=== PATIENT | female | born 1935 ===

== ENCOUNTER 2020-04-29 10:47 | Outpatient (REF) | payer MEDICARE, OTHER, SELFPAY ==
[2020-04-29 12:06] LABS: MANUAL DIFF FLAG NO
[2020-04-29 12:22] LABS: Basophils Absolute Auto 0.1 X10*3/uL (0.0-0.2); Basophils Percent Auto 0.5 % (0-2); Eosinophils Absolute Auto 0.2 X10*3/uL (0.0-0.4); Eosinophils Percent Auto 1.6 % (0-4); Hematocrit 38.8 % (37-47); Hemoglobin 11.9 g/dl (12.0-16.0); Imm Gran Abs Auto 0.03 X10*3/uL (0.00-0.03); Imm Gran Pct Auto 0.3 % (0.0-0.4); Immature Retic Fraction 17.5 % (3.0-15.9); Lymphocytes Absolute Auto 2.6 X10*3/uL (1.2-4.9); Lymphocytes Percent Auto 27.8 % (20-40); Mean Corpuscular HGB Conc 30.7 g/dl (31.0-35.0); Mean Corpuscular Hemoglobin 29.6 pg (27.0-33.0); Mean Corpuscular Volume 96.5 fL (80-98); Mean Platelet Volume 9.4 fL (9.4-12.3); Monocytes Absolute Auto 0.5 X10*3/uL (0.1-1.2); Monocytes Percent Auto 5.4 % (2-11); Neutrophils Percent Auto 64.4 % (45-73); Platelet Count 450 X10*3/uL (160-400); Red Blood Count 4.02 X10*6/uL (4.20-5.50); Red Cell Distribution Width 14.8 % (11.0-16.0); Retic HGB Equivalent 34.5 pg (30.0-35.0); Reticulocytes Absolute 0.039 X10*6/uL (0.026-0.095); White Blood Count 9.4 X10*3/uL (4.8-10.8)
[2020-04-29 12:34] LABS: Alanine Aminotransferase 14 U/L (0-31); Albumin Level 4.1 g/dL (3.5-5.0); Alkaline Phosphatase 85 U/L (39-117); Anion Gap 11 (12-20); Aspartate Amino Transferase 19 U/L (5-31); Bilirubin Total 0.5 mg/dL (0.0-1.0); Blood Urea Nitrogen 18 mg/dL (9-16); Calcium 9.6 mg/dL (8.4-10.2); Carbon Dioxide 33 mmol/L (22-29); Chloride 100 mmol/L (96-108); Estimated Glomerular Filt Rate > 60; Glucose Random 83 mg/dL (60-115); Iron 47 mcg/dL (30-160); Percent Iron Saturation 14 % (15-50); Sodium 140 mmol/L (135-145); Total Iron Binding Capacity 332 mcg/dL (228-428); Total Protein 6.4 g/dL (6.5-8.0); Unsaturated Iron Binding 285 ug/dL
[2020-04-29 12:57] LABS: Ferritin 57 ng/mL (10-250); Thyroid Stimulating Hormone 1.97 uIU/mL (0.32-4.0)
[2020-04-29 13:04] LABS: Folate > 20.0 ng/mL (> or = 4.0); Vitamin B12 508 pg/mL (200-900)
== END 2020-04-29 10:48 | disposition home or self-care (01) ==
LOC: HO.LAB 10:47
PROVIDERS: PCP Internal Medicine; Visit Provider Internal Medicine
DX: D64.9 Anemia, unspecified (principal)
CPT/HCPCS: 36415; 80053; 82607; 82728; 82746; 83540; 84439; 84443; 85025; 85045

== ENCOUNTER 2020-05-10 14:06 | Outpatient (REF) | payer MEDICARE, OTHER, SELFPAY ==
--- NOTE | 2020-05-10 14:09 | MM_ITS ---
EXAMINATION: MM SCREENING DIGITAL BREAST TOMOSYNTHESIS, BILATERAL CLINICAL INFORMATION: Screening. Asymptomatic. The lifetime risk of breast cancer based on the Tyrer-Cuzick Model is 1%. COMPARISON: Mammography: 04/21/2019, 04/15/2018 TECHNIQUE: Digital breast tomosynthesis is performed in both the craniocaudal and mediolateral oblique views along with computer-aided detection (CAD). Synthesized 2D images are generated from the tomosynthesis. FINDINGS: There are scattered areas of fibroglandular density (ACR BI-RADS breast composition Category b). Breast tissue composition borders on heterogeneously dense in the anterior breasts. Parenchymal pattern is similar to prior studies. There is no interval mass or developing density or architectural abnormality. Again, there are scattered bilateral round and coarse and some vascular calcifications. There is biopsy clip marker again seen right breast upper outer quadrant and left breast central mid 9:00 position. Low left axillary tail node again noted. Axillary nodes and skin contours are unremarkable. No significant changes from prior studies. MM/MM tomosynthesis screening BI IMPRESSION: No significant changes from prior studies. ASSESSMENT: BI-RADS 2: Benign RECOMMENDATION: Routine annual mammography screening. This patient's information was entered into a reminder system with a target due date for their next mammogram.
== END 2020-05-10 14:07 | disposition home or self-care (01) ==
LOC: HO.MAMMO 14:06
PROVIDERS: PCP Internal Medicine; Visit Provider Internal Medicine
DX: Z12.31 Encounter for screening mammogram for malignant neoplasm of breast (principal)
CPT/HCPCS: 77063; 77067

== ENCOUNTER 2020-06-12 07:27 | Outpatient (REF) | payer MEDICARE, OTHER, SELFPAY ==
--- NOTE | ~2020-06-12 | XR_ITS ---
EXAMINATION: XR CHEST CLINICAL INFORMATION: Shortness of breath. COMPARISON: 01/13/2020 chest radiographs. TECHNIQUE: 2 views of the chest were obtained. FINDINGS: Kyphotic positioning and low lung volumes limit evaluation. The lungs are clear. The heart and mediastinal structures are unremarkable. There is a moderate-sized hiatal hernia. XR/XR chest 2V IMPRESSION: 1. No acute cardiopulmonary process. 2. Moderate hiatal hernia.
== END 2020-06-12 07:28 | disposition home or self-care (01) ==
LOC: HO.XRAY 07:27
PROVIDERS: PCP Internal Medicine; Visit Provider Internal Medicine
DX: R06.02 Shortness of breath (principal)
CPT/HCPCS: 71046

== ENCOUNTER 2020-11-01 15:20 | Outpatient (REF) | payer MEDICARE, OTHER, SELFPAY ==
[2020-11-01 16:22] LABS: Glucose Urine UA NEG (NEG); Leukocyte Esterase Urine NEG (NEG); Nitrite Urine NEG (NEG); Urine Blood NEG (NEG); Urine Ketones NEG (NEG); Urine Protein NEG (NEG-TRACE)
[2020-11-01 16:44] LABS: Appearance Urine CLEAR; Color Urine YELLOW
== END 2020-11-01 15:21 | disposition home or self-care (01) ==
LOC: HO.LAB 15:20
PROVIDERS: PCP Internal Medicine; Visit Provider Internal Medicine
DX: R30.0 Dysuria (principal); E78.00 Pure hypercholesterolemia, unspecified; L93.0 Discoid lupus erythematosus; G25.81 Restless legs syndrome
CPT/HCPCS: 81003

== ENCOUNTER 2020-11-03 13:08 | Outpatient (REF) | payer MEDICARE, OTHER, SELFPAY ==
--- NOTE | ~2020-11-03 | XR_ITS ---
EXAMINATION: XR LUMBOSACRAL SPINE CLINICAL INFORMATION: Low back pain COMPARISON: January 27, 2017 TECHNIQUE: Three views of the lumbosacral spine. FINDINGS: There is diffuse osteopenia visualized bones. There is chronic superior endplate fracture of L2. There is multilevel degenerative disc disease present with no definite new acute fracture identified. Facet arthropathy is seen L5-S1. Pedicles appear intact. Inferior vena cava filter seen in place. Left iliac artery stent is seen. XR/XR lumbar spine 2-3V IMPRESSION: Diffuse osteopenia with multilevel degenerative disc disease and facet arthropathy. Chronic compression fracture superior endplate of L2. No definite acute fracture identified.
== END 2020-11-03 13:09 | disposition home or self-care (01) ==
LOC: HO.HMGCX 13:08
PROVIDERS: PCP Internal Medicine; Visit Provider Nurse Practitioner Family
DX: M54.5 Low back pain (principal)
CPT/HCPCS: 72100

== ENCOUNTER 2020-12-01 23:11 | Emergency (ER) | payer MEDICARE, OTHER, SELFPAY ==
--- NOTE | ~2020-12-01 | CT_ITS ---
EXAMINATION: CT ANGIOGRAM OF THE CHEST WITH AND WITHOUT CONTRAST (CT PULMONARY ANGIOGRAM FOR PE) CLINICAL INFORMATION: Reason for Exam Left-sided pleuritic chest pain, history of PE rule out PE COMPARISON: 01/13/2020 TECHNIQUE: Prior to contrast administration, noncontrast localization images were obtained. Subsequently, multidetector volumetric imaging was performed from the thoracic inlet to below the diaphragms following the administration of 85 mL Omnipaque 350 intravenous contrast. No contrast reaction reported Sagittal, coronal, and MIP oblique sagittal reformatted images were obtained on the CT workstation, uploaded to PACS, and reviewed. This CT examination was performed using dose optimization techniques as appropriate, variously including the following: *Automated exposure control *Adjustment of mA and/or kV according to patient size (this includes techniques or standardized protocols for targeted exams where dose is matched to indication/reason for exam; i.e. extremities or head) *Use of iterative reconstruction technique Total exam dose-length product 751 mGy-cm FINDINGS: QUALITY OF STUDY/CONTRAST BOLUS: Satisfactory. PULMONARY ARTERIES: No central or segmental pulmonary emboli. THORACIC AORTA: No aneurysm or dissection. LUNG: No focal consolidation or evidence of acute pneumonitis. Moderate emphysema. Mild diffuse bronchial wall thickening without bronchiectasis. Stable 4 mm nodule within right lower lobe. New 5 mm subpleural nodule within the lateral segment of the left lower lobe. Stable 4 mm pleural nodule within the lateral left lower lobe. PLEURA: No pleural effusion or pneumothorax. MEDIASTINUM: Cardiomegaly. No pericardial effusion. No hilar or mediastinal lymphadenopathy. No evidence of septal bowing or right heart strain. No reflux of contrast into the hepatic veins to suggest elevated right heart pressures. CHEST WALL/AXILLA: No axillary or internal mammary lymphadenopathy. OSSEOUS STRUCTURES: No acute or suspicious osseous abnormality. CT/CT angio chest PE protocol IMPRESSION: * No pulmonary embolism. * No aortic aneurysm or dissection. * No pneumonitis or parenchymal consolidation. * Moderate emphysema. * New 5 mm subpleural nodule at the left lung base laterally. Suspect pleural parenchymal scarring or focal atelectasis. As precaution, recommend follow-up CT chest in one year. * Remaining pulmonary nodules are stable. * Cardiomegaly and triple vessel coronary calcifications. VTE: negative
--- NOTE | ~2020-12-01 | CT_ITS ---
EXAMINATION: CT ABDOMEN AND PELVIS WITH CONTRAST CLINICAL INFORMATION: Lower abdominal pain COMPARISON: 08/07/2018 TECHNIQUE: Multidetector volumetric images were obtained from the superior aspect of the liver through the pubic symphysis following administration 85 mL of Omnipaque 350 intravenous contrast. Sagittal and coronal reformatted images were obtained on the technologist's workstation. Oral contrast: No This CT examination was performed using dose optimization techniques as appropriate, variously including the following: *Automated exposure control *Adjustment of mA and/or kV according to patient size (this includes techniques or standardized protocols for targeted exams where dose is matched to indication/reason for exam; i.e. extremities or head) *Use of iterative reconstruction technique DLP: 751 mGy-cm FINDINGS: LIVER, GALLBLADDER, AND BILIARY TREE: The liver is normal in size, shape, and attenuation. No focal hepatic lesion or biliary ductal dilatation is present. Gallbladder unremarkable. PANCREAS: Atrophic. No pancreatic or peripancreatic inflammation. SPLEEN: Normal size. Stable cysts, one of which contains coarse calcifications. ADRENAL GLANDS: Stable smooth low-density thickening of the bilateral adrenal glands. KIDNEYS AND URETERS: The kidneys are normal in size, shape, and attenuation. No hydronephrosis, hydroureter, or calculi seen. No perinephric stranding. BLADDER: Unremarkable. GASTROINTESTINAL TRACT: Scattered colonic diverticula. No evidence of diverticulitis. Normal appendix. Moderate hiatal hernia. Small bowel unremarkable. ABDOMINAL WALL: Small fat-containing umbilical hernia. LYMPH NODES: Normal. VASCULAR: Aorta is densely atherosclerotic. IVC filter present within the infrarenal IVC. PELVIC VISCERA: Hysterectomy. No adnexal abnormalities. OSSEOUS STRUCTURES: No acute or suspicious osseous abnormalities. CT/CT abdomen pelvis w con IMPRESSION: No acute findings within the abdomen or pelvis. Pericolonic diverticulosis, most concentrated within the left colon. No evidence of diverticulitis.
[2020-12-02 00:12] VITALS: BP 169/83; PULSE 101; RESP 20; TEMP 36.9; O2SAT 96; BMI 21.3
--- NOTE | 2020-12-02 01:06 | ECG_ITS ---
Test Reason : SOB Blood Pressure : / mmHG Vent. Rate : 077 BPM Atrial Rate : 077 BPM P-R Int : 208 ms QRS Dur : 078 ms QT Int : 392 ms P-R-T Axes : 031 006 006 degrees QTc Int : 443 ms Normal sinus rhythm Normal ECG When compared with ECG of 13-JAN-2020 04:58, T wave inversion less evident in Inferior leads T wave inversion no longer evident in Anterior leads QT has shortened Referred By: Venkat Veloz Electronically Signed By:ALEKS PEREYRA
--- NOTE | 2020-12-02 01:08 | ED.GENADULT ---
HPI - General Adult General Chief complaint: Dyspnea Stated complaint: pain in lung when breathes Time Seen by Provider: 12/02/20 00:53 Source: patient Mode of arrival: ambulatory Limitations: no limitations History of Present Illness HPI narrative: A 5-year-old female who presents emergency department for evaluation of left-sided pleuritic chest pain. The patient states that the pain came on suddenly 3 days prior. She points to her left lateral chest when asked to localize the pain. The pain is constant. The pain is 8/10 . The pain is worse with breathing and lying down flat. The patient denied fever, chills, cough. Patient has a history of pulmonary embolism diagnosed 01/07/2020. She states that she was sent to [facility] and had a inferior vena cava umbrella device placed. She is currently taking Xarelto. She states she is compliant with this medication. Patient is also complaining of abdominal pain and diarrhea. She states that 1 week prior she had 1 day of diarrhea which resolved without treatment. Since that time she has been having diffuse, intermittent, abdominal pain. She describes it as a cramping sensation. The pain is khtr-sh-[id number] in intensity. She denied frequency, urgency or dysuria. She denied change in her bowel movements Related Data Home Medications Medication Instructions Recorded Confirmed aspirin 81 mg tablet,delayed 81 mg PO DAILY 02/27/20 10/28/20 release (Adult Aspirin Regimen) calcium carbonate 600 mg calcium 600 mg PO DAILY 02/27/20 10/28/20 (1,500 mg) tablet (Calcium) cholecalciferol (vitamin D3) 25 25 mcg PO DAILY 02/27/20 10/28/20 mcg (1,000 unit) capsule clobetasol 0.05 % topical cream 1 applic TOPICAL BID 02/27/20 10/28/20 diclofenac sodium 1 % topical gel 2 g TOPICAL QID 02/27/20 10/28/20 (Voltaren) folic acid 1 mg tablet 1 mg PO DAILY 02/27/20 10/28/20 gabapentin 100 mg capsule 100 mg PO BID 02/27/20 10/28/20 mirabegron 25 mg tablet,extended 25 mg PO DAILY 02/27/20 10/28/20 release 24 hr (Myrbetriq) tramadol 50 mg tablet 50 mg PO TID PRN 02/27/20 10/28/20 methotrexate sodium 2.5 mg tablet See Rx Instructions PO QWEEK 04/29/20 10/28/20 fluticasone fur. 200 mcg-umeclid 1 inh INHALATION DAILY 10/28/20 10/28/20 62.5 mcg-vilant 25 mcg inhalat.powder (Trelegy Ellipta) Previous Rx's Medication Instructions Recorded rosuvastatin 5 mg tablet (Crestor) 5 mg PO DAILY #90 tab 02/27/20 albuterol sulfate 90 mcg/actuation 2 puff INHALATION Q4-6H PRN #3 05/03/20 aerosol inhaler (ProAir HFA) units hydrochlorothiazide 25 mg tablet 25 mg PO DAILY #90 tab 05/25/20 hydralazine 10 mg tablet 10 mg PO BID #60 tab 06/07/20 losartan 100 mg tablet 100 mg PO DAILY #30 tab 06/07/20 ropinirole 0.5 mg tablet 0.5 mg PO BEDTIME #30 tab 10/28/20 acetaminophen 500 mg capsule 500 - 1,000 mg PO QID PRN #30 cap 11/03/20 lidocaine 5 % topical patch 1 patch TOPICAL DAILY #30 ea 11/03/20 esomeprazole magnesium 40 mg 40 mg PO DAILY #90 cap 11/18/20 capsule,delayed release rivaroxaban 10 mg tablet 10 mg PO DAILY 90 Days #90 tab 11/18/20 Allergies Allergy/AdvReac Type Severity Reaction Status Date / Time amlodipine Allergy Unknown leg Verified 10/28/20 10:57 swelling, swelling atorvastatin [Lipitor] Allergy Unknown Unknown Verified 10/28/20 10:57 hydroxychloroquine Allergy Unknown Unknown Verified 10/28/20 10:57 [From Plaquenil] metoprolol Allergy Unknown unknown Verified 10/28/20 10:57 Review of Systems Review of Systems: Yes all other systems are reviewed and are negative PMFSH Past Medical History Medical History Anxiety Arterial occlusive disease Discoid lupus Diverticulitis DVT (deep venous thrombosis) GERD (gastroesophageal reflux disease) Greater saphenous vein embolism Hypercholesterolemia Hypertension Iliac artery occlusion Left leg DVT Osteopenia Pulmonary embolism Pulmonary nodule Restless leg Thrombus of aorta Surgical History Bilateral pulmonary embolism History of breast biopsy History of cataract surgery History of foot surgery History of toe surgery History of total abdominal hysterectomy and bilateral salpingo-oophorectomy Family History Family History Father Hypertension Cancer Mother Hypertension Stroke CVD (cardiovascular disease) Social History Social History Housing: House Alcohol intake: current Alcohol intake frequency: holidays/special occasions only Patient Tobacco Use Status: Former Tobacco user Tobacco use type: Cigarette Second Hand Smoke Exposure: No Advance Directives: No Advance Directives Information Provided: No service: No Current occupational status: retired Physical Exam Vital Signs: Vital Signs: Last Vital Signs Temp 98.4 F 12/02/20 00:12 Pulse 101 H 12/02/20 00:12 Resp 20 12/02/20 00:12 BP 169/83 H 12/02/20 00:12 Pulse Ox 96 12/02/20 00:12 Body Mass Index 21.3 Const: Other: Elderly female, very pleasant and cooperative, appears to be in pydx-ay-adyynces distress secondary to her left-sided chest pain, patient answers all questions appropriately. HENMT: Head: Yes normal to inspection, Yes normocephalic and Yes atraumatic Ears: external ears normal General nose exam: Normal external nose present Face and sinus: Yes normal facial exam Mouth: Normal oral and palatal mucosa present Throat: Yes posterior oropharynx normal Eyes: Periorbital: periorbital findings normal Eyelids: Yes eyelids normal Conjunctivae: conjunctivae normal Sclerae: sclerae normal Corneas: corneas normal Pupils: Equal, round and reactive pupils present Direct Ophthalmoscopy: normal light reflex Neck: Neck: Yes full ROM, Yes no lymphadenopathy, Yes no meningeal signs, Yes trachea midline and Yes supple Chest: Other: Moderate left lateral chest wall tenderness, no vesicular lesions noted in the area of tenderness Resp: Effort & Inspection: normal respiratory effort and able to speak in complete sentences Auscultation: clear to auscultation bilaterally Cardio: Rate: regular rate Rhythm: regular rhythm Heart sounds: S1 normal heart sound present, S2 normal heart sound present and no murmurs GI: Inspection: Yes normal to inspection Palpation (GI): Soft to palpation, nontender, no guarding, not rigid and No hepatosplenomegaly present : General: Yes no CVA tenderness Back/Spine/Pelvis: Back: no CVA tenderness Cervical Spine: normal cervical lordosis Thoracic/Lumbar Spine: thoracic and lumbar spine normal to inspection Skin: Lesions: no lesions Rashes: no rashes Wounds: no wounds Neuro: General: no meningeal signs Cranial nerves: Yes CN's II-XII intact bilaterally and Yes Equal, round and reactive pupils present Cognition (Neuro): normal cognition Motor exam (neuro): 5/5 motor strength present throughout Extrem: General: Yes normal to inspection and Yes full ROM Psych: Appearance: well kempt Mental Status: mental status grossly normal Speech and movement: Normal speech and movement present Affect: normal affect Attitude: cooperative Thought process: Normal thought process present Thought content: Normal thought content present Course Course Course Narrative: 85-year-old female who presents emergency department for evaluation of left lateral pleuritic chest x3 days and diffuse abdominal pain x1 week. 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 Vital signs revealed an elevated BP of 169/83 and tachycardia with a pulse of 101. The patient's examination revealed left lateral chest wall tenderness otherwise was unremarkable. The differential includes but is not limited to pleurisy, pulmonary embolism, pericarditis, pneumonia, abdominal process. I ordered a laboratory workup to include a CBC, CMP, lipase, D-dimer, PT/INR, PTT. EKG will be obtained. CT chest PE protocol and CT scan of the abdomen pelvis will also be obtained. The patient does not want any pain medications at this time. She was ordered to get normal saline 1 L IV. 0201: The patient's 12 EKG revealed a sinus rhythm with first-degree AV block otherwise was unremarkable. The patient's laboratory evaluation and CT scans are pending at the end of my shift. The patient's care was therefore turned over to my colleague, Dr. Leatha Hoskins. Discharge Plan Discharge Prescriptions: No Action albuterol sulfate [ProAir HFA] 90 mcg/actuation HFA aerosol inhaler 2 puff inhalation Q4-6H PRN (Reason: bronchospasm) Qty: 3 RF: 0 hydrochlorothiazide 25 mg tablet 25 mg PO DAILY Qty: 90 RF: 3 losartan 100 mg tablet 100 mg PO DAILY Qty: 30 RF: 0 hydralazine 10 mg tablet 10 mg PO BID Qty: 60 RF: 4 esomeprazole magnesium 40 mg capsule,delayed release(DR/EC) 40 mg PO DAILY Qty: 90 RF: 3 rivaroxaban 10 mg tablet 10 mg PO DAILY 90 Days Qty: 90 RF: 1 lidocaine 5 % adhesive patch,medicated 1 patch topical DAILY Qty: 30 RF: 0 acetaminophen 500 mg capsule 500 - 1,000 mg PO QID PRN (Reason: pain) Qty: 30 RF: 0 diclofenac sodium [Voltaren] 1 % gel 2 g topical QID RF: 0 calcium carbonate [Calcium 600] 600 mg calcium (1,500 mg) tablet 600 mg PO DAILY RF: 0 aspirin [Adult Aspirin Regimen] 81 mg tablet,delayed release (DR/EC) 81 mg PO DAILY RF: 0 folic acid 1 mg tablet 1 mg PO DAILY RF: 0 tramadol 50 mg tablet 50 mg PO TID PRNRF: 0 gabapentin 100 mg capsule 100 mg PO BID RF: 0 cholecalciferol (vitamin D3) 25 mcg (1,000 unit) capsule 25 mcg PO DAILY RF: 0 Myrbetriq 25 mg tablet extended release 24 hr 25 mg PO DAILY RF: 0 clobetasol 0.05 % cream 1 applic topical BID RF: 0 rosuvastatin [Crestor] 5 mg tablet 5 mg PO DAILY Qty: 90 RF: 2 methotrexate sodium 2.5 mg tablet See Rx Instructions PO QWEEK RF: 0 Trelegy Ellipta 200-62.5-25 mcg blister with device 1 inh inhalation DAILY RF: 0 ropinirole 0.5 mg tablet 0.5 mg PO BEDTIME Qty: 30 RF: 3
[2020-12-02 02:35] LABS: MANUAL DIFF FLAG NO
[2020-12-02 02:37] LABS: Basophils Percent Auto 0.2 % (0-2); Hemoglobin 12.6 g/dl (12.0-16.0); Imm Gran Abs Auto 0.03 X10*3/uL (0.00-0.03); Imm Gran Pct Auto 0.5 % (0.0-0.4); Lymphocytes Absolute Auto 1.4 X10*3/uL (1.2-4.9); Lymphocytes Percent Auto 22.5 % (20-40); Mean Corpuscular HGB Conc 31.5 g/dl (31.0-35.0); Mean Corpuscular Hemoglobin 27.4 pg (27.0-33.0); Mean Platelet Volume 9.1 fL (9.4-12.3); Monocytes Absolute Auto 0.1 X10*3/uL (0.1-1.2); Monocytes Percent Auto 1.1 % (2-11); Neutrophils Absolute Auto 4.7 X10*3/uL (2.0-8.3); Neutrophils Percent Auto 75.7 % (45-73); Platelet Count 338 X10*3/uL (160-400); Red Cell Distribution Width 16.1 % (11.0-16.0); White Blood Count 6.3 X10*3/uL (4.8-10.8)
[2020-12-02 02:40] VITALS: BP 168/71; PULSE 75; RESP 19; TEMP 36.9; O2SAT 96
[2020-12-02] MEDS: 0.9 % Sodium Chloride 1,000 ML 999 ML IV (02:42)
[2020-12-02 02:52] LABS: INTERNATIONAL NORM RATIO 1.5 (0.9-1.1); Prothrombin Time 17.7 SEC (9.9-13.0)
[2020-12-02 03:01] LABS: D Dimer < 200 NG/ML
[2020-12-02 03:02] LABS: Alanine Aminotransferase 12 U/L (0-31); Alkaline Phosphatase 80 U/L (39-117); Anion Gap 12 (12-20); Aspartate Amino Transferase 18 U/L (5-31); Bilirubin Total 0.5 mg/dL (0.0-1.0); Blood Urea Nitrogen 28 mg/dL (9-16); Calcium 9.6 mg/dL (8.4-10.2); Carbon Dioxide 29 mmol/L (22-29); Chloride 104 mmol/L (96-108); Creatinine Clr Calc Pharmacy 58.3; Estimated Glomerular Filt Rate > 60; Glucose Random 157 mg/dL (60-115); Lipase 13 U/L (8-78); Sodium 141 mmol/L (135-145); Total Protein 6.3 g/dL (6.5-8.0)
[2020-12-02 03:04] LABS: Troponin-I High Sensitivity 5.6 ng/L (<3.5-17.0)
[2020-12-02 03:08] LABS: Glucose Urine UA NEG (NEG); Leukocyte Esterase Urine NEG (NEG); Nitrite Urine NEG (NEG); Specific Gravity - Urine 1.025 (1.005-1.025); Urine Blood NEG (NEG); Urine Ketones NEG (NEG); Urine Protein NEG (NEG-TRACE)
[2020-12-02 03:12] LABS: Appearance Urine CLEAR; Color Urine YELLOW
[2020-12-02] MEDS: iohexoL 350 MG/ML 100 ML INFUS..BTL 85 ML IV (03:33)
[2020-12-02 04:00] VITALS: BP 140/52; PULSE 78; RESP 13; O2SAT 97
[2020-12-02 05:47] VITALS: BP 155/64; PULSE 76; RESP 18; O2SAT 97
== END 2020-12-02 06:01 | disposition home or self-care (01) ==
PROVIDERS: Emergency Medicine Emergency Medical Services; Emergency Provider Student in an Organized Health Care Education/Training Program; PCP Internal Medicine
DX: R06.00 Dyspnea, unspecified (principal); R06.02 Shortness of breath; R07.9 Chest pain, unspecified; R10.9 Unspecified abdominal pain; Z79.899 Other long term (current) drug therapy; Z87.891 Personal history of nicotine dependence; Z79.01 Long term (current) use of anticoagulants
CPT/HCPCS: 36415; 71275; 74177; 80053; 81003; 83690; 84484; 85025; 85379; 85610; 85730; 93005; 96360; 99284; Q9967

== ENCOUNTER 2021-04-05 07:03 | Outpatient (REF) | payer MEDICARE, OTHER, SELFPAY ==
[2021-04-05 11:19] LABS: MANUAL DIFF FLAG NO
[2021-04-05 11:23] LABS: Basophils Absolute Auto 0.1 X10*3/uL (0.0-0.2); Basophils Percent Auto 0.8 % (0-2); Eosinophils Absolute Auto 0.1 X10*3/uL (0.0-0.4); Eosinophils Percent Auto 1.5 % (0-4); Hematocrit 39.4 % (37.0-47.0); Hemoglobin 12.2 g/dl (12.0-16.0); Imm Gran Abs Auto 0.03 X10*3/uL (0.00-0.03); Imm Gran Pct Auto 0.3 % (0.0-0.4); Immature Retic Fraction 12.2 % (3.0-15.9); Lymphocytes Absolute Auto 2.4 X10*3/uL (1.2-4.9); Lymphocytes Percent Auto 27.5 % (20-40); Mean Corpuscular Hemoglobin 28.6 pg (27.0-33.0); Mean Corpuscular Volume 92.3 fL (80.0-98.0); Mean Platelet Volume 9.7 fL (9.4-12.3); Monocytes Absolute Auto 0.6 X10*3/uL (0.1-1.2); Monocytes Percent Auto 7.3 % (2-11); Neutrophils Absolute Auto 5.5 x10*3/uL (2.0-8.3); Neutrophils Percent Auto 62.6 % (45-73); Platelet Count 371 X10*3/uL (160-400); Red Blood Count 4.27 X10*6/uL (4.20-5.50); Red Cell Distribution Width 15.4 % (11.0-16.0); Retic HGB Equivalent 30.6 pg (30.0-35.0); Reticulocyte Percent 1.7 % (0.5-1.8); Reticulocytes Absolute 0.073 X10*6/uL (0.026-0.095); White Blood Count 8.7 X10*3/uL (4.8-10.8)
[2021-04-05 11:48] LABS: Alanine Aminotransferase 18 U/L (0-31); Albumin Level 3.9 g/dL (3.5-5.0); Alkaline Phosphatase 80 U/L (39-117); Anion Gap 15 (12-20); Aspartate Amino Transferase 26 U/L (5-31); Bilirubin Total 0.4 mg/dL (0.0-1.0); Blood Urea Nitrogen 17 mg/dL (9-16); Calcium 9.3 mg/dL (8.4-10.2); Carbon Dioxide 27 mmol/L (22-29); Chloride 104 mmol/L (96-108); Cholesterol 171 mg/dL; Estimated Glomerular Filt Rate > 60; Glucose Random 98 mg/dL (60-115); HDL Cholesterol 49 mg/dL; Iron 45 mcg/dL (30-160); LDL Cholesterol Calculated 105 mg/dl; Magnesium 1.9 mg/dL (1.6-2.6); Percent Iron Saturation 14 % (15-50); Potassium 4.2 mmol/L (3.3-5.1); Sodium 142 mmol/L (135-145); Total Iron Binding Capacity 322 mcg/dL (228-428); Total Protein 6.1 g/dL (6.5-8.0); Triglycerides 89 mg/dL; Unsaturated Iron Binding 277 ug/dL
[2021-04-05 11:57] LABS: Ferritin 35 ng/mL (10-250); Free T4 (Free Thyroxine) 1.19 ng/dL (0.71-1.85); Thyroid Stimulating Hormone 1.58 uIU/mL (0.32-4.0); Vitamin D 25-OH Total 55.6 ng/mL (>30)
[2021-04-05 12:29] LABS: Erythrocyte Sedimentation Rate 13 MM/HR (0-20)
[2021-04-05 12:57] LABS: Folate 18.8 ng/mL (> or = 4.0); Vitamin B12 500 pg/mL (200-900)
== END 2021-04-05 07:04 | disposition home or self-care (01) ==
LOC: HO.HMGCLDS 07:03
PROVIDERS: PCP Internal Medicine; Visit Provider Internal Medicine
DX: E78.00 Pure hypercholesterolemia, unspecified (principal); L93.0 Discoid lupus erythematosus; G25.81 Restless legs syndrome
CPT/HCPCS: 36415; 80053; 80061; 82306; 82607; 82728; 82746; 83540; 83735; 84439; 84443; 85025; 85045; 85652

== ENCOUNTER 2021-05-16 07:19 | Outpatient (REF) | payer MEDICARE, OTHER, SELFPAY ==
--- NOTE | ~2021-05-16 | MM_ITS ---
EXAMINATION: MM SCREENING DIGITAL BREAST TOMOSYNTHESIS, BILATERAL CLINICAL INFORMATION: Screening. Asymptomatic. The lifetime risk of breast cancer based on the Tyrer-Cuzick Model is 1%. COMPARISON: Mammography: 05/10/2020, 04/21/2019, 04/15/2018 TECHNIQUE: Digital breast tomosynthesis is performed in both the craniocaudal and mediolateral oblique views along with computer-aided detection (CAD). Synthesized 2D images are generated from the tomosynthesis. FINDINGS: There are scattered areas of fibroglandular density (ACR BI-RADS breast composition Category b). There are no significant masses, abnormal calcifications, or other abnormalities. Parenchymal pattern is similar to prior studies. No developing density or architectural abnormality. There is biopsy clip markers again seen mid 12:00 left breast and right breast upper outer quadrants, respectively. There are scattered bilateral benign-appearing grouped calcifications in both breasts similar in distribution and number. No significant changes. MM/MM tomosynthesis screening BI IMPRESSION: No mammographic evidence of malignancy. ASSESSMENT: BI-RADS 2: Benign RECOMMENDATION: Routine annual mammography screening. This patient's information was entered into a reminder system with a target due date for their next mammogram.
== END 2021-05-16 07:20 | disposition home or self-care (01) ==
LOC: HO.MAMMO 07:19
PROVIDERS: PCP Internal Medicine; Visit Provider Internal Medicine
DX: Z12.31 Encounter for screening mammogram for malignant neoplasm of breast (principal)
CPT/HCPCS: 77063; 77067

== ENCOUNTER 2021-08-26 15:48 | Outpatient (REF) | payer MEDICARE, OTHER, SELFPAY ==
--- NOTE | ~2021-08-26 | XR_ITS ---
EXAMINATION: XR ABDOMEN COMPLETE CLINICAL INDICATION: Constipation, unspecified. COMPARISON: None TECHNIQUE: 2 views of the abdomen. FINDINGS: Moderate to large volume fecal residual is noted throughout the entire large bowel without evidence of any bowel distention or air-fluid level. Note is also made of inferior vena cava filter, appear in good position. Extensive atherosclerotic disease of the aortoiliac arteries and left common iliac arterial wall stent are present. Moderate diffuse osteopenia. XR/XR abdomen min 2V IMPRESSION: Moderate to large volume fecal residual throughout the entire large bowel without any radiographic evidence of any bowel distention or air-fluid level.
== END 2021-08-26 15:49 | disposition home or self-care (01) ==
LOC: HO.HMGCX 15:48
PROVIDERS: PCP Internal Medicine; Visit Provider Hospitalist
DX: K59.00 Constipation, unspecified (principal)
CPT/HCPCS: 74019

== ENCOUNTER 2021-09-19 10:52 | Emergency (ER) | payer MEDICARE, OTHER, SELFPAY ==
--- NOTE | ~2021-09-19 | US_ITS ---
EXAMINATION: US ABDOMEN LIMITED CLINICAL INFORMATION: Right upper quadrant pain. COMPARISON: None TECHNIQUE: Real-time imaging of the right upper quadrant abdominal viscera. FINDINGS: GALLBLADDER: There are no echogenic gallstones or wall thickening. No pericholecystic fluid collection. There is no tenderness in right upper quadrant. FLUID: None. US/US abdomen limited IMPRESSION: Unremarkable gallbladder ultrasound.
--- NOTE | ~2021-09-19 | CT_ITS ---
EXAMINATION: CT ABDOMEN AND PELVIS WITHOUT CONTRAST CLINICAL INFORMATION: Right upper quadrant pain. COMPARISON: None TECHNIQUE: Multidetector volumetric imaging was performed from the superior aspect of the liver through the pubic symphysis. Sagittal and coronal reformatted images were obtained on the technologist's workstation. This CT examination was performed using dose optimization techniques as appropriate, variously including the following: *Automated exposure control *Adjustment of mA and/or kV according to patient size (this includes techniques or standardized protocols for targeted exams where dose is matched to indication/reason for exam; i.e. extremities or head) *Use of iterative reconstruction technique DLP: 464 mGy-cm FINDINGS: LUNG BASES: There is a large hiatal hernia. There is patchy atelectatic changes bilateral lower lobe anterior segments. LIVER, GALLBLADDER, AND BILIARY TREE: The liver is normal in size, shape, and attenuation. No focal hepatic lesion or biliary ductal dilatation is present. The gallbladder is unremarkable with no evidence of radiopaque gallstones, gallbladder wall thickening, or obvious pericholecystic inflammatory changes. PANCREAS: Unremarkable. SPLEEN: There is a 2.4 cm hypodense lesion along the lateral midpole and a smaller hypodense 1.3 cm lesion with eccentric calcification. These may represent simple and complex cysts. Rest of the spleen is unremarkable.. ADRENAL GLANDS: There is bilateral mild hypertrophy adrenal glands. KIDNEYS AND URETERS: The kidneys are normal in size, shape, and attenuation. No hydronephrosis, hydroureter, or calculi seen. No perinephric stranding. BLADDER: Unremarkable. GASTROINTESTINAL TRACT: There is scattered stool and diverticuli seen throughout the colon without distention. The small bowel loops are normal caliber. Appendix is normal caliber. No inflammatory process, free air free fluid seen. ABDOMINAL WALL: There is a small lumbar canal hernia containing fat. LYMPH NODES: Normal. VASCULAR: The abdominal aorta is atherosclerotic and calcified without aneurysmal dilatation. There is a infrarenal IVC filter. PELVIC VISCERA: No free air or free fluid seen. The uterus is absent or atrophied. OSSEOUS STRUCTURES: There is vacuum disc Degenerative disc changes throughout lumbar spine. There is grade 1 retrolisthesis L1 over L2 with loss of superior endplate height L2 vertebra. CT/CT abdomen pelvis wo con IMPRESSION: No acute intra-abdominal process seen, especially the gallbladder and the appendix appears normal caliber. Significant constipation without obstruction. 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 They are unchanged to previous CT abdomen 12/02/2020. No major change compared to previous CT 12/02/2020 Fleischner guidelines were followed.
--- NOTE | ~2021-09-19 | XR_ITS ---
EXAMINATION: PORTABLE CHEST 1 VIEW CLINICAL INFORMATION: sob, abd pain . COMPARISON: 06/12/2020. TECHNIQUE: Portable frontal view of the chest was obtained. FINDINGS: The lungs are well expanded. No focal infiltrate, effusion, edema, or pneumothorax. Cardiac and mediastinal silhouettes remain prominent with vascular calcification in aorta and probable moderate-sized hiatal hernia No acute bony abnormality seen. XR/XR chest 1V IMPRESSION: Chronic appearing changes similar to the prior study. Moderate-sized hiatal hernia noted.
[2021-09-19 12:11] VITALS: BP 187/90; PULSE 107; RESP 20; TEMP 36.3; O2SAT 94; BMI 29.2
[2021-09-19 12:24] LABS: MANUAL DIFF FLAG NO
[2021-09-19 12:25] LABS: Basophils Absolute Auto 0.1 X10*3/uL (0.0-0.2); Basophils Percent Auto 0.6 % (0-2); Eosinophils Absolute Auto 0.1 X10*3/uL (0.0-0.4); Eosinophils Percent Auto 0.6 % (0-4); Hematocrit 39.1 % (37.0-47.0); Hemoglobin 12.1 g/dl (12.0-16.0); Imm Gran Abs Auto 0.06 X10*3/uL (0.00-0.03); Imm Gran Pct Auto 0.5 % (0.0-0.4); Lymphocytes Percent Auto 17.8 % (20-40); Mean Corpuscular HGB Conc 30.9 g/dl (31.0-35.0); Mean Corpuscular Volume 90.5 fL (80.0-98.0); Mean Platelet Volume 8.8 fL (9.4-12.3); Monocytes Absolute Auto 0.7 X10*3/uL (0.1-1.2); Monocytes Percent Auto 6.1 % (2-11); Neutrophils Absolute Auto 8.5 x10*3/uL (2.0-8.3); Neutrophils Percent Auto 74.4 % (45-73); Platelet Count 397 X10*3/uL (160-400); Red Blood Count 4.32 X10*6/uL (4.20-5.50); Red Cell Distribution Width 15.5 % (11.0-16.0); White Blood Count 11.5 X10*3/uL (4.8-10.8)
[2021-09-19 12:42] LABS: Anion Gap 12 (12-20); Blood Urea Nitrogen 12 mg/dL (9-16); Calcium 9.6 mg/dL (8.4-10.2); Carbon Dioxide 27 mmol/L (22-29); Chloride 103 mmol/L (96-108); Creatinine Clr Calc Pharmacy 43.6; Estimated Glomerular Filt Rate > 60; Glucose Random 114 mg/dL (60-115); Lipase 8 U/L (8-78); Potassium 4.4 mmol/L (3.3-5.1); Sodium 138 mmol/L (135-145)
--- NOTE | 2021-09-19 20:20 | ED.ABDPAIN ---
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 He tells me that she has had an episode like this in the past that she got evaluated for, they told her that she was constipated, prescribed her lactulose, she tells me she is still taking lactulose however little to no relief. She tells me she is currently having bowel movements and is not experiencing constipation. She tells me that a few days ago she lifted an air conditioning unit which may have precipitated pain. Patient appears uncomfortable upon my examination holding her abdomen right upper quadrant. She is not able to tell me what makes the pain better or worse but she tells me that it is there at all times and it is severe in nature. She tells me that she has vomited over the past few weeks nearly every night, and she notes that her appetite has been decreased. Denies chest pain, shortness of breath, fevers, chills, melena, hematochezia, diarrhea, fevers, weakness. Patient has tried tramadol for pain relief however little to no relief. MD elicited complaint: abdominal pain Pertinent past history: none Location: RUQ Severity: severe Quality: other (Hard time explaining what the pain feels like.) Radiation: none Migration to: no migration Exacerbating factors: nothing Relieving factors: nothing Associated symptoms: denies other symptoms Related Data Home Medications Medication Instructions Recorded Confirmed aspirin 81 mg tablet,delayed 81 mg PO DAILY 02/27/20 09/13/21 release (Adult Aspirin Regimen) calcium carbonate 600 mg calcium 600 mg PO DAILY 02/27/20 09/13/21 (1,500 mg) tablet (Calcium) cholecalciferol (vitamin D3) 25 25 mcg PO DAILY 02/27/20 09/13/21 mcg (1,000 unit) capsule clobetasol 0.05 % topical cream 1 applic TOPICAL BID 02/27/20 09/13/21 gabapentin 100 mg capsule 100 mg PO BID 02/27/20 09/13/21 mirabegron 25 mg tablet,extended 25 mg PO DAILY 02/27/20 09/13/21 release 24 hr (Myrbetriq) tramadol 50 mg tablet 50 mg PO TID PRN 02/27/20 09/13/21 fluticasone fur. 200 mcg-umeclid 1 inh INHALATION DAILY 10/28/20 09/13/21 62.5 mcg-vilant 25 mcg inhalat.powder (Trelegy Ellipta) Previous Rx's Medication Instructions Recorded acetaminophen 500 mg capsule 500 - 1,000 mg PO QID PRN #30 cap 11/03/20 lidocaine 5 % topical patch 1 patch TOPICAL DAILY #30 ea 11/03/20 diclofenac sodium 1 % topical gel 2 g TOPICAL QID #3 tube 12/28/20 rosuvastatin 5 mg tablet (Crestor) 5 mg PO DAILY #90 tab 01/21/21 albuterol sulfate 90 mcg/actuation 2 puff INHALATION Q4-6H PRN #25.5 g 02/13/21 aerosol inhaler (ProAir HFA) losartan 50 mg tablet 100 mg PO DAILY #180 tab 04/02/21 ropinirole 0.5 mg tablet 0.5 mg PO BEDTIME 90 Days #90 tab 04/14/21 rivaroxaban 10 mg tablet 10 mg PO DAILY 90 Days #90 tab 05/01/21 blood pressure monitor #1 ea 06/21/21 nifedipine 30 mg tablet,extended 30 mg PO DAILY 90 Days #90 tab 07/25/21 release 24 hr esomeprazole magnesium 40 mg 40 mg PO DAILY #90 cap 09/13/21 capsule,delayed release lactulose 20 gram/30 mL oral 20 g (30 mL) PO BID PRN 90 Days 09/13/21 solution #5400 ml Allergies Allergy/AdvReac Type Severity Reaction Status Date / Time amlodipine Allergy Unknown leg Verified 09/19/21 12:11 swelling, swelling atorvastatin [Lipitor] Allergy Unknown Unknown Verified 09/19/21 12:11 hydroxychloroquine Allergy Unknown Unknown Verified 09/19/21 12:11 [From Plaquenil] metoprolol Allergy Unknown unknown Verified 09/19/21 12:11 hydrochlorothiazide AdvReac Intermediate leg cramps Verified 09/19/21 12:11 Review of Systems Review of Systems Constitutional : No Weight loss, No Fever, No Chills, No Fatigue, No Malaise ENT/Mouth : No sore throat, No Rhinorrhea Eyes: No Eye Pain, No Swelling, No Redness Cardiovascular : No Chest Pain, No SOB, No Dyspnea on Exertion, No Orthopnea, No Edema, No Palpitations Respiratory : No Cough, No Sputum, No Wheezing Gastrointestinal : + Nausea, + Vomiting, No Diarrhea, No Constipation, + abdominal Pain, No Hematochezia, No Melena Genitourinary : No Dysuria, No Urinary Frequency, No Hematuria, Musculoskeletal : No joint pain, No Myalgias, No Joint Swelling Skin : No Skin Lesions, No rash Neuro : No Weakness, No Numbness, No Dizziness, No Headache Psych : No Anxiety/Panic, No Depression All other systems reviewed and are negative Yes all other systems are reviewed and are negative [facility] Past Medical History Attestation statement: The following information was validated with the patient. Source: old records reviewed and nursing notes reviewed Medical History Anxiety Arterial occlusive disease Discoid lupus Diverticulitis DVT (deep venous thrombosis) GERD (gastroesophageal reflux disease) Greater saphenous vein embolism Hypercholesterolemia Hypertension Iliac artery occlusion Left leg DVT Osteopenia Pulmonary embolism Pulmonary nodule Restless leg Thrombus of aorta Surgical History Bilateral pulmonary embolism History of breast biopsy History of cataract surgery History of foot surgery History of toe surgery History of total abdominal hysterectomy and bilateral salpingo-oophorectomy Family History Family History Father Hypertension Cancer Mother Hypertension Stroke CVD (cardiovascular disease) Social History Social History Housing: House Alcohol intake: current Alcohol intake frequency: holidays/special occasions only Patient Tobacco Use Status: Former Tobacco user Tobacco use type: Cigarette e-Cigarette/Vaping Use: Never Used Second Hand Smoke Exposure: No Advance Directives: No Advance Directives Information Provided: No service: No Current occupational status: retired Cognitive needs: No Hearing needs: No Vision needs: Yes Physical Exam ED Vital Signs: Vital Signs - 24 hr 05/16/22 12:11 09/19/21 21:33 09/19/21 23:10 Temperature 97.3 F 96.0 F L Pulse Rate 107 H 84 Respiratory Rate 20 18 Blood Pressure 187/90 H 186/84 H Pulse Oximetry 94 92 96 BMI result Body Mass Index 29.2 VSS Appearance: Alert.? Oriented X3.? No acute distress.? Head: Normocephalic, atraumatic, no step-offs or deformities Eyes: Pupils equal, round and reactive to light.? ENT: Pharynx normal.? Neck: Normal inspection.? Neck supple.? CVS: Normal heart rate and rhythm.? Pulses normal.? Respiratory: No respiratory distress.? Breath sounds normal.? Abdomen: Soft and nontender.? Skin: Skin warm and dry.? Normal skin color.? Normal skin turgor.? Extremities: No lower extremity edema.? No calf ttp. 5/5 strength to bilateral upper and lower extremities Back: No midline tenderness, no C-spine tenderness, full range of motion, no CVA tenderness bilaterally Neuro: Oriented X 3.? No motor deficit.? No sensory deficit. CN 2-12 intact Course Reevaluation(s) Reevaluation #1: Patient noted to have a slight leukocytosis likely reactive from pain/discomfort no acute electrolyte abnormalities requiring intervention, lipase within normal limits, alk-phos slightly elevated. Chest x-ray with chronic appearing changes, moderate-size hiatal hernia is noted however patient is aware of these findings. Ultrasound of the gallbladder with an unremarkable gallbladder no pericholecystic fluid. CT of the abdomen pelvis with no acute intra-abdominal processes, no cholecystitis or appendicitis appreciated. There is significant constipation without obstruction therefore patient will receive a soapsuds enema this is likely what is contributing to patient's abdominal discomfort, a simple unlikely complex cyst of the spleen is noted however has been seen on previous scans. Attached CT scan results to patient's discharge so she could follow-up with her PCP. Urine pending. Patient has not yet received a soapsuds enema however she will be receiving this shortly Time: 00:17 Reevaluation #2: Tried to do a digital disimpaction however unsuccessful as most of the stool is not in the rectum. Spoke to my attendig recommends dulocolax 5 mg and 300 ml of mag citrate. Patient complaining of severe pain, she will be given 0.5 mg of Dilaudid. Time: 00:54 MDM - Abdominal Pain MDM Narrative Medical decision making narrative: 2021 85-year-old female presents with right upper quadrant pain with radiation to back times a few weeks. Patient also reports associated nausea and vomiting nearly every night. Unable to specify what makes pain better or worse. Patient taking tramadol without relief. Patient did not tell me that she was evaluated earlier today at urgent care however it is noted that she went to urgent care with the same complaint, she was advised to come into the emergency department, at that time patient did not report nausea or vomiting. Physical examination with pain to palpation with right upper quadrant, positive Kim sign. Normoactive bowel sounds. Regular rate and rhythm. Lungs clear. Abdomen soft. Neuro exam is nonfocal Plan at this time is labs, imaging. Will rule out cholecystitis, choledocholithiasis, appendicitis, pancreatitis, UTI. Medical Records Attestation: I reviewed the patient's medical records. Lab Data Attestation: I reviewed the patient's lab results. Result diagrams: 09/19/21 12:20 09/19/21 21:49 Labs: Lab Results 09/19/21 09/19/21 09/19/21 Range/Units 12:20 12:20 21:49 WBC 11.5 H (4.8-10.8) X10*3/uL RBC 4.32 (4.20-5.50) X10*6/uL Hgb 12.1 (12.0-16.0) g/dl Hct 39.1 (37.0-47.0) % MCV 90.5 (80.0-98.0) fL MCH 28.0 (27.0-33.0) pg MCHC 30.9 L (31.0-35.0) g/dl RDW 15.5 (11.0-16.0) % Plt Count 397 (160-400) X10*3/uL MPV 8.8 L (9.4-12.3) fL Immature Gran % (Auto) 0.5 H (0.0-0.4) % Neut % (Auto) 74.4 H (45-73) % Lymph % (Auto) 17.8 L (20-40) % [place] % (Auto) 6.1 (2-11) % Eos % (Auto) 0.6 (0-4) % Baso % (Auto) 0.6 (0-2) % Lymph # (Auto) 2.0 (1.2-4.9) X10*3/uL [place] # (Auto) 0.7 (0.1-1.2) X10*3/uL Eos # (Auto) 0.1 (0.0-0.4) X10*3/uL Baso # (Auto) 0.1 (0.0-0.2) X10*3/uL Abs Immat Gran (auto) 0.06 H (0.00-0.03) X10*3/uL Absolute Neuts (auto) 8.5 H (2.0-8.3) x10*3/uL Absolute Nucleated RBC 0.000 (0.0-0.012) X10*3/uL Nucleated RBC % (auto) 0.0 (0.0-0.2) /100WBC Sodium 138 141 (135-145) mmol/L Potassium 4.4 4.3 (3.3-5.1) mmol/L Chloride 103 103 (96-108) mmol/L Carbon Dioxide 27 29 (22-29) mmol/L Anion Gap 12 13 (12-20) BUN 12 11 (9-16) mg/dL Creatinine 0.84 0.85 (0.5-1.4) mg/dL Estim Creat Clear Calc 43.6 43.1 Estimated GFR > 60 > 60 Random Glucose 114 103 (60-115) mg/dL Calcium 9.6 10.7 H D (8.4-10.2) mg/dL Total Bilirubin 0.6 (0.0-1.0) mg/dL AST 24 (5-31) U/L ALT 16 (0-31) U/L Alkaline Phosphatase 127 H D (39-117) U/L Total Protein 7.4 D (6.5-8.0) g/dL Albumin 4.4 (3.5-5.0) g/dL Lipase 8 (8-78) U/L 09/19/21 Range/Units 21:49 WBC (4.8-10.8) X10*3/uL RBC (4.20-5.50) X10*6/uL Hgb (12.0-16.0) g/dl Hct (37.0-47.0) % MCV (80.0-98.0) fL MCH (27.0-33.0) pg MCHC (31.0-35.0) g/dl RDW (11.0-16.0) % Plt Count (160-400) X10*3/uL MPV (9.4-12.3) fL Immature Gran % (Auto) (0.0-0.4) % Neut % (Auto) (45-73) % Lymph % (Auto) (20-40) % [place] % (Auto) (2-11) % Eos % (Auto) (0-4) % Baso % (Auto) (0-2) % Lymph # (Auto) (1.2-4.9) X10*3/uL [place] # (Auto) (0.1-1.2) X10*3/uL Eos # (Auto) (0.0-0.4) X10*3/uL Baso # (Auto) (0.0-0.2) X10*3/uL Abs Immat Gran (auto) (0.00-0.03) X10*3/uL Absolute Neuts (auto) (2.0-8.3) x10*3/uL Absolute Nucleated RBC (0.0-0.012) X10*3/uL Nucleated RBC % (auto) (0.0-0.2) /100WBC Sodium (135-145) mmol/L Potassium (3.3-5.1) mmol/L Chloride (96-108) mmol/L Carbon Dioxide (22-29) mmol/L Anion Gap (12-20) BUN (9-16) mg/dL Creatinine (0.5-1.4) mg/dL Estim Creat Clear Calc Estimated GFR Random Glucose (60-115) mg/dL Calcium (8.4-10.2) mg/dL Total Bilirubin (0.0-1.0) mg/dL AST (5-31) U/L ALT (0-31) U/L Alkaline Phosphatase (39-117) U/L Total Protein (6.5-8.0) g/dL Albumin (3.5-5.0) g/dL Lipase 10 (8-78) U/L Critical Care Time Critical Care Time Critical Care Time: No Discharge Plan Discharge Clinical Impression: Abdominal pain, Nausea & vomiting Patient Disposition: Still a Patient Instructions: Abdominal Pain (ED) Additional Instructions: Take your medications as prescribed. If you were prescribed antibiotics today, it is important that you take your medication to their entirety, do not skip any doses, do not finish them early. Follow-up with your primary care provider this week. Follow-up with Gastroenterology of this pain continues. Return to the emergency department with new or worsening symptoms. Such as fevers, chills, chest pain, shortness of breath, nausea, vomiting, dizziness, headache, vision changes, lethargy, bloody stool In case of emergency call 911 CT/CT abdomen pelvis wo con IMPRESSION: No acute intra-abdominal process seen, especially the gallbladder and the appendix appears normal caliber. Significant constipation without obstruction. 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 They are unchanged to previous CT abdomen 12/02/2020. No major change compared to previous CT 12/02/2020 Fleischner guidelines were followed. Prescriptions: No Action rosuvastatin [Crestor] 5 mg tablet 5 mg PO DAILY Qty: 90 2RF albuterol sulfate [ProAir HFA] 90 mcg/actuation HFA aerosol inhaler 2 puff inhalation Q4-6H PRN (Reason: for muscle spasm) Qty: 25.5 6RF losartan 50 mg tablet 100 mg PO DAILY Qty: 180 3RF ropinirole 0.5 mg tablet 0.5 mg PO BEDTIME 90 Days Qty: 90 1RF Rx Instructions: administer 1-3 hours before bedtime rivaroxaban 10 mg tablet 10 mg PO DAILY 90 Days Qty: 90 1RF Rx Instructions: must administer with evening meal. Hematology recommended this does September 2020 prophylactic nifedipine 30 mg tablet extended release 24 hr 30 mg PO DAILY 90 Days Qty: 90 3RF lidocaine 5 % adhesive patch,medicated 1 patch topical DAILY Qty: 30 0RF Rx Instructions: leave on most painful area for up to 12 hrs acetaminophen 500 mg capsule 500 - 1,000 mg PO QID PRN (Reason: pain) Qty: 30 0RF calcium carbonate [Calcium 600] 600 mg calcium (1,500 mg) tablet 600 mg PO DAILY 0RF aspirin [Adult Aspirin Regimen] 81 mg tablet,delayed release (DR/EC) 81 mg PO DAILY 0RF tramadol 50 mg tablet 50 mg PO TID PRN0RF gabapentin 100 mg capsule 100 mg PO BID 0RF cholecalciferol (vitamin D3) 25 mcg (1,000 unit) capsule 25 mcg PO DAILY 0RF Myrbetriq 25 mg tablet extended release 24 hr 25 mg PO DAILY 0RF clobetasol 0.05 % cream 1 applic topical BID 0RF Trelegy Ellipta 200-62.5-25 mcg blister with device 1 inh inhalation DAILY 0RF diclofenac sodium 1 % gel 2 g topical QID Qty: 3 3RF Rx Instructions: apply to single elbow, wrist or hand; for hand includes palm/fingers/back of hand (DME) blood pressure monitor Kit See Rx Instructions .Route Qty: 1 0RF Rx Instructions: As directed esomeprazole magnesium 40 mg capsule,delayed release(DR/EC) 40 mg PO DAILY Qty: 90 3RF lactulose 20 gram/30 mL solution 20 g PO BID PRN (Reason: constipation) 90 Days Qty: 5400 0RF Referrals: Po,Fabio Gonzalez MD [Primary Care Provider] - 2 days Asim Smith [Physician] - 1 week Stand Alone Forms: Work/School Release
[2021-09-19] MEDS: traMADoL HCL 50 MG TABLET PO (20:38)
[2021-09-19 21:33] VITALS: BP 186/84; PULSE 84; RESP 18; TEMP 35.6; O2SAT 92
[2021-09-19 22:09] LABS: Lipase 10 U/L (8-78)
[2021-09-19 22:11] LABS: Alanine Aminotransferase 16 U/L (0-31); Albumin Level 4.4 g/dL (3.5-5.0); Alkaline Phosphatase 127 U/L (39-117); Anion Gap 13 (12-20); Aspartate Amino Transferase 24 U/L (5-31); Bilirubin Total 0.6 mg/dL (0.0-1.0); Blood Urea Nitrogen 11 mg/dL (9-16); Calcium 10.7 mg/dL (8.4-10.2); Carbon Dioxide 29 mmol/L (22-29); Chloride 103 mmol/L (96-108); Creatinine Clr Calc Pharmacy 43.1; Estimated Glomerular Filt Rate > 60; Glucose Random 103 mg/dL (60-115); Potassium 4.3 mmol/L (3.3-5.1); Sodium 141 mmol/L (135-145); Total Protein 7.4 g/dL (6.5-8.0)
[2021-09-19] MEDS: 0.9 % Sodium Chloride 1,000 ML 999 ML IV (23:06)
[2021-09-19 23:10] VITALS: O2SAT 96
[2021-09-20 01:43] VITALS: BP 147/60; PULSE 82; RESP 16; O2SAT 93
[2021-09-20] MEDS: bisacodyL 5 MG TABLET.DR PO (01:45)
[2021-09-20] MEDS: Magnesium Citrate 300 ML SOLUTION PO (01:45)
[2021-09-20] MEDS: HYDROmorphone HCl 0.5 MG/0.5 ML SYRINGE IVPUSH ×2 (01:46→03:07)
[2021-09-20 02:48] LABS: Appearance Urine CLEAR; Color Urine YELLOW; Glucose Urine UA NEG (NEG); Leukocyte Esterase Urine TRACE (NEG); Nitrite Urine NEG (NEG); Urine Blood NEG (NEG); Urine Ketones 15 MG/DL (NEG); Urine Protein NEG (NEG-TRACE)
[2021-09-20 03:07] LABS: RBC Urine 0-2 /HPF (0); Squamous Epithelial Cell Urine 1+ /LPF; WBC Clumps Urine NOTED
--- NOTE | 2021-09-20 03:21 | PC.NURSE ---
Patient given soap suds enema, small bowel movement noted.
[2021-09-20 04:00] VITALS: BP 153/87; PULSE 83; RESP 16; O2SAT 97
[2021-09-20 05:18] VITALS: BP 141/67; PULSE 75; RESP 16; TEMP 36.7; O2SAT 96
== END 2021-09-20 06:00 | disposition home or self-care (01) ==
PROVIDERS: Internal Medicine; Physician Assistant; Emergency Provider Student in an Organized Health Care Education/Training Program; PCP Internal Medicine
DX: R10.11 Right upper quadrant pain (principal); R06.02 Shortness of breath; R10.9 Unspecified abdominal pain; R11.2 Nausea with vomiting, unspecified; M79.10 Myalgia, unspecified site; Z79.899 Other long term (current) drug therapy
CPT/HCPCS: 36415; 71045; 74176; 76705; 80048; 80053; 81001; 83690; 85025; 96361; 96374; 96376; 99284; J1170

== ENCOUNTER 2021-11-17 12:34 | Outpatient (REF) | payer MEDICARE, OTHER, SELFPAY ==
--- NOTE | ~2021-11-17 | US_ITS ---
EXAMINATION: US VENOUS ULTRASOUND WITH DOPPLER LOWER EXTREMITY, BILATERAL CLINICAL INFORMATION: Bilateral lower extremity swelling. COMPARISON: September 01, 2019 TECHNIQUE: Ultrasound of the deep veins is performed from the hip to the calf with compression sonography and color and pulse Doppler assessment. Spectral analysis with color-flow imaging is performed. FINDINGS: RIGHT: There is normal venous compression and respiratory variation and augmented flow. The visualized common femoral vein, superficial femoral vein, profunda femoral vein, popliteal vein, and the trifurcation region shows no evidence of deep venous thrombosis. Within the right medial popliteal fossa is a 6.1 x 0.9 x 4.5 cm Dumont's cyst. LEFT: There is normal venous compression and respiratory variation and augmented flow. The visualized common femoral vein, superficial femoral vein, profunda femoral vein, popliteal vein, and the trifurcation region shows no evidence of deep venous thrombosis. There is no significant popliteal fossa cyst. If the patient's symptoms persist, followup ultrasound in 5 days 7 days might be of value to exclude proximal propagation from a non-visualized calf vein. US/US venous duplex LE BI IMPRESSION: No evidence of DVT involving either lower extremity. Right popliteal fossa Dumont's cyst measuring up to 6.1 cm.
== END 2021-11-17 12:35 | disposition home or self-care (01) ==
LOC: HO.US 12:34
PROVIDERS: PCP Internal Medicine; Visit Provider Internal Medicine
DX: M79.89 Other specified soft tissue disorders (principal); R60.9 Edema, unspecified
CPT/HCPCS: 93970

== ENCOUNTER 2021-12-30 14:23 | Outpatient (REF) | payer MEDICARE, OTHER, SELFPAY ==
--- NOTE | ~2021-12-30 | XR_ITS ---
EXAMINATION: XR RIBS, LEFT CLINICAL INFORMATION: Left anterior rib pain for months. No known injury. Chest pain. R07.9. COMPARISON: Chest radiographs 09/19/2021, 06/12/2020; CTA chest 12/02/2020. TECHNIQUE: 3 views of the left ribs were obtained. FINDINGS: There is no pneumothorax, pleural reaction, or effusion. Large hiatal hernia is again noted. Heart is upper limits of normal size. The vascularity is normal. The left lung is clear. There are some scattered subpleural opacities lateral right hemithorax, some similar to CT chest 2020. There is no lobar or segmental airspace consolidation. The hilar contours are unremarkable. No visible rib fracture or rib destructive process. No callus formation or periostitis seen. There is an IVC filter in the abdomen. XR/XR ribs LT min 3V w CXR1V IMPRESSION: -No visible left rib fracture or rib destructive process. -Chronic hiatal hernia. -No pneumothorax or pleural reaction.
== END 2021-12-30 14:24 | disposition home or self-care (01) ==
LOC: HO.XRAY 14:23
PROVIDERS: PCP Internal Medicine; Visit Provider Internal Medicine
DX: R07.9 Chest pain, unspecified (principal)
CPT/HCPCS: 71101

== ENCOUNTER → 2022-03-03 14:43 | Outpatient (BNVA) | payer MEDICARE, OTHER, SELFPAY | PROVIDERS: PCP Internal Medicine; Visit Provider Hospitalist | DX: J44.9 Chronic obstructive pulmonary disease, unspecified (principal); R91.8 Other nonspecific abnormal finding of lung field; J96.10 Chronic respiratory failure, unspecified whether with hypoxia or hypercapnia; K44.9 Diaphragmatic hernia without obstruction or gangrene | CPT/HCPCS: 94618; 99202 ==

== ENCOUNTER 2022-03-14 07:40 | Outpatient (REF) | payer MEDICARE, OTHER, SELFPAY ==
[2022-03-14 08:01] LABS: MANUAL DIFF FLAG NO
[2022-03-14 08:34] LABS: Basophils Absolute Auto 0.1 X10*3/uL (0.0-0.2); Basophils Percent Auto 0.7 % (0-2); Eosinophils Absolute Auto 0.1 X10*3/uL (0.0-0.4); Eosinophils Percent Auto 1.2 % (0-4); Hematocrit 41.7 % (37.0-47.0); Hemoglobin 12.8 g/dl (12.0-16.0); Imm Gran Abs Auto 0.05 X10*3/uL (0.00-0.03); Imm Gran Pct Auto 0.4 % (0.0-0.4); Lymphocytes Absolute Auto 4.3 X10*3/uL (1.2-4.9); Lymphocytes Percent Auto 35.7 % (20-40); Mean Corpuscular HGB Conc 30.7 g/dl (31.0-35.0); Mean Corpuscular Hemoglobin 28.7 pg (27.0-33.0); Mean Corpuscular Volume 93.5 fL (80.0-98.0); Mean Platelet Volume 9.4 fL (9.4-12.3); Monocytes Percent Auto 8.1 % (2-11); Neutrophils Absolute Auto 6.4 x10*3/uL (2.0-8.3); Neutrophils Percent Auto 53.9 % (45-73); Platelet Count 336 X10*3/uL (160-400); Red Blood Count 4.46 X10*6/uL (4.20-5.50); Red Cell Distribution Width 15.9 % (11.0-16.0); White Blood Count 11.9 X10*3/uL (4.8-10.8)
[2022-03-14 10:38] LABS: Alanine Aminotransferase 18 U/L (0-31); Albumin Level 3.9 g/dL (3.5-5.0); Alkaline Phosphatase 76 U/L (39-117); Anion Gap 13 (12-20); Aspartate Amino Transferase 19 U/L (5-31); Bilirubin Total 0.6 mg/dL (0.0-1.0); Blood Urea Nitrogen 26 mg/dL (9-16); Calcium 9.6 mg/dL (8.4-10.2); Carbon Dioxide 29 mmol/L (22-29); Chloride 103 mmol/L (96-108); Cholesterol 188 mg/dL; Estimated Glomerular Filt Rate > 60; Free T4 (Free Thyroxine) 1.15 ng/dL (0.71-1.85); Glucose Random 86 mg/dL (60-115); HDL Cholesterol 61 mg/dL; LDL Cholesterol Calculated 109 mg/dl; Potassium 4.1 mmol/L (3.3-5.1); Sodium 141 mmol/L (135-145); Total Protein 5.9 g/dL (6.5-8.0); Triglycerides 90 mg/dL; Vitamin D 25-OH Total 62.9 ng/mL (>30)
[2022-03-14 11:15] LABS: Vitamin B12 438 pg/mL (200-900)
[2022-03-14 11:17] LABS: Folate > 20.0 ng/mL (> or = 4.0)
[2022-03-14 12:14] LABS: Appearance Urine Clear; Color Urine Yellow; Glucose Urine UA Negative (Negative); Leukocyte Esterase Urine Moderate (2+) (Negative); Nitrite Urine Negative (Negative); PH 5.5 (5.0-9.0); UMIC TRIGGER UA YES; Urine Blood Negative (Negative); Urine Ketones Negative (Negative); Urine Protein Negative (Neg-Trace)
[2022-03-14 12:24] LABS: Bacteria Urine None Seen (None Seen); Hyaline Casts Urine 0-2 /LPF (0-2); RBC Urine 0-2 /HPF (0-2)
== END 2022-03-14 07:41 | disposition home or self-care (01) ==
LOC: HO.LAB 07:40
PROVIDERS: PCP Internal Medicine; Visit Provider Internal Medicine
DX: K21.9 Gastro-esophageal reflux disease without esophagitis (principal); E78.00 Pure hypercholesterolemia, unspecified
CPT/HCPCS: 36415; 80053; 80061; 81001; 82306; 82607; 82746; 84439; 84443; 85025

== ENCOUNTER 2022-04-08 09:35 | Outpatient (REF) | payer MEDICARE, OTHER, SELFPAY ==
--- NOTE | ~2022-04-08 | XR_ITS ---
EXAMINATION: RIGHT ELBOW AND LUMBOSACRAL SPINE CLINICAL INFORMATION: Pain about the elbow. Wedge compression fracture of L2. COMPARISON: CT abdomen of September 19, 2021 TECHNIQUE: 4 views of the right elbow and 3 views of the lumbosacral spine FINDINGS: There is no evidence of acute fracture or dislocation of the right elbow. Spurring about the olecranon site of insertion of the triceps tendon is present. Inferior vena cava filter seen in place. Left Iliac artery stent seen. Vascular calcification present. There are grade 1 spondylolistheses seen at the L1-L2 and the L2-L3 levels. There is mild superior anterior compression fracture of L2 with less than 30% loss of height. The compression fracture was evident on previous CT scan of September 19, 2021. There is bilateral facet arthropathy at the L5-S1 level. Multilevel degenerative disc disease is seen. XR/XR elbow RT min 3V IMPRESSION: Olecranon spur. No acute fracture or dislocation of the right elbow evident. Grade 1 spondylolistheses at L1-L2 and L2-L3. Stable mild superior endplate compression fracture of L2.
--- NOTE | ~2022-04-08 | XR_ITS ---
EXAMINATION: RIGHT ELBOW AND LUMBOSACRAL SPINE CLINICAL INFORMATION: Pain about the elbow. Wedge compression fracture of L2. COMPARISON: CT abdomen of September 19, 2021 TECHNIQUE: 4 views of the right elbow and 3 views of the lumbosacral spine FINDINGS: There is no evidence of acute fracture or dislocation of the right elbow. Spurring about the olecranon site of insertion of the triceps tendon is present. Inferior vena cava filter seen in place. Left Iliac artery stent seen. Vascular calcification present. There are grade 1 spondylolistheses seen at the L1-L2 and the L2-L3 levels. There is mild superior anterior compression fracture of L2 with less than 30% loss of height. The compression fracture was evident on previous CT scan of September 19, 2021. There is bilateral facet arthropathy at the L5-S1 level. Multilevel degenerative disc disease is seen. XR/XR lumbar spine 2-3V IMPRESSION: Olecranon spur. No acute fracture or dislocation of the right elbow evident. Grade 1 spondylolistheses at L1-L2 and L2-L3. Stable mild superior endplate compression fracture of L2.
== END 2022-04-08 09:36 | disposition home or self-care (01) ==
LOC: HO.HMGCX 09:35
PROVIDERS: Absent Provider Physician Assistant; PCP Internal Medicine; Visit Provider Internal Medicine
DX: S32.020A Wedge compression fracture of second lumbar vertebra, initial encounter for closed fracture (principal); M25.521 Pain in right elbow
CPT/HCPCS: 72100; 73080

== ENCOUNTER → 2022-04-11 13:12 | Outpatient (BNVA) | payer MEDICARE, OTHER, SELFPAY | PROVIDERS: PCP Internal Medicine; Referring Provider Internal Medicine; Visit Provider Student in an Organized Health Care Education/Training Program | DX: L93.2 Other local lupus erythematosus (principal); M80.08XA Age-related osteoporosis with current pathological fracture, vertebra(e), initial encounter for fracture; M25.511 Pain in right shoulder | CPT/HCPCS: 99202 ==

== ENCOUNTER 2022-05-04 09:49 | Outpatient (REF) | payer MEDICARE, OTHER, SELFPAY ==
--- NOTE | ~2022-05-04 | US_ITS ---
EXAMINATION: NONINVASIVE ASSESSMENT OF THE ARTERIES OF BOTH LOWER EXTREMITIES WITH PVR EXAM AND BILATERAL LOWER EXTREMITY DUPLEX Niyah Beckman MD CLINICAL INFORMATION: Atherosclerotic disease TECHNIQUE: Ankle pulse volume recordings, ankle pressure measurements and ankle brachial indices were obtained of the lower extremity arterial system bilaterally in addition to duplex Doppler techniques with wave form analysis and measurement of velocities in the common femoral, profunda femoral, superficial femoral, popliteal and tibial arteries. The study was performed only at rest. COMPARISON: Arterial evaluation on 05/26/2019 FINDINGS: a) AT REST: RIGHT LE. The right ankle-brachial index is: 1.02 * >0.97-1.25 = normal - no significant arterial disease * 0.75-0.96 = mild peripheral arterial disease * 0.5-0.74 = moderate peripheral arterial disease * <0.50 = severe peripheral arterial disease 2. Right ankle pressure: normal. 3. Right ankle PVR waveform: normal. 4. Right direct duplex Doppler findings: Common femoral artery: 144 cm/s, Multiphasic Profunda femoris artery: 100 cm/s, Multiphasic Superficial femoral artery (proximal): 121 cm/s, Multiphasic Superficial femoral artery (mid): 98 cm/s, Multiphasic Superficial femoral artery (distal): 76 cm/s, Multiphasic Proximal Popliteal artery: 63 cm/s, Multiphasic Mid posterior tibial artery: 100 cm/s, Multiphasic There is a 4.7 cm Dumont cyst in the right popliteal fossa. LEFT LE. The left ankle-brachial index is: 0.92 * >0.97-1.25 = normal - no significant arterial disease * 0.75-0.96 = mild peripheral arterial disease * 0.5-0.74 = moderate peripheral arterial disease * <0.50 = severe peripheral arterial disease 2. Left ankle pressure: normal. 3. Left ankle PVR waveform: normal. 4. Left direct duplex Doppler findings: Common femoral artery: 130 cm/s, Multiphasic Profunda femoris artery: 196 cm/s, Multiphasic Superficial femoral artery (proximal): 130 cm/s, Multiphasic Superficial femoral artery (mid): 88 cm/s, Multiphasic Superficial femoral artery (distal): 107 cm/s, Multiphasic Proximal Popliteal artery: 56 cm/s, Multiphasic Mid posterior tibial artery: 83 cm/s, Multiphasic US/US arterial duplex LE BI IMPRESSION: There is no evidence of any hemodynamically significant lower extremity arterial disease by pressure, waveform or duplex Doppler criteria at rest. Right popliteal fossa Dumont's cyst.
--- NOTE | ~2022-05-04 | US_ITS ---
EXAMINATION: NONINVASIVE ASSESSMENT OF THE ARTERIES OF BOTH LOWER EXTREMITIES WITH PVR EXAM AND BILATERAL LOWER EXTREMITY DUPLEX Niyah Beckman MD CLINICAL INFORMATION: Atherosclerotic disease TECHNIQUE: Ankle pulse volume recordings, ankle pressure measurements and ankle brachial indices were obtained of the lower extremity arterial system bilaterally in addition to duplex Doppler techniques with wave form analysis and measurement of velocities in the common femoral, profunda femoral, superficial femoral, popliteal and tibial arteries. The study was performed only at rest. COMPARISON: Arterial evaluation on 05/26/2019 FINDINGS: a) AT REST: RIGHT LE. The right ankle-brachial index is: 1.02 * >0.97-1.25 = normal - no significant arterial disease * 0.75-0.96 = mild peripheral arterial disease * 0.5-0.74 = moderate peripheral arterial disease * <0.50 = severe peripheral arterial disease 2. Right ankle pressure: normal. 3. Right ankle PVR waveform: normal. 4. Right direct duplex Doppler findings: Common femoral artery: 144 cm/s, Multiphasic Profunda femoris artery: 100 cm/s, Multiphasic Superficial femoral artery (proximal): 121 cm/s, Multiphasic Superficial femoral artery (mid): 98 cm/s, Multiphasic Superficial femoral artery (distal): 76 cm/s, Multiphasic Proximal Popliteal artery: 63 cm/s, Multiphasic Mid posterior tibial artery: 100 cm/s, Multiphasic There is a 4.7 cm Dumont cyst in the right popliteal fossa. LEFT LE. The left ankle-brachial index is: 0.92 * >0.97-1.25 = normal - no significant arterial disease * 0.75-0.96 = mild peripheral arterial disease * 0.5-0.74 = moderate peripheral arterial disease * <0.50 = severe peripheral arterial disease 2. Left ankle pressure: normal. 3. Left ankle PVR waveform: normal. 4. Left direct duplex Doppler findings: Common femoral artery: 130 cm/s, Multiphasic Profunda femoris artery: 196 cm/s, Multiphasic Superficial femoral artery (proximal): 130 cm/s, Multiphasic Superficial femoral artery (mid): 88 cm/s, Multiphasic Superficial femoral artery (distal): 107 cm/s, Multiphasic Proximal Popliteal artery: 56 cm/s, Multiphasic Mid posterior tibial artery: 83 cm/s, Multiphasic US/US AYESHA complete IMPRESSION: There is no evidence of any hemodynamically significant lower extremity arterial disease by pressure, waveform or duplex Doppler criteria at rest. Right popliteal fossa Dumont's cyst.
== END 2022-05-04 09:50 | disposition home or self-care (01) ==
LOC: HO.US 09:49
PROVIDERS: Visit Provider Surgery Vascular Surgery
DX: I70.213 Atherosclerosis of native arteries of extremities with intermittent claudication, bilateral legs (principal)
CPT/HCPCS: 93923; 93925

== ENCOUNTER 2022-05-05 09:19 | Outpatient (REF) | payer MEDICARE, OTHER, SELFPAY ==
--- NOTE | ~2022-05-05 | XR_ITS ---
EXAMINATION: XR SHOULDER, RIGHT CLINICAL INFORMATION: Pain. COMPARISON: None TECHNIQUE: AP external rotation, Grashey, scapular Y, and axillary views of the right shoulder. FINDINGS: There is bony demineralization. The glenohumeral joint is intact and shows mild peripheral osteophyte formation. The acromioclavicular and coracoclavicular intervals are normal. There is mild to moderate osteoarthritic change of the right acromioclavicular joint. No fracture or dislocation is seen. There is no soft tissue calcification or foreign body. There is a distal acromial undersurface osteophyte, and mild cortical irregularity is seen of the greater tuberosity of the proximal right humerus. No right pneumothorax is seen. XR/XR shoulder RT min 2V IMPRESSION: 1. There is mild osteoarthritic change of the right glenohumeral joint, and mild to moderate osteoarthritic change is seen of the right acromioclavicular joint. 2. Findings suggest right rotator cuff impingement, without celine calcific tendinitis noted.
[2022-05-05 10:34] LABS: Appearance Urine Clear; Color Urine Yellow; Glucose Urine UA Negative (Negative); Leukocyte Esterase Urine Small (1+) (Negative); Nitrite Urine Negative (Negative); Specific Gravity - Urine 1.025 (1.005-1.025); UMIC TRIGGER UA YES; Urine Blood Negative (Negative); Urine Ketones Negative (Negative); Urine Protein Negative (Neg-Trace)
[2022-05-05 10:37] LABS: Bacteria Urine None Seen (None Seen); Hyaline Casts Urine 0-2 /LPF (0-2); RBC Urine 0-2 /HPF (0-2)
[2022-05-05 11:10] LABS: Erythrocyte Sedimentation Rate 8 MM/HR (0-20)
[2022-05-05 11:11] LABS: C Reactive Protein 0.45 mg/dL (< or = 0.50)
[2022-05-05 11:58] LABS: Creatinine Urine 189.17 mg/dL; Protein/Creatinine Ratio, Ur 0.06 (<0.2); Total Protein Urine Random 12 mg/dL (<12)
[2022-05-08 13:09] LABS: Anti Nuclear Antibody Screen NEGATIVE (NEGATIVE)
[2022-05-09 07:59] LABS: Complement C3 60 mg/dL
[2022-05-10 06:49] LABS: DRVVT Confirmation Negative (Negative); PTT (LAC) Screen 34 sec (<=40)
[2022-05-10 09:19] LABS: Cardiolipin IgG Ab <2.0 GPL-U/mL; Cardiolipin IgM Ab <2.0 MPL-U/mL
[2022-05-10 12:28] LABS: Anti DNA DS Antibody <1 IU/mL; Antibody to SS-A Antigen <1.0 NEG AI (<1.0 NEG); Antibody to SS-B Antigen <1.0 NEG AI (<1.0 NEG); SM/Ribonucleoprotein Ab <1.0 NEG AI (<1.0 NEG); Smith Protein <1.0 NEG AI (<1.0 NEG)
[2022-05-11 12:47] LABS: Beta-2 Glycoprotein IgA <2.0 U/mL (<20.0); Beta-2 Glycoprotein IgG <2.0 U/mL (<20.0); Beta-2 Glycoprotein IgM <2.0 U/mL (<20.0)
[2022-05-11 14:23] LABS: TPMT Activity 9
== END 2022-05-05 09:20 | disposition home or self-care (01) ==
LOC: HO.XRAY 09:19
PROVIDERS: PCP Internal Medicine; Visit Provider Student in an Organized Health Care Education/Training Program
DX: Z51.81 Encounter for therapeutic drug level monitoring (principal); M32.9 Systemic lupus erythematosus, unspecified; M25.511 Pain in right shoulder; Z79.899 Other long term (current) drug therapy; Z79.624 Long term (current) use of inhibitors of nucleotide synthesis
CPT/HCPCS: 36415; 73030; 81001; 82657; 82955; 84156; 85597; 85613; 85652; 85730; 86038; 86039; 86140; 86146; 86147; 86160; 86225; 86235

== ENCOUNTER → 2022-05-16 14:57 | Outpatient (BNVA) | payer MEDICARE, OTHER, SELFPAY | PROVIDERS: PCP Internal Medicine; Visit Provider Surgery Vascular Surgery | DX: I73.9 Peripheral vascular disease, unspecified (principal); I83.11 Varicose veins of right lower extremity with inflammation; Z95.820 Peripheral vascular angioplasty status with implants and grafts | CPT/HCPCS: 99212 ==

== ENCOUNTER 2022-05-17 12:13 | Outpatient (REF) | payer MEDICARE, OTHER, SELFPAY ==
--- NOTE | ~2022-05-17 | MM_ITS ---
EXAMINATION: MM SCREENING DIGITAL BREAST TOMOSYNTHESIS, BILATERAL CLINICAL INFORMATION: Screening. Asymptomatic. The lifetime risk of breast cancer based on the Tyrer-Cuzick Model is 0.4%. COMPARISON: Mammography: May 16, 2021 and studies dating back to February 29, 2016 TECHNIQUE: Digital breast tomosynthesis is performed in both the craniocaudal and mediolateral oblique views along with computer-aided detection (CAD). Synthesized 2D images are generated from the tomosynthesis. FINDINGS: The breasts are heterogeneously dense, which may obscure small masses (ACR BI-RADS breast composition Category c). There are no new significant masses, abnormal calcifications, or other abnormalities. Multiple seen bilaterality of calcifications again seen. MM/MM tomosynthesis screening BI IMPRESSION: No significant changes from prior exam. ASSESSMENT: BI-RADS 2: Benign RECOMMENDATION: Routine annual mammography screening. This patient's information was entered into a reminder system with a target due date for their next mammogram.
== END 2022-05-17 12:14 | disposition home or self-care (01) ==
LOC: HO.MAMMO 12:13
PROVIDERS: Visit Provider Internal Medicine
DX: Z12.31 Encounter for screening mammogram for malignant neoplasm of breast (principal); M25.511 Pain in right shoulder; M80.08XA Age-related osteoporosis with current pathological fracture, vertebra(e), initial encounter for fracture; L93.2 Other local lupus erythematosus
CPT/HCPCS: 20610; 77063; 77067; 99212

== ENCOUNTER 2022-06-13 10:00 | Outpatient (RCR) | payer MEDICARE, OTHER, SELFPAY ==
--- NOTE | 2022-05-30 12:22 | MHC.PT.EP ---
[facility] [place] Office [place] Office [place] Office [address] [phone] F: [phone] F: [phone] F: [phone] F: [phone] Physical Therapy Plan of Care Date of Evaluation: Date of Surgery: NA Diagnosis: R SHOULDER PAIN Assessment: Pt IS 86 YO F REFERRED TO PT FROM EMILY CAMPBELL (RHEUMATOLOGY) WITH R SHLDER PAIN. X RAY +ARTHRITIC CHANGES. Pt WITH HX OF OSTEOPOROSIS, AND PULMONARY ISSUES(GOES TO PULM REH[place] HERE [place] [facility] [place]USES O2 FOR AEROBIC EXERCISE AND LONG DISTANCE WALK). PRESENTS WITH POOR POSTURE, LIMITED SHOULDER ROM AND STRENGTH WITH + MODIFIED IMPINGEMENT. SHOULD BENEFIT FROM PT TO ADDRESS THESE ISSUES Frequency and Duration: The patient will be seen 2X/WK X 6 WKS Short Term Goals: 1.INCREASED POSTURE AWARENESS AND AWARENESS SHLDER CARE 2. I HEP WITH DC EX PLAN Guest Request Runner Goals: 1. DECREASED PAIN R SHLDER AT LEAST 50% WITH ADLS 2. INCREASED R SHLDER ROM 10-20 DEGREES FLEX, ABD, ER Treatment Plan: Modalities to reduce pain, spasms and effusion. Manual therapy to restore motion and function. Therapeutic exercise to improve strength and flexibility. Neuromuscular re-education for posture and balance. Therapeutic activities to return to functional activities of daily living. Electronically signed by: REINALDO MCKENZIE PT Please sign and return to therapist. Thank you for your referral.
--- NOTE | 2022-08-14 16:22 | MHC.PT.DC ---
[facility] [place] Office [place] Office [place] Office [address] Mark Sawyer [address] [phone] F: [phone] F: [phone] F: [phone] F: [phone] Physical Therapy Discharge Report Diagnosis: R SHOULDER PAIN Date of Surgery: NA Date of Evaluation: 05/30/22 Date of Discharge: 08/14/22 Treatments to Date: 3 Cancellations to Date: No Shows to Date: Discharge Status: Independent with HEP Patient Elected to Stop Discharge Summary: Pt LAST SEEN ON 06/13/22. PER ASSESSMENT FROM THAT DATE DIFFICULTY RELAXING R UE FOR PROM (MORE LIKE AAROM), RELIEF WITH ST WORK AND HEAT (WILL TRY TO USE HEATING PAD AT HOME) . Pt THEN CANCELLED FURTHER APPTS BECAUSE HAVING EYE SURGERY Electronically signed by: REINALDO MCKENZIE PT Please sign and return to therapist. Thank you for your referral.
== END 2022-08-14 16:23 | disposition home or self-care (01) ==
LOC: HO.PT 10:00
PROVIDERS: Visit Provider Student in an Organized Health Care Education/Training Program
DX: M12.811 Other specific arthropathies, not elsewhere classified, right shoulder (principal)
CPT/HCPCS: 97110; 97140; 97161; 97535

== ENCOUNTER 2022-07-11 10:17 | Outpatient (REF) | payer MEDICARE, OTHER, SELFPAY ==
[2022-07-11 11:04] LABS: MANUAL DIFF FLAG NO
[2022-07-11 11:39] LABS: Basophils Absolute Auto 0.1 X10*3/uL (0.0-0.2); Basophils Percent Auto 1.1 % (0-2); Eosinophils Absolute Auto 0.1 X10*3/uL (0.0-0.4); Eosinophils Percent Auto 1.3 % (0-4); Hematocrit 38.2 % (37.0-47.0); Hemoglobin 11.7 g/dl (12.0-16.0); Imm Gran Abs Auto 0.05 X10*3/uL (0.00-0.03); Imm Gran Pct Auto 0.5 % (0.0-0.4); Lymphocytes Absolute Auto 2.4 X10*3/uL (1.2-4.9); Lymphocytes Percent Auto 24.8 % (20-40); Mean Corpuscular HGB Conc 30.6 g/dl (31.0-35.0); Mean Corpuscular Hemoglobin 29.8 pg (27.0-33.0); Mean Corpuscular Volume 97.2 fL (80.0-98.0); Mean Platelet Volume 8.9 fL (9.4-12.3); Monocytes Absolute Auto 0.8 X10*3/uL (0.1-1.2); Monocytes Percent Auto 8.8 % (2-11); Neutrophils Percent Auto 63.5 % (45-73); Platelet Count 367 X10*3/uL (160-400); Red Blood Count 3.93 X10*6/uL (4.20-5.50); Red Cell Distribution Width 16.4 % (11.0-16.0); White Blood Count 9.5 X10*3/uL (4.8-10.8)
[2022-07-11 11:54] LABS: D Dimer High Sensitivity 442 NG/ML
[2022-07-11 12:30] LABS: Anion Gap 12 (12-20); Blood Urea Nitrogen 14 mg/dL (9-16); Calcium 9.2 mg/dL (8.4-10.2); Carbon Dioxide 32 mmol/L (22-29); Chloride 102 mmol/L (96-108); Estimated Glomerular Filt Rate > 60; Glucose Random 96 mg/dL (60-115); Potassium 3.5 mmol/L (3.3-5.1); Sodium 142 mmol/L (135-145)
[2022-07-11 13:19] LABS: Erythrocyte Sedimentation Rate 14 MM/HR (0-20)
== END 2022-07-11 10:18 | disposition home or self-care (01) ==
LOC: HO.LAB 10:17
PROVIDERS: PCP Internal Medicine; Visit Provider Hospitalist
DX: K21.9 Gastro-esophageal reflux disease without esophagitis (principal); Z13.89 Encounter for screening for other disorder
CPT/HCPCS: 36415; 80048; 85025; 85379; 85652; 99212

== ENCOUNTER 2022-07-11 14:01 | Emergency (ER) | payer MEDICARE, OTHER, SELFPAY ==
--- NOTE | ~2022-07-11 | CT_ITS ---
EXAMINATION: CT ANGIOGRAM OF THE CHEST WITH AND WITHOUT CONTRAST (CT PULMONARY ANGIOGRAM FOR PE) CLINICAL INFORMATION: Reason for Exam L CP, elevated dimer, hx PE, no AC COMPARISON: 12/02/2020 TECHNIQUE: Prior to contrast administration, noncontrast localization images were obtained. Subsequently, multidetector volumetric imaging was performed from the thoracic inlet to below the diaphragms following the administration of 65 mL Omnipaque 350 intravenous contrast. No contrast reaction reported Sagittal, coronal, and MIP oblique sagittal reformatted images were obtained on the CT workstation, uploaded to PACS, and reviewed. This CT examination was performed using dose optimization techniques as appropriate, variously including the following: *Automated exposure control *Adjustment of mA and/or kV according to patient size (this includes techniques or standardized protocols for targeted exams where dose is matched to indication/reason for exam; i.e. extremities or head) *Use of iterative reconstruction technique Total exam dose-length product 192 mGy-cm FINDINGS: QUALITY OF STUDY/CONTRAST BOLUS: Satisfactory. PULMONARY ARTERIES: No central or segmental pulmonary emboli. THORACIC AORTA: No aneurysm or dissection. LUNG: The central airways are patent. Moderate paraseptal and centrilobular emphysema. Motion limits evaluation of the lung parenchyma. No dense consolidation. No definite pulmonary nodule or mass. PLEURA: No pleural effusion or pneumothorax. MEDIASTINUM: Enlarged heart size. No pericardial effusion. No hilar or mediastinal lymphadenopathy. No evidence of septal bowing or right heart strain. CORONARY ARTERY CALCIFICATION: Cannot evaluate on this study. CHEST WALL/AXILLA: No axillary or internal mammary lymphadenopathy. OSSEOUS STRUCTURES: Degenerative changes throughout the spine. Compared to the 2020 study, there is a new T9 vertebral body compression deformity with approximately 60% loss of anterior vertebral body height. Mild associated kyphosis. UPPER ABDOMEN: Large hiatal hernia. No acute findings in the visualized upper abdomen. No reflux of contrast into the hepatic veins to suggest elevated right heart pressures. CT/CT angio chest PE protocol IMPRESSION: 1. No pulmonary embolism. 2. Moderate emphysema. No acute pulmonary finding. 3. New T9 vertebral body compression deformity compared to the 2020 study. This is of uncertain chronicity otherwise. VTE: negative
--- NOTE | 2022-07-11 14:17 | ED_ITS ---
HPI - Chest Pain General Chief Complaint: General Medical <Patti Albert CNP - Last Filed: 07/11/22 14:21> Stated Complaint: Abnormal labs sent by Jarrell <Patti Albert CNP - Last Filed: 07/11/22 14:21> Time Seen by Provider: 07/11/22 14:44 <Patti Albert CNP - Last Filed: 07/11/22 14:21> Source: patient <Tree DO Tevin - Last Filed: 07/11/22 16:21> Mode of arrival: ambulatory <Tree Abarca DO - Last Filed: 07/11/22 16:21> Limitations: no limitations <Tree Abarca DO - Last Filed: 07/11/22 16:21> History of Present Illness HPI narrative: 86-year-old female followed by Dr. Vieyra. 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 patient had a CT scan was recently at [facility] they did show some nodules and signs of emphysema tightest. Since she did have the elevated D-dimer done on outpatient basis for the left-sided chest pain she was sent here to get a CTA. CTA was ordered patient denies fevers chills cough she states she is surprising she is here. <Tree Abarca DO - Last Filed: 07/11/22 16:21> MD complaint: chest pain <Tree Abarca DO - Last Filed: 07/11/22 16:21> Related Data Home Medications: Home Medications Medication Instructions Recorded Confirmed aspirin 81 mg tablet,delayed 81 mg PO DAILY 02/27/20 07/11/22 release (Adult Aspirin Regimen) calcium carbonate 600 mg calcium 600 mg PO DAILY 02/27/20 07/11/22 (1,500 mg) tablet (Calcium) cholecalciferol (vitamin D3) 25 25 mcg PO DAILY 02/27/20 07/11/22 mcg (1,000 unit) capsule mirabegron 25 mg tablet,extended 25 mg PO DAILY 02/27/20 07/11/22 release 24 hr (Myrbetriq) esomeprazole magnesium 40 mg 40 mg PO BID 03/03/22 07/11/22 capsule,delayed release gabapentin 100 mg capsule 300 mg PO BID 03/03/22 07/11/22 lidocaine 5 % topical patch 1 patch topical DAILY PRN 03/03/22 07/11/22 pramipexole 1 mg tablet 1 mg PO BEDTIME 03/03/22 07/11/22 Oxygen Home Use 04/11/22 07/11/22 fluocinonide 0.05 % topical 1 appl topical BID-QID PRN 04/11/22 07/11/22 ointment tramadol 50 mg tablet 50 mg PO DAILY PRN 04/11/22 07/11/22 Previous Rx's Medication Instructions Recorded blood pressure monitor #1 ea 06/21/21 lactulose 20 gram/30 mL oral 20 g (30 mL) PO BID PRN 09/13/21 solution constipation 90 days #5,400 mL acetaminophen 500 mg capsule 500 - 1,000 mg PO QID PRN pain #30 09/22/21 caps diclofenac sodium 1 % topical gel 2 g topical QID #100 grams 09/22/21 rivaroxaban 10 mg tablet 10 mg PO DAILY 90 days #90 tabs 10/26/21 hydrochlorothiazide 12.5 mg tablet 12.5 mg PO DAILY 90 days #90 tabs 12/27/21 losartan 50 mg tablet 100 mg PO DAILY #180 tabs 03/27/22 fluticasone fur. 200 mcg-umeclid 1 inh inhalation DAILY 90 days 05/03/22 62.5 mcg-vilant 25 mcg #180 ea inhalat.powder (Trelegy Ellipta) clobetasol 0.05 % topical cream 1 appl topical BID #60 grams 05/17/22 albuterol sulfate 90 mcg/actuation 2 puff inhalation Q4-6H PRN for 05/24/22 aerosol inhaler (ProAir HFA) muscle spasm #25.5 grams alendronate 70 mg tablet 70 mg PO QWEEK #12 tabs 06/29/22 rosuvastatin 10 mg tablet 10 mg PO DAILY 90 days #90 tabs 06/29/22 dapsone 100 mg tablet 100 mg PO DAILY #90 tabs 07/04/22 prednisone 10 mg tablet See Rx Instructions PO DAILY 18 07/11/22 days #15 tabs <Patti Albert CNP - Last Filed: 07/11/22 14:21> Allergies/Adverse Reactions: Allergies Allergy/AdvReac Type Severity Reaction Status Date / Time amlodipine Allergy Unknown leg Verified 07/11/22 10:31 swelling, swelling atorvastatin [Lipitor] Allergy Unknown Unknown Verified 07/11/22 10:31 hydroxychloroquine Allergy Unknown Affected Verified 07/11/22 10:31 [From Plaquenil] eye sight metoprolol Allergy Unknown Swelling Verified 07/11/22 10:31 <Patti Albert CNP - Last Filed: 07/11/22 14:21> Review of Systems Review of Systems: Review of systems: General: Patient denies any fever chills recent illness or falls Musculoskeletal: Denies back pain or body aches or other injuries HEENT: denies headache, runny nose, ear pain Respiratory: denies shortness of breath, cough Cardiovascular: Left-sided pleuriticchest pain or palpitations : denies dysuria, frequency Abdomen: no nausea vomiting denies abdominal pain Extremities: no swelling, no pain Skin: no diaphoresis <Tree Abarca DO - Last Filed: 07/11/22 16:21> Yes all other systems are reviewed and are negative <Tree Abarca DO - Last Filed: 07/11/22 16:21> PMF Past Medical History Medical History: Medical History (Updated 07/11/22 @ 16:21 by Tree Abarca DO) Anxiety Arterial occlusive disease Chronic respiratory failure COPD (chronic obstructive pulmonary disease) Discoid lupus Diverticulitis DVT (deep venous thrombosis) Encounter for monitoring azathioprine therapy GERD (gastroesophageal reflux disease) Greater saphenous vein embolism Hiatal hernia Hypercholesterolemia Hypertension Iliac artery occlusion Left leg DVT Lupus (systemic lupus erythematosus) Osteopenia Pleuritic chest pain Pulmonary embolism Pulmonary nodule Pulmonary nodules Restless leg Thrombus of aorta <Patti Albert CNP - Last Filed: 07/11/22 14:21> Surgical History: Surgical History Bilateral pulmonary embolism History of breast biopsy History of cataract surgery History of foot surgery History of toe surgery History of total abdominal hysterectomy and bilateral salpingo-oophorectomy <Patti Albert CNP - Last Filed: 07/11/22 14:21> Family History Family History: Family History Father Hypertension Cancer Mother Hypertension Stroke CVD (cardiovascular disease) <Patti Albert CNP - Last Filed: 07/11/22 14:21> Social History Social History: Social History Household Members: None Housing: House Alcohol intake: current Alcohol intake frequency: holidays/special occasions only Patient Tobacco Use Status: Former Tobacco user Tobacco use type: Cigarette Years Smoked: 30 e-Cigarette/Vaping Use: Never Used Second Hand Smoke Exposure: No Advance Directives: No Advance Directives Information Provided: Yes service: No Current occupational status: retired Cognitive needs: Yes Hearing needs: No Vision needs: Yes <Patti Albert CNP - Last Filed: 07/11/22 14:21> Physical Exam Vital Signs: Vital Signs: Last Vital Signs Temp 98 F 07/11/22 14:20 Pulse 95 07/11/22 14:46 Resp 16 07/11/22 14:46 BP 191/88 H 07/11/22 14:20 Pulse Ox 91 L 07/11/22 14:46 O2 Del Method 07/11/22 14:46 BMI result Body Mass Index 27.2 <Patti Albert CNP - Last Filed: 07/11/22 14:21> Vital Signs: Last Vital Signs Temp 98 F 07/11/22 14:20 Pulse 95 07/11/22 14:46 Resp 16 07/11/22 14:46 BP 191/88 H 07/11/22 14:20 Pulse Ox 91 L 07/11/22 14:46 O2 Del Method 07/11/22 14:46 BMI result Body Mass Index 27.2 <Tree Abarca DO - Last Filed: 07/11/22 16:21> General: Well-appearing well-nourished in no signs of distress HEENT: Normocephalic atraumatic Neck: No signs of JVD, no masses no tenderness or lymphadenopathy Cardiovascular: Regular rate and rhythm Respiratory: Clear to auscultation bilaterally Abdomen: Soft nontender no masses Extremities: Normal pedal pulses no signs of edema Skin: Dry warm no rashes Back: No tenderness full ROM <Tree Abarca DO - Last Filed: 07/11/22 16:21> Course Course Course Narrative: This is an RME: Additional HPI, ROS, PE not included below will be deferred to primary provider. Patient is an 86-year-old female who presents to the emergency department coming from pulmonology, Dr. Vieyar, patient with a history of COPD as well as pulmonary emboli, has not been on anticoagulants for the past few months. She has been experiencing shortness of breath and left pl euritic chest pain, increased oxygen demands (uses intermittently), symptoms have been present intermittently over the past month. Had outpatient in a, D- dimer was elevated at 442. Sent in from pulmonology to rule out pulmonary embolism. Plan: CT angio chest rule out PE, EKG, and troponin. CBC and BMP were obtained earlier today, overall unremarkable <Patti Albert CNP - Last Filed: 07/11/22 14:21> Medications Administered Discontinued Medications Generic Name Dose Route Start Last Admin Trade Name Freq PRN Reason Stop Dose Admin Iohexol 100 ml 07/11/22 15:18 07/11/22 15:19 Iohexol 350 Mg/Ml 100 Ml Infus..Btl IV 07/11/22 15:19 65 ml ONCE ONE Administration <Patti Albert CNP - Last Filed: 07/11/22 14:21> Medications Administered Discontinued Medications Generic Name Dose Route Start Last Admin Trade Name Freq PRN Reason Stop Dose Admin Iohexol 100 ml 07/11/22 15:18 07/11/22 15:19 Iohexol 350 Mg/Ml 100 Ml Infus..Btl IV 07/11/22 15:19 65 ml ONCE ONE Administration <Tree Abarca DO - Last Filed: 07/11/22 16:21> Medical Decision Making Medical Decision Making MDM Narrative: concern for PE CTA ordered CTA is negative patient sleeping comfortably in the bed I was able to awake her she feels comfortable going home. I will discharge. <Tree Abarca DO - Last Filed: 07/11/22 16:21> Differential Diagnosis Differential Diagnoses: The differential diagnosis associated with the presentation includes <Tree Abarca DO - Last Filed: 07/11/22 16:21> Differential diagnosis COPD exacerbation pleuritic chest pain bronchitis pneumonia or PE. <Tree Abarca DO - Last Filed: 07/11/22 16:21> Admission/Observation Consideration of admission/observation: Escalation of care including admission/observation considered <Tree Abarca DO - Last Filed: 07/11/22 16:21> Consult Healthcare Provider Management of the patient was discussed with: Ice Skating Teacher <Tree Abarca DO - Last Filed: 07/11/22 16:21> Lab Data MDM Lab Attestation statement: I reviewed the patient's lab results. <Tree Abarca DO - Last Filed: 07/11/22 16:21> Labs: Lab Results 07/11/22 Range/Units 14:42 Troponin I High Sens 17.3 H (<3.5-17.0) ng/L <Patti Albert CNP - Last Filed: 07/11/22 14:21> Lab Results 07/11/22 Range/Units 14:42 Troponin I High Sens 17.3 H (<3.5-17.0) ng/L <Tree Abarca DO - Last Filed: 07/11/22 16:21> Independent Interpretation I performed an independent interpretation of an: EKG <Tree Abarca DO - Last Filed: 07/11/22 16:21> Interpretation: Rate 82 normal sinus rhythm normal intervals no signs of ischemia <Tree Abarca DO - Last Filed: 07/11/22 16:21> Radiology Impression Discussion of test interpretation with radiology: I have reviewed the radiologist's reading. <Tree Abarca DO - Last Filed: 07/11/22 16:21> External Record Review External record reviewed: Inpatient record and Outpatient record <Tree Abarca DO - Last Filed: 07/11/22 16:21> seen by Dr. Vieyra earlier today for COPD emphysema and need of October no oxygen patient is on trilogy with recruitment of respiratory symptoms patient to complete through his especially when going up stairs she has taken for a walk and did desaturate to 87% while going up some stairs at a time she is set up with an oxygen tank that she carry. She was seen and had a D-dimer ordered which was elevated and sent here for CT. 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 You had a CT of your chest as well as labs which were all normal. Please call follow-up with her doctor if you have any other concerns please do not hesitate to come back to the emergency department. <Patti Albert CNP - Last Filed: 07/11/22 14:21> Prescriptions: No Action diclofenac sodium 1 % gel 2 g topical QID Qty: 100 3RF Rx Instructions: apply to single elbow, wrist or hand; for hand includes palm/fingers/back of hand acetaminophen 500 mg capsule 500 - 1,000 mg PO QID PRN (Reason: pain) Qty: 30 0RF rivaroxaban 10 mg tablet 10 mg PO DAILY 90 Days Qty: 90 2RF Rx Instructions: must administer with evening meal. Hematology recommended this does September 2020 prophylactic losartan 50 mg tablet 100 mg PO DAILY Qty: 180 3RF Trelegy Ellipta 200-62.5-25 mcg blister with device 1 inh inhalation DAILY 90 Days Qty: 180 0RF albuterol sulfate [ProAir HFA] 90 mcg/actuation HFA aerosol inhaler 2 puff inhalation Q4-6H PRN (Reason: for muscle spasm) Qty: 25.5 6RF dapsone 100 mg tablet 100 mg PO DAILY Qty: 90 1RF calcium carbonate [Calcium 600] 600 mg calcium (1,500 mg) tablet 600 mg PO DAILY aspirin [Adult Aspirin Regimen] 81 mg tablet,delayed release (DR/EC) 81 mg PO DAILY cholecalciferol (vitamin D3) 25 mcg (1,000 unit) capsule 25 mcg PO DAILY Myrbetriq 25 mg tablet extended release 24 hr 25 mg PO DAILY gabapentin 100 mg capsule 300 mg PO BID (DME) blood pressure monitor Kit See Rx Instructions .Route Qty: 1 0RF Rx Instructions: As directed hydrochlorothiazide 12.5 mg tablet 12.5 mg PO DAILY 90 Days Qty: 90 2RF alendronate 70 mg tablet 70 mg PO QWEEK Qty: 12 1RF Rx Instructions: take with 6-8 ounces of water on empty stomach 1st thing in the morning & remain upright for 30 minutes after rosuvastatin 10 mg tablet 10 mg PO DAILY 90 Days Qty: 90 2RF lactulose 20 gram/30 mL solution 20 g PO BID PRN (Reason: constipation) 90 Days Qty: 5400 0RF esomeprazole magnesium 40 mg capsule,delayed release(DR/EC) 40 mg PO BID lidocaine 5 % adhesive patch,medicated 1 patch topical DAILY PRN Rx Instructions: leave on most painful area for up to 12 hrs pramipexole 1 mg tablet 1 mg PO BEDTIME fluocinonide 0.05 % ointment 1 appl topical BID-QID PRN tramadol 50 mg tablet 50 mg PO DAILY PRN (DME) Oxygen Home Use Kit See Rx Instructions .Route Rx Instructions: As directed at night prednisone 10 mg tablet See Rx Instructions PO DAILY 18 Days Qty: 15 0RF Rx Instructions: PO daily; Take 2 tabs daily x 5 days, then 1 tab daily x 5 days clobetasol 0.05 % cream 1 appl topical BID Qty: 60 3RF <Patti Albert, JAQUAN - Last Filed: 07/11/22 14:21>
[2022-07-11 14:20] VITALS: BP 191/88; PULSE 97; RESP 18; TEMP 36.6; O2SAT 91; BMI 27.2
--- NOTE | 2022-07-11 14:21 | ECG_ITS ---
Test Reason : chest pain Blood Pressure : / mmHG Vent. Rate : 092 BPM Atrial Rate : 092 BPM P-R Int : 198 ms QRS Dur : 086 ms QT Int : 358 ms P-R-T Axes : 029 -35 -06 degrees QTc Int : 442 ms Sinus rhythm with Premature atrial complexes Left axis deviation cannot exclude Anterior infarct , age undetermined Abnormal ECG When compared with ECG of 02-DEC-2020 01:56, Premature atrial complexes are now Present Referred By: Patti Albert Electronically Signed By:ALEKS PEREYRA
[2022-07-11 14:46] VITALS: PULSE 95; RESP 16; O2SAT 91
[2022-07-11 15:11] LABS: Troponin-I High Sensitivity 17.3 ng/L (<3.5-17.0)
[2022-07-11] MEDS: iohexoL 350 MG/ML 100 ML INFUS..BTL IV (15:19)
--- NOTE | 2022-07-11 15:32 | PC.NURSE ---
Alert and oriened, resp even and unlabored. IV established, awaiting ct scan results. Pt 91-93% on room air hx COPD
[2022-07-11 16:00] VITALS: BP 145/71; PULSE 91; RESP 16; TEMP 36.8; O2SAT 97
--- NOTE | 2022-07-11 16:00 | MHC.EDTECH ---
this pct assumed care of pt at 1500 ,pt rounding done ,vitals sign taken ,pt waiting for discharged paper work .
== END 2022-07-11 16:55 | disposition home or self-care (01) ==
PROVIDERS: Nurse Practitioner Family; Emergency Provider Student in an Organized Health Care Education/Training Program; PCP Internal Medicine
DX: R07.89 Other chest pain (principal); R79.89 Other specified abnormal findings of blood chemistry; Z87.891 Personal history of nicotine dependence; Z79.899 Other long term (current) drug therapy
CPT/HCPCS: 36415; 71275; 80048; 84484; 85025; 85379; 85652; 93005; 99212; 99284; Q9967

== ENCOUNTER → 2022-08-16 12:35 | Outpatient (BNVA) | payer MEDICARE, OTHER, SELFPAY | PROVIDERS: PCP Internal Medicine; Visit Provider Student in an Organized Health Care Education/Training Program | DX: L93.2 Other local lupus erythematosus (principal); M80.08XA Age-related osteoporosis with current pathological fracture, vertebra(e), initial encounter for fracture; Z79.899 Other long term (current) drug therapy | CPT/HCPCS: 99212 ==

== ENCOUNTER 2022-09-06 10:44 | Outpatient (REF) | payer MEDICARE, OTHER, SELFPAY ==
--- NOTE | ~2022-09-06 | XR_ITS ---
EXAMINATION: XR CHEST CLINICAL INFORMATION: Fatigue. COMPARISON: 12/30/2021 chest and rib radiographs. TECHNIQUE: 2 views of the chest were obtained. FINDINGS: The lungs are clear. The heart and mediastinal structures are unremarkable. There is a moderate-sized hiatal hernia. XR/XR chest 2V IMPRESSION: 1. No acute cardiopulmonary process. 2. Moderate hiatal hernia.
== END 2022-09-06 10:45 | disposition home or self-care (01) ==
LOC: HO.HMGCX 10:44
PROVIDERS: Visit Provider Internal Medicine
DX: R53.83 Other fatigue (principal)
CPT/HCPCS: 71046

== ENCOUNTER 2022-09-11 11:00 | Outpatient (RCR) | payer MEDICARE, OTHER, SELFPAY ==
--- NOTE | 2022-08-22 12:14 | MHC.PT.EP ---
[facility] [place] Office [place] Office [place] Office [address] Mark Sawyer [address] [phone] F: [phone] F: [phone] F: [phone] F: [phone] Physical Therapy Plan of Care Date of Evaluation: Date of Surgery: N/A Diagnosis: Unsteadiness on feet Assessment: Pt is a pleasant and motivated 86yo F who presents to PT with unsteadiness on feet. She presents to PT with current impairments in decreased LE strength, decreased endurance, decreased balance/proprioception, and impaired gait. She is limited functionally by prolonged standing, walking, and stair navigation. She is an excellent candidate for skilled PT in order to address current impairments to maximize strength and safety to improve functional mobility and decrease risk of falls. She is recommended to be seen 2x/week for 4 weeks and will be reassessed at that time. Frequency and Duration: The patient will be seen 2x/week for 4 weeks Short Term Goals: Pt will be I with HEP to promote self management of symptoms Pt will stand unsupported on foam surface for 1 min without UE support Filer Finish Goals: Pt will ambulate for 15 min on multidirectional path with LRAD without LOB with improved gait mechanics Pt will demonstrate improvements in LE strength and endurance as evidenced by an increase in 30 second sit to stand to 8 repetitions Pt will demonstrate improvements in balance as evidenced by a statistically significant improvement in The Activities-specific Balance Confidence (ABC) Scale Treatment Plan: Modalities to reduce pain, spasms and effusion. Manual therapy to restore motion and function. Therapeutic exercise to improve strength and flexibility. Neuromuscular re-education for posture and balance. Therapeutic activities to return to functional activities of daily living. Electronically signed by: Shabana Chaudhari, PT, DPT Please sign and return to therapist. Thank you for your referral.
--- NOTE | 2022-09-26 14:33 | MHC.PT.DC ---
[facility] [place] Office [place] Office [place] Office [address] Mark Sawyer [address] [phone] F: [phone] F: [phone] F: [phone] F: [phone] Physical Therapy Discharge Report Diagnosis: Unsteadiness on feet Date of Surgery: N/A Date of Evaluation: 08/22/22 Date of Discharge: 09/26/22 Treatments to Date: 4 Cancellations to Date: 0 No Shows to Date: 0 Discharge Status: Recommend MD Follow-up Discharge Summary: Pt was seen for PT from 08/22/22-09/11/22. Pts last attended PT session was 09/11/22. Pt is being D/C from skilled PT due to change in medical status as she was admitted to hospital recently. Pt current level of function unknown at this time. Electronically signed by: Shabana Chaudhari, PT, DPT Please sign and return to therapist. Thank you for your referral.
== END 2022-09-26 14:33 | disposition home or self-care (01) ==
LOC: HO.PT 11:00
PROVIDERS: PCP Internal Medicine; Visit Provider Internal Medicine
DX: R26.81 Unsteadiness on feet (principal)
CPT/HCPCS: 97110; 97112; 97162

== ENCOUNTER → 2022-09-18 10:56 | Outpatient (REF) | payer MEDICARE, SELFPAY ==
--- NOTE | 2022-09-18 11:46 | ECG_ITS ---
Test Reason : COPD Blood Pressure : / mmHG Vent. Rate : 089 BPM Atrial Rate : 089 BPM P-R Int : 182 ms QRS Dur : 084 ms QT Int : 340 ms P-R-T Axes : 072 054 023 degrees QTc Int : 413 ms Sinus rhythm with marked sinus arrhythmia Otherwise normal ECG When compared with ECG of 11-JUL-2022 14:33, Premature atrial complexes are no longer Present Criteria for Anterior infarct are no longer Present Nonspecific T wave abnormality has replaced inverted T waves in Inferior leads Nonspecific T wave abnormality no longer evident in Anterior leads Referred By: Farooq Vieyra Electronically Signed By:Fabricio Quezada
== END ==
LOC: HO.CARD 10:56
PROVIDERS: PCP Internal Medicine; Visit Provider Hospitalist
DX: K21.9 Gastro-esophageal reflux disease without esophagitis (principal); R07.81 Pleurodynia
CPT/HCPCS: 93005; 99212

== ENCOUNTER 2022-09-20 09:31 | Inpatient (IN) | payer MEDICARE, OTHER, SELFPAY ==
[2022-09-20] VITALS (7 sets, daily range): BP systolic 109–134; BP diastolic 47–59; PULSE 86–102; RESP 15–26; TEMP 36.1–36.6; O2SAT 90–95; BMI 24.6; BMI 26.8
--- NOTE | ~2022-09-20 | CT_ITS ---
EXAMINATION: CT ABDOMEN AND PELVIS WITHOUT CONTRAST CLINICAL INFORMATION: Weight loss, acute PE COMPARISON: 09/19/2021 TECHNIQUE: Multidetector volumetric imaging was performed from the superior aspect of the liver through the pubic symphysis. Sagittal and coronal reformatted images were obtained on the technologist's workstation. This CT examination was performed using dose optimization techniques as appropriate, variously including the following: *Automated exposure control *Adjustment of mA and/or kV according to patient size (this includes techniques or standardized protocols for targeted exams where dose is matched to indication/reason for exam; i.e. extremities or head) *Use of iterative reconstruction technique DLP: 386 mGy-cm FINDINGS: LUNG BASES: Small right pleural effusion. Minimal bibasilar atelectasis suspected. Large hiatal hernia. LIVER, GALLBLADDER, AND BILIARY TREE: The liver is normal in size, shape, and attenuation. No focal hepatic lesion or biliary ductal dilatation is identified on this noncontrast exam. Gallbladder is not clearly seen and may be contracted. PANCREAS: Extensive fatty atrophy. SPLEEN: Redemonstrated fluid density lesion along the lateral left spleen, along with chronic calcification. ADRENAL GLANDS: Unremarkable. KIDNEYS AND URETERS: No hydronephrosis or obstructing calculus bilaterally. Slight residual enhancement from previously administered contrast. BLADDER: Moderately distended with excreted contrast material. GASTROINTESTINAL TRACT: Colonic diverticulosis is noted. Moderate volume of stool is present. The small and large bowel are otherwise unremarkable without evidence of obstruction or pericolonic inflammatory change. The appendix is unremarkable. No free fluid or free air is seen. ABDOMINAL WALL: No significant hernia is appreciated. LYMPH NODES: Normal. VASCULAR: There is extensive atherosclerotic calcification along the aorta. IVC filter is present. PELVIC VISCERA: Unremarkable. OSSEOUS STRUCTURES: Degenerative changes are noted in the spine. CT/CT abdomen pelvis wo IV con IMPRESSION: 1. No acute findings identified in the abdomen/pelvis. 2. Small right pleural effusion. 3. Large hiatal hernia.
--- NOTE | ~2022-09-20 | CT_ITS ---
EXAMINATION: CT CHEST WITHOUT CONTRAST CLINICAL INFORMATION: Shortness of breath. Suspect empyema. COMPARISON: Previous chest CT and CTA July 2022 TECHNIQUE: Multidetector volumetric CT imaging of the chest was done. Axial MIP volume rendering provided. Sagittal and coronal reformatted images were obtained. This CT examination was performed using dose optimization techniques as appropriate, variously including the following: *Automated exposure control *Adjustment of mA and/or kV according to patient size (this includes techniques or standardized protocols for targeted exams where dose is matched to indication/reason for exam; i.e. extremities or head) *Use of iterative reconstruction technique DLP: 185 mGy-cm FINDINGS: QUALITATIVE EXECUTIVE RESEARCHER: LUNGS: There are new small peripheral opacities seen in the right upper, right middle and bilateral lower lobes. Appearance is questionable for small infiltrates. There is a newly appreciated 2 mm medial right upper lobe nodule axial image 17 series 3. There is a newly appreciated 3 mm right lower lobe nodule axial image 23 series 3. There is evidence of severe emphysema. MEDIASTINUM: Normal variant, replaced right subclavian artery. Normal heart size. Small pericardial effusion. Normal caliber thoracic aorta. Question new prominent pulmonary arteries, main pulmonary artery measuring 3.5 cm. Large esophageal hernia. CORONARY ARTERY CALCIFICATION: Moderate PLEURA: There is no pleural effusion. No pleural mass or thickening. AXILLA: No lymphadenopathy. UPPER ABDOMEN: Fullness and decreased attenuation of the left adrenal gland. Low-attenuation splenic lesions similar to previous exam and splenic calcification. Partially visualized IVC filter. OSSEOUS STRUCTURES: Severe T9 vertebral body compression fracture. Old or healing left anterior second rib x-ray. CT/CT chest wo IV con IMPRESSION: Emphysema. No evidence of pleural effusion or empyema. Scattered small peripheral infiltrates new from previous exam. Question new small right pulmonary nodules. According to the UPDATED 2017 Fleischner Society recommendations, the advised follow-up imaging for less than 6 mm solid nodule: Low risk, no chest CT follow-up and high risk, optional chest CT follow-up in one year. Fleischner guidelines were followed.
--- NOTE | ~2022-09-20 | US_ITS ---
EXAMINATION: US VENOUS ULTRASOUND WITH DOPPLER LOWER EXTREMITY, BILATERAL CLINICAL INFORMATION: Positive pulmonary embolus. COMPARISON: 11/17/2021 TECHNIQUE: Ultrasound of the deep veins is performed from the hip to the calf with compression sonography and color and pulse Doppler assessment. Spectral analysis with color-flow imaging is performed. FINDINGS: RIGHT: There is echogenic nonocclusive thrombus within the mid posterior tibial vein with lack of compressibility. There is normal venous compression and flow within the visualized common femoral vein, superficial femoral vein, profunda femoral vein, popliteal vein. There is no significant popliteal fossa cyst. LEFT: There is echogenic occlusive thrombus within the distal posterior tibial vein with lack of compressibility. There is normal venous compression and flow within the visualized common femoral vein, superficial femoral vein, profunda femoral vein, popliteal vein. There is no significant popliteal fossa cyst. If the patient's symptoms persist, followup ultrasound in 5 days 7 days might be of value to exclude proximal propagation. US/US venous duplex LE BI IMPRESSION: Positive for bilateral deep venous thrombosis. Nonocclusive thrombus in the mid RIGHT posterior tibial vein. Occlusive thrombus in the distal LEFT posterior tibial vein.
--- NOTE | ~2022-09-20 | CT_ITS ---
EXAMINATION: CT CHEST ANGIOGRAM PE PROTOCOL CLINICAL INFORMATION: , Reason for Exam Peuritic chest pain, SOB, tachy COMPARISON: Multiple prior CTs most recent 07/11/2022 TECHNIQUE: Volumetric imaging was performed through the chest. Reformatted coronal and sagittal imaging was performed. 3-D MIP images performed at a dedicated separate workstation. This CT examination was performed using dose optimization techniques as appropriate, variously including the following: *Automated exposure control *Adjustment of mA and/or kV according to patient size (this includes techniques or standardized protocols for targeted exams where dose is matched to indication/reason for exam; i.e. extremities or head) *Use of iterative reconstruction technique CONTRAST: 65 mL Omnipaque 350. DLP: 226 FINDINGS: PULMONARY ARTERIES: Multiple large filling defects found in the pulmonary arteries the right and left some of which completely occluding branches of the right pulmonary artery to the right lower lobe and to the left upper lobe, also on the left side occluding branches left upper lobe and left lower lobe. There is mild cardiac septal bowing and high RV LV ratio, suggesting cardiac strain. LINES/TUBES: None LUNGS: Lung Parenchyma: There is severe pulmonary emphysema. There are mild interstitial changes, primarily at lung periphery, thickening of interlobular septi suggesting interstitial pneumonitis. Lung Nodules:No suspicious lung mass, redemonstration of a small tiny peripheral lung nodules unchanged 5 mm or less. AIRWAYS: Trachea and bronchi are normal. PLEURA: No pleural effusion or pneumothorax. MEDIASTINUM AND RM: The visualized thyroid gland is unremarkable. No mediastinal, hilar or axillary lymphadenopathy. There is large hiatal hernia. VESSELS: Thoracic aorta is normal in size. HEART AND PERICARDIUM: Heart is normal in size. There is no pericardial effusion. There are coronary calcifications. CHEST WALL, LOWER NECK, SURROUNDING SOFT TISSUES: Normal VISUALIZED ABDOMEN: Hypodense liquefied cystic area in the spleen unchanged from prior CT of 07/11/2022 roughly measure 3.6 cm and 1.7 cm. BONES: Compression fracture of mid dorsal vertebra planus, this is old and has not changed from prior exam. No new fractures. CT/CT angio chest PE protocol IMPRESSION: POSITIVE LARGE PULMONARY EMBOLI. Multiple large fully occlusive and partially occlusive found in central branches of the pulmonary arteries right and left. There is mild Cardiac septal bowing and high RV LV ratio suggesting CARDIAC STRAIN. Other findings described above have not changed. This critical result was discussed with Dr. Kaiser by telephone at 09/20/2022 6:49 PM and it was ascertained that the content and urgency of the report was understood at the time of direct communication.
--- NOTE | 2022-09-20 10:10 | ED_ITS ---
HPI - SOB/Dyspnea General Chief Complaint: Dyspnea Stated Complaint: SOB Time Seen by Provider: 09/20/22 09:50 Source: patient Mode of arrival: ambulatory History of Present Illness HPI Narrative: 86-year-old female who presents with complaints of increasing shortness of breath since last week, she does use oxygen at baseline at night for underlying COPD but states that she is had to use it throughout the day due to her level of shortness of breath. Patient states that she was treated with antibiotics approximately 2 weeks ago for cough and fever and states that she is no longer had any fevers but she reports increasing discomfort with deep inspiration since the onset of her shortness of breath. She denies any other chest pain/p alpitations or dizziness/headache and otherwise denies any GI or symptoms. Related Data Home Medications Medication Instructions Recorded Confirmed aspirin 81 mg tablet,delayed 81 mg PO DAILY 02/27/20 09/06/22 release (Adult Aspirin Regimen) calcium carbonate 600 mg calcium 600 mg PO DAILY 02/27/20 09/06/22 (1,500 mg) tablet (Calcium) cholecalciferol (vitamin D3) 25 25 mcg PO DAILY 02/27/20 09/06/22 mcg (1,000 unit) capsule mirabegron 25 mg tablet,extended 25 mg PO DAILY 02/27/20 09/06/22 release 24 hr (Myrbetriq) lidocaine 5 % topical patch 1 patch topical DAILY PRN 03/03/22 09/06/22 pramipexole 1 mg tablet 1 mg PO BEDTIME 03/03/22 09/06/22 Oxygen Home Use 04/11/22 09/06/22 fluocinonide 0.05 % topical 1 appl topical BID-QID PRN 04/11/22 09/06/22 ointment gabapentin 300 mg capsule mg PO 08/16/22 09/06/22 lactulose 20 gram/30 mL oral 20 g PO BID PRN constipation 08/16/22 09/06/22 solution latanoprost 0.005 % eye drops 1 drp ophthalmic (eye) BEDTIME 08/16/22 09/06/22 nebulizers 09/18/22 fluticasone fur. 100 mcg-umeclid 1 ea inhalation DAILY 09/20/22 62.5 mcg-vilant 25 mcg inhalat.powder (Trelegy Ellipta) tramadol 50 mg tablet 50 mg PO BID PRN Pain 09/20/22 Previous Rx's Medication Instructions Recorded blood pressure monitor #1 ea 06/21/21 acetaminophen 500 mg capsule 500 - 1,000 mg PO QID PRN pain #30 09/22/21 caps diclofenac sodium 1 % topical gel 2 g topical QID #100 grams 09/22/21 losartan 50 mg tablet 100 mg PO DAILY #180 tabs 03/27/22 clobetasol 0.05 % topical cream 1 appl topical BID #60 grams 05/17/22 albuterol sulfate 90 mcg/actuation 2 puff inhalation Q4-6H PRN for 05/24/22 aerosol inhaler (ProAir HFA) muscle spasm #25.5 grams alendronate 70 mg tablet 70 mg PO QWEEK #12 tabs 06/29/22 rosuvastatin 10 mg tablet 10 mg PO DAILY 90 days #90 tabs 06/29/22 dapsone 100 mg tablet 100 mg PO DAILY #90 tabs 07/04/22 folic acid 1 mg tablet 1 mg PO DAILY #90 tabs 08/16/22 tacrolimus 0.1 % topical ointment 1 appl topical BID #100 grams 08/30/22 hydrochlorothiazide 12.5 mg tablet 12.5 mg PO DAILY 90 days #90 tabs 09/06/22 esomeprazole magnesium 40 mg 40 mg PO BID #90 caps 09/12/22 capsule,delayed release furosemide 20 mg tablet (Lasix) 20 mg PO DAILY #3 tabs 09/18/22 Allergies Allergy/AdvReac Type Severity Reaction Status Date / Time amlodipine Allergy Unknown leg Verified 09/20/22 09:44 swelling, swelling atorvastatin [Lipitor] Allergy Unknown Unknown Verified 09/20/22 09:44 hydroxychloroquine Allergy Unknown Affected Verified 09/20/22 09:44 [From Plaquenil] eye sight metoprolol Allergy Unknown Swelling Verified 09/20/22 09:44 Review of Systems Review of Systems: Pertinent positives and negatives as stated in [facility] Past Medical History Source: nursing notes reviewed Medical History Anxiety Arterial occlusive disease Chest discomfort Chronic respiratory failure COPD (chronic obstructive pulmonary disease) Discoid lupus Diverticulitis DVT (deep venous thrombosis) Dyspnea Encounter for monitoring azathioprine therapy GERD (gastroesophageal reflux disease) Greater saphenous vein embolism Hiatal hernia Hypercholesterolemia Hypertension Iliac artery occlusion Left leg DVT Lupus (systemic lupus erythematosus) Osteopenia Pleuritic chest pain Pulmonary embolism Pulmonary nodule Pulmonary nodules Restless leg Thrombus of aorta Surgical History Bilateral pulmonary embolism History of breast biopsy History of cataract surgery History of foot surgery History of toe surgery History of total abdominal hysterectomy and bilateral salpingo-oophorectomy Family History Family History Father Hypertension Cancer Mother Hypertension Stroke CVD (cardiovascular disease) Social History Social History Household Members: None Housing: House Alcohol intake: never Patient Tobacco Use Status: Former Tobacco user Tobacco use type: Cigarette Years Smoked: 30 Smoked in Last 30 Days: No e-Cigarette/Vaping Use: Never Used Second Hand Smoke Exposure: No Use of substances other than those prescribed or required for medical reasons: No Advance Directives: No service: No Current occupational status: retired Cognitive needs: Yes Hearing needs: No Vision needs: Yes Physical Exam Vital Signs: Vital Signs: Last Vital Signs Temp 97.0 F 09/20/22 09:34 Pulse 98 09/20/22 12:16 Resp 22 H 09/20/22 12:16 BP 121/59 L 09/20/22 12:28 Pulse Ox 93 09/20/22 12:16 O2 Del Method Nasal Cannula 09/20/22 12:16 O2 Flow Rate 2 09/20/22 12:16 Oxygen Flow Rate 2 09/20/22 09:34 BMI result Body Mass Index 24.6 VITAL SIGNS: Reviewed. GENERAL: Well developed, well nourished, in no acute distress. HEAD: Normocephalic/atraumatic EYES: PERRLA, EOMI EARS: Ext canals without abnormality NOSE: Nares patent bilateral OROPHARYNX: no oral lesions noted, posterior pharynx clear NECK: Supple, no adenopathy LUNGS: Decreased breath sounds with crackles on the right base, patient noted to be uncomfortable with deep inspiration, mild tachypnea but no expiratory wheeze. SpO2<90> on 2 L nasal cannula CARDIOVASCULAR: Regular rate and rhythm without noted murmurs, no JVD or lower extremity edema. ABDOMEN: Soft, non-tender, non-distended with bowel sounds. MUSCULOSKELETAL: No tenderness, deformities, or effusions noted on gross inspection. EXTREMITIES: No cyanosis, clubbing or edema. SKIN: Inspection of the skin reveals no rashes NEUROLOGIC: Alert and oriented x 4. Strength and sensation to light touch were grossly intact x 4. Medications Administered Discontinued Medications Generic Name Dose Route Start Last Admin Trade Name Freq PRN Reason Stop Dose Admin Piperacillin Sod/Tazobactam 50 mls @ 100 mls/hr 09/20/22 13:21 09/20/22 13:29 Sod 3.375 gm/ Sodium Chloride IV 09/20/22 13:50 100 mls/hr ONCE ONE Administration Sodium Chloride 500 mls @ 999 mls/hr 09/20/22 13:30 09/20/22 13:30 Ns IV 09/20/22 14:00 999 mls/hr .Q31M KETURAH Administration Medical Decision Making Medical Decision Making [facility] Narrative: 1013: 86-year-old female with history and clinical presentation suggestive may be due to incomplete resolution of a pneumonia as she is noted to be hypoxic on her typical oxygen supplementation. Will await labwork and CT imaging. 1055: I have noted that there is a leukocytosis, patient is afebrile also has some hypoxia in CT imaging demonstrates peripheral infiltrates. Will administer antibiotics and nurse notified. 1325: I discussed case with inpatient hospitalist who accepts admission. Differential Diagnosis Please see the discussion above Consult Healthcare Provider Management of the patient was discussed with: Hospitalist Please see the discussion above Lab Data Please see the discussion above 09/20/22 10:44 09/20/22 10:44 Labs: Lab Results 09/20/22 09/20/22 09/20/22 Range/Units 10:44 10:44 10:44 WBC 17.6 H (4.8-10.8) X10*3/uL RBC 3.13 L D (4.20-5.50) X10*6/uL Hgb 9.7 L (12.0-16.0) g/dl Hct 31.2 L (37.0-47.0) % MCV 99.7 H (80.0-98.0) fL MCH 31.0 (27.0-33.0) pg MCHC 31.1 (31.0-35.0) g/dl RDW 19.3 H (11.0-16.0) % Plt Count 335 (160-400) X10*3/uL MPV 9.1 L (9.4-12.3) fL Immature Gran % (Auto) 0.7 H (0.0-0.4) % Neut % (Auto) 82.3 H (45-73) % Lymph % (Auto) 9.8 L (20-40) % [place] % (Auto) 6.4 (2-11) % Eos % (Auto) 0.3 (0-4) % Baso % (Auto) 0.5 (0-2) % Lymph # (Auto) 1.7 (1.2-4.9) X10*3/uL [place] # (Auto) 1.1 (0.1-1.2) X10*3/uL Eos # (Auto) 0.1 (0.0-0.4) X10*3/uL Baso # (Auto) 0.1 (0.0-0.2) X10*3/uL Abs Immat Gran (auto) 0.13 H (0.00-0.03) X10*3/uL Absolute Neuts (auto) 14.4 H (2.0-8.3) x10*3/uL Absolute Nucleated RBC 0.000 (0.0-0.012) X10*3/uL Nucleated RBC % (auto) 0.0 (0.0-0.2) /100WBC VBG pH (7.32-7.43) VBG pCO2 mmHg VBG pO2 mmHg VBG HCO3 (22-26) mmol/L VBG O2 Saturation % VBG Base Excess mmol/L Sodium 142 (135-145) mmol/L Potassium 4.2 (3.3-5.1) mmol/L Chloride 102 (96-108) mmol/L Carbon Dioxide 31 H (22-29) mmol/L Anion Gap 13 (12-20) BUN 32 H (9-16) mg/dL Creatinine 0.97 (0.5-1.4) mg/dL Estim Creat Clear Calc 32.7 Estimated GFR 55 Random Glucose 97 (60-115) mg/dL Lactic Acid 0.7 (0.5-2.0) mmol/L Calcium 10.5 H D (8.4-10.2) mg/dL Total Bilirubin 2.1 H (0.0-1.0) mg/dL AST 22 (5-31) U/L ALT 20 (0-31) U/L Alkaline Phosphatase 103 (39-117) U/L B-Natriuretic Peptide (<100) pg/mL Total Protein 6.2 L (6.5-8.0) g/dL Albumin 4.1 (3.5-5.0) g/dL 09/20/22 09/20/22 Range/Units 10:44 10:47 WBC (4.8-10.8) X10*3/uL RBC (4.20-5.50) X10*6/uL Hgb (12.0-16.0) g/dl Hct (37.0-47.0) % MCV (80.0-98.0) fL MCH (27.0-33.0) pg MCHC (31.0-35.0) g/dl RDW (11.0-16.0) % Plt Count (160-400) X10*3/uL MPV (9.4-12.3) fL Immature Gran % (Auto) (0.0-0.4) % Neut % (Auto) (45-73) % Lymph % (Auto) (20-40) % [place] % (Auto) (2-11) % Eos % (Auto) (0-4) % Baso % (Auto) (0-2) % Lymph # (Auto) (1.2-4.9) X10*3/uL [place] # (Auto) (0.1-1.2) X10*3/uL Eos # (Auto) (0.0-0.4) X10*3/uL Baso # (Auto) (0.0-0.2) X10*3/uL Abs Immat Gran (auto) (0.00-0.03) X10*3/uL Absolute Neuts (auto) (2.0-8.3) x10*3/uL Absolute Nucleated RBC (0.0-0.012) X10*3/uL Nucleated RBC % (auto) (0.0-0.2) /100WBC VBG pH 7.40 (7.32-7.43) VBG pCO2 55 mmHg VBG pO2 34 mmHg VBG HCO3 34 H (22-26) mmol/L VBG O2 Saturation 48.0 % VBG Base Excess 8.3 mmol/L Sodium (135-145) mmol/L Potassium (3.3-5.1) mmol/L Chloride (96-108) mmol/L Carbon Dioxide (22-29) mmol/L Anion Gap (12-20) BUN (9-16) mg/dL Creatinine (0.5-1.4) mg/dL Estim Creat Clear Calc Estimated GFR Random Glucose (60-115) mg/dL Lactic Acid (0.5-2.0) mmol/L Calcium (8.4-10.2) mg/dL Total Bilirubin (0.0-1.0) mg/dL AST (5-31) U/L ALT (0-31) U/L Alkaline Phosphatase (39-117) U/L B-Natriuretic Peptide 68 (<100) pg/mL Total Protein (6.5-8.0) g/dL Albumin (3.5-5.0) g/dL Radiology Impression Radiologist Impression: My interpretation is in agreement with radiology's impression. External Record Review External record reviewed: Outpatient record and Prior outpatient labs Discharge Plan Discharge Clinical Impression: Breath shortness, Hypoxia, Pneumonia, Sepsis Patient Disposition: Admitted As Inpatient
--- NOTE | 2022-09-20 10:11 | PC.NURSE ---
Patient presents with dyspnea, patient has a history of COPD and usually wears O2 at night but the past few days she has had to wear it all the time. Patient is alert and oriented, lung sounds note an expiratory wheeze left more than right.
[2022-09-20 10:51] LABS: MANUAL DIFF FLAG NO
[2022-09-20 10:53] LABS: Basophils Absolute Auto 0.1 X10*3/uL (0.0-0.2); Basophils Percent Auto 0.5 % (0-2); Eosinophils Absolute Auto 0.1 X10*3/uL (0.0-0.4); Eosinophils Percent Auto 0.3 % (0-4); Hematocrit 31.2 % (37.0-47.0); Hemoglobin 9.7 g/dl (12.0-16.0); Imm Gran Abs Auto 0.13 X10*3/uL (0.00-0.03); Imm Gran Pct Auto 0.7 % (0.0-0.4); Lymphocytes Absolute Auto 1.7 X10*3/uL (1.2-4.9); Lymphocytes Percent Auto 9.8 % (20-40); Mean Corpuscular HGB Conc 31.1 g/dl (31.0-35.0); Mean Corpuscular Volume 99.7 fL (80.0-98.0); Mean Platelet Volume 9.1 fL (9.4-12.3); Monocytes Absolute Auto 1.1 X10*3/uL (0.1-1.2); Monocytes Percent Auto 6.4 % (2-11); Neutrophils Absolute Auto 14.4 x10*3/uL (2.0-8.3); Neutrophils Percent Auto 82.3 % (45-73); Platelet Count 335 X10*3/uL (160-400); Red Blood Count 3.13 X10*6/uL (4.20-5.50); Red Cell Distribution Width 19.3 % (11.0-16.0); White Blood Count 17.6 X10*3/uL (4.8-10.8)
[2022-09-20 10:55] LABS: VBG Base Excess 8.3 mmol/L; VBG HCO3 34 mmol/L (22-26); VBG pCO2 55 mmHg; VBG pO2 34 mmHg
[2022-09-20 10:56] LABS: Venous Blood Gas Refer to POC result
[2022-09-20 11:08] LABS: Lactic Acid 0.7 mmol/L (0.5-2.0)
[2022-09-20 11:12] LABS: Alanine Aminotransferase 20 U/L (0-31); Albumin Level 4.1 g/dL (3.5-5.0); Alkaline Phosphatase 103 U/L (39-117); Anion Gap 13 (12-20); Aspartate Amino Transferase 22 U/L (5-31); Bilirubin Total 2.1 mg/dL (0.0-1.0); Blood Urea Nitrogen 32 mg/dL (9-16); Calcium 10.5 mg/dL (8.4-10.2); Carbon Dioxide 31 mmol/L (22-29); Chloride 102 mmol/L (96-108); Creatinine Clr Calc Pharmacy 32.7; Estimated Glomerular Filt Rate 55; Glucose Random 97 mg/dL (60-115); Potassium 4.2 mmol/L (3.3-5.1); Sodium 142 mmol/L (135-145); Total Protein 6.2 g/dL (6.5-8.0)
[2022-09-20 11:27] LABS: B Type Natriuretic Peptide 68 pg/mL (<100)
[2022-09-20] MEDS: Piperacillin Sodium/Tazobactam 3.375 GM in 0.9 % Sodium Chloride 50 ML IV (13:29)
[2022-09-20] MEDS: 0.9 % Sodium Chloride 500 ML 999 ML IV (13:30)
--- NOTE | 2022-09-20 13:31 | ECG_ITS ---
Test Reason : SOB Blood Pressure : / mmHG Vent. Rate : 102 BPM Atrial Rate : 102 BPM P-R Int : 212 ms QRS Dur : 084 ms QT Int : 322 ms P-R-T Axes : 027 -18 027 degrees QTc Int : 419 ms Sinus tachycardia with 1st degree A-V block Otherwise normal ECG When compared with ECG of 18-SEP-2022 11:50, ND interval has increased Referred By: Keturah Hoskins Electronically Signed By:Fabricio Quezada
--- NOTE | 2022-09-20 14:16 | PM.IMHP ---
History of Present Illness Date of Service: 09/20/22 Attending physician on admission: Roseanna Maldonado Chief Complaint: SOB Pt is a 86-year-old female with a PMH significant for?COPD and emphysema 2 L NC nocturnal O2, PAD, osteoporosis, lupus, HTN, HLD, and hx of DVT with PE in 2019 with IVC filter in place no longer on anticoagulation who presents to the ED with?worsening shortness of breath. Patient's symptoms began over 2 weeks ago when she developed shortness of breath, occasional nonproductive cough, fatigue, fever of 102, and chills. Has also experienced racing heart and headaches. Patient was seen at walk-in clinic on 09/06/2022 and had negative chest x-ray and UA, but was treated empirically for UTI with Bactrim for 5 days. Patient states that she did not feel any better with antibiotics. Patient's symptoms have instead worsened over the past 2 weeks and patient has now been using supplemental O2 during the day. States she has even increased her O2 to 3L. Pt lives at home alone with help from her neighbor. Pt notes she can no longer walk around her house without getting SOB. Developed pleuritic chest pain with inspiration particularly on the right side yesterday, worse this morning. Patient also notes she has been anorexic as of late and has lost 35 lb in the last 4 months due to not eating much. Patient denies lightheadedness, dizziness. No recent falls. Denies abdominal pain. In the ED patient was afebrile but tachycardic to 102, and tachypneic up to 22, and hypotensive as low as 109/47. Labs were significant for leukocytosis of 17.6, H&H 9.7/31.2, BUN of 32 and creatinine 0.97 (both above baseline), bilirubin elevated at 2.1.CT?of chest showed emphysema with possible new small scattered peripheral infiltrates, and no evidence of pleural effusions or empyema, and with question of new small right pulmonary nodules of less than 6 mm. Chest CTA found multiple large fully occlusive and partially occlusive pulmonary emboli in the central branches of the pulmonary arteries right and left, with mild Cardiac septal bowing and high RV and LV ratio suggesting cardiac strain. EKG demonstrated sinus rhythm with nonspecific T-wave abnormality in inferior leads with no evidence of ST elevations or depressions. Pt was treated with IVF and Zosyn. Pt will be admitted to the hospital for treatment further evaluation of acute hypoxic respiratory failure in the setting of community-acquired pneumonia. Review of Systems Review of Systems: Shortness of breath Pleuritic inspiratory chest pain Occasional nonproductive cough Fever, chills Headache No lightheadedness, dizziness Denies recent falls Yes all other systems are reviewed and are negative PENDING SALE TO [facility] Medical History Anxiety Arterial occlusive disease Chest discomfort Chronic respiratory failure COPD (chronic obstructive pulmonary disease) Discoid lupus Diverticulitis DVT (deep venous thrombosis) Dyspnea Encounter for monitoring azathioprine therapy GERD (gastroesophageal reflux disease) Greater saphenous vein embolism Hiatal hernia Hypercholesterolemia Hypertension Iliac artery occlusion Left leg DVT Lupus (systemic lupus erythematosus) Osteopenia Pleuritic chest pain Pulmonary embolism Pulmonary nodule Pulmonary nodules Restless leg Thrombus of aorta Family History Father Hypertension Cancer Mother Hypertension Stroke CVD (cardiovascular disease) Surgical History (Updated 09/20/22 @ 22:19 by CHAYO Philip) Bilateral pulmonary embolism History of breast biopsy History of cataract surgery History of foot surgery History of toe surgery History of total abdominal hysterectomy and bilateral salpingo-oophorectomy Social History Household Members: None Housing: House Alcohol intake: never Patient Tobacco Use Status: Former Tobacco user Tobacco use type: Cigarette Years Smoked: 30 Smoked in Last 30 Days: No e-Cigarette/Vaping Use: Never Used Second Hand Smoke Exposure: No Use of substances other than those prescribed or required for medical reasons: No Advance Directives: No Nutrition Risks: No Nutritional Risk service: No Current occupational status: retired Cognitive needs: Yes Hearing needs: No Vision needs: Yes Meds Allergies Allergy/AdvReac Type Severity Reaction Status Date / Time amlodipine Allergy Unknown leg Verified 09/20/22 09:44 swelling, swelling atorvastatin [Lipitor] Allergy Unknown Unknown Verified 09/20/22 09:44 hydroxychloroquine Allergy Unknown Affected Verified 09/20/22 09:44 [From Plaquenil] eye sight metoprolol Allergy Unknown Swelling Verified 09/20/22 09:44 Home Medications Medication Instructions Recorded Confirmed Last Taken Type aspirin 81 mg tablet,delayed 81 mg PO DAILY 02/27/20 09/20/22 09/20/22 History release (Adult Aspirin Regimen) calcium carbonate 600 mg calcium 600 mg PO DAILY 02/27/20 09/20/22 09/20/22 History (1,500 mg) tablet (Calcium) cholecalciferol (vitamin D3) 25 25 mcg PO DAILY 02/27/20 09/20/22 09/20/22 History mcg (1,000 unit) capsule mirabegron 25 mg tablet,extended 25 mg PO DAILY 02/27/20 09/20/22 09/20/22 History release 24 hr (Myrbetriq) lidocaine 5 % topical patch 1 patch topical DAILY PRN Pain 03/03/22 09/20/22 Unknown History pramipexole 1 mg tablet 1 mg PO BEDTIME 03/03/22 09/20/22 09/19/22 History Oxygen Home Use 04/11/22 09/06/22 Unknown History fluocinonide 0.05 % topical 1 appl topical BID-QID PRN Itching 04/11/22 09/20/22 Unknown History ointment gabapentin 300 mg capsule 300 mg PO BEDTIME 08/16/22 09/20/22 09/19/22 History lactulose 20 gram/30 mL oral 20 g PO BID PRN constipation 08/16/22 09/20/22 Unknown History solution latanoprost 0.005 % eye drops 1 drp ophthalmic (eye) BEDTIME 08/16/22 09/20/22 09/19/22 History nebulizers 09/18/22 Unknown History alendronate 70 mg tablet 70 mg PO WE 09/20/22 09/20/22 Unknown History ipratropium 0.5 mg-albuterol 3 mg 3 ml inhalation TID 09/20/22 09/20/22 09/20/22 History (2.5 mg base)/3 mL nebulization soln tramadol 50 mg tablet 50 mg PO BID PRN Pain 09/20/22 09/20/22 Unknown History Physical Exam Vital Signs and Narrative: Vital Signs: Last Vital Signs Temp 97.0 F 09/20/22 09:34 Pulse 98 09/20/22 12:16 Resp 22 H 09/20/22 12:16 BP 121/59 L 09/20/22 12:28 Pulse Ox 93 09/20/22 12:16 O2 Del Method Nasal Cannula 09/20/22 12:16 O2 Flow Rate 2 09/20/22 12:16 Oxygen Flow Rate 2 09/20/22 09:34 BMI result Body Mass Index 24.6 Constitutional: Alert, in no acute distress. Mental Status: Oriented to person, place and time. Eyes: Pupils are equal, round, and reactive to light. Ear, Nose, and Throat: Oropharynx clear, mucous membranes moist. Ears and nose without deformities. Trachea midline. Respiratory: Clear to auscultation bilaterally. No wheezing, rales, or rhonchi. Cardiovascular: S1, S2 regular. No murmurs, rubs, or gallops. Gastrointestinal: Abdomen soft, non-tender, non-distended. Normal bowel sounds. Neurologic: Cranial nerves II-XII are grossly intact bilaterally. No focal neurological deficits. Moves all extremities spontaneously. Skin: No rashes or lesions noted. Extremities: No edema. Psychiatric: Normal mood and affect. Results Labs 09/20/22 10:44 09/20/22 10:44 Labs: Laboratory Results - last 24 hr 09/20/22 09/20/22 09/20/22 10:44 10:44 10:44 MCV 99.7 H MCH 31.0 MCHC 31.1 RDW 19.3 H Plt Count 335 MPV 9.1 L Immature Gran % (Auto) 0.7 H Neut % (Auto) 82.3 H Lymph % (Auto) 9.8 L Ashley % (Auto) 6.4 Eos % (Auto) 0.3 Baso % (Auto) 0.5 Lymph # (Auto) 1.7 Ashley # (Auto) 1.1 Eos # (Auto) 0.1 Baso # (Auto) 0.1 Abs Immat Gran (auto) 0.13 H Absolute Neuts (auto) 14.4 H Absolute Nucleated RBC 0.000 Nucleated RBC % (auto) 0.0 VBG pH VBG pCO2 VBG pO2 VBG HCO3 VBG O2 Saturation VBG Base Excess Anion Gap 13 Estim Creat Clear Calc 32.7 Estimated GFR 55 Random Glucose 97 Lactic Acid 0.7 Calcium 10.5 H D Total Bilirubin 2.1 H AST 22 ALT 20 Alkaline Phosphatase 103 B-Natriuretic Peptide Total Protein 6.2 L Albumin 4.1 09/20/22 09/20/22 10:44 10:47 MCV MCH MCHC RDW Plt Count MPV Immature Gran % (Auto) Neut % (Auto) Lymph % (Auto) Ashley % (Auto) Eos % (Auto) Baso % (Auto) Lymph # (Auto) Ashley # (Auto) Eos # (Auto) Baso # (Auto) Abs Immat Gran (auto) Absolute Neuts (auto) Absolute Nucleated RBC Nucleated RBC % (auto) VBG pH 7.40 VBG pCO2 55 VBG pO2 34 VBG HCO3 34 H VBG O2 Saturation 48.0 VBG Base Excess 8.3 Anion Gap Estim Creat Clear Calc Estimated GFR Random Glucose Lactic Acid Calcium Total Bilirubin AST ALT Alkaline Phosphatase B-Natriuretic Peptide 68 Total Protein Albumin Imaging Radiologist's Impressions: Impressions Chest CT 09/20/22 11:36 IMPRESSION: Emphysema. No evidence of pleural effusion or empyema. Scattered small peripheral infiltrates new from previous exam. Question new small right pulmonary nodules. According to the UPDATED 2017 Fleischner Society recommendations, the advised follow-up imaging for less than 6 mm solid nodule: Low risk, no chest CT follow-up and high risk, optional chest CT follow-up in one year. Fleischner guidelines were followed. Assessment and Plan (1) Bilateral pulmonary embolism: Status: Acute Plan Bilateral pulmonary embolism Chest CTA found multiple large fully occlusive and partially occlusive pulmonary emboli in the central branches of the pulmonary arteries right and left, with mild Cardiac septal bowing and high RV and LV ratio suggesting cardiac strain Patient with a history of previous pulmonary embolism in 2019, no longer on anticoagulation but with IVC in place Patient will be placed on heparin drip Analgesics for pain management Echocardiogram Pulmonology consult, patient followed by Dr. Vieyra Cardiology consult Monitor on telemetry Question of community-acquired pneumonia Possible infiltrates seen on CT of chest, but procalcitonin negative Leukocytosis likely reactionary, tachycardia and tachypnea likely secondary to pulmonary embolism not sepsis. Lactic acid WNL at 0.7 Patient given IVF resuscitation and antibiotics in ED Will hold off on additional antibiotics for now Follow cultures Hyperbilirubinemia Total bilirubin 2.1 Patient asymptomatic: No jaundice, abdominal pain Possibly secondary to Gilbert's syndrome Recheck total and direct bilirubin tomorrow COPD Does not appear to be in acute exacerbation Continue home inhalers Lupus Continue dapsone HLD Continue statin Full Code Attending:?Dr. Maldonado DVT Prophylaxis: On heparin drip Pt will require a hospitalization of at least two nights for treatment of?bilateral pulmonary emboli with IV heparin and specials consults. Time Spent With Patient Time: Total time managing care of this patient today ____ minutes. Quality Stroke Does the patient have a stroke diagnosis?: No VTE Prior VTE?: Yes VTE Risk Level:: Medical - moderate - high VTE Device Contraindication: Treatment Not Indicated VTE Drug Contraindication: N/A - Med Ordered
[2022-09-20 14:47] LABS: Procalcitonin 0.08 ng/mL
--- NOTE | 2022-09-20 15:28 | PHA.MEDREC ---
Pharmacy Consult ? Medication Reconciliation Pharmacy has completed the medication reconciliation. Changes as noted below: Gabapentin from BID TO QD TRELEGY TO DUONEB TIB KETURAH HCTZ WAS HELD FOR LASIX X 3DAYS
--- NOTE | 2022-09-20 15:38 | P.EN_ITS ---
Event Note Date of Service: 09/20/22 Event Note: Addendum to history and physical by the advanced practice provider, CHAYO John I interviewed and examined the patient. I discussed their presentation and management with the LYRIC. I reviewed the history and physical and agree with the documentation, with the following additions and corrections: 86yo F with COPD + nocturnal O2 dependence, hx DVT/PE 2019 not currently on Xarelto presenting with worsening exertional dyspnea + edema + substernal and pleuritic chest pain. Dr Vieyra, her real estate transaction coordinator, saw her 3 days ago and gave her 3 days of Lasix. Treated recently by for UTI with Bactrim though no symtpoms. Coming in with worsening dyspnea and pleurisy. Inspiratory crackles bilaterally on exam. No wheezing. Tachycardic. CT with emphysema, peripheral infiltrates WBC 17.6 LA 0.7. Plan admit to tele, obtain EKG + Tn-I x2, CT angio chest to r/o PE, consult Pulm + Cardiology, check TTE. Treat for PNA with ceftriaxone + doxy. Time Spent With Patient Time: Total time managing care of this patient today ____ minutes.
[2022-09-20 16:38] LABS: Troponin-I High Sensitivity 17.6 ng/L (<3.5-17.0)
[2022-09-20 16:41] LABS: Bilirubin Direct 0.6 mg/dL (0.0-0.5)
[2022-09-20] MEDS: Doxycycline Monohydrate 100 MG CAPSULE PO (17:11)
[2022-09-20] MEDS: 0.9 % Sodium Chloride Flush 3 ML SYRINGE IVFLUSH ×2 (17:12→23:00)
[2022-09-20] MEDS: Enoxaparin Sodium 40 MG/0.4 ML SYRINGE SUBCUT (17:12)
[2022-09-20] MEDS: iohexoL 350 MG/ML 100 ML INFUS..BTL IV (17:35)
--- NOTE | 2022-09-20 19:14 | MHC.EDTECH ---
i just took over this assignment from deidre , .. I just took vitals and put pt back on monitor
[2022-09-20 19:27] LABS: Influenza A PCR NEGATIVE (Negative); Influenza B PCR NEGATIVE (Negative); Resp Syncy Virus RNA Qual PCR NEGATIVE (Negative); SARS COV2 PCR INHOUSE NEGATIVE (Negative)
[2022-09-20] MEDS: Heparin Sodium,Porcine 5,000 UNIT/ML VIAL 4800 UNIT IVPUSH (19:39)
[2022-09-20] MEDS: Heparin Sodium,Porcine/1/2NS 25,000 UNIT/250 ML IV.SOLN 8.43 UNIT IVCONT (19:40)
[2022-09-20] MEDS: cefTRIAXone sodium 1 GM in 0.9 % Sodium Chloride 50 ML IV (19:43)
[2022-09-20] MEDS: Acetaminophen 325 MG TABLET 650 MG PO (19:46)
[2022-09-20 19:53] LABS: Troponin-I High Sensitivity 18.9 ng/L (<3.5-17.0)
[2022-09-20 20:07] LABS: INTERNATIONAL NORM RATIO 1.1 (0.9-1.1); Prothrombin Time 12.2 SEC (10.0-13.1)
[2022-09-20 20:10] LABS: PTT Heparin Drip 31.1 SEC (53-77.9)
--- NOTE | 2022-09-20 20:14 | MHC.EDTECH ---
a purewick was placed
[2022-09-20] MEDS: Gabapentin 300 MG CAPSULE PO (22:59)
[2022-09-21] VITALS (12 sets, daily range): BP systolic 105–170; BP diastolic 44–66; PULSE 63–101; RESP 11–20; TEMP 36.6–38.4; O2SAT 92–98
--- NOTE | 2022-09-21 | ECG_ITS ---
Test Reason : arrythmia Blood Pressure : / mmHG Vent. Rate : 067 BPM Atrial Rate : 067 BPM P-R Int : 204 ms QRS Dur : 086 ms QT Int : 408 ms P-R-T Axes : 020 -32 -18 degrees QTc Int : 431 ms Sinus rhythm with marked sinus arrhythmia Left axis deviation Abnormal ECG When compared with ECG of 20-SEP-2022 15:02, Vent. rate has decreased BY 35 BPM Referred By: Star Junior Electronically Signed By:Fabricio Quezada
--- NOTE | 2022-09-21 01:29 | PC.NURSE ---
Pt with episode of bradycardia down to 35 BPM while sleeping. Immediately back to 76 BPM when awake. Given yair gaxiola upon request.
--- NOTE | 2022-09-21 01:40 | PC.NURSE ---
Repeat PTT drawn per heparin protocol at this time.
[2022-09-21 01:52] LABS: PTT Heparin Drip 105.7 SEC (53-77.9)
--- NOTE | 2022-09-21 02:09 | PC.NURSE ---
Repeat PTT 105.7. Heparin drip on hold for 1 hour per protocol.
[2022-09-21] MEDS: Acetaminophen 325 MG TABLET 650 MG PO ×3 (02:22→22:32)
--- NOTE | 2022-09-21 03:09 | PC.NURSE ---
Heparin drip restarted at 11 units/hr. Next PTT to be drawn at 09:09 AM.
[2022-09-21] MEDS: Doxycycline Monohydrate 100 MG CAPSULE PO ×2 (04:12→17:26)
[2022-09-21 05:58] LABS: Hematocrit 23.9 % (37.0-47.0); Hemoglobin 7.4 g/dl (12.0-16.0); Mean Corpuscular Hemoglobin 31.1 pg (27.0-33.0); Mean Corpuscular Volume 100.4 fL (80.0-98.0); NRBC Pct Auto 0.2 /100WBC (0.0-0.2); Platelet Count 244 X10*3/uL (160-400); Red Blood Count 2.38 X10*6/uL (4.20-5.50); Red Cell Distribution Width 19.4 % (11.0-16.0)
[2022-09-21 06:21] LABS: Anion Gap 10 (12-20); Bilirubin Total 0.9 mg/dL (0.0-1.0); Blood Urea Nitrogen 29 mg/dL (9-16); Calcium 9.1 mg/dL (8.4-10.2); Carbon Dioxide 32 mmol/L (22-29); Chloride 104 mmol/L (96-108); Creatinine Clr Calc Pharmacy 31.7; Estimated Glomerular Filt Rate 50; Glucose Random 118 mg/dL (60-115); Potassium 3.8 mmol/L (3.3-5.1); Sodium 142 mmol/L (135-145)
[2022-09-21 06:25] LABS: INTERNATIONAL NORM RATIO 1.1 (0.9-1.1); Prothrombin Time 13.1 SEC (10.0-13.1)
--- NOTE | 2022-09-21 07:00 | CA_ITS ---
Transthoracic Echocardiogram Patient (Last, First, Middle): Kelly Miller R Gender: Female Date of : 1935 Age: 86 Procedure Date: 09/21/2022 Procedure Type: Transthoracic Echocardiogram Location: ER Height: 149.86 cm Weight: 55.34 kg BSA: 1.49 m2 Heart Rate: bpm BP: 120 / 52 mmHg Senior Director: KITTY Referring MD: Josephine DOMINGO Symptoms: Recently increased lower leg edema Study Quality: Adequate Conclusions: - Normal left ventricular size and systolic function. There is moderately increased left ventricular wall thickness. The visually estimated ejection fraction is between 65-70%. - Normal right ventricular cavity size and systolic function. - The right ventricular systolic pressure is 58 mmHg. Normal right atrial pressure. Severe pulmonary hypertension is present. Findings Left Ventricle Normal left ventricular size and systolic function. There is moderately increased left ventricular wall thickness. The visually estimated ejection fraction is between 65-70%. There is no evidence of regional wall motion abnormalities. Abnormal diastolic function is noted. Spectral Doppler is indicative of an impaired relaxation filling pattern. E/E prime ratio is between 8 and 15 consistent with indeterminate filling pressures. Right Ventricle Normal right ventricular cavity size and systolic function. Atria The left atrium is normal in size. The right atrium is mildly dilated. Aortic Valve There is a normal trileaflet aortic valve. There is mild calcification of the aortic valve. There is no aortic valve stenosis. There is no aortic valve regurgitation. Mitral Valve The mitral valve appears normal. There is no mitral valve regurgitation. There is no mitral valve stenosis. Pulmonic Valve Normal pulmonic valve structure and function. There is trace pulmonic valve regurgitation. Tricuspid Valve Normal tricuspid valve structure and function. There is trace tricuspid valve regurgitation. The right ventricular systolic pressure is 58 mmHg. Normal right atrial pressure. Severe pulmonary hypertension is present. Great Vessels All visible segments of the aorta are normal in size. The visualized portions of the pulmonary artery and branches are normal. Venous The inferior vena cava is normal in size and collapses greater than 50% with inspiration. Pericardium/Pleural There is no evidence of pericardial effusion. Prior Study Comparison Changes noted compared to prior study dated: 01/13/2020. RV appears normal in size and function. PA pressures are severely elevated. Measurements 2D Linear Measurements IVSd: 1.30 0.6-0.9/0.6-1.0 cm LVIDd: 4.08 3.9-5.3/4.2-5.9 cm LVIDd Index: 2.74 2.4-3.2/2.2-3.1 cm/m2 LVIDs: 2.64 2.0-3.6 cm LVPWd: 1.35 0.7-1.1 cm LA Diam: 2.80 2.7-3.8/3.0-4.0 cm LAIDs Index: 1.88 1.5-2.3 cm/m2 LV Mass: 246.38 67-162/88-224 g LV Mass Index: 165.36 43-95/49-115 g/m2 LVOT Diam: 1.90 3.0+(-)1.3 cm 2D Systolic Function EF 4C: 66.70 >55% EF 2C: 65.60 >55% EF BiP: 66.30 >55% Mitral Valve MV Pk E: 0.97 MV PK A: 1.00 MV Decel Time: 235.00 E/A: 1.00 E'Lateral: 8.05 E'Medial: 6.09 E/E' Med: 15.80 E/E' Lat: 12.00 PHT: 69.00 MVA PHT: 3.19 Decel [place]: 4.11 Aortic Valve AoV Pk Kemal: 1.76 AoV Mn Kemal: 1.19 AoV VTI: 0.34 AoV Pk Grad: 12.00 Aov Mn Grad: 6.00 NEW Cont.VTI: 1.83 LVOT LVOT Pk Kemal: 1.14 LVOT Mn Kemal: 0.76 LVOT VTI: 0.22 LVOT Pk Grad: 5.00 LVOT Mn Grad: 3.00 LVOT Diam: 1.90 LVOT Area: 2.84 Diastolic Function MV Pk E: 0.97 MV Pk A: 1.00 E/A: 1.00 E'Medial: 6.09 E/E' Med: 15.80 E' Laterial: 8.05 E/E' Lat: 12.00 Right Ventricle TAPSE (mm): 24.40 TVS' Kemal: 14.10 Tricuspid Valve TR Pk Kemal: 3.72 TR Pk Grad: 55.00 RA Press: 3.00 RVSP: 58.00 Great Vessels Aorta Sinus of Valsalva: 3.38 2.0-3.[address] [place]: 2.43 1.7-3.4 cm Ao Asc: 3.60 2.1-3.4 cm Updated in Other Vendor System with Status of Final Fabricio Quezada MD electronically signed on 09/22/2022 6:23:04 PM with status of Final
[2022-09-21 07:49] LABS: PTT Heparin Drip 59.9 SEC (53-77.9)
[2022-09-21] MEDS: 0.9 % Sodium Chloride Flush 3 ML SYRINGE IVFLUSH (08:08)
[2022-09-21] MEDS: Albuterol/Iprat 2.5/0.5MG 3 ML AMPUL.NEB INHALE ×2 (08:28→20:12)
--- NOTE | 2022-09-21 08:52 | PC.NURSE ---
called pharmacy for 2 meds not in pyxis
[2022-09-21] MEDS: hydroCHLOROthiazide 12.5 MG TABLET PO (08:57)
[2022-09-21] MEDS: Cholecalciferol (Vitamin D3) 25 MCG TABLET PO (08:57)
[2022-09-21] MEDS: Losartan Potassium 50 MG TABLET 100 MG PO (08:57)
[2022-09-21] MEDS: Folic Acid 1 MG TABLET PO (08:57)
[2022-09-21] MEDS: Aspirin Enteric Coated 81 MG TABLET.DR PO (08:57)
[2022-09-21] MEDS: Dapsone 25 MG TABLET 100 MG PO (08:59)
--- NOTE | 2022-09-21 09:59 | PC.NURSE ---
blood bank informed this RN that blood was ready - there has been no consent signed at this time to transfuse. informed omkar DOMINGO of this
--- NOTE | 2022-09-21 11:11 | PC.NURSE ---
blood consent signed
--- NOTE | 2022-09-21 11:11 | HO.PM.IMPN ---
Subjective Subjective Date of Service: 09/21/22 Interval History: seen and examined this morning follow up for acute PE breathing easier, no chest pain denies bleeding Review of Systems Review of Systems: Yes all other systems are reviewed and are negative Constitutional Constitutional: Denies chills and Denies fever(s) ENT Ears, Nose, Mouth, and Throat: Denies dizziness Cardiovascular Cardiovascular: Denies chest pain, Denies palpitations and Denies dyspnea Respiratory Respiratory: Denies cough and Denies dyspnea Gastrointestinal Gastrointestinal: Denies abdominal pain, Denies diarrhea, Denies nausea and Denies vomiting Neurologic Neurologic: Denies dizziness Endocrine Endocrine: Denies palpitations Physical Exam Vital Signs: Vital Signs: Last Vital Signs Temp 97.9 F 09/21/22 07:20 Pulse 79 09/21/22 08:30 Resp 16 09/21/22 08:30 BP 122/47 L 09/21/22 07:20 Pulse Ox 95 09/21/22 05:07 O2 Del Method Nasal Cannula 09/21/22 07:20 O2 Flow Rate 4 09/21/22 07:20 Oxygen Flow Rate 2 09/20/22 09:34 BMI result Body Mass Index 26.8 Const: General: cooperative, comfortable, alert and awake Nutritional Appearance: average body habitus Orientation/consciousness: patient oriented x3 Resp: Effort & Inspection: normal respiratory effort, able to speak in complete sentences, no respiratory distress and no use of accessory muscles Auscultation: clear to auscultation bilaterally Cardio: Rate: regular rate GI: Inspection: No distended Palpation (GI): Soft to palpation and nontender Neuro: General: patient oriented x3 and CN's II-XI intact bilaterally Extrem: General: Yes no pedal edema Psych: Affect: normal affect Objective Data Active Medications Acetaminophen (Acetaminophen 325 Mg Tablet) 650 mg PO Q6H PRN PRN Reason: Pain, Mild (Pain Scale 1-3) Last Admin: 09/21/22 02:22 Dose: 650 mg Documented By: YOLA Albuterol Sulfate (Albuterol Sulfate 90 Mcg 8 Gm Inhaler) 2 puff INHALE Q4H PRN PRN Reason: for muscle spasm Albuterol/Ipratropium (Albuterol/Iprat 2.5/0.5mg 3 Ml Ampul.Neb) 3 ml INHALE RTID [facility] Last Admin: 09/21/22 08:28 Dose: 3 ml Documented By: OMEGA Aspirin (Aspirin Enteric Coated 81 Mg Tablet.Dr) 81 mg PO DAILY [facility] Last Admin: 09/21/22 08:57 Dose: 81 mg Documented By: ARCHIE Betamethasone Dipropion Augmented (Betamethasone Dip Aug 0.05% Cr 15 Gm Tube) 1 appl TOPICAL BID [facility] Last Admin: 09/21/22 09:46 Dose: Not Given Documented By: ARCHIE Non-Admin Reason: Med Not Available Calcium Carbonate (Calcium Carbonate 500 Mg Tablet) 500 mg PO DAILY [facility] Last Admin: 09/21/22 08:57 Dose: 500 mg Documented By: ARCHIE Dapsone (Dapsone 25 Mg Tablet) 100 mg PO DAILY [facility] Last Admin: 09/21/22 08:59 Dose: 100 mg Documented By: ARCHIE Docusate Sodium (Docusate Sodium 100 Mg Capsule) 100 mg PO DAILY PRN PRN Reason: Constipation Doxycycline Monohydrate (Doxycycline Monohydrate 100 Mg Capsule) 100 mg PO Q12H [facility] Last Admin: 09/21/22 04:12 Dose: 100 mg Documented By: YOLA Folic Acid (Folic Acid 1 Mg Tablet) 1 mg PO DAILY [facility] Last Admin: 09/21/22 08:57 Dose: 1 mg Documented By: ARCHIE Gabapentin (Gabapentin 300 Mg Capsule) 300 mg PO BEDTIME [facility] Last Admin: 09/20/22 22:59 Dose: 300 mg Documented By: YOLA Heparin Sodium (Porcine) (Heparin Sodium,Porcine 5,000 Unit/Ml Vial) 2,400 unit 40 unit/kg (2400 unit) IVPUSH PROTOCOL BOLUS PRN; Protocol PRN Reason: 40 unit/kg - Heparin Protocol Heparin Sodium (Porcine) (Heparin Sodium,Porcine 5,000 Unit/Ml Vial) 4,800 unit 80 unit/kg (4800 unit) IVPUSH PROTOCOL BOLUS PRN; Protocol PRN Reason: 80 unit/kg - Heparin Protocol Hydrochlorothiazide (Hydrochlorothiazide 12.5 Mg Tablet) 12.5 mg PO DAILY [facility]; Protocol Last Admin: 09/21/22 08:57 Dose: 12.5 mg Documented By: ARCHIE Ceftriaxone Sodium 1 gm/ (Sodium Chloride) 50 mls @ 100 mls/hr IV Q24H [facility] Last Infusion: 09/20/22 20:19 Dose: 0 mls/hr Documented By: YOLA Heparin Sodium/Sodium Chloride (Heparin Sodium,Porcine/1/2ns) 25,000 unit in 250 mls @ 0 mls/hr IVCONT .Q0M [facility]; Protocol Last Titration: 09/21/22 08:49 Dose: 11 units/kg/hr, 6.62 mls/hr Documented By: ARCHIE Co-signed By: ÁNGEL Lactulose (Lactulose 20 Gm/30 Ml Solution) 20 gm PO BID PRN PRN Reason: constipation Latanoprost (Latanoprost 0.005 % Ophth Ayana 2.5 Ml Drops) 1 drop EYE-BOTH BEDTIME [facility] Lidocaine (Lidocaine 4 % Patch Adh..Patch) 1 patch TRANSDERMA DAILY PRN PRN Reason: Pain, Moderate(Pain Scale 4-6) Losartan Potassium (Losartan Potassium 50 Mg Tablet) 100 mg PO DAILY [facility]; Protocol Last Admin: 09/21/22 08:57 Dose: 100 mg Documented By: ARCHIE Mirabegron (Mirabegron 25 Mg Tab.Er.24h) 25 mg PO DAILY [facility] Last Admin: 09/21/22 08:58 Dose: Not Given Documented By: ARCHIE Non-Admin Reason: Patient Refused Non-Formulary Medication (Rosuvastatin) 10 mg PO DAILY [facility] Non-Formulary Medication (Tacrolimus) 1 appl TOPICAL BID [facility] Omeprazole (Omeprazole 20 Mg Capsule.Dr) 20 mg PO BID@0630,1630 [facility] Last Admin: 09/21/22 05:50 Dose: Not Given Documented By: YOLA Non-Admin Reason: Patient Asleep Ondansetron HCl (Ondansetron Hcl 4 Mg/2 Ml Vial) 4 mg IVPUSH Q8H PRN PRN Reason: Nausea and Vomiting Pramipexole Dihydrochloride (Pramipexole Di-Hcl 1 Mg Tablet) 1 mg PO BEDTIME [facility] Sodium Chloride (0.9 % Sodium Chloride Flush 3 Ml Syringe) 3 ml IVFLUSH QSHIFT [facility] Last Admin: 09/21/22 08:08 Dose: 3 ml Documented By: ARCHIE Tramadol HCl (Tramadol Hcl 50 Mg Tablet) 50 mg PO BID PRN PRN Reason: Pain, Moderate(Pain Scale 4-6) Vitamin D (Cholecalciferol (Vitamin D3) 25 Mcg Tablet) 25 mcg PO DAILY [facility] Last Admin: 09/21/22 08:57 Dose: 25 mcg Documented By: ARCHIE Labs 09/21/22 05:42 09/21/22 05:42 Labs: Laboratory Results - last 24 hr 09/20/22 09/20/22 09/20/22 10:44 10:44 15:52 MCV MCH MCHC RDW Plt Count MPV Absolute Nucleated RBC Nucleated RBC % (auto) PT INR aPTT Heparin Protocol Anion Gap 13 Estim Creat Clear Calc 32.7 Estimated GFR 55 Random Glucose 97 Calcium 10.5 H D Total Bilirubin 2.1 H Direct Bilirubin 0.6 H AST 22 ALT 20 Alkaline Phosphatase 103 Troponin I High Sens 17.6 H B-Natriuretic Peptide 68 Total Protein 6.2 L Albumin 4.1 Procalcitonin 0.08 Influenza Type A (PCR) Influenza Type B (PCR) RSV RNA Qual (PCR) SARS-CoV-2 RNA (RT-PCR) Blood Type Antibody Screen Crossmatch 09/20/22 09/20/22 09/20/22 18:35 19:28 19:28 MCV MCH MCHC RDW Plt Count MPV Absolute Nucleated RBC Nucleated RBC % (auto) PT 12.2 INR 1.1 aPTT Heparin Protocol 31.1 L Anion Gap Estim Creat Clear Calc Estimated GFR Random Glucose Calcium Total Bilirubin Direct Bilirubin AST ALT Alkaline Phosphatase Troponin I High Sens 18.9 H B-Natriuretic Peptide Total Protein Albumin Procalcitonin Influenza Type A (PCR) NEGATIVE Influenza Type B (PCR) NEGATIVE RSV RNA Qual (PCR) NEGATIVE SARS-CoV-2 RNA (RT-PCR) NEGATIVE Blood Type Antibody Screen Crossmatch 09/21/22 09/21/22 09/21/22 01:40 05:42 05:42 MCV MCH MCHC RDW Plt Count MPV Absolute Nucleated RBC Nucleated RBC % (auto) PT 13.1 INR 1.1 aPTT Heparin Protocol 105.7 H D Anion Gap 10 L Estim Creat Clear Calc 31.7 Estimated GFR 50 Random Glucose 118 H Calcium 9.1 D Total Bilirubin 0.9 Direct Bilirubin AST ALT Alkaline Phosphatase Troponin I High Sens B-Natriuretic Peptide Total Protein Albumin Procalcitonin Influenza Type A (PCR) Influenza Type B (PCR) RSV RNA Qual (PCR) SARS-CoV-2 RNA (RT-PCR) Blood Type Antibody Screen Crossmatch 09/21/22 09/21/22 09/21/22 05:42 07:30 08:39 MCV 100.4 H MCH 31.1 MCHC 31.0 RDW 19.4 H Plt Count 244 D MPV 9.0 L Absolute Nucleated RBC 0.020 H Nucleated RBC % (auto) 0.2 PT INR aPTT Heparin Protocol 59.9 D Anion Gap Estim Creat Clear Calc Estimated GFR Random Glucose Calcium Total Bilirubin Direct Bilirubin AST ALT Alkaline Phosphatase Troponin I High Sens B-Natriuretic Peptide Total Protein Albumin Procalcitonin Influenza Type A (PCR) Influenza Type B (PCR) RSV RNA Qual (PCR) SARS-CoV-2 RNA (RT-PCR) Blood Type A Positive Antibody Screen NEGATIVE Crossmatch See Detail Assessment and Plan (1) Bilateral pulmonary embolism: Status: Acute Plan This ia an 86yo F with COPD + nocturnal O2 dependence, hx DVT/PE 2019 not currently on Xarelto presenting with worsening exertional dyspnea + chest pain found to have b/l PE Acute on chronic respiratory failure with hypoxia related to b/l PE, possible pna on 2L noctural oxygen at baseline, currently on 4L, wean as tolerated. Acute bilateral pulmonary embolism Chest CTA found multiple large fully occlusive and partially occlusive pulmonary emboli in the central branches of the pulmonary arteries right and left, with mild Cardiac septal bowing and high RV and LV ratio suggesting cardiac strain. trops flat, BNP negative. history of previous pulmonary embolism in 2019, no longer on anticoagulation but with IVC filter placement continue heparin drip Echocardiogram pending Pulmonology consult pending Cardiology consult pending wean supplemental oxygen as tolerated Possible community-acquired pneumonia Possible infiltrates seen on CT of chest, but procalcitonin negative will continue IV doxycycline, ceftriaxone for now follow blood cultures Fever developed temperature 101 this am ? r/t to PE treating for possible pneumonia. flu/RSV/covid negative wbc resolved. no evidence of sepsis follow blood cultures symptomatic management acute normocytic anemia H/H ?r/t blood loss will check iron studies, stool occult transfuse 1U rbc when afebrile follow CBC Hyperbilirubinemia Total bilirubin 2.1, repeat down to 0.9 HTN continue losartan, HCTZ COPD no acute exacerbation Continue home inhalers Lupus Continue dapsone HLD Continue statin Full Code Attending:?Dr. Flannery DVT Prophylaxis: heparin drip Requires ongoing inpatient hospitalization for treatment of?bilateral pulmonary emboli with IV heparin, eval of anemia, close monitoring of respiratory status, and specialist consultation Time Spent With Patient Time: Total time managing care of this patient today ____ minutes. Quality Stroke Does the patient have a stroke diagnosis?: No VTE Prior VTE?: Yes VTE Risk Level:: Medical - moderate - high VTE Device Contraindication: Treatment Not Indicated VTE Drug Contraindication: N/A - Med Ordered
--- NOTE | 2022-09-21 11:22 | MHC.CM.PN ---
Attempted to meet with patient in regards to discharge planning. Patient currently sleeping. No family present. Will attempt to meet with patient again. Continue to monitor for d/c needs.
[2022-09-21] MEDS: diphenhydrAMINE HCl 12.5 MG/5 ML LIQUID PO (11:40)
--- NOTE | 2022-09-21 11:46 | PC.NURSE ---
pt with 101.1 fever - notified Dalila Morejon PA - will hold on blood transfusion at this time, given tylenol per JUL, will re-echeck temp and administer blood when pt is afebrile
--- NOTE | 2022-09-21 11:49 | MHC.CM.PN ---
Met with patient in regards to discharge planning. Patient lives alone, ambulates with a cane when outside and is active with [facility] for 2LNC at night. Patient's has been in [facility] for about 14 months. He had a CVA 6 months ago. Patient spends about 3 hours a day at [facility] with her at baseline. Patient would be agreeable to referral to [facility] if needed. But at this time, it does not feel patient is homebound at this time. PCP verified. HCP on file is not correct. New HCP completed, signed and witnessed. Original given to patient. Copy placed in chart. Remberto LAM explained and signed. Patient has her vehicle in the parking lot and is planning to drive herself home. Patient also has an oxygen tank with her. Continue to monitor for d/c needs.
--- NOTE | 2022-09-21 11:50 | P.CONPL_ITS ---
History of Present Illness History of Present Illness Consult date: 09/21/22 Chief complaint: SOB Narrative: 86-year-old lady with underlying COPD 2 L of supplemental oxygen, peripheral ar edy disease, SLE, DVT with PE in 2019 status post Rudy filter placement apnea no longer on anticoagulation admitted on 09/20/2022 with 2 week history of progressive dyspnea , also with fever in chills. On ER evaluation patient was normal chest x-ray, however CT angio chest demonstrating bilateral pulmonary emboli with mild right heart strain. Patient started on heparin drip and today reports improvement in pleurisy and dyspnea. Review of Systems Constitutional: Constitutional: Denies daytime sleepiness, Denies excessive sweating, Denies fatigue, Reports fever(s), Denies lethargy, Denies malaise, Denies night sweats, Denies snoring and Denies weight loss Eyes: Eyes: Denies blurry vision and Denies itchy eyes ENT: Denies nasal congestion, Denies post nasal drip, Denies sinus pain, Denies sinus pressure and Denies other ( Thrush) Cardiovascular: Cardiovascular: Denies chest pain, Denies pedal edema, Denies dyspnea, Reports dyspnea on exertion, Denies orthopnea and Denies paroxysmal nocturnal dyspnea Respiratory: Respiratory: Denies cough, Denies hemoptysis, Denies excessive phlegm production, Denies dyspnea, Reports dyspnea on exertion, Denies snoring and Denies wheezing Gastrointestinal: Gastrointestinal: Denies abdominal pain and Denies heartburn Musculoskeletal: Musculoskeletal: Denies myalgias, Denies arthralgias and Denies joint swelling Integumentary/Breasts: Skin/Breast: Denies rash Neurologic: Denies memory loss and Denies seizure-like activity Psychiatric: Psychiatric: Denies abnormal sleep pattern, Denies anxiety and Denies memory loss Endocrine: Endocrine: Denies excessive sweating, Denies fatigue and Denies heat intolerance Hematologic/Lymphatic: Hematologic/Lymphatic: Denies easy bruising Allergic/Immunologic: Allergic/Immunologic: Denies itchy eyes, Denies seasonal rhinorrhea and Denies wheezing PMFSH Past Medical History Medical History (Updated 09/21/22 @ 12:00 by Jayant Peng MD) Anxiety Arterial occlusive disease Chest discomfort Chronic respiratory failure COPD (chronic obstructive pulmonary disease) Discoid lupus Diverticulitis DVT (deep venous thrombosis) Dyspnea Encounter for monitoring azathioprine therapy GERD (gastroesophageal reflux disease) Greater saphenous vein embolism Hiatal hernia Hypercholesterolemia Hypertension Iliac artery occlusion Left leg DVT Lupus (systemic lupus erythematosus) Osteopenia Pleuritic chest pain Pulmonary embolism Pulmonary nodule Pulmonary nodules Restless leg Thrombus of aorta Family History Family History Father Hypertension Cancer Mother Hypertension Stroke CVD (cardiovascular disease) Surgical History Surgical History (Updated 09/21/22 @ 12:00 by Jayant Peng MD) Bilateral pulmonary embolism History of breast biopsy History of cataract surgery History of foot surgery History of toe surgery History of total abdominal hysterectomy and bilateral salpingo-oophorectomy Social History Social History Household Members: None Housing: House Alcohol intake: never Patient Tobacco Use Status: Former Tobacco user Tobacco use type: Cigarette Years Smoked: 30 Smoked in Last 30 Days: No e-Cigarette/Vaping Use: Never Used Second Hand Smoke Exposure: No Use of substances other than those prescribed or required for medical reasons: No Advance Directives: No Nutrition Risks: No Nutritional Risk service: No Current occupational status: retired Cognitive needs: Yes Hearing needs: No Vision needs: Yes Meds Allergies Allergy/AdvReac Type Severity Reaction Status Date / Time amlodipine Allergy Unknown leg Verified 09/20/22 09:44 swelling, swelling atorvastatin [Lipitor] Allergy Unknown Unknown Verified 09/20/22 09:44 hydroxychloroquine Allergy Unknown Affected Verified 09/20/22 09:44 [From Plaquenil] eye sight metoprolol Allergy Unknown Swelling Verified 09/20/22 09:44 Active Medications: Current Medications Acetaminophen (Acetaminophen 325 Mg Tablet) 650 mg PO Q6H PRN PRN Reason: Pain, Mild (Pain Scale 1-3) Last Admin: 09/21/22 11:40 Dose: 650 mg Albuterol Sulfate (Albuterol Sulfate 90 Mcg 8 Gm Inhaler) 2 puff INHALE Q4H PRN PRN Reason: for muscle spasm Albuterol/Ipratropium (Albuterol/Iprat 2.5/0.5mg 3 Ml Ampul.Neb) 3 ml INHALE RTID [facility] Last Admin: 09/21/22 08:28 Dose: 3 ml Aspirin (Aspirin Enteric Coated 81 Mg Tablet.Dr) 81 mg PO DAILY [facility] Last Admin: 09/21/22 08:57 Dose: 81 mg Betamethasone Dipropion Augmented (Betamethasone Dip Aug 0.05% Cr 15 Gm Tube) 1 appl TOPICAL BID [facility] Last Admin: 09/21/22 09:46 Dose: Not Given Calcium Carbonate (Calcium Carbonate 500 Mg Tablet) 500 mg PO DAILY [facility] Last Admin: 09/21/22 08:57 Dose: 500 mg Dapsone (Dapsone 25 Mg Tablet) 100 mg PO DAILY [facility] Last Admin: 09/21/22 08:59 Dose: 100 mg Docusate Sodium (Docusate Sodium 100 Mg Capsule) 100 mg PO DAILY PRN PRN Reason: Constipation Doxycycline Monohydrate (Doxycycline Monohydrate 100 Mg Capsule) 100 mg PO Q12H [facility] Last Admin: 09/21/22 04:12 Dose: 100 mg Folic Acid (Folic Acid 1 Mg Tablet) 1 mg PO DAILY [facility] Last Admin: 09/21/22 08:57 Dose: 1 mg Gabapentin (Gabapentin 300 Mg Capsule) 300 mg PO BEDTIME [facility] Last Admin: 09/20/22 22:59 Dose: 300 mg Heparin Sodium (Porcine) (Heparin Sodium,Porcine 5,000 Unit/Ml Vial) 2,400 unit 40 unit/kg (2400 unit) IVPUSH PROTOCOL BOLUS PRN; Protocol PRN Reason: 40 unit/kg - Heparin Protocol Heparin Sodium (Porcine) (Heparin Sodium,Porcine 5,000 Unit/Ml Vial) 4,800 unit 80 unit/kg (4800 unit) IVPUSH PROTOCOL BOLUS PRN; Protocol PRN Reason: 80 unit/kg - Heparin Protocol Hydrochlorothiazide (Hydrochlorothiazide 12.5 Mg Tablet) 12.5 mg PO DAILY [facility]; Protocol Last Admin: 09/21/22 08:57 Dose: 12.5 mg Ceftriaxone Sodium 1 gm/ (Sodium Chloride) 50 mls @ 100 mls/hr IV Q24H [facility] Last Infusion: 09/20/22 20:19 Dose: Infused Heparin Sodium/Sodium Chloride (Heparin Sodium,Porcine/1/2ns) 25,000 unit in 250 mls @ 0 mls/hr IVCONT .Q0M [facility]; Protocol Last Titration: 09/21/22 08:49 Dose: 11 units/kg/hr, 6.62 mls/hr Lactulose (Lactulose 20 Gm/30 Ml Solution) 20 gm PO BID PRN PRN Reason: constipation Latanoprost (Latanoprost 0.005 % Ophth Ayana 2.5 Ml Drops) 1 drop EYE-BOTH BEDTIME [facility] Lidocaine (Lidocaine 4 % Patch Adh..Patch) 1 patch TRANSDERMA DAILY PRN PRN Reason: Pain, Moderate(Pain Scale 4-6) Losartan Potassium (Losartan Potassium 50 Mg Tablet) 100 mg PO DAILY [facility]; Protocol Last Admin: 09/21/22 08:57 Dose: 100 mg Mirabegron (Mirabegron 25 Mg Tab.Er.24h) 25 mg PO DAILY [facility] Last Admin: 09/21/22 08:58 Dose: Not Given Non-Formulary Medication (Rosuvastatin) 10 mg PO DAILY [facility] Non-Formulary Medication (Tacrolimus) 1 appl TOPICAL BID [facility] Omeprazole (Omeprazole 20 Mg Capsule.Dr) 20 mg PO BID@0630,1630 [facility] Last Admin: 09/21/22 05:50 Dose: Not Given Ondansetron HCl (Ondansetron Hcl 4 Mg/2 Ml Vial) 4 mg IVPUSH Q8H PRN PRN Reason: Nausea and Vomiting Pramipexole Dihydrochloride (Pramipexole Di-Hcl 1 Mg Tablet) 1 mg PO BEDTIME [facility] Sodium Chloride (0.9 % Sodium Chloride Flush 3 Ml Syringe) 3 ml IVFLUSH QSHIFT [facility] Last Admin: 09/21/22 08:08 Dose: 3 ml Tramadol HCl (Tramadol Hcl 50 Mg Tablet) 50 mg PO BID PRN PRN Reason: Pain, Moderate(Pain Scale 4-6) Vitamin D (Cholecalciferol (Vitamin D3) 25 Mcg Tablet) 25 mcg PO DAILY [facility] Last Admin: 09/21/22 08:57 Dose: 25 mcg Home Medications Medication Instructions Recorded Confirmed Last Taken Type aspirin 81 mg tablet,delayed 81 mg PO DAILY 02/27/20 09/20/22 09/20/22 History release (Adult Aspirin Regimen) calcium carbonate 600 mg calcium 600 mg PO DAILY 02/27/20 09/20/22 09/20/22 History (1,500 mg) tablet (Calcium) cholecalciferol (vitamin D3) 25 25 mcg PO DAILY 02/27/20 09/20/22 09/20/22 History mcg (1,000 unit) capsule mirabegron 25 mg tablet,extended 25 mg PO DAILY 02/27/20 09/20/22 09/20/22 History release 24 hr (Myrbetriq) lidocaine 5 % topical patch 1 patch topical DAILY PRN Pain 03/03/22 09/20/22 Unknown History pramipexole 1 mg tablet 1 mg PO BEDTIME 03/03/22 09/20/22 09/19/22 History Oxygen Home Use 04/11/22 09/06/22 Unknown History fluocinonide 0.05 % topical 1 appl topical BID-QID PRN Itching 04/11/22 09/20/22 Unknown History ointment gabapentin 300 mg capsule 300 mg PO BEDTIME 08/16/22 09/20/22 09/19/22 History lactulose 20 gram/30 mL oral 20 g PO BID PRN constipation 08/16/22 09/20/22 Unknown History solution latanoprost 0.005 % eye drops 1 drp ophthalmic (eye) BEDTIME 08/16/22 09/20/22 09/19/22 History nebulizers 09/18/22 Unknown History alendronate 70 mg tablet 70 mg PO WE 09/20/22 09/20/22 Unknown History ipratropium 0.5 mg-albuterol 3 mg 3 ml inhalation TID 09/20/22 09/20/22 09/20/22 History (2.5 mg base)/3 mL nebulization soln tramadol 50 mg tablet 50 mg PO BID PRN Pain 09/20/22 09/20/22 Unknown History Physical Exam Vital Signs: Vital Signs: Last Vital Signs Temp 101.1 F H 09/21/22 11:39 Pulse 76 09/21/22 11:39 Resp 19 09/21/22 11:39 BP 155/60 H 09/21/22 11:39 Pulse Ox 92 09/21/22 11:39 O2 Del Method Nasal Cannula 09/21/22 11:39 O2 Flow Rate 4 09/21/22 11:39 Oxygen Flow Rate 2 09/20/22 09:34 BMI result Body Mass Index 26.8 Const: General: no acute distress and alert Nutritional Appearance: not obese Orientation/consciousness: Other orientation findings ( oriented) HEENT: Head: Yes atraumatic Eyes: General: appearance normal, both eyes and all related structures Sclerae: sclerae normal EOM: EOMs intact bilaterally Neck: Neck: Yes supple Lymphatic: no lymphadenopathy noted Resp: Effort & Inspection: normal respiratory effort and no use of accessory muscles Auscultation: clear to auscultation bilaterally Cardio: Rate: regular rate Rhythm: regular rhythm Heart sounds: no gallops, no murmurs and no rubs GI: Palpation (GI): Soft to palpation and Other GI palpation findings present ( nontender) Skin: General skin exam: other ( warm) Rashes: no rashes Extrem: General: No clubbing, No cyanosis and No edema Results Laboratory Findings 09/21/22 05:42 09/21/22 05:42 ABG, PT/INR, D-dimer: PT/INR, D-dimer PT 13.1 SEC (10.0-13.1) 09/21/22 05:42 INR 1.1 (0.9-1.1) 09/21/22 05:42 Abnormal lab findings: Abnormal Labs 09/20/22 09/20/22 09/20/22 10:44 10:44 10:47 WBC 17.6 H RBC 3.13 L D Hgb 9.7 L Hct 31.2 L MCV 99.7 H RDW 19.3 H MPV 9.1 L Immature Gran % (Auto) 0.7 H Neut % (Auto) 82.3 H Lymph % (Auto) 9.8 L Abs Immat Gran (auto) 0.13 H Absolute Neuts (auto) 14.4 H Absolute Nucleated RBC aPTT Heparin Protocol VBG HCO3 34 H Carbon Dioxide 31 H Anion Gap BUN 32 H Random Glucose Calcium 10.5 H D Total Bilirubin 2.1 H Direct Bilirubin 0.6 H Troponin I High Sens Total Protein 6.2 L Crossmatch 09/20/22 09/20/22 09/20/22 15:52 19:28 19:28 WBC RBC Hgb Hct MCV RDW MPV Immature Gran % (Auto) Neut % (Auto) Lymph % (Auto) Abs Immat Gran (auto) Absolute Neuts (auto) Absolute Nucleated RBC aPTT Heparin Protocol 31.1 L VBG HCO3 Carbon Dioxide Anion Gap BUN Random Glucose Calcium Total Bilirubin Direct Bilirubin Troponin I High Sens 17.6 H 18.9 H Total Protein Crossmatch 09/21/22 09/21/22 09/21/22 01:40 05:42 05:42 WBC RBC 2.38 L D Hgb 7.4 L D Hct 23.9 L D MCV 100.4 H RDW 19.4 H MPV 9.0 L Immature Gran % (Auto) Neut % (Auto) Lymph % (Auto) Abs Immat Gran (auto) Absolute Neuts (auto) Absolute Nucleated RBC 0.020 H aPTT Heparin Protocol 105.7 H D VBG HCO3 Carbon Dioxide 32 H Anion Gap 10 L BUN 29 H Random Glucose 118 H Calcium Total Bilirubin Direct Bilirubin Troponin I High Sens Total Protein Crossmatch 09/21/22 08:39 WBC RBC Hgb Hct MCV RDW MPV Immature Gran % (Auto) Neut % (Auto) Lymph % (Auto) Abs Immat Gran (auto) Absolute Neuts (auto) Absolute Nucleated RBC aPTT Heparin Protocol VBG HCO3 Carbon Dioxide Anion Gap BUN Random Glucose Calcium Total Bilirubin Direct Bilirubin Troponin I High Sens Total Protein Crossmatch See Detail Assessment and Plan (1) Acute and chronic respiratory failure with hypoxia: Status: Acute (2) Bilateral pulmonary embolism: Status: Acute (3) COPD (chronic obstructive pulmonary disease): Status: Acute Plan Impression: 86-year-old lady admitted with acute on chronic hypoxic respiratory failure on the background of known COPD, now with bilateral pulmonary emboli that appears to be unprovoked and prior history of pulmonary emboli approximately 3 years prior with placement of [place] filter. Improving slowly. However, her hemoglobin is dropping. Recommendations: Agree with anticoagulation, consider obtaining duplex of lower extremities to evaluate for lower extremity clot burden. Alternatively, blood clot source may be her [place] filter. Time Spent With Patient Time: Total time managing care of this patient today ____ minutes. Procedures Date of Service Date of Service: 09/21/22
--- NOTE | 2022-09-21 12:45 | P.CONCA_ITS ---
History of Present Illness History of Present Illness Date of Service: 09/21/22 Chief complaint: SOB Narrative: 86 year old female presenting with SOB and bilateral PE. She has h/o PE in the past and had an IVC filter placed in 2019. She was following with Dr Isabell Granado. She was taken off the anticoagulation by Dr Granado by her report. Over the last month she started getting fevers and progressive SOB. With these symptoms she presented to [facility] and her work up has revealed multiple PE. She is currently denying any chest discomfort. She is on supplemental oxygen. She has no palpitations or other concerns. No syncope. She is noticed to be anemic though and her hemoglobin has dropped from 9-7. Denying any bleeding or coffee colored vomitus/melena. [facility] Past Medical History Medical History (Updated 09/21/22 @ 12:00 by Jayant Peng MD) Anxiety Arterial occlusive disease Chest discomfort Chronic respiratory failure COPD (chronic obstructive pulmonary disease) Discoid lupus Diverticulitis DVT (deep venous thrombosis) Dyspnea Encounter for monitoring azathioprine therapy GERD (gastroesophageal reflux disease) Greater saphenous vein embolism Hiatal hernia Hypercholesterolemia Hypertension Iliac artery occlusion Left leg DVT Lupus (systemic lupus erythematosus) Osteopenia Pleuritic chest pain Pulmonary embolism Pulmonary nodule Pulmonary nodules Restless leg Thrombus of aorta Family History Family History Father Hypertension Cancer Mother Hypertension Stroke CVD (cardiovascular disease) Surgical History Surgical History (Updated 09/21/22 @ 12:00 by Jayant Peng MD) Bilateral pulmonary embolism History of breast biopsy History of cataract surgery History of foot surgery History of toe surgery History of total abdominal hysterectomy and bilateral salpingo-oophorectomy Social History Social History Household Members: None Housing: House Alcohol intake: never Patient Tobacco Use Status: Former Tobacco user Tobacco use type: Cigarette Years Smoked: 30 Smoked in Last 30 Days: No e-Cigarette/Vaping Use: Never Used Second Hand Smoke Exposure: No Use of substances other than those prescribed or required for medical reasons: No Advance Directives: No Nutrition Risks: No Nutritional Risk service: No Current occupational status: retired Cognitive needs: Yes Hearing needs: No Vision needs: Yes Meds Allergies Allergy/AdvReac Type Severity Reaction Status Date / Time amlodipine Allergy Unknown leg Verified 09/20/22 09:44 swelling, swelling atorvastatin [Lipitor] Allergy Unknown Unknown Verified 09/20/22 09:44 hydroxychloroquine Allergy Unknown Affected Verified 09/20/22 09:44 [From Plaquenil] eye sight metoprolol Allergy Unknown Swelling Verified 09/20/22 09:44 Active Medications: Current Medications Acetaminophen (Acetaminophen 325 Mg Tablet) 650 mg PO Q6H PRN PRN Reason: Pain, Mild (Pain Scale 1-3) Last Admin: 09/21/22 11:40 Dose: 650 mg Albuterol Sulfate (Albuterol Sulfate 90 Mcg 8 Gm Inhaler) 2 puff INHALE Q4H PRN PRN Reason: for muscle spasm Albuterol/Ipratropium (Albuterol/Iprat 2.5/0.5mg 3 Ml Ampul.Neb) 3 ml INHALE RTID [facility] Last Admin: 09/21/22 08:28 Dose: 3 ml Aspirin (Aspirin Enteric Coated 81 Mg Tablet.Dr) 81 mg PO DAILY [facility] Last Admin: 09/21/22 08:57 Dose: 81 mg Betamethasone Dipropion Augmented (Betamethasone Dip Aug 0.05% Cr 15 Gm Tube) 1 appl TOPICAL BID [facility] Last Admin: 09/21/22 09:46 Dose: Not Given Calcium Carbonate (Calcium Carbonate 500 Mg Tablet) 500 mg PO DAILY [facility] Last Admin: 09/21/22 08:57 Dose: 500 mg Dapsone (Dapsone 25 Mg Tablet) 100 mg PO DAILY [facility] Last Admin: 09/21/22 08:59 Dose: 100 mg Docusate Sodium (Docusate Sodium 100 Mg Capsule) 100 mg PO DAILY PRN PRN Reason: Constipation Doxycycline Monohydrate (Doxycycline Monohydrate 100 Mg Capsule) 100 mg PO Q12H [facility] Last Admin: 09/21/22 04:12 Dose: 100 mg Folic Acid (Folic Acid 1 Mg Tablet) 1 mg PO DAILY [facility] Last Admin: 09/21/22 08:57 Dose: 1 mg Gabapentin (Gabapentin 300 Mg Capsule) 300 mg PO BEDTIME [facility] Last Admin: 09/20/22 22:59 Dose: 300 mg Heparin Sodium (Porcine) (Heparin Sodium,Porcine 5,000 Unit/Ml Vial) 2,400 unit 40 unit/kg (2400 unit) IVPUSH PROTOCOL BOLUS PRN; Protocol PRN Reason: 40 unit/kg - Heparin Protocol Heparin Sodium (Porcine) (Heparin Sodium,Porcine 5,000 Unit/Ml Vial) 4,800 unit 80 unit/kg (4800 unit) IVPUSH PROTOCOL BOLUS PRN; Protocol PRN Reason: 80 unit/kg - Heparin Protocol Hydrochlorothiazide (Hydrochlorothiazide 12.5 Mg Tablet) 12.5 mg PO DAILY [facility]; Protocol Last Admin: 09/21/22 08:57 Dose: 12.5 mg Ceftriaxone Sodium 1 gm/ (Sodium Chloride) 50 mls @ 100 mls/hr IV Q24H [facility] Last Infusion: 09/20/22 20:19 Dose: Infused Heparin Sodium/Sodium Chloride (Heparin Sodium,Porcine/1/2ns) 25,000 unit in 250 mls @ 0 mls/hr IVCONT .Q0M [facility]; Protocol Last Titration: 09/21/22 08:49 Dose: 11 units/kg/hr, 6.62 mls/hr Lactulose (Lactulose 20 Gm/30 Ml Solution) 20 gm PO BID PRN PRN Reason: constipation Latanoprost (Latanoprost 0.005 % Ophth Ayana 2.5 Ml Drops) 1 drop EYE-BOTH BEDTIME [facility] Lidocaine (Lidocaine 4 % Patch Adh..Patch) 1 patch TRANSDERMA DAILY PRN PRN Reason: Pain, Moderate(Pain Scale 4-6) Losartan Potassium (Losartan Potassium 50 Mg Tablet) 100 mg PO DAILY [facility]; Protocol Last Admin: 09/21/22 08:57 Dose: 100 mg Mirabegron (Mirabegron 25 Mg Tab.Er.24h) 25 mg PO DAILY [facility] Last Admin: 09/21/22 08:58 Dose: Not Given Non-Formulary Medication (Rosuvastatin) 10 mg PO DAILY [facility] Non-Formulary Medication (Tacrolimus) 1 appl TOPICAL BID [facility] Omeprazole (Omeprazole 20 Mg Capsule.Dr) 20 mg PO BID@0630,1630 [facility] Last Admin: 09/21/22 05:50 Dose: Not Given Ondansetron HCl (Ondansetron Hcl 4 Mg/2 Ml Vial) 4 mg IVPUSH Q8H PRN PRN Reason: Nausea and Vomiting Pramipexole Dihydrochloride (Pramipexole Di-Hcl 1 Mg Tablet) 1 mg PO BEDTIME [facility] Sodium Chloride (0.9 % Sodium Chloride Flush 3 Ml Syringe) 3 ml IVFLUSH QSHIFT [facility] Last Admin: 09/21/22 08:08 Dose: 3 ml Tramadol HCl (Tramadol Hcl 50 Mg Tablet) 50 mg PO BID PRN PRN Reason: Pain, Moderate(Pain Scale 4-6) Vitamin D (Cholecalciferol (Vitamin D3) 25 Mcg Tablet) 25 mcg PO DAILY [facility] Last Admin: 09/21/22 08:57 Dose: 25 mcg Home Medications Medication Instructions Recorded Confirmed Last Taken Type aspirin 81 mg tablet,delayed 81 mg PO DAILY 02/27/20 09/20/22 09/20/22 History release (Adult Aspirin Regimen) calcium carbonate 600 mg calcium 600 mg PO DAILY 02/27/20 09/20/22 09/20/22 History (1,500 mg) tablet (Calcium) cholecalciferol (vitamin D3) 25 25 mcg PO DAILY 02/27/20 09/20/22 09/20/22 History mcg (1,000 unit) capsule mirabegron 25 mg tablet,extended 25 mg PO DAILY 02/27/20 09/20/22 09/20/22 History release 24 hr (Myrbetriq) lidocaine 5 % topical patch 1 patch topical DAILY PRN Pain 03/03/22 09/20/22 Unknown History pramipexole 1 mg tablet 1 mg PO BEDTIME 03/03/22 09/20/22 09/19/22 History Oxygen Home Use 04/11/22 09/06/22 Unknown History fluocinonide 0.05 % topical 1 appl topical BID-QID PRN Itching 04/11/22 09/20/22 Unknown History ointment gabapentin 300 mg capsule 300 mg PO BEDTIME 08/16/22 09/20/22 09/19/22 History lactulose 20 gram/30 mL oral 20 g PO BID PRN constipation 08/16/22 09/20/22 Unknown History solution latanoprost 0.005 % eye drops 1 drp ophthalmic (eye) BEDTIME 08/16/22 09/20/22 09/19/22 History nebulizers 09/18/22 Unknown History alendronate 70 mg tablet 70 mg PO WE 09/20/22 09/20/22 Unknown History ipratropium 0.5 mg-albuterol 3 mg 3 ml inhalation TID 09/20/22 09/20/22 09/20/22 History (2.5 mg base)/3 mL nebulization soln tramadol 50 mg tablet 50 mg PO BID PRN Pain 09/20/22 09/20/22 Unknown History Physical Exam Vital Signs: Vital Signs: Last Vital Signs Temp 101.1 F H 09/21/22 11:39 Pulse 76 09/21/22 11:39 Resp 19 09/21/22 11:39 BP 155/60 H 09/21/22 11:39 Pulse Ox 92 09/21/22 11:39 O2 Del Method Nasal Cannula 09/21/22 11:39 O2 Flow Rate 4 09/21/22 11:39 Oxygen Flow Rate 2 09/20/22 09:34 BMI result Body Mass Index 26.8 GENERAL APPEARANCE: in no acute distress, pleasant. On supplemental oxygen. NECK: no carotid bruit, no jugular venous distention. SKIN: no suspicious lesions, warm and dry. HEART: no murmurs, regular rate and rhythm. left parasternal heave. LUNGS: clear to auscultation bilaterally. ABDOMEN: soft, nontender. EXTREMITIES: no edema. PERIPHERAL PULSES: equal. NEUROLOGIC: No gross deficits, AAO X 3 Objective Labs and Meds 09/21/22 05:42 09/21/22 05:42 Lab results: Laboratory Results - last 24 hr 09/20/22 09/20/22 09/20/22 10:44 15:52 18:35 WBC RBC Hgb Hct MCV MCH MCHC RDW Plt Count MPV Absolute Nucleated RBC Nucleated RBC % (auto) PT INR aPTT Heparin Protocol Sodium Potassium Chloride Carbon Dioxide Anion Gap BUN Creatinine Estim Creat Clear Calc Estimated GFR Random Glucose Calcium Total Bilirubin Direct Bilirubin 0.6 H Troponin I High Sens 17.6 H Procalcitonin 0.08 Influenza Type A (PCR) NEGATIVE Influenza Type B (PCR) NEGATIVE RSV RNA Qual (PCR) NEGATIVE SARS-CoV-2 RNA (RT-PCR) NEGATIVE Blood Type Antibody Screen Crossmatch 09/20/22 09/20/22 09/21/22 19:28 19:28 01:40 WBC RBC Hgb Hct MCV MCH MCHC RDW Plt Count MPV Absolute Nucleated RBC Nucleated RBC % (auto) PT 12.2 INR 1.1 aPTT Heparin Protocol 31.1 L 105.7 H D Sodium Potassium Chloride Carbon Dioxide Anion Gap BUN Creatinine Estim Creat Clear Calc Estimated GFR Random Glucose Calcium Total Bilirubin Direct Bilirubin Troponin I High Sens 18.9 H Procalcitonin Influenza Type A (PCR) Influenza Type B (PCR) RSV RNA Qual (PCR) SARS-CoV-2 RNA (RT-PCR) Blood Type Antibody Screen Crossmatch 09/21/22 09/21/22 09/21/22 05:42 05:42 05:42 WBC 9.0 RBC 2.38 L D Hgb 7.4 L D Hct 23.9 L D MCV 100.4 H MCH 31.1 MCHC 31.0 RDW 19.4 H Plt Count 244 D MPV 9.0 L Absolute Nucleated RBC 0.020 H Nucleated RBC % (auto) 0.2 PT 13.1 INR 1.1 aPTT Heparin Protocol Sodium 142 Potassium 3.8 Chloride 104 Carbon Dioxide 32 H Anion Gap 10 L BUN 29 H Creatinine 1.04 Estim Creat Clear Calc 31.7 Estimated GFR 50 Random Glucose 118 H Calcium 9.1 D Total Bilirubin 0.9 Direct Bilirubin Troponin I High Sens Procalcitonin Influenza Type A (PCR) Influenza Type B (PCR) RSV RNA Qual (PCR) SARS-CoV-2 RNA (RT-PCR) Blood Type Antibody Screen Crossmatch 09/21/22 09/21/22 07:30 08:39 WBC RBC Hgb Hct MCV MCH MCHC RDW Plt Count MPV Absolute Nucleated RBC Nucleated RBC % (auto) PT INR aPTT Heparin Protocol 59.9 D Sodium Potassium Chloride Carbon Dioxide Anion Gap BUN Creatinine Estim Creat Clear Calc Estimated GFR Random Glucose Calcium Total Bilirubin Direct Bilirubin Troponin I High Sens Procalcitonin Influenza Type A (PCR) Influenza Type B (PCR) RSV RNA Qual (PCR) SARS-CoV-2 RNA (RT-PCR) Blood Type A Positive Antibody Screen NEGATIVE Crossmatch See Detail Imaging Radiologist's impression: Impressions Chest CT 09/20/22 11:36 IMPRESSION: Emphysema. No evidence of pleural effusion or empyema. Scattered small peripheral infiltrates new from previous exam. Question new small right pulmonary nodules. According to the UPDATED 2017 Fleischner Society recommendations, the advised follow-up imaging for less than 6 mm solid nodule: Low risk, no chest CT follow-up and high risk, optional chest CT follow-up in one year. Fleischner guidelines were followed. Chest CTA 09/20/22 17:38 IMPRESSION: POSITIVE LARGE PULMONARY EMBOLI. Multiple large fully occlusive and partially occlusive found in central branches of the pulmonary arteries right and left. There is mild Cardiac septal bowing and high RV LV ratio suggesting CARDIAC STRAIN. Other findings described above have not changed. This critical result was discussed with Dr. Kaiser by telephone at 09/20/2022 6:49 PM and it was ascertained that the content and urgency of the report was understood at the time of direct communication. Assessment and Plan (1) Acute and chronic respiratory failure with hypoxia: Status: Acute (2) Bilateral pulmonary embolism: Status: Acute Plan 86-year-old female presenting with progressive shortness of breath and has been diagnosed with pulmonary emboli. She previously had pulmonary embolism and had a IVC filter placed in the past. She was previously on anticoagulation which was stopped. She is now presenting with pulmonary embolism. She also having fevers which I think cut due to pulmonary emboli. Agree with the heparin drip. She is also anemic and her hemoglobin has dropped from 9-7. She is not reporting any bleeding. Please monitor hemoglobin closely. She should have type and cross available and should be transfused if needed. Is quite challenging situation because she already has IVC filter and presented with pulmonary emboli and has anemia 2. She has a left parasternal heave and I am suspecting that the right-sided pressures are high and she probably has RV dysfunction which will confirm with echocardiography. Sometimes the filter can developed thrombosis 2 which can lead to similar presentation. I think we treat her with anticoagulation currently and monitor hemoglobin closely. Thank you for allowing me to participate in the care of your patient. Please feel free to contact me if you have any questions. Time Spent With Patient Time: Total time managing care of this patient today ____ minutes. Procedures Date of Service Date of Service: 09/21/22
[2022-09-21 12:47] LABS: Iron 50 mcg/dL (30-160); Lactate Dehydrogenase 318 U/L (122-220); Percent Iron Saturation 28 % (15-50); Total Iron Binding Capacity 178 mcg/dL (228-428); Unsaturated Iron Binding 128 ug/dL
--- NOTE | 2022-09-21 13:04 | PC.NURSE ---
temp down, 98.5, TC sent to [facility], notified of my intent to start blood transfusion at this time. Lung sounds clear, vitals otherwise stable.
[2022-09-21 13:17] LABS: Ferritin 501 ng/mL (10-250); Folate 17.8 ng/mL (> or = 4.0); Vitamin B12 436 pg/mL (200-900)
[2022-09-21 14:39] LABS: PTT Heparin Drip 51.4 SEC (53-77.9)
[2022-09-21] MEDS: Heparin Sodium,Porcine 5,000 UNIT/ML VIAL 2400 UNIT IVPUSH (15:06)
--- NOTE | 2022-09-21 16:10 | PC.NURSE ---
pt blood infusion no longer appears to be infusion. charge account identification clerk notified and assisting at bedside. line flushes well with NS flush. chnaged blood tubing as ?clot in tubbing preventing infusion. blood now freely flowing to pt. VSS. pt in NAD
--- NOTE | 2022-09-21 16:12 | PM.HEMONCCN ---
Subjective - Subjective Chief complaint: Shortness of breath/weakness Patient: new to practice Consult date: 09/21/22 Primary Care Provider: Fabio Stuart MD HPI - Consult Narrative Reason for consult: Recurrent bilateral pulmonary emboli, macrocytic anemia Narrative: Kelly Miller is a 86 year old female who presented to emergency department with complaints of worsening shortness of breath. She has a past history significant for DVT with pulmonary emboli in 2019, she has had an IVC filter placed few months ago, history of COPD/emphysema as well as systemic lupus erythematosus. She was recently treated for UTI with Bactrim. Patient's symptoms worsened in the last 2 weeks, she developed pleuritic chest pain which was worse on the right side. Patient also states that she lost over 20 lb in the last 5-6 months. Her appetite has been poor. She was also started on dapsone in May 2022 for SLE. Prior to that she was on methotrexate, switch was made because she did not respond to methotrexate. Patient denies any other symptoms of nausea, emesis, reflux symptoms or change in bowel habits. In the ED patient was afebrile but tachycardic to 102, and tachypneic up to 22, and hypotensive as low as 109/47. Labs were significant for leukocytosis of 17.6, H&H 9.7/31.2, BUN of 32 and creatinine 0.97 (both above baseline), bilirubin elevated at 2.1.CT?of chest showed emphysema with possible new small scattered peripheral infiltrates, and no evidence of pleural effusions or empyema, and with question of new small right pulmonary nodules of less than 6 mm. Chest CTA found multiple large fully occlusive and partially occlusive pulmonary emboli in the central branches of the pulmonary arteries right and left, with mild Cardiac septal bowing and high RV and LV ratio suggesting cardiac strain. Patient was noted to have worsening anemia with macrocytosis. She has been started on unfractionated heparin to treat her pulmonary emboli. Review of Systems - Constitutional Reports as per HPI - Cardiovascular Reports no additional cardiovascular complaints - Respiratory Reports no additional respiratory complaints - Gastrointestinal Reports no additional gastrointestinal complaints - Neurologic Denies dizziness, Denies memory loss, Denies seizure-like activity [facility] Medical History: Medical History (Last Reviewed 09/23/22 @ 12:20 by Sohail Orlando, PT) Anxiety Arterial occlusive disease Chest discomfort Chronic respiratory failure COPD (chronic obstructive pulmonary disease) Discoid lupus Diverticulitis DVT (deep venous thrombosis) Dyspnea Encounter for monitoring azathioprine therapy GERD (gastroesophageal reflux disease) Greater saphenous vein embolism Hiatal hernia Hypercholesterolemia Hypertension Iliac artery occlusion Left leg DVT Lupus (systemic lupus erythematosus) Osteopenia Pleuritic chest pain Pulmonary embolism Pulmonary nodule Pulmonary nodules Restless leg Thrombus of aorta Family History: Family History (Last Reviewed 09/20/22 @ 16:04 by CHAYO Philip) Father Hypertension Cancer Mother Hypertension Stroke CVD (cardiovascular disease) Surgical History: Surgical History (Last Reviewed 09/23/22 @ 12:20 by Sohail Orlando, PT) Bilateral pulmonary embolism History of breast biopsy History of cataract surgery History of foot surgery History of toe surgery History of total abdominal hysterectomy and bilateral salpingo-oophorectomy Social History: Social History (Last Reviewed 09/20/22 @ 16:04 by CHAYO Philip) Living Situation History: Household Members: None Housing: House Do you presently have visiting nurse or other home services: Yes Tobacco History: Patient Tobacco Use Status: Former Tobacco user Tobacco use type: Cigarette Years Smoked: 30 e-Cigarette/Vaping Use: Never Used Second Hand Smoke Exposure: No Occupation Assessmet: service: No Current occupational status: retired Home Medications and Allergies Current Medications: Current Medications Acetaminophen (Acetaminophen 325 Mg Tablet) 650 mg PO Q6H PRN PRN Reason: Pain, Mild (Pain Scale 1-3) Last Admin: 09/21/22 11:40 Dose: 650 mg Albuterol Sulfate (Albuterol Sulfate 90 Mcg 8 Gm Inhaler) 2 puff INHALE Q4H PRN PRN Reason: for muscle spasm Albuterol/Ipratropium (Albuterol/Iprat 2.5/0.5mg 3 Ml Ampul.Neb) 3 ml INHALE RTID [facility] Last Admin: 09/21/22 13:00 Dose: Not Given Aspirin (Aspirin Enteric Coated 81 Mg Tablet.Dr) 81 mg PO DAILY [facility] Last Admin: 09/21/22 08:57 Dose: 81 mg Betamethasone Dipropion Augmented (Betamethasone Dip Aug 0.05% Cr 15 Gm Tube) 1 appl TOPICAL BID [facility] Last Admin: 09/21/22 09:46 Dose: Not Given Calcium Carbonate (Calcium Carbonate 500 Mg Tablet) 500 mg PO DAILY [facility] Last Admin: 09/21/22 08:57 Dose: 500 mg Dapsone (Dapsone 25 Mg Tablet) 100 mg PO DAILY [facility] Last Admin: 09/21/22 08:59 Dose: 100 mg Docusate Sodium (Docusate Sodium 100 Mg Capsule) 100 mg PO DAILY PRN PRN Reason: Constipation Doxycycline Monohydrate (Doxycycline Monohydrate 100 Mg Capsule) 100 mg PO Q12H [facility] Last Admin: 09/21/22 04:12 Dose: 100 mg Folic Acid (Folic Acid 1 Mg Tablet) 1 mg PO DAILY [facility] Last Admin: 09/21/22 08:57 Dose: 1 mg Gabapentin (Gabapentin 300 Mg Capsule) 300 mg PO BEDTIME [facility] Last Admin: 09/20/22 22:59 Dose: 300 mg Heparin Sodium (Porcine) (Heparin Sodium,Porcine 5,000 Unit/Ml Vial) 2,400 unit 40 unit/kg (2400 unit) IVPUSH PROTOCOL BOLUS PRN; Protocol PRN Reason: 40 unit/kg - Heparin Protocol Last Admin: 09/21/22 15:06 Dose: 2,400 unit Heparin Sodium (Porcine) (Heparin Sodium,Porcine 5,000 Unit/Ml Vial) 4,800 unit 80 unit/kg (4800 unit) IVPUSH PROTOCOL BOLUS PRN; Protocol PRN Reason: 80 unit/kg - Heparin Protocol Hydrochlorothiazide (Hydrochlorothiazide 12.5 Mg Tablet) 12.5 mg PO DAILY [facility]; Protocol Last Admin: 09/21/22 08:57 Dose: 12.5 mg Ceftriaxone Sodium 1 gm/ (Sodium Chloride) 50 mls @ 100 mls/hr IV Q24H [facility] Last Infusion: 09/20/22 20:19 Dose: Infused Heparin Sodium/Sodium Chloride (Heparin Sodium,Porcine/1/2ns) 25,000 unit in 250 mls @ 0 mls/hr IVCONT .Q0M [facility]; Protocol Last Titration: 09/21/22 15:06 Dose: 13 units/kg/hr, 7.83 mls/hr Lactulose (Lactulose 20 Gm/30 Ml Solution) 20 gm PO BID PRN PRN Reason: constipation Latanoprost (Latanoprost 0.005 % Ophth Ayana 2.5 Ml Drops) 1 drop EYE-BOTH BEDTIME [facility] Lidocaine (Lidocaine 4 % Patch Adh..Patch) 1 patch TRANSDERMA DAILY PRN PRN Reason: Pain, Moderate(Pain Scale 4-6) Losartan Potassium (Losartan Potassium 50 Mg Tablet) 100 mg PO DAILY [facility]; Protocol Last Admin: 09/21/22 08:57 Dose: 100 mg Mirabegron (Mirabegron 25 Mg Tab.Er.24h) 25 mg PO DAILY [facility] Last Admin: 09/21/22 08:58 Dose: Not Given Non-Formulary Medication (Rosuvastatin) 10 mg PO DAILY [facility] Non-Formulary Medication (Tacrolimus) 1 appl TOPICAL BID [facility] Omeprazole (Omeprazole 20 Mg Capsule.Dr) 20 mg PO BID@0630,1630 [facility] Last Admin: 09/21/22 05:50 Dose: Not Given Ondansetron HCl (Ondansetron Hcl 4 Mg/2 Ml Vial) 4 mg IVPUSH Q8H PRN PRN Reason: Nausea and Vomiting Pramipexole Dihydrochloride (Pramipexole Di-Hcl 1 Mg Tablet) 1 mg PO BEDTIME [facility] Sodium Chloride (0.9 % Sodium Chloride Flush 3 Ml Syringe) 3 ml IVFLUSH QSHIFT [facility] Last Admin: 09/21/22 08:08 Dose: 3 ml Tramadol HCl (Tramadol Hcl 50 Mg Tablet) 50 mg PO BID PRN PRN Reason: Pain, Moderate(Pain Scale 4-6) Vitamin D (Cholecalciferol (Vitamin D3) 25 Mcg Tablet) 25 mcg PO DAILY [facility] Last Admin: 09/21/22 08:57 Dose: 25 mcg Home Medications Medication Instructions Recorded Confirmed Type aspirin 81 mg tablet,delayed 81 mg PO DAILY 02/27/20 09/20/22 History release (Adult Aspirin Regimen) calcium carbonate 600 mg calcium 600 mg PO DAILY 02/27/20 09/20/22 History (1,500 mg) tablet (Calcium) cholecalciferol (vitamin D3) 25 25 mcg PO DAILY 02/27/20 09/20/22 History mcg (1,000 unit) capsule mirabegron 25 mg tablet,extended 25 mg PO DAILY 02/27/20 09/20/22 History release 24 hr (Myrbetriq) lidocaine 5 % topical patch 1 patch topical DAILY PRN Pain 03/03/22 09/20/22 History pramipexole 1 mg tablet 1 mg PO BEDTIME 03/03/22 09/20/22 History Oxygen Home Use 04/11/22 09/06/22 History fluocinonide 0.05 % topical 1 appl topical BID-QID PRN Itching 04/11/22 09/20/22 History ointment gabapentin 300 mg capsule 300 mg PO BEDTIME 08/16/22 09/20/22 History lactulose 20 gram/30 mL oral 20 g PO BID PRN constipation 08/16/22 09/20/22 History solution latanoprost 0.005 % eye drops 1 drp ophthalmic (eye) BEDTIME 08/16/22 09/20/22 History nebulizers 09/18/22 History alendronate 70 mg tablet 70 mg PO WE 09/20/22 09/20/22 History ipratropium 0.5 mg-albuterol 3 mg 3 ml inhalation TID 09/20/22 09/20/22 History (2.5 mg base)/3 mL nebulization soln tramadol 50 mg tablet 50 mg PO BID PRN Pain 09/20/22 09/20/22 History Allergies Allergy/AdvReac Type Severity Reaction Status Date / Time amlodipine Allergy Unknown leg Verified 09/20/22 09:44 swelling, swelling atorvastatin [Lipitor] Allergy Unknown Unknown Verified 09/20/22 09:44 hydroxychloroquine Allergy Unknown Affected Verified 09/20/22 09:44 [From Plaquenil] eye sight metoprolol Allergy Unknown Swelling Verified 09/20/22 09:44 Physical Exam Vital signs: Vital Signs Temp 98.3 F 09/21/22 13:13 Pulse 82 09/21/22 14:38 Resp 17 09/21/22 14:38 BP 120/48 L 09/21/22 14:38 Pulse Ox 95 09/21/22 14:38 O2 Del Method Nasal Cannula 09/21/22 14:38 O2 Flow Rate 4 09/21/22 14:38 Intake & Output 09/20/22 09/21/22 09/21/22 18:59 06:59 18:59 Intake Total 654.654 / 654.654 79.109 / 79.109 Balance 654.654 / 654.654 79.109 / 79.109 Intake: Intake (Blood Product) Amount 0 / 0 Red Blood Cells (E0382) Unit 0 / 0 [id number] Intake, IV Amount 654.654 / 654.654 79.109 / 79.109 0.9 % Sodium Chloride 500 ml @ 500 / 500 999 mls/hr IV .Q31M [facility] Rx#: [id number] Piperacillin Sodium/Tazobactam 50 / 50 3.375 gm In 0.9 % Sodium Chloride 50 ml @ 100 mls/hr IV ONCE ONE Rx#:[id number] cefTRIAXone sodium 1 gm In 0.9 50 / 50 % Sodium Chloride 50 ml @ 100 mls/hr IV Q24H [facility] Rx#: [id number] Heparin Sodium,Porcine/1/2NS 25 54.654 / 54.654 79.109 / 79.109 ,000 unit In 250 ml @ Per Protocol IVCONT .Q0M [facility] Rx#: [id number] Other: Number of Unmeasured Voids 1 Weight 55.338 kg 60.2 kg [place] Weight in Grams 19938 Weight 60.2 kg - Constitutional Present: mild distress - Routine HEENT Exam Head: Present: normal inspection Eye: Present: EOMI - Routine Neck Exam Present: supple. Absent: lymphadenopathy - Routine Respiratory Exam Absent: accessory muscle use, respiratory distress - Routine Cardiovascular Exam Cardiovascular: Present: S1, S2, tachycardia - Routine Abdominal Exam Present: soft. Absent: mass Hem/Onc Consult Result - Labs CBC & Chem 7: 09/23/22 06:09 09/22/22 03:15 Labs: Short CBC 09/21/22 Range/Units 05:42 WBC 9.0 (4.8-10.8) X10*3/uL Hgb 7.4 L D (12.0-16.0) g/dl Hct 23.9 L D (37.0-47.0) % Plt Count 244 D (160-400) X10*3/uL BMP 09/21/22 05:42 Sodium 142 Potassium 3.8 Chloride 104 Carbon Dioxide 32 H BUN 29 H Creatinine 1.04 Calcium 9.1 D Liver Function 09/20/22 09/21/22 Range/Units 10:44 05:42 Total Bilirubin 0.9 (0.0-1.0) mg/dL Direct Bilirubin 0.6 H (0.0-0.5) mg/dL Assessment and Plan Patient Active problem list reviewed?: Yes (1) Bilateral pulmonary embolism Status: Acute Assessment and plan: 1. This is a pleasant 86-year-old woman admitted with recurrent submassive bilateral pulmonary emboli and anemia. She was initially diagnosed in February 2020, she was on anticoagulation for a year or more. She states that she had an IVC filter placed at [facility] and was taken off anticoagulation a few months ago. Thrombophilia workup including lupus anticoagulant test checked in the past was negative. CT angiogram does not show any suspicious lung lesions or evidence of malignancy. She had a CT abdomen/pelvis in 2021 which does not show any evidence of malignancy. However, patient does report significant weight loss in the last 4-6 months. Bilateral lower extremity Doppler revealed bilateral DVT, nonocclusive thrombus in the right posterior tibial vein and occlusive thrombus in the distal left posterior tibial vein. She has a history of SLE, she was on methotrexate in the past. She was recently switched to dapsone 100 mg daily in May 2022. She has now developed worsening macrocytic anemia with elevated LDH and mild hyperbilirubinemia suggestive of hemolytic anemia which can be seen with dapsone. Other possibility is hemolysis secondary to Bactrim that she received recently for UTI. Iron levels, vitamin B12 and folic acid levels are normal. I recommend discontinuing dapsone. She is receiving blood transfusion appropriately. She has been started on anticoagulation with unfractionated heparin, this can be continued until we ascertain that there is no evidence of GI or other bleeding. She can be switched to oral anticoagulation when her H&H is stable. She will now require indefinite anticoagulation. I will be happy to see her in follow-up upon discharge from the hospital. I thank you for this consultation. - Time Spent With Patient Time Spent with Patient (in minutes): 25
[2022-09-21] MEDS: Omeprazole 20 MG CAPSULE.DR PO (17:26)
[2022-09-21 17:59] LABS: Hematocrit 29.4 % (37.0-47.0); Hemoglobin 8.9 g/dl (12.0-16.0); Immature Retic Fraction 20.7 % (3.0-15.9); Retic HGB Equivalent 34.2 pg (30.0-35.0); Reticulocyte Percent 4.6 % (0.5-1.8); Reticulocytes Absolute 0.135 X10*6/uL (0.026-0.095)
[2022-09-21] MEDS: cefTRIAXone sodium 1 GM in 0.9 % Sodium Chloride 50 ML IV (19:24)
--- NOTE | 2022-09-21 19:30 | PC.NURSE ---
Pt aox4 resting at the bedside in no apparent distress. Medicated as ordered. Tolerated well. NSR on monitor with HR 87. Heparin running on the right hand at 13 u/kg/hr. Reports no pain or discomfort at this time. Will continue to monitor.
--- NOTE | 2022-09-21 19:49 | PC.NURSE ---
Took over pt @ 1900. Pt ca&ox3. No signs of distress, pt talking on the phone. Pt reports no pain. Will continue to monitor.
--- NOTE | 2022-09-21 20:19 | PC.NURSE ---
Pt ca&ox3. No signs of distress. Pt denies pain or sob. IV fluids ended and flushed. Pt resting comfortably. Will continue to monitor.
--- NOTE | 2022-09-21 20:33 | MHC.EDTECH ---
Patient clean and given new nacho and bed linen
--- NOTE | 2022-09-21 20:45 | PC.NURSE ---
Report given to YAZMIN Villa.
[2022-09-21] MEDS: Gabapentin 300 MG CAPSULE PO (21:53)
[2022-09-21] MEDS: Betamethasone Dip Aug 0.05% Cr 15 GM TUBE 1 APPL TOPICAL (21:53)
[2022-09-21] MEDS: Pramipexole Di-HCL 1 MG TABLET PO (22:31)
[2022-09-22] VITALS (9 sets, daily range): BP systolic 94–133; BP diastolic 52–63; PULSE 68–90; RESP 16–20; TEMP 36.5–37.1; O2SAT 88–96
[2022-09-22 03:23] LABS: Hematocrit 27.4 % (37.0-47.0); Hemoglobin 8.5 g/dl (12.0-16.0); Mean Corpuscular Hemoglobin 31.4 pg (27.0-33.0); Mean Corpuscular Volume 101.1 fL (80.0-98.0); Mean Platelet Volume 9.3 fL (9.4-12.3); Platelet Count 237 X10*3/uL (160-400); Red Blood Count 2.71 X10*6/uL (4.20-5.50); Red Cell Distribution Width 19.8 % (11.0-16.0); White Blood Count 9.9 X10*3/uL (4.8-10.8)
[2022-09-22] MEDS: Heparin Sodium,Porcine/1/2NS 25,000 UNIT/250 ML IV.SOLN 7.83 UNIT IVCONT ×2 (03:42→17:16)
[2022-09-22 03:49] LABS: Anion Gap 14 (12-20); Blood Urea Nitrogen 24 mg/dL (9-16); Calcium 9.3 mg/dL (8.4-10.2); Carbon Dioxide 28 mmol/L (22-29); Chloride 107 mmol/L (96-108); Creatinine Clr Calc Pharmacy 42.3; Estimated Glomerular Filt Rate > 60; Glucose Random 98 mg/dL (60-115); Potassium 4.2 mmol/L (3.3-5.1); Sodium 145 mmol/L (135-145)
[2022-09-22] MEDS: Doxycycline Monohydrate 100 MG CAPSULE PO ×2 (04:58→18:17)
[2022-09-22] MEDS: Omeprazole 20 MG CAPSULE.DR PO ×2 (04:58→17:07)
[2022-09-22] MEDS: Albuterol/Iprat 2.5/0.5MG 3 ML AMPUL.NEB INHALE ×3 (07:48→19:44)
[2022-09-22] MEDS: Folic Acid 1 MG TABLET PO (10:11)
[2022-09-22] MEDS: 0.9 % Sodium Chloride Flush 3 ML SYRINGE IVFLUSH ×2 (10:11→17:07)
[2022-09-22] MEDS: hydroCHLOROthiazide 12.5 MG TABLET PO (10:12)
[2022-09-22] MEDS: Mirabegron 25 MG TAB.ER.24H PO (10:12)
[2022-09-22] MEDS: Aspirin Enteric Coated 81 MG TABLET.DR PO (10:13)
[2022-09-22] MEDS: Betamethasone Dip Aug 0.05% Cr 15 GM TUBE 1 APPL TOPICAL ×2 (10:13→21:32)
[2022-09-22] MEDS: Losartan Potassium 50 MG TABLET 100 MG PO (10:13)
[2022-09-22] MEDS: Cholecalciferol (Vitamin D3) 25 MCG TABLET PO (10:13)
--- NOTE | 2022-09-22 12:38 | MHC.CLN ---
RE: CONSULT 20# WT LOSS IN THE LAST 3 MONTHS WT HX FOLLOWS: 60.2KG (09/20/22) 62KG (06/29/22) 65.3KG (03/24/22) PT WITH 8% NON SIGNIFICANT WT LOSS X 6 MONTHS DIET RX: 2GM NA-RECOMMEND LIBERALIZING DIET R/T ADVANCED AGE AND TO INCREASE PO WILL CHANGE DIET TO REGULAR RECOMMEND ADDING ENSURE BID TO INCREASE KCALS SUPP TO PROVIDE 700KCALS, 40G PROTEIN MONITOR PO AND SUPPLEMENT ACCEPTANCE CLOSELY
--- NOTE | 2022-09-22 12:50 | P.PNCA_ITS ---
Subjective Subjective Date of Service: 09/22/22 Interval history: Seen examined at bedside. Feeling better. Physical Exam Vital Signs: Last Vital Signs Temp 98.6 F 09/22/22 11:41 Pulse 88 09/22/22 11:41 Resp 20 09/22/22 11:41 BP 132/63 09/22/22 11:41 Pulse Ox 93 09/22/22 11:41 O2 Del Method Nasal Cannula 09/22/22 11:41 O2 Flow Rate 3 09/22/22 11:41 Oxygen Flow Rate 2 09/20/22 09:34 BMI result Body Mass Index 26.8 GENERAL APPEARANCE: in no acute distress, pleasant. On supplemental oxygen. NECK: no carotid bruit, no jugular venous distention. SKIN: no suspicious lesions, warm and dry. HEART: no murmurs, regular rate and rhythm. left parasternal heave. LUNGS: clear to auscultation bilaterally. ABDOMEN: soft, nontender. EXTREMITIES: no edema. PERIPHERAL PULSES: equal. NEUROLOGIC: No gross deficits, AAO X 3 Objective Labs and Meds 09/22/22 03:15 09/22/22 03:15 Lab results: Laboratory Results - last 24 hr 09/21/22 09/21/22 09/21/22 05:42 08:39 14:21 WBC RBC Hgb Hct MCV MCH MCHC RDW Plt Count MPV Absolute Nucleated RBC Nucleated RBC % (auto) Absolute Retic Percent Retic Immature Retic Fraction Retic Hgb Equivalent aPTT Heparin Protocol 51.4 L Sodium Potassium Chloride Carbon Dioxide Anion Gap BUN Creatinine Estim Creat Clear Calc Estimated GFR Random Glucose Calcium Ferritin 501 H Vitamin B12 436 Folate 17.8 Blood Type A Positive Antibody Screen NEGATIVE Crossmatch See Detail 09/21/22 09/21/22 09/21/22 17:47 17:47 21:11 WBC RBC Hgb 8.9 L D Hct 29.4 L D MCV MCH MCHC RDW Plt Count MPV Absolute Nucleated RBC Nucleated RBC % (auto) Absolute Retic 0.135 H Percent Retic 4.6 H Immature Retic Fraction 20.7 H Retic Hgb Equivalent 34.2 aPTT Heparin Protocol 59.0 Sodium Potassium Chloride Carbon Dioxide Anion Gap BUN Creatinine Estim Creat Clear Calc Estimated GFR Random Glucose Calcium Ferritin Vitamin B12 Folate Blood Type Antibody Screen Crossmatch 09/22/22 09/22/22 09/22/22 03:15 03:15 03:15 WBC 9.9 RBC 2.71 L Hgb 8.5 L Hct 27.4 L MCV 101.1 H MCH 31.4 MCHC 31.0 RDW 19.8 H Plt Count 237 MPV 9.3 L Absolute Nucleated RBC 0.000 Nucleated RBC % (auto) 0.0 Absolute Retic Percent Retic Immature Retic Fraction Retic Hgb Equivalent aPTT Heparin Protocol 56.0 Sodium 145 Potassium 4.2 Chloride 107 Carbon Dioxide 28 Anion Gap 14 BUN 24 H Creatinine 0.78 Estim Creat Clear Calc 42.3 Estimated GFR > 60 Random Glucose 98 Calcium 9.3 Ferritin Vitamin B12 Folate Blood Type Antibody Screen Crossmatch 09/22/22 09:08 WBC RBC Hgb Hct MCV MCH MCHC RDW Plt Count MPV Absolute Nucleated RBC Nucleated RBC % (auto) Absolute Retic Percent Retic Immature Retic Fraction Retic Hgb Equivalent aPTT Heparin Protocol 60.0 Sodium Potassium Chloride Carbon Dioxide Anion Gap BUN Creatinine Estim Creat Clear Calc Estimated GFR Random Glucose Calcium Ferritin Vitamin B12 Folate Blood Type Antibody Screen Crossmatch Imaging Radiologist's impression: Impressions Abdomen/Pelvis CT 09/21/22 19:19 IMPRESSION: 1. No acute findings identified in the abdomen/pelvis. 2. Small right pleural effusion. 3. Large hiatal hernia. Progress Note: A&P Assessment and plan (1) Acute and chronic respiratory failure with hypoxia: Status: Acute (2) Bilateral pulmonary embolism: Status: Acute Plan 86-year-old female with bilateral pulmonary emboli and shortness of breath. She is on heparin drip. She was noticed to be anemic and hematology has seen her and felt that dapsone is the cause for anemia which has been stopped. She was given 1 unit of blood. If hemoglobin stays stable till tomorrow then I think she can be transitioned to Xarelto which she was taking previously for previous episodes of pulmonary emboli. She has been following with Dr. Isabell Granado at [facility] and can follow up with him. Thank you for allowing me to participate in the care of your patient. Please feel free to contact me if you have any questions. Time Spent With Patient Time: Total time managing care of this patient today ____ minutes. Progress Note: Quality Stroke Does the patient have a stroke diagnosis?: No Procedures Date of Service Date of Service: 09/22/22
--- NOTE | 2022-09-22 13:23 | MHC.CM.PN ---
EMR reviewed and per MD rounds pt not medically cleared for D/C today, but possibly will be tomorrow if H+H stable. CM will continue to follow.
[2022-09-22] MEDS: Acetaminophen 325 MG TABLET 650 MG PO ×2 (13:39→22:29)
--- NOTE | 2022-09-22 15:24 | HO.PM.IMPN ---
Subjective Subjective Date of Service: 09/22/22 Interval History: seen and examined this morning Follow-up for PE dyspnea, pleuritic pain improving Review of Systems Review of Systems: Yes all other systems are reviewed and are negative Constitutional Constitutional: Denies chills and Denies fever(s) ENT Ears, Nose, Mouth, and Throat: Denies dizziness Cardiovascular Cardiovascular: Denies chest pain, Denies palpitations and Denies dyspnea Respiratory Respiratory: Denies cough and Denies dyspnea Gastrointestinal Gastrointestinal: Denies abdominal pain, Denies nausea and Denies vomiting Neurologic Neurologic: Denies dizziness Endocrine Endocrine: Denies palpitations Physical Exam Vital Signs: Vital Signs: Last Vital Signs Temp 98.6 F 09/22/22 15:08 Pulse 90 09/22/22 15:08 Resp 17 09/22/22 15:08 BP 94/53 L 09/22/22 15:08 Pulse Ox 91 L 09/22/22 15:08 O2 Del Method Nasal Cannula 09/22/22 15:08 O2 Flow Rate 3 09/22/22 11:41 Oxygen Flow Rate 2 09/20/22 09:34 BMI result Body Mass Index 26.8 Const: General: cooperative, comfortable, alert and awake Nutritional Appearance: average body habitus Orientation/consciousness: patient oriented x3 Resp: Effort & Inspection: normal respiratory effort, able to speak in complete sentences, no respiratory distress and no use of accessory muscles Auscultation: clear to auscultation bilaterally Cardio: Rate: regular rate GI: Inspection: No distended Palpation (GI): Soft to palpation and nontender Neuro: General: patient oriented x3 and CN's II-XI intact bilaterally Extrem: Other: no calf tenderness General: Yes no pedal edema Psych: Affect: normal affect Objective Data Active Medications Acetaminophen (Acetaminophen 325 Mg Tablet) 650 mg PO Q6H PRN PRN Reason: Pain, Mild (Pain Scale 1-3) Last Admin: 09/22/22 13:39 Dose: 650 mg Documented By: GUILLAUME Albuterol Sulfate (Albuterol Sulfate 90 Mcg 8 Gm Inhaler) 2 puff INHALE Q4H PRN PRN Reason: for muscle spasm Albuterol/Ipratropium (Albuterol/Iprat 2.5/0.5mg 3 Ml Ampul.Neb) 3 ml INHALE RTID [facility] Last Admin: 09/22/22 13:37 Dose: 3 ml Documented By: BELL Aspirin (Aspirin Enteric Coated 81 Mg Tablet.Dr) 81 mg PO DAILY [facility] Last Admin: 09/22/22 10:13 Dose: 81 mg Documented By: GUILLAUME Betamethasone Dipropion Augmented (Betamethasone Dip Aug 0.05% Cr 15 Gm Tube) 1 appl TOPICAL BID [facility] Last Admin: 09/22/22 10:13 Dose: 1 appl Documented By: GUILLAUME Calcium Carbonate (Calcium Carbonate 500 Mg Tablet) 500 mg PO DAILY [facility] Last Admin: 09/22/22 10:12 Dose: 500 mg Documented By: GUILLAUME Docusate Sodium (Docusate Sodium 100 Mg Capsule) 100 mg PO DAILY PRN PRN Reason: Constipation Doxycycline Monohydrate (Doxycycline Monohydrate 100 Mg Capsule) 100 mg PO Q12H [facility] Last Admin: 09/22/22 04:58 Dose: 100 mg Documented By: ASTRID Folic Acid (Folic Acid 1 Mg Tablet) 1 mg PO DAILY [facility] Last Admin: 09/22/22 10:11 Dose: 1 mg Documented By: GUILLAUME Gabapentin (Gabapentin 300 Mg Capsule) 300 mg PO BEDTIME [facility] Last Admin: 09/21/22 21:53 Dose: 300 mg Documented By: ASTRID Heparin Sodium (Porcine) (Heparin Sodium,Porcine 5,000 Unit/Ml Vial) 2,400 unit 40 unit/kg (2400 unit) IVPUSH PROTOCOL BOLUS PRN; Protocol PRN Reason: 40 unit/kg - Heparin Protocol Last Admin: 09/21/22 15:06 Dose: 2,400 unit Documented By: ARCHIE Heparin Sodium (Porcine) (Heparin Sodium,Porcine 5,000 Unit/Ml Vial) 4,800 unit 80 unit/kg (4800 unit) IVPUSH PROTOCOL BOLUS PRN; Protocol PRN Reason: 80 unit/kg - Heparin Protocol Hydrochlorothiazide (Hydrochlorothiazide 12.5 Mg Tablet) 12.5 mg PO DAILY [facility]; Protocol Last Admin: 09/22/22 10:12 Dose: 12.5 mg Documented By: GUILLAUME Ceftriaxone Sodium 1 gm/ (Sodium Chloride) 50 mls @ 100 mls/hr IV Q24H [facility] Last Infusion: 09/21/22 21:41 Dose: 0 mls/hr Documented By: ASTRID Heparin Sodium/Sodium Chloride (Heparin Sodium,Porcine/1/2ns) 25,000 unit in 250 mls @ 0 mls/hr IVCONT .Q0M [facility]; Protocol Last Admin: 09/22/22 03:42 Dose: 13 units/kg/hr, 7.83 mls/hr Documented By: ASTRID Co-signed By: KOJO Lactulose (Lactulose 20 Gm/30 Ml Solution) 20 gm PO BID PRN PRN Reason: constipation Latanoprost (Latanoprost 0.005 % Ophth Ayana 2.5 Ml Drops) 1 drop EYE-BOTH BEDTIME [facility] Last Admin: 09/21/22 22:43 Dose: Not Given Documented By: ASTRID Non-Admin Reason: Patient Refused Lidocaine (Lidocaine 4 % Patch Adh..Patch) 1 patch TRANSDERMA DAILY PRN PRN Reason: Pain, Moderate(Pain Scale 4-6) Losartan Potassium (Losartan Potassium 50 Mg Tablet) 100 mg PO DAILY [facility]; Protocol Last Admin: 09/22/22 10:13 Dose: 100 mg Documented By: GUILLAUME Mirabegron (Mirabegron 25 Mg Tab.Er.24h) 25 mg PO DAILY [facility] Last Admin: 09/22/22 10:12 Dose: 25 mg Documented By: GUILLAUME Non-Formulary Medication (Rosuvastatin) 10 mg PO DAILY [facility] Non-Formulary Medication (Tacrolimus) 1 appl TOPICAL BID [facility] Omeprazole (Omeprazole 20 Mg Capsule.Dr) 20 mg PO BID@0630,1630 [facility] Last Admin: 09/22/22 04:58 Dose: 20 mg Documented By: ASTRID Ondansetron HCl (Ondansetron Hcl 4 Mg/2 Ml Vial) 4 mg IVPUSH Q8H PRN PRN Reason: Nausea and Vomiting Pramipexole Dihydrochloride (Pramipexole Di-Hcl 1 Mg Tablet) 1 mg PO BEDTIME [facility] Last Admin: 09/21/22 22:31 Dose: 1 mg Documented By: ASTRID Sodium Chloride (0.9 % Sodium Chloride Flush 3 Ml Syringe) 3 ml IVFLUSH QSHIFT [facility] Last Admin: 09/22/22 10:11 Dose: 3 ml Documented By: GUILLAUME Tramadol HCl (Tramadol Hcl 50 Mg Tablet) 50 mg PO BID PRN PRN Reason: Pain, Moderate(Pain Scale 4-6) Vitamin D (Cholecalciferol (Vitamin D3) 25 Mcg Tablet) 25 mcg PO DAILY [facility] Last Admin: 09/22/22 10:13 Dose: 25 mcg Documented By: GUILLAUME Labs 09/22/22 03:15 09/22/22 03:15 Labs: Laboratory Results - last 24 hr 09/21/22 09/21/22 09/22/22 17:47 21:11 03:15 MCV 101.1 H MCH 31.4 MCHC 31.0 RDW 19.8 H Plt Count 237 MPV 9.3 L Absolute Nucleated RBC 0.000 Nucleated RBC % (auto) 0.0 Absolute Retic 0.135 H Percent Retic 4.6 H Immature Retic Fraction 20.7 H Retic Hgb Equivalent 34.2 aPTT Heparin Protocol 59.0 Anion Gap Estim Creat Clear Calc Estimated GFR Random Glucose Calcium 09/22/22 09/22/22 09/22/22 03:15 03:15 09:08 MCV MCH MCHC RDW Plt Count MPV Absolute Nucleated RBC Nucleated RBC % (auto) Absolute Retic Percent Retic Immature Retic Fraction Retic Hgb Equivalent aPTT Heparin Protocol 56.0 60.0 Anion Gap 14 Estim Creat Clear Calc 42.3 Estimated GFR > 60 Random Glucose 98 Calcium 9.3 Microbiology Microbiology Results: Microbiology 09/20/22 10:44 Blood Culture - Preliminary Blood - Venous No growth after 48 hours. 09/20/22 10:44 Blood Culture - Preliminary Blood - Venous No growth after 48 hours. Assessment and Plan (1) Acute and chronic respiratory failure with hypoxia: Status: Acute (2) Bilateral pulmonary embolism: Status: Acute Plan This ia an 86yo F with COPD + nocturnal O2 dependence, hx DVT/PE 2019 not currently on Xarelto presenting with worsening exertional dyspnea + chest pain found to have b/l PE Acute on chronic respiratory failure with hypoxia related to b/l PE, possible pna on 2L noctural oxygen at baseline, currently on 4L, wean as tolerated. Acute bilateral pulmonary embolism Chest CTA found multiple large fully occlusive and partially occlusive pulmonary emboli in the central branches of the pulmonary arteries right and left, with mild Cardiac septal bowing and high RV and LV ratio suggesting cardiac strain. trops flat, BNP negative. history of previous pulmonary embolism in 2019, no longer on anticoagulation; h/o IVC filter placement continue heparin drip - if H/H remains stable tomorrow, will put back on xarelto Echocardiogram pending b/l LE dopplers pending seen by Pulmonology and cardiology wean supplemental oxygen as tolerated (uses 2L noctural and prn 2 at baseline) Possible community-acquired pneumonia Possible infiltrates seen on CT of chest, will continue IV doxycycline, ceftriaxone blood cultures negative Fever isolated fever 09/21, no recurrance treating for possible pneumonia. flu/RSV/covid negative wbc resolved. no evidence of sepsis blood cultures negative acute normocytic anemia seen by hematology thought to be related to dapsone, dapsone discontinued s/p 1U rbc 09/21 follow CBC Hyperbilirubinemia Total bilirubin 2.1, repeat down to 0.9 HTN continue losartan, HCTZ COPD no acute exacerbation Continue home inhalers Lupus dapsone discontinued as above will need outpatient follow up with rheumatology HLD Continue statin Full Code Attending:?Dr. Carballo DVT Prophylaxis: heparin drip Requires ongoing inpatient hospitalization for treatment of?bilateral pulmonary emboli with IV heparin, eval of anemia, close monitoring of respiratory status Time Spent With Patient Time: Total time managing care of this patient today ____ minutes. Quality Stroke Does the patient have a stroke diagnosis?: No VTE Prior VTE?: Yes VTE Risk Level:: Medical - moderate - high VTE Device Contraindication: Treatment Not Indicated VTE Drug Contraindication: N/A - Med Ordered
[2022-09-22 16:15] LABS: Hematocrit 27.4 % (37.0-47.0); Hemoglobin 8.4 g/dl (12.0-16.0); Mean Corpuscular HGB Conc 30.7 g/dl (31.0-35.0); Mean Corpuscular Hemoglobin 30.7 pg (27.0-33.0); Platelet Count 241 X10*3/uL (160-400); Red Blood Count 2.74 X10*6/uL (4.20-5.50); Red Cell Distribution Width 19.9 % (11.0-16.0); White Blood Count 8.8 X10*3/uL (4.8-10.8)
[2022-09-22] MEDS: cefTRIAXone sodium 1 GM in 0.9 % Sodium Chloride 50 ML IV (18:25)
[2022-09-22] MEDS: Pramipexole Di-HCL 1 MG TABLET PO (21:31)
[2022-09-22] MEDS: Latanoprost 0.005 % Ophth Sol 2.5 ML DROPS 1 DROP EYE-BOTH (21:32)
[2022-09-22] MEDS: Gabapentin 300 MG CAPSULE PO (21:32)
[2022-09-23] VITALS (9 sets, daily range): BP systolic 93–152; BP diastolic 52–60; PULSE 76–115; RESP 16–20; TEMP 36.4–36.8; O2SAT 88–96
[2022-09-23] MEDS: Omeprazole 20 MG CAPSULE.DR PO ×2 (05:16→15:56)
[2022-09-23] MEDS: Acetaminophen 325 MG TABLET 650 MG PO ×3 (05:25→21:08)
[2022-09-23 06:35] LABS: Hematocrit 27.9 % (37.0-47.0); Hemoglobin 8.7 g/dl (12.0-16.0); Mean Corpuscular HGB Conc 31.2 g/dl (31.0-35.0); Mean Corpuscular Hemoglobin 31.5 pg (27.0-33.0); Mean Corpuscular Volume 101.1 fL (80.0-98.0); Mean Platelet Volume 9.4 fL (9.4-12.3); Platelet Count 254 X10*3/uL (160-400); Red Blood Count 2.76 X10*6/uL (4.20-5.50); Red Cell Distribution Width 19.8 % (11.0-16.0); White Blood Count 8.7 X10*3/uL (4.8-10.8)
[2022-09-23 06:44] LABS: PTT Heparin Drip 65.1 SEC (53-77.9)
[2022-09-23 08:20] LABS: PTT Heparin Drip 65.1 SEC (53-77.9)
[2022-09-23] MEDS: Docusate Sodium 100 MG CAPSULE PO (09:23)
[2022-09-23] MEDS: Aspirin Enteric Coated 81 MG TABLET.DR PO (09:23)
[2022-09-23] MEDS: Doxycycline Monohydrate 100 MG CAPSULE PO ×2 (09:24→20:00)
[2022-09-23] MEDS: Cholecalciferol (Vitamin D3) 25 MCG TABLET PO (09:24)
[2022-09-23] MEDS: Folic Acid 1 MG TABLET PO (09:24)
[2022-09-23] MEDS: Losartan Potassium 50 MG TABLET 100 MG PO (09:24)
[2022-09-23] MEDS: 0.9 % Sodium Chloride Flush 3 ML SYRINGE IVFLUSH ×3 (09:24→23:47)
[2022-09-23] MEDS: Mirabegron 25 MG TAB.ER.24H PO (09:24)
[2022-09-23] MEDS: Betamethasone Dip Aug 0.05% Cr 15 GM TUBE 1 APPL TOPICAL ×2 (09:28→20:00)
--- NOTE | 2022-09-23 10:14 | PM.PNCARD ---
Subjective Subjective Date of Service: 09/23/22 Interval history: Seen and examined at bedside. Feeling good. Echocardiography was reviewed and discussed with the patient hemoglobin has been stable. She would be transitioned to Xarelto today. Physical Exam Vital Signs: Last Vital Signs Temp 98.2 F 09/23/22 08:00 Pulse 82 09/23/22 08:00 Resp 20 09/23/22 08:00 BP 152/60 H 09/23/22 08:00 Pulse Ox 96 09/23/22 08:00 O2 Del Method Nasal Cannula 09/23/22 08:00 O2 Flow Rate 3 09/23/22 08:00 Oxygen Flow Rate 2 09/20/22 09:34 BMI result Body Mass Index 26.8 GENERAL APPEARANCE: in no acute distress, pleasant. On supplemental oxygen. NECK: no carotid bruit, no jugular venous distention. SKIN: no suspicious lesions, warm and dry. HEART: no murmurs, regular rate and rhythm. left parasternal heave. LUNGS: clear to auscultation bilaterally. ABDOMEN: soft, nontender. EXTREMITIES: no edema. PERIPHERAL PULSES: equal. NEUROLOGIC: No gross deficits, AAO X 3 Objective Labs and Meds 09/23/22 06:09 09/22/22 03:15 Lab results: Laboratory Results - last 24 hr 09/22/22 09/23/22 09/23/22 16:08 06:09 06:09 WBC 8.8 8.7 RBC 2.74 L 2.76 L Hgb 8.4 L 8.7 L Hct 27.4 L 27.9 L MCV 100.0 H 101.1 H MCH 30.7 31.5 MCHC 30.7 L 31.2 RDW 19.9 H 19.8 H Plt Count 241 254 MPV 9.0 L 9.4 Absolute Nucleated RBC 0.000 0.000 Nucleated RBC % (auto) 0.0 0.0 aPTT Heparin Protocol 65.1 09/23/22 07:58 WBC RBC Hgb Hct MCV MCH MCHC RDW Plt Count MPV Absolute Nucleated RBC Nucleated RBC % (auto) aPTT Heparin Protocol 65.1 Imaging Radiologist's impression: Impressions Venous Duplex 09/21/22 15:06 IMPRESSION: Positive for bilateral deep venous thrombosis. Nonocclusive thrombus in the mid RIGHT posterior tibial vein. Occlusive thrombus in the distal LEFT posterior tibial vein. Progress Note: A&P Assessment and plan (1) Acute and chronic respiratory failure with hypoxia: Status: Acute (2) Bilateral pulmonary embolism: Status: Acute Plan Pleasant 86-year-old female with previous pulmonary embolism and IVC filter placement who was taken off the anticoagulation now presenting with worsening shortness of breath and respiratory failure and was found to have bilateral pulmonary emboli. She will also noticed to be anemic which is felt to be secondary to dapsone which has been stopped. Has been on heparin and hemoglobin is currently stable. She can be transitioned to Xarelto today. She has pulmonary hypertension on echocardiography but currently she has acute pulmonary emboli and hypoxia so this is not unusual. We will repeat limited echocardiogram in few months to reassess the pulmonary pressures. She also has background of COPD which may affect her PA pressures at rest and also had previous PE 3 years ago. Her right ventricular function appears to be completely normal at this point. Thank you for allowing me to participate in the care of your patient. Please feel free to contact me if you have any questions. Time Spent With Patient Time: Total time managing care of this patient today ____ minutes. Progress Note: Quality Stroke Does the patient have a stroke diagnosis?: No Procedures Date of Service Date of Service: 09/23/22
[2022-09-23] MEDS: Rivaroxaban 15 MG TABLET PO ×2 (11:18→21:08)
[2022-09-23 12:21] LABS: OBS Int Ctl Valid YES; OBS1 NEGATIVE (NEGATIVE)
--- NOTE | 2022-09-23 13:37 | HO.PM.IMPN ---
Subjective Subjective Date of Service: 09/23/22 Interval History: seen and examined this morning follow up for PE/DVT no sob, chest pain Review of Systems Review of Systems: Yes all other systems are reviewed and are negative Constitutional Constitutional: Denies chills and Denies fever(s) ENT Ears, Nose, Mouth, and Throat: Denies dizziness Cardiovascular Cardiovascular: Denies chest pain, Denies palpitations and Denies dyspnea Respiratory Respiratory: Denies cough and Denies dyspnea Gastrointestinal Gastrointestinal: Denies abdominal pain Neurologic Neurologic: Denies dizziness Endocrine Endocrine: Denies palpitations Physical Exam Vital Signs: Vital Signs: Last Vital Signs Temp 97.6 F 09/23/22 11:07 Pulse 76 09/23/22 11:07 Resp 20 09/23/22 11:07 BP 109/54 L 09/23/22 11:07 Pulse Ox 95 09/23/22 11:07 O2 Del Method Nasal Cannula 09/23/22 11:07 O2 Flow Rate 3 09/23/22 11:07 Oxygen Flow Rate 2 09/20/22 09:34 BMI result Body Mass Index 26.8 Const: General: cooperative, comfortable, alert and awake Nutritional Appearance: average body habitus Orientation/consciousness: patient oriented x3 Resp: Effort & Inspection: normal respiratory effort, able to speak in complete sentences, no respiratory distress and no use of accessory muscles Auscultation: clear to auscultation bilaterally Cardio: Rate: regular rate GI: Inspection: No distended Palpation (GI): Soft to palpation and nontender Neuro: General: patient oriented x3 and CN's II-XI intact bilaterally Extrem: Other: no calf tenderness General: Yes no pedal edema Psych: Affect: normal affect Objective Data Active Medications Acetaminophen (Acetaminophen 325 Mg Tablet) 650 mg PO Q6H PRN PRN Reason: Pain, Mild (Pain Scale 1-3) Last Admin: 09/23/22 05:25 Dose: 650 mg Documented By: MELISSA Albuterol Sulfate (Albuterol Sulfate 90 Mcg 8 Gm Inhaler) 2 puff INHALE Q4H PRN PRN Reason: for muscle spasm Albuterol/Ipratropium (Albuterol/Iprat 2.5/0.5mg 3 Ml Ampul.Neb) 3 ml INHALE RTID [facility] Last Admin: 09/23/22 08:29 Dose: Not Given Documented By: HO.BLASCL Non-Admin Reason: pt unavail Aspirin (Aspirin Enteric Coated 81 Mg Tablet.) 81 mg PO DAILY [facility] Last Admin: 09/23/22 09:23 Dose: 81 mg Documented By: FREDO Betamethasone Dipropion Augmented (Betamethasone Dip Aug 0.05% Cr 15 Gm Tube) 1 appl TOPICAL BID [facility] Last Admin: 09/23/22 09:28 Dose: 1 appl Documented By: FREDO Calcium Carbonate (Calcium Carbonate 500 Mg Tablet) 500 mg PO DAILY [facility] Last Admin: 09/23/22 09:23 Dose: 500 mg Documented By: FREDO Docusate Sodium (Docusate Sodium 100 Mg Capsule) 100 mg PO DAILY [facility] Last Admin: 09/23/22 09:23 Dose: 100 mg Documented By: FREDO Doxycycline Monohydrate (Doxycycline Monohydrate 100 Mg Capsule) 100 mg PO Q12H [facility] Last Admin: 09/23/22 09:24 Dose: 100 mg Documented By: FREDO Folic Acid (Folic Acid 1 Mg Tablet) 1 mg PO DAILY [facility] Last Admin: 09/23/22 09:24 Dose: 1 mg Documented By: FREDO Gabapentin (Gabapentin 300 Mg Capsule) 300 mg PO BEDTIME [facility] Last Admin: 09/22/22 21:32 Dose: 300 mg Documented By: GUILLAUME Hydrochlorothiazide (Hydrochlorothiazide 12.5 Mg Tablet) 12.5 mg PO DAILY [facility]; Protocol Last Admin: 09/22/22 10:12 Dose: 12.5 mg Documented By: GUILLAUME Ceftriaxone Sodium 1 gm/ (Sodium Chloride) 50 mls @ 100 mls/hr IV Q24H [facility] Last Infusion: 09/22/22 20:38 Dose: 0 mls/hr Documented By: GUILLAUME Lactulose (Lactulose 20 Gm/30 Ml Solution) 20 gm PO BID PRN PRN Reason: constipation Latanoprost (Latanoprost 0.005 % Ophth Ayana 2.5 Ml Drops) 1 drop EYE-BOTH BEDTIME [facility] Last Admin: 09/22/22 21:32 Dose: 1 drop Documented By: GUILLAUME Lidocaine (Lidocaine 4 % Patch Adh..Patch) 1 patch TRANSDERMA DAILY PRN PRN Reason: Pain, Moderate(Pain Scale 4-6) Losartan Potassium (Losartan Potassium 50 Mg Tablet) 100 mg PO DAILY [facility]; Protocol Last Admin: 09/23/22 09:24 Dose: 100 mg Documented By: FREDO Mirabegron (Mirabegron 25 Mg Tab.Er.24h) 25 mg PO DAILY [facility] Last Admin: 09/23/22 09:24 Dose: 25 mg Documented By: FREDO Non-Formulary Medication (Rosuvastatin) 10 mg PO DAILY [facility] Omeprazole (Omeprazole 20 Mg Capsule.Dr) 20 mg PO BID@0630,1630 [facility] Last Admin: 09/23/22 05:16 Dose: 20 mg Documented By: MELISSA Ondansetron HCl (Ondansetron Hcl 4 Mg/2 Ml Vial) 4 mg IVPUSH Q8H PRN PRN Reason: Nausea and Vomiting Pramipexole Dihydrochloride (Pramipexole Di-Hcl 1 Mg Tablet) 1 mg PO BEDTIME [facility] Last Admin: 09/22/22 21:31 Dose: 1 mg Documented By: GUILLAUME Rivaroxaban (Rivaroxaban 15 Mg Tablet) 15 mg PO BIDWM [facility] Stop: 10/07/22 17:01 Last Admin: 09/23/22 11:18 Dose: 15 mg Documented By: FREDO Sodium Chloride (0.9 % Sodium Chloride Flush 3 Ml Syringe) [facility] Admin: 09/23/22 09:24 Dose: 3 ml Documented By: FREDO Tramadol HCl (Tramadol Hcl 50 Mg Tablet) 50 mg PO BID PRN PRN Reason: Pain, Moderate(Pain Scale 4-6) Vitamin D (Cholecalciferol (Vitamin D3) 25 Mcg Tablet) 25 mcg PO DAILY [facility] Last Admin: 09/23/22 09:24 Dose: 25 mcg Documented By: FREDO Labs 09/23/22 06:09 09/22/22 03:15 Labs: Laboratory Results - last 24 hr 09/22/22 09/23/22 09/23/22 16:08 06:09 06:09 MCV 100.0 H 101.1 H MCH 30.7 31.5 MCHC 30.7 L 31.2 RDW 19.9 H 19.8 H Plt Count 241 254 MPV 9.0 L 9.4 Absolute Nucleated RBC 0.000 0.000 Nucleated RBC % (auto) 0.0 0.0 aPTT Heparin Protocol 65.1 Stool Occult Blood 09/23/22 09/23/22 07:58 11:45 MCV MCH MCHC RDW Plt Count MPV Absolute Nucleated RBC Nucleated RBC % (auto) aPTT Heparin Protocol 65.1 Stool Occult Blood NEGATIVE Microbiology Microbiology Results: Microbiology 09/20/22 10:44 Blood Culture - Preliminary Blood - Venous No growth after 48 hours. 09/20/22 10:44 Blood Culture - Preliminary Blood - Venous No growth after 48 hours. Assessment and Plan (1) Acute and chronic respiratory failure with hypoxia: Status: Acute (2) Bilateral pulmonary embolism: Status: Acute Plan This ia an 86yo F with COPD + nocturnal O2 dependence, hx DVT/PE 2019 not currently on Xarelto presenting with worsening exertional dyspnea + chest pain found to have b/l PE Acute on chronic respiratory failure with hypoxia related to b/l PE, possible pna on 2L noctural oxygen at baseline, currently on 4L, wean as tolerated. Acute bilateral pulmonary embolism Chest CTA found multiple large fully occlusive and partially occlusive pulmonary emboli in the central branches of the pulmonary arteries right and left, with mild Cardiac septal bowing and high RV and LV ratio suggesting cardiac strain. trops flat, BNP negative. history of previous pulmonary embolism in 2019, no longer on anticoagulation; h/o IVC filter placement intially on heparin drip, transitioned to xarelto this am Echocardiogram with severe pulm htn. repeat echo in few months b/l LE dopplers showing b.l LE DVT seen by Pulmonology and cardiology seen by RT - rec 2L a@ rest and 3L with exertion on discharge seen by PT - no PT services requried Possible community-acquired pneumonia Possible infiltrates seen on CT of chest will continue doxycycline, ceftriaxone blood cultures negative Fever isolated fever 09/21, no recurrance treating for possible pneumonia. flu/RSV/covid negative wbc resolved. no evidence of sepsis blood cultures negative acute normocytic anemia seen by hematology thought to be related to dapsone, dapsone discontinued s/p 1U rbc 09/21 follow CBC Hyperbilirubinemia Total bilirubin 2.1, repeat down to 0.9 HTN continue losartan HCTZ on hold, bp soft COPD no acute exacerbation Continue home inhalers Lupus dapsone discontinued as above will need outpatient follow up with rheumatology HLD Continue statin Full Code Attending:?Dr. Lyles DVT Prophylaxis: xarelto Requires ongoing inpatient hospitalization for treatment of?bilateral pulmonary emboli eval of anemia, close monitoring of respiratory status Time Spent With Patient Time: Total time managing care of this patient today ____ minutes. Quality Stroke Does the patient have a stroke diagnosis?: No VTE Prior VTE?: Yes VTE Risk Level:: Medical - moderate - high VTE Device Contraindication: Treatment Not Indicated VTE Drug Contraindication: N/A - Med Ordered
[2022-09-23] MEDS: Albuterol/Iprat 2.5/0.5MG 3 ML AMPUL.NEB INHALE ×2 (16:03→20:09)
[2022-09-23] MEDS: cefTRIAXone sodium 1 GM in 0.9 % Sodium Chloride 50 ML IV (19:17)
[2022-09-23] MEDS: Latanoprost 0.005 % Ophth Sol 2.5 ML DROPS 1 DROP EYE-BOTH (20:00)
[2022-09-23] MEDS: Pramipexole Di-HCL 1 MG TABLET PO (20:00)
[2022-09-23] MEDS: Gabapentin 300 MG CAPSULE PO (20:00)
[2022-09-24 02:56] VITALS: BP 111/53; PULSE 81; RESP 18; TEMP 36.4; O2SAT 94
[2022-09-24] MEDS: Omeprazole 20 MG CAPSULE.DR PO (05:31)
[2022-09-24 06:39] LABS: PTT Heparin Drip 36.6 SEC (53-77.9)
[2022-09-24] MEDS: Albuterol/Iprat 2.5/0.5MG 3 ML AMPUL.NEB INHALE (07:30)
[2022-09-24 07:32] VITALS: PULSE 91; RESP 20; O2SAT 94
[2022-09-24 07:42] VITALS: BP 148/70; PULSE 81; RESP 20; TEMP 37; O2SAT 98
[2022-09-24] MEDS: Cholecalciferol (Vitamin D3) 25 MCG TABLET PO (08:21)
[2022-09-24] MEDS: Mirabegron 25 MG TAB.ER.24H PO (08:21)
[2022-09-24] MEDS: Docusate Sodium 100 MG CAPSULE PO (08:21)
[2022-09-24] MEDS: Doxycycline Monohydrate 100 MG CAPSULE PO (08:21)
[2022-09-24] MEDS: Losartan Potassium 50 MG TABLET PO (08:22)
[2022-09-24] MEDS: Folic Acid 1 MG TABLET PO (08:22)
[2022-09-24] MEDS: 0.9 % Sodium Chloride Flush 3 ML SYRINGE IVFLUSH (08:25)
[2022-09-24] MEDS: Betamethasone Dip Aug 0.05% Cr 15 GM TUBE 1 APPL TOPICAL (08:27)
--- NOTE | 2022-09-24 09:38 | PM.DS ---
DS: Providers Provider Date of Service: 09/24/22 Date of admission: 09/20/22 15:20 Date of discharge: 09/24/22 Primary care physician: Fabio Stuart MD Consults: 09/20/22 15:36 Consult to Pulmonology Routine Consulting Provider: [facility] [place] [facility] Reason for consultation: SOB, pleuritic chest pain ?pneumonia, followed by Dr. Vieyra 09/20/22 15:37 Consult to Cardiology Routine Consulting Provider: [facility] [place] [facility] Reason for consultation: Recent worsening LLE, dyspnea, substernal chest pressure 09/21/22 12:56 Consult to Hematology / Oncology Routine Consulting Provider: Griffin Veliz Reason for consultation: b/l PE recurrent; anemia Has provider been notified: No Attending physician on discharge: Sandhya Coppola Discharging clinician: Dalila Morejon DS: Diagnosis Discharge Diagnosis (1) Acute and chronic respiratory failure with hypoxia: Status: Acute (2) Bilateral pulmonary embolism: Status: Acute DS: Summary Hospital Course Hospital Course: From H&P on day of admission Pt is a 86-year-old female with a PMH significant for?COPD and emphysema 2 L NC nocturnal O2, PAD, osteoporosis, lupus, HTN, HLD, and hx of DVT with PE in [address] in [address] no longer on anticoagulation who presents to the ED with?worsening shortness of breath.? Patient's symptoms began over 2 weeks ago when she developed shortness of breath, occasional nonproductive cough, fatigue, fever of 102, and chills. Has also experienced racing heart and headaches.? Patient was seen at walk-in clinic on 09/06/2022 and had negative chest x-ray and UA, but was treated empirically for UTI with Bactrim for 5 days.? Patient states that she did not feel any better with antibiotics. Patient's symptoms have instead worsened over the past 2 weeks and patient has now been using supplemental O2 during the day. States she has even increased her O2 to 3L. Pt lives at home alone with help from her neighbor. Pt notes she can no longer walk around her house without getting SOB. Developed pleuritic chest pain with inspiration particularly on the right side yesterday, worse this morning.? Patient also notes she has been anorexic as of late and has lost 35 lb in the last 4 months due to not eating much.? Patient denies lightheadedness, dizziness.? No recent falls.? Denies abdominal pain. In the ED patient was afebrile but tachycardic to 102, and tachypneic up to 22, and hypotensive as low as 109/47. Labs were significant for leukocytosis of 17.6, H&H 9.7/31.2, BUN of 32 and creatinine 0.97 (both above baseline), bilirubin elevated at 2.1.CT?of chest showed emphysema with possible new small scattered peripheral infiltrates, and no evidence of pleural effusions or empyema, and with question of new small right pulmonary nodules of less than 6 mm.? Chest CTA found multiple large fully occlusive and partially occlusive pulmonary emboli in the central branches of the pulmonary arteries right and left, with mild Cardiac septal bowing and high RV and LV ratio suggesting cardiac strain.? EKG demonstrated sinus rhythm with nonspecific T-wave abnormality in inferior leads with no evidence of ST elevations or depressions. Pt was treated with IVF and Zosyn. Pt will be admitted to the hospital for treatment further evaluation of acute hypoxic respiratory failure in the setting of community-acquired pneumonia. Acute on chronic respiratory failure with hypoxia related to b/l PE, possible pna Acute bilateral pulmonary embolism Chest CTA found multiple large fully occlusive and partially occlusive pulmonary emboli in the central branches of the pulmonary arteries right and left, with mild Cardiac septal bowing and high RV and LV ratio suggesting cardiac strain. trops flat, BNP negative. she had history of previous pulmonary embolism in 2019, but had been recently taken off anticoagulation. she has history of IVC filter placement. She was initially treated with IV heparin drip. Echocardiogram with severe pulm htn. she was seen in consultation by Cardiology who recommended to repeat echo in few months. No evidence of fluid overload. Lower extremity dopplers showing bilateral DVT. also seen by Pulmonology during hospitalization. she was seen by respiratory therapy for re-evaluation of home oxygen requirements her requirements were increased t 2L @ rest and 3L with exertion on discharge. She seen by PT and no PT services were required. She was able to ambulate without shortness of breath with increased oxygen.. Previous PE thought to be related to sedentary lifestyle. Patient states that she has been fairly active at home. Previous hypercoagulable work up has been negative. Noncontrast chest CT and abdomen/pelvis showed no evidence of malignancy. consider age appropriate cancer screening as outpatient. 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 Possible community-acquired pneumonia. Possible infiltrates seen on CT of chest. was treated with doxycycline and ceftriaxone. blood cultures negative. competed treatment in the hospital. acute normocytic anemia. H/H was noted to drop on first day of admission. She was transfused 1 unit of RBCs with appropriate rise in H&H. LDh and bilirubin were elevated suggesting possible hemolysis. she was seen by hematology and was recommended to discontinue dapsone due to possible hemolysis. Moving forward H&H has remained stable. There is no evidence of active bleeding. HTN. blood pressure has been soft. HCTZ, lasix (lasix was only prescribed for three days prior to admission) have been on hold and losartan dose has been decreased from 100 mg to 50 mg daily. Patient will be discharged home with VNA services for close blood pressure monitoring. Time Spent with Patient Time attestation: Total time managing care of this patient today ____ minutes. Discharge coordination time: Greater than 30 minutes Quality: Safe Use of Opioids Does Pt have an Active Cancer Diagnosis on the Problem List?: No Quality: Stroke Does the patient have a stroke diagnosis?: No Physical Exam Vital Signs: Vital Signs: Last Vital Signs Temp 98.6 F 09/24/22 07:42 Pulse 81 09/24/22 07:42 Resp 20 09/24/22 07:42 BP 148/70 H 09/24/22 07:42 Pulse Ox 98 09/24/22 07:42 O2 Del Method Nasal Cannula 09/24/22 02:56 O2 Flow Rate 2.5 09/24/22 02:56 Oxygen Flow Rate 2 09/20/22 09:34 BMI result Body Mass Index 26.8 Const: General: cooperative, comfortable, alert and awake Nutritional Appearance: average body habitus Orientation/consciousness: patient oriented x3 Resp: Effort & Inspection: normal respiratory effort, able to speak in complete sentences, no respiratory distress and no use of accessory muscles Auscultation: clear to auscultation bilaterally Cardio: Rate: regular rate GI: Inspection: No distended Palpation (GI): Soft to palpation and nontender Neuro: General: patient oriented x3, moves all extremities and CN's II-XI intact bilaterally Extrem: Other: no calf tenderness or swelling General: Yes no pedal edema Psych: Affect: normal affect DS: Data Data Completed and Pending Labs on day of discharge: Laboratory Results - last 24 hr 09/23/22 09/24/22 11:45 06:01 aPTT Heparin Protocol 36.6 L D Stool Occult Blood NEGATIVE Preliminary micro results at discharge 09/20/22 10:44 Blood Culture - Preliminary Blood - Venous No growth after 48 hours. 09/20/22 10:44 Blood Culture - Preliminary Blood - Venous No growth after 48 hours. Discharge Plan Discharge Anticipated Discharge Date/Time: 09/24/22 09:37 Patient Disposition: Home Health Service Discharge Diagnosis: acute b/l PE/DVT possible pneumonia anemia Referrals: Fabricio Quezada MD [Physician] - 2 Months Po,Fabio Gonzalez MD [Primary Care Provider] - 1 Week Discharge Medications: New losartan 50 mg Tablet 50 mg PO DAILY Qty: 30 0RF Protocol: Hold for SBP< HOLD for SBP < : 90 Xarelto 15 mg tablet 15 mg PO BID 20 Days Qty: 40 0RF Rx Instructions: must administer with evening meal take 15 mg twice daily for 20 days and then start taking 20 mg tablet once daily Xarelto 20 mg tablet 20 mg PO DAILY 30 Days Qty: 30 0RF Rx Instructions: must administer with evening meal begin taking after completing 15 mg twice daily loading dose Continued acetaminophen 500 mg capsule 500 - 1,000 mg PO QID PRN (Reason: pain) Qty: 30 0RF albuterol sulfate [ProAir HFA] 90 mcg/actuation HFA aerosol inhaler 2 puff inhalation Q4-6H PRN (Reason: for muscle spasm) Qty: 25.5 6RF tacrolimus 0.1 % ointment 1 appl topical BID Qty: 100 12RF esomeprazole magnesium 40 mg capsule,delayed release(DR/EC) 40 mg PO BID Qty: 90 0RF tramadol 50 mg tablet 50 mg PO BID PRN (Reason: Pain) alendronate 70 mg tablet 70 mg PO WE Rx Instructions: take with 6-8 ounces of water on empty stomach 1st thing in the morning & remain upright for 30 minutes after ipratropium-albuterol 0.5 mg-3 mg(2.5 mg base)/3 mL Solution For Nebulization 3 ml INHALATION TID calcium carbonate [Calcium 600] 600 mg calcium (1,500 mg) tablet 600 mg PO DAILY cholecalciferol (vitamin D3) 25 mcg (1,000 unit) capsule 25 mcg PO DAILY Myrbetriq 25 mg tablet extended release 24 hr 25 mg PO DAILY rosuvastatin 10 mg tablet 10 mg PO DAILY 90 Days Qty: 90 2RF lidocaine 5 % adhesive patch,medicated 1 patch topical DAILY PRN (Reason: Pain) Rx Instructions: leave on most painful area for up to 12 hrs pramipexole 1 mg tablet 1 mg PO BEDTIME fluocinonide 0.05 % ointment 1 appl topical BID-QID PRN (Reason: Itching) clobetasol 0.05 % cream 1 appl topical BID Qty: 60 3RF latanoprost 0.005 % drops 1 drp ophthalmic (eye) BEDTIME gabapentin 300 mg capsule 300 mg PO BEDTIME lactulose 20 gram/30 mL solution 20 g PO BID PRN (Reason: constipation) folic acid 1 mg tablet 1 mg PO DAILY Qty: 90 1RF Held aspirin [Adult Aspirin Regimen] 81 mg tablet,delayed release (DR/EC) 81 mg PO DAILY Hold Instructions: hold until repeat CBC, discuss need to resume with PCP furosemide [Lasix] 20 mg tablet 20 mg PO DAILY Qty: 3 0RF Hold Instructions: monitor blood pressure and discuss need to resume with PCP Rx Instructions: ONLY FOR THREE DAYS Discontinued losartan 50 mg tablet 100 mg PO DAILY Qty: 180 3RF dapsone 100 mg tablet 100 mg PO DAILY Qty: 90 1RF hydrochlorothiazide 12.5 mg tablet 12.5 mg PO DAILY 90 Days Qty: 90 2RF No Action (DME) blood pressure monitor Kit See Rx Instructions .Route Qty: 1 0RF Rx Instructions: As directed (DME) nebulizers [facility] [place] See Rx Instructions .ROUTE Rx Instructions: As directed (DME) Oxygen Home Use Kit See Rx Instructions .Route Rx Instructions: As directed at night Discharge Orders: Discharge Order (Routine); Ordered 09/24/22 Ordered By: Dalila Morejon Activity on Discharge: As tolerated Stand Alone Forms: Patient Portal Discharge page Other Ambulatory Orders: Complete Blood Count Auto Diff (Routine) Timeframe: 1 Week Facility: [facility] - Location: Laboratory Ordered By: Dalila Morejon Care Plan Goals: see below Health Concerns: acute bilateral pulmonary embolism and DVT anemia pulmonary hypertension Plan of Treatment: for anemia - stop taking dapsone. call [facility] [employer] to schedule follow-up appointment to discuss alternative treatments for lupus repeat CBC in 1 week. don't take aspirin until repeat CBC is done and discussed with PCP for DVT/PE - take Xarelto as prescribed 15 mg twice daily for 20 more days and then 20 mg daily. do not stop taking unless instructed to do so by last sorter. you will likely need lifelong anticoagulation to prevent further blood clots don't take HCTZ dose of losartan has been decreased to 50 mg daily call to schedule follow up appointment with cardiology in a few months to repeat echocardiagram to assess pulmonary hypertension rosa to schedule follow up appointment with PCP in the next 1-2 weeks you had home oxygen evaluation and dose of oxygen has been increased to 2L at rest and 3L with walking/exertion Assessment: see discharge summary
--- NOTE | 2022-09-24 09:55 | W.MHC.F2F ---
Service Date Service Date: 09/24/22 Encounter Date of encounter: 09/24/22 Reasons for Services Signs and symptoms assessed: Needs penitentiary for blood pressure monitoring, monitoring of oxygen saturation with new diagnosis of bilateral PE and increase in oxygen requirements and multiple medication adjustments Reason for penitentiary: medication management MD Overseeing Care: Fabio Stuart Homebound: Leaving the home is medically contraindicated at this time without the asist of a device and/or another person due th the listed conditions above and below. Reason homebound: weakness related to hospital stay Certification: Based on the above findings, I certify that this patient is confined to the home and needs intermittent penitentiary care, physical therapy and/or speech therapy, or continues to need occupational therapy. The patient is under my care, and I have initiated the establishment of the plan of care. The patient will be followed by a physician who will periodically review the plan of care. Time Spent With Patient Time: Total time managing care of this patient today ____ minutes.
--- NOTE | 2022-09-24 10:00 | MHC.CM.PN ---
Patient has been medically cleared for dc to home today with new VNA. [facility] has accepted [facility], who is aware of today's dc. CM met with Patient at bedside and addressed IMM with her (original IMM was given to Patient and a copy has been placed on the chart).
[2022-09-24 14:08] LABS: Haptoglobin 12 mg/dL (43-212)
== END 2022-09-24 11:45 | disposition home health service (06) | DRG 175 ==
LOC: HO.ED 13:33 → HO.EDOVER 15:45 → HO.S3 18:53 → HO.EDOVER 19:12 → HO.IMC 09-21 19:59
PROVIDERS: Family Medicine; Internal Medicine; Admitting Provider Student in an Organized Health Care Education/Training Program; Emergency Provider Student in an Organized Health Care Education/Training Program; PCP Internal Medicine; Visit Provider Physician Assistant Medical
DX: I26.99 Other pulmonary embolism without acute cor pulmonale (principal); J18.9 Pneumonia, unspecified organism; J96.21 Acute and chronic respiratory failure with hypoxia; D59.2 Drug-induced nonautoimmune hemolytic anemia; J43.9 Emphysema, unspecified; E80.4 Gilbert syndrome; T37.1X5A Adverse effect of antimycobacterial drugs, initial encounter; M32.10 Systemic lupus erythematosus, organ or system involvement unspecified; I27.20 Pulmonary hypertension, unspecified; Z20.822 Contact with and (suspected) exposure to COVID-19; Z87.891 Personal history of nicotine dependence; Z86.718 Personal history of other venous thrombosis and embolism; Z86.711 Personal history of pulmonary embolism; Z99.81 Dependence on supplemental oxygen; Z88.8 Allergy status to other drugs, medicaments and biological substances; Z79.82 Long term (current) use of aspirin; Z79.899 Other long term (current) drug therapy
CPT/HCPCS: 0241U; 36415; 71250; 71275; 74176; 80048; 80053; 82247; 82248; 82272; 82607; 82728; 82746; 82803; 83010; 83540; 83605; 83615; 83880; 84145; 84484; 85014; 85018; 85025; 85027; 85045; 85610; 85730; 86850; 86900; 86901; 86923; 87040; 93005; 93306; 93970; 94640; 97162; 99212; 99285; J0696; J1643; J1650; J2543; P9016; Q9957; Q9967

== ENCOUNTER → 2022-09-28 10:02 | Outpatient (BNVA) | payer MEDICARE, OTHER, SELFPAY | PROVIDERS: PCP Internal Medicine; Visit Provider Hospitalist | DX: R06.00 Dyspnea, unspecified (principal); D64.9 Anemia, unspecified; I26.99 Other pulmonary embolism without acute cor pulmonale; Z79.01 Long term (current) use of anticoagulants | CPT/HCPCS: 94618; 99212 ==

== ENCOUNTER → 2022-10-06 08:39 | Outpatient (BNV) | payer MEDICARE, OTHER, SELFPAY | PROVIDERS: PCP Internal Medicine; Visit Provider Internal Medicine Medical Oncology | DX: I26.99 Other pulmonary embolism without acute cor pulmonale (principal); D64.9 Anemia, unspecified | CPT/HCPCS: 99204; 99213 ==

== ENCOUNTER 2022-10-06 16:45 | Emergency (ER) | payer MEDICARE, OTHER, SELFPAY ==
[2022-10-06 17:14] VITALS: BP 161/77; PULSE 95; RESP 18; TEMP 36.7; O2SAT 92; BMI 26.3
--- NOTE | 2022-10-06 17:14 | ED_ITS ---
HPI - General Adult General Chief complaint: Extremity Problem Stated complaint: dr sent in for possible blood clot in R leg Time Seen by Provider: 10/06/22 22:20 Source: patient, family, RN notes reviewed and old records reviewed Mode of arrival: ambulatory Limitations: no limitations History of Present Illness HPI narrative: 86-year-old female presents for evaluation of bilateral leg swelling Patient is on chronic oxygen dependence due to COPD, she has a history of bilateral PE and recent history of bilateral lower extremity DVT. She is on Xarelto Patient was admitted on 09/20/2022 for bilateral PE with cardiac strain and discharged on 09/24/2022 She has been compliant with her Xarelto. She is not currently on Lasix but did have it for 3 days last month She states for last few days she has had increasing swelling started with her right leg and now both legs are swollen Denies any chest pain or shortness of breath She had an ultrasound of lower extremities on 09/21/2022 that showed bilateral DVT with clot burden worse on the right Related Data Home Medications Medication Instructions Recorded Confirmed aspirin 81 mg tablet,delayed 81 mg PO DAILY 02/27/20 10/06/22 release (Adult Aspirin Regimen) calcium carbonate 600 mg calcium 600 mg PO DAILY 02/27/20 10/06/22 (1,500 mg) tablet (Calcium) cholecalciferol (vitamin D3) 25 25 mcg PO DAILY 02/27/20 10/06/22 mcg (1,000 unit) capsule mirabegron 25 mg tablet,extended 25 mg PO DAILY 02/27/20 10/06/22 release 24 hr (Myrbetriq) pramipexole 1 mg tablet 1 mg PO BEDTIME 03/03/22 10/06/22 Oxygen Home Use 04/11/22 09/06/22 fluocinonide 0.05 % topical 1 appl topical BID-QID PRN Itching 04/11/22 10/06/22 ointment gabapentin 300 mg capsule 300 mg PO BEDTIME 08/16/22 10/06/22 latanoprost 0.005 % eye drops 1 drp ophthalmic (eye) BEDTIME 08/16/22 10/06/22 nebulizers 09/18/22 ipratropium 0.5 mg-albuterol 3 mg 3 ml inhalation TID 09/20/22 10/06/22 (2.5 mg base)/3 mL nebulization soln tramadol 50 mg tablet 50 mg PO BID PRN Pain 09/20/22 10/06/22 Previous Rx's Medication Instructions Recorded blood pressure monitor #1 ea 06/21/21 clobetasol 0.05 % topical cream 1 appl topical BID #60 grams 05/17/22 rosuvastatin 10 mg tablet 10 mg PO DAILY 90 days #90 tabs 06/29/22 folic acid 1 mg tablet 1 mg PO DAILY #90 tabs 08/16/22 esomeprazole magnesium 40 mg 40 mg PO BID #90 caps 09/12/22 capsule,delayed release losartan 50 mg tablet 50 mg PO DAILY #30 tabs 09/24/22 rivaroxaban 20 mg tablet (Xarelto) 20 mg PO DAILY 30 days #30 tabs 09/24/22 furosemide 20 mg tablet 20 mg PO DAILY #14 tabs 10/06/22 rivaroxaban 20 mg tablet 20 mg PO DAILY #90 tabs 10/06/22 Allergies Allergy/AdvReac Type Severity Reaction Status Date / Time amlodipine Allergy Unknown leg Verified 10/06/22 08:46 swelling, swelling atorvastatin [Lipitor] Allergy Unknown Unknown Verified 10/06/22 08:46 hydroxychloroquine Allergy Unknown Affected Verified 10/06/22 08:46 [From Plaquenil] eye sight metoprolol Allergy Unknown Swelling Verified 10/06/22 08:46 Review of Systems Constitutional: Constitutional: Reports as per HPI, Denies chills, Denies fatigue, Denies fever(s) and Denies headache(s) ENT: Denies headache(s) Cardiovascular: Cardiovascular: Denies chest pain, Reports pedal edema, Reports leg edema and Denies dyspnea Respiratory: Respiratory: Denies cough and Denies dyspnea Gastrointestinal: Gastrointestinal: Denies abdominal pain, Denies constipation and Denies vomiting Genitourinary: Genitourinary: Denies dysuria Neurologic: Denies headache(s) and Denies focal weakness Endocrine: Endocrine: Denies fatigue [facility] Past Medical History Medical History (Updated 10/06/22 @ 22:44 by Stephen Polanco) Anxiety Arterial occlusive disease Chest discomfort Chronic respiratory failure COPD (chronic obstructive pulmonary disease) Discoid lupus Diverticulitis DVT (deep venous thrombosis) Dyspnea Encounter for monitoring azathioprine therapy GERD (gastroesophageal reflux disease) Greater saphenous vein embolism Hiatal hernia Hypercholesterolemia Hypertension Iliac artery occlusion Left leg DVT Lupus (systemic lupus erythematosus) Osteopenia Pleuritic chest pain Pulmonary embolism Pulmonary nodule Pulmonary nodules Restless leg Thrombus of aorta Surgical History (Updated 10/06/22 @ 09:06 by Griffin Veliz MD) Bilateral pulmonary embolism History of breast biopsy History of cataract surgery History of foot surgery History of toe surgery History of total abdominal hysterectomy and bilateral salpingo-oophorectomy Family History Family History Father Hypertension Cancer Mother Hypertension Stroke CVD (cardiovascular disease) Social History Social History (Updated 10/06/22 @ 08:46 by Jace Dodd) Household Members: None Housing: House Do you presently have visiting nurse or other home services: Yes Alcohol intake: never Patient Tobacco Use Status: Former Tobacco user Tobacco use type: Cigarette Years Smoked: 30 e-Cigarette/Vaping Use: Never Used Second Hand Smoke Exposure: No service: No Current occupational status: retired Cognitive needs: Yes Hearing needs: No Vision needs: Yes Physical Exam ED Vital Signs: Vital Signs - 24 hr 10/06/22 17:14 Temperature 98.0 F Pulse Rate 95 Respiratory Rate 18 Blood Pressure 161/77 H Pulse Oximetry 92 Oxygen Delivery Method Nasal Cannula BMI result Body Mass Index 26.3 Const General: healthy appearing, comfortable, no acute distress, alert and awake Nutritional Appearance: well nourished Orientation/consciousness: patient oriented x3 HENMT Head: Yes normocephalic and Yes atraumatic Eyes Eyelids: Yes eyelids normal Conjunctivae: conjunctivae normal Sclerae: sclerae normal Corneas: corneas normal Pupils: Equal, round and reactive pupils present EOM: EOMs intact bilaterally Neck Neck: Yes full ROM Resp Effort & Inspection: normal respiratory effort, able to speak in complete sentences, no audible wheezes and not labored Auscultation: clear to auscultation bilaterally Cardio Other: 2+ bilateral pitting edema to lower extremities Rate: regular rate Rhythm: regular rhythm Skin General skin exam: no rashes or lesions noted and elasticity normal Neuro General: patient oriented x3 Cranial nerves: Yes Equal, round and reactive pupils present and Yes Bilaterally intact EOM present Cognition (Neuro): normal cognition Extrem Other: Moving all extremities well without any obvious deformities Course Course Course Narrative: RME performed by Kim Back PA-C. Patient is a 86 year old assigned female at presenting to the emergency department for bilateral leg swelling. Patient states that she was recently admitted for blood clots and now her legs are very swollen. Patient states that they stopped her lasix and she wants to be back on it. Patient is on oxygen at base line. Patient is on Xarelto, has bilateral DVTs. Medical Decision Making Medical Decision Making [facility] Narrative: Patient had a lengthy stay here for DVT/PE, she is currently on Xarelto and has been taking it as prescribed. Patient has bilateral leg swelling last few days had initially started with the right leg and for breast to bilateral. I reviewed her recent workup including CTA as well as ultrasound. Given the clot burden worse on the right, it makes sense that with mild volume overload the patient will have right leg swelling for noticing left leg swelling. The patient has follow-up with PCP next week. Her vital signs are stable, she has no chest pain or shortness of breath. Do not see any indication for another ultrasound of the lower extremities. We will give her a dose of furosemide and discharge her with same Differential Diagnosis Volume overload CHF DVT P Lab Data [facility] Lab Attestation statement: I reviewed the patient's lab results. (Mildly elevated BNP) 10/06/22 18:30 10/06/22 18:30 Labs: Lab Results 10/06/22 10/06/22 10/06/22 Range/Units 18:30 18:30 18:30 WBC 9.5 (4.8-10.8) X10*3/uL RBC 3.16 L (4.20-5.50) X10*6/uL Hgb 10.2 L (12.0-16.0) g/dl Hct 33.9 L (37.0-47.0) % MCV 107.3 H (80.0-98.0) fL MCH 32.3 (27.0-33.0) pg MCHC 30.1 L (31.0-35.0) g/dl RDW 17.6 H (11.0-16.0) % Plt Count 430 H (160-400) X10*3/uL MPV 8.7 L (9.4-12.3) fL Immature Gran % (Auto) 0.6 H (0.0-0.4) % Neut % (Auto) 60.4 (45-73) % Lymph % (Auto) 30.2 (20-40) % Humphreys % (Auto) 6.4 (2-11) % Eos % (Auto) 1.6 (0-4) % Baso % (Auto) 0.8 (0-2) % Lymph # (Auto) 2.9 (1.2-4.9) X10*3/uL Humphreys # (Auto) 0.6 (0.1-1.2) X10*3/uL Eos # (Auto) 0.2 (0.0-0.4) X10*3/uL Baso # (Auto) 0.1 (0.0-0.2) X10*3/uL Abs Immat Gran (auto) 0.06 H (0.00-0.03) X10*3/uL Absolute Neuts (auto) 5.7 (2.0-8.3) x10*3/uL Absolute Nucleated RBC 0.000 (0.0-0.012) X10*3/uL Nucleated RBC % (auto) 0.0 (0.0-0.2) /100WBC ESR 13 (0-20) MM/HR Sodium 142 (135-145) mmol/L Potassium 4.0 (3.3-5.1) mmol/L Chloride 106 (96-108) mmol/L Carbon Dioxide 29 (22-29) mmol/L Anion Gap 11 L (12-20) BUN 16 (9-16) mg/dL Creatinine 0.75 (0.5-1.4) mg/dL Estim Creat Clear Calc 43.6 Estimated GFR > 60 Random Glucose 83 (60-115) mg/dL Calcium 9.1 (8.4-10.2) mg/dL Magnesium 2.2 (1.6-2.6) mg/dL Total Bilirubin 0.4 (0.0-1.0) mg/dL AST 22 (5-31) U/L ALT 17 (0-31) U/L Alkaline Phosphatase 72 (39-117) U/L C-Reactive Protein 0.20 (< or = 0.50) mg/dL B-Natriuretic Peptide (<100) pg/mL Total Protein 6.0 L (6.5-8.0) g/dL Albumin 3.9 (3.5-5.0) g/dL 10/06/22 Range/Units 18:30 WBC (4.8-10.8) X10*3/uL RBC (4.20-5.50) X10*6/uL Hgb (12.0-16.0) g/dl Hct (37.0-47.0) % MCV (80.0-98.0) fL MCH (27.0-33.0) pg MCHC (31.0-35.0) g/dl RDW (11.0-16.0) % Plt Count (160-400) X10*3/uL MPV (9.4-12.3) fL Immature Gran % (Auto) (0.0-0.4) % Neut % (Auto) (45-73) % Lymph % (Auto) (20-40) % Humphreys % (Auto) (2-11) % Eos % (Auto) (0-4) % Baso % (Auto) (0-2) % Lymph # (Auto) (1.2-4.9) X10*3/uL Humphreys # (Auto) (0.1-1.2) X10*3/uL Eos # (Auto) (0.0-0.4) X10*3/uL Baso # (Auto) (0.0-0.2) X10*3/uL Abs Immat Gran (auto) (0.00-0.03) X10*3/uL Absolute Neuts (auto) (2.0-8.3) x10*3/uL Absolute Nucleated RBC (0.0-0.012) X10*3/uL Nucleated RBC % (auto) (0.0-0.2) /100WBC ESR (0-20) MM/HR Sodium (135-145) mmol/L Potassium (3.3-5.1) mmol/L Chloride (96-108) mmol/L Carbon Dioxide (22-29) mmol/L Anion Gap (12-20) BUN (9-16) mg/dL Creatinine (0.5-1.4) mg/dL Estim Creat Clear Calc Estimated GFR Random Glucose (60-115) mg/dL Calcium (8.4-10.2) mg/dL Magnesium (1.6-2.6) mg/dL Total Bilirubin (0.0-1.0) mg/dL AST (5-31) U/L ALT (0-31) U/L Alkaline Phosphatase (39-117) U/L C-Reactive Protein (< or = 0.50) mg/dL B-Natriuretic Peptide 131 H (<100) pg/mL Total Protein (6.5-8.0) g/dL Albumin (3.5-5.0) g/dL Discharge Plan Discharge Clinical Impression: Leg swelling Patient Disposition: Home, Self-Care Instructions: Heart Failure (ED) Additional Instructions: Your leg swelling is likely due to volume overload/mild CHF. It is exacerbated by the fact that you have blood clots in both legs Take the furosemide as prescribed Be sure you continue taking your Xarelto Follow-up with your primary doctor as planned Return for new or worsening symptoms, especially if you develop chest pain or shortness of breath Prescriptions: New furosemide 20 mg tablet 20 mg PO DAILY Qty: 14 0RF No Action esomeprazole magnesium 40 mg capsule,delayed release(DR/EC) 40 mg PO BID Qty: 90 0RF tramadol 50 mg tablet 50 mg PO BID PRN (Reason: Pain) ipratropium-albuterol 0.5 mg-3 mg(2.5 mg base)/3 mL Solution For Nebulization 3 ml INHALATION TID losartan 50 mg Tablet 50 mg PO DAILY Qty: 30 0RF Protocol: Hold for SBP< HOLD for SBP < : 90 Xarelto 20 mg tablet 20 mg PO DAILY 30 Days Qty: 30 0RF Rx Instructions: must administer with evening meal begin taking after completing 15 mg twice daily loading dose rivaroxaban 20 mg Tablet 20 mg PO DAILY Qty: 90 4RF Rx Instructions: must administer with evening meal calcium carbonate [Calcium 600] 600 mg calcium (1,500 mg) tablet 600 mg PO DAILY aspirin [Adult Aspirin Regimen] 81 mg tablet,delayed release (DR/EC) 81 mg PO DAILY Hold Instructions: hold until repeat CBC, discuss need to resume with PCP cholecalciferol (vitamin D3) 25 mcg (1,000 unit) capsule 25 mcg PO DAILY Myrbetriq 25 mg tablet extended release 24 hr 25 mg PO DAILY (DME) blood pressure monitor Kit See Rx Instructions .Route Qty: 1 0RF Rx Instructions: As directed rosuvastatin 10 mg tablet 10 mg PO DAILY 90 Days Qty: 90 2RF pramipexole 1 mg tablet 1 mg PO BEDTIME (DME) nebulizers Misc See Rx Instructions .ROUTE Rx Instructions: As directed fluocinonide 0.05 % ointment 1 appl topical BID-QID PRN (Reason: Itching) (DME) Oxygen Home Use Kit See Rx Instructions .Route Rx Instructions: As directed at night clobetasol 0.05 % cream 1 appl topical BID Qty: 60 3RF latanoprost 0.005 % drops 1 drp ophthalmic (eye) BEDTIME gabapentin 300 mg capsule 300 mg PO BEDTIME folic acid 1 mg tablet 1 mg PO DAILY Qty: 90 1RF
--- NOTE | 2022-10-06 18:32 | MHC.EDTECH ---
PT BLOOD DRAWN AND SENT TO LAB .
[2022-10-06 18:35] LABS: MANUAL DIFF FLAG NO
[2022-10-06 18:37] LABS: Basophils Absolute Auto 0.1 X10*3/uL (0.0-0.2); Basophils Percent Auto 0.8 % (0-2); Eosinophils Absolute Auto 0.2 X10*3/uL (0.0-0.4); Eosinophils Percent Auto 1.6 % (0-4); Hematocrit 33.9 % (37.0-47.0); Hemoglobin 10.2 g/dl (12.0-16.0); Imm Gran Abs Auto 0.06 X10*3/uL (0.00-0.03); Imm Gran Pct Auto 0.6 % (0.0-0.4); Lymphocytes Absolute Auto 2.9 X10*3/uL (1.2-4.9); Lymphocytes Percent Auto 30.2 % (20-40); Mean Corpuscular HGB Conc 30.1 g/dl (31.0-35.0); Mean Corpuscular Hemoglobin 32.3 pg (27.0-33.0); Mean Corpuscular Volume 107.3 fL (80.0-98.0); Mean Platelet Volume 8.7 fL (9.4-12.3); Monocytes Absolute Auto 0.6 X10*3/uL (0.1-1.2); Monocytes Percent Auto 6.4 % (2-11); Neutrophils Absolute Auto 5.7 x10*3/uL (2.0-8.3); Neutrophils Percent Auto 60.4 % (45-73); Platelet Count 430 X10*3/uL (160-400); Red Blood Count 3.16 X10*6/uL (4.20-5.50); Red Cell Distribution Width 17.6 % (11.0-16.0); White Blood Count 9.5 X10*3/uL (4.8-10.8)
[2022-10-06 18:57] LABS: B Type Natriuretic Peptide 131 pg/mL (<100)
[2022-10-06 18:58] LABS: Alanine Aminotransferase 17 U/L (0-31); Albumin Level 3.9 g/dL (3.5-5.0); Alkaline Phosphatase 72 U/L (39-117); Anion Gap 11 (12-20); Aspartate Amino Transferase 22 U/L (5-31); Bilirubin Total 0.4 mg/dL (0.0-1.0); Blood Urea Nitrogen 16 mg/dL (9-16); Calcium 9.1 mg/dL (8.4-10.2); Carbon Dioxide 29 mmol/L (22-29); Chloride 106 mmol/L (96-108); Creatinine Clr Calc Pharmacy 43.6; Estimated Glomerular Filt Rate > 60; Glucose Random 83 mg/dL (60-115); Magnesium 2.2 mg/dL (1.6-2.6); Sodium 142 mmol/L (135-145)
[2022-10-06 19:18] LABS: Erythrocyte Sedimentation Rate 13 MM/HR (0-20)
[2022-10-06] MEDS: Furosemide 40 MG TABLET PO (23:32)
--- NOTE | 2022-10-06 23:41 | PC.NURSE ---
Reviewed discharge instruction with pt, pt verbalized understanding, notified Larissa ARCE . Reviewed mediations.
== END 2022-10-06 23:43 | disposition home or self-care (01) ==
PROVIDERS: Physician Assistant Medical; Emergency Provider Emergency Medicine; PCP Internal Medicine
DX: R60.0 Localized edema (principal); I10 Essential (primary) hypertension; E78.00 Pure hypercholesterolemia, unspecified; R06.00 Dyspnea, unspecified; J44.9 Chronic obstructive pulmonary disease, unspecified; Z99.81 Dependence on supplemental oxygen; Z86.718 Personal history of other venous thrombosis and embolism; Z86.711 Personal history of pulmonary embolism; Z79.82 Long term (current) use of aspirin; Z79.02 Long term (current) use of antithrombotics/antiplatelets; Z79.899 Other long term (current) drug therapy
CPT/HCPCS: 36415; 80053; 83735; 83880; 85025; 85652; 86140; 99282; 99283

== ENCOUNTER → 2022-10-20 08:52 | Outpatient (REF) | payer MEDICARE, OTHER, SELFPAY ==
--- NOTE | 2022-10-20 08:55 | CA_ITS ---
Transthoracic Echocardiogram Patient (Last, First, Middle): Kelly Miller R Gender: Female Date of : 1935 Age: 86 Procedure Date: 10/20/2022 Procedure Type: Transthoracic Echocardiogram Location: OP Height: 149.86 cm Weight: 58.51 kg BSA: 1.53 m2 Heart Rate: 73 bpm BP: 165 / 70 mmHg Assistant Production Editor: LEYDI Referring MD: Farooq Vieyra MD Casualty Claims Supervisor: Prasanna Modi MD Symptoms: I27.20 - Pulmonary hypertension, unspecified Study Quality: Adequate/Limited Echo ECG Rhythm: Sinus Conclusions: - 1.Normal LV systolic function with impaired relaxation filling pattern and elevated filling pressures 2. Underestimated RV systolic pressure Findings Left Ventricle Normal left ventricular cavity size. The left ventricular systolic function is normal. The visually estimated ejection fraction is between 55-60%. Spectral Doppler is indicative of an impaired relaxation filling pattern. Elevated filling pressures. E/E prime ratio is >15, consistent with elevated filling pressures. Tricuspid Valve There is trace tricuspid valve regurgitation. Tricuspid regurgitation envelope is inadequate for calculation of right ventricular systolic pressure. Normal right atrial pressure. RV systolic pressure could be underestimated on this study Pericardium/Pleural There is a trivial pericardial effusion. Prior Study Comparison Changes noted compared to prior study dated: 09/21/2022. Measurements 2D Linear Measurements LVOT Diam: 2.00 3.0+(-)1.3 cm Mitral Valve MV Pk E: 0.81 MV PK A: 1.17 MV Decel Time: 210.00 E/A: 0.70 E'Lateral: 4.91 E'Medial: 4.21 E/E' Med: 19.20 E/E' Lat: 16.50 PHT: 62.00 MVA PHT: 3.55 Decel Wilson: 3.86 LVOT LVOT Pk Kemal: 0.91 LVOT Mn Kemal: 0.68 LVOT VTI: 0.20 LVOT Pk Grad: 3.00 LVOT Mn Grad: 2.00 LVOT Diam: 2.00 LVOT Area: 3.14 Diastolic Function MV Pk E: 0.81 MV Pk A: 1.17 E/A: 0.70 E'Medial: 4.21 E/E' Med: 19.20 E' Laterial: 4.91 E/E' Lat: 16.50 Right Ventricle TAPSE (mm): 20.00 TVS' Kemal: 9.73 Tricuspid Valve TR Pk Kemal: 1.39 TR Pk Grad: 8.00 RA Press: 8.00 RVSP: 16.00 Updated in Other Vendor System with Status of Final Prasanna Modi MD electronically signed on 10/21/2022 2:03:58 PM with status of Final
== END ==
LOC: HO.CARD 08:52
PROVIDERS: Absent Provider Internal Medicine Cardiovascular Disease; PCP Internal Medicine; Visit Provider Hospitalist
DX: I27.20 Pulmonary hypertension, unspecified (principal)
CPT/HCPCS: 93308

== ENCOUNTER → 2022-11-01 13:35 | Outpatient (BNVA) | payer MEDICARE, OTHER, SELFPAY | PROVIDERS: Visit Provider Internal Medicine Cardiovascular Disease | DX: I26.99 Other pulmonary embolism without acute cor pulmonale (principal); I27.20 Pulmonary hypertension, unspecified; J44.9 Chronic obstructive pulmonary disease, unspecified; Z99.81 Dependence on supplemental oxygen | CPT/HCPCS: 99212 ==

== ENCOUNTER 2022-11-28 09:52 | Outpatient (REF) | payer MEDICARE, OTHER, SELFPAY ==
[2022-11-28 10:22] LABS: MANUAL DIFF FLAG NO
[2022-11-28 11:34] LABS: Basophils Absolute Auto 0.1 X10*3/uL (0.0-0.2); Basophils Percent Auto 0.8 % (0-2); Eosinophils Absolute Auto 0.1 X10*3/uL (0.0-0.4); Eosinophils Percent Auto 1.1 % (0-4); Hematocrit 40.8 % (37.0-47.0); Hemoglobin 12.7 g/dl (12.0-16.0); Imm Gran Abs Auto 0.02 X10*3/uL (0.00-0.03); Imm Gran Pct Auto 0.2 % (0.0-0.4); Immature Retic Fraction 12.8 % (3.0-15.9); Lymphocytes Absolute Auto 2.2 X10*3/uL (1.2-4.9); Lymphocytes Percent Auto 25.6 % (20-40); Mean Corpuscular HGB Conc 31.1 g/dl (31.0-35.0); Mean Corpuscular Hemoglobin 30.8 pg (27.0-33.0); Mean Corpuscular Volume 98.8 fL (80.0-98.0); Mean Platelet Volume 10.1 fL (9.4-12.3); Monocytes Absolute Auto 0.5 X10*3/uL (0.1-1.2); Monocytes Percent Auto 6.4 % (2-11); Neutrophils Absolute Auto 5.6 x10*3/uL (2.0-8.3); Neutrophils Percent Auto 65.9 % (45-73); Platelet Count 261 X10*3/uL (160-400); Red Blood Count 4.13 X10*6/uL (4.20-5.50); Red Cell Distribution Width 13.5 % (11.0-16.0); Retic HGB Equivalent 34.4 pg (30.0-35.0); Reticulocyte Percent 0.9 % (0.5-1.8); Reticulocytes Absolute 0.039 X10*6/uL (0.026-0.095); White Blood Count 8.5 X10*3/uL (4.8-10.8)
[2022-11-28 12:55] LABS: Alanine Aminotransferase 19 U/L (0-31); Albumin Level 3.8 g/dL (3.5-5.0); Alkaline Phosphatase 67 U/L (39-117); Anion Gap 11 (12-20); Aspartate Amino Transferase 25 U/L (5-31); Bilirubin Total 0.5 mg/dL (0.0-1.0); Blood Urea Nitrogen 17 mg/dL (9-16); Calcium 9.6 mg/dL (8.4-10.2); Carbon Dioxide 33 mmol/L (22-29); Chloride 103 mmol/L (96-108); Estimated Glomerular Filt Rate > 60; Glucose Random 81 mg/dL (60-115); Iron 63 mcg/dL (30-160); Percent Iron Saturation 28 % (15-50); Potassium 3.9 mmol/L (3.3-5.1); Sodium 143 mmol/L (135-145); Total Iron Binding Capacity 227 mcg/dL (228-428); Unsaturated Iron Binding 164 ug/dL
[2022-11-28 12:58] LABS: Ferritin 142 ng/mL (10-250)
[2022-11-28 13:04] LABS: Alanine Aminotransferase 19 U/L (0-31); Albumin Level 3.8 g/dL (3.5-5.0); Alkaline Phosphatase 68 U/L (39-117); Anion Gap 9 (12-20); Aspartate Amino Transferase 26 U/L (5-31); Bilirubin Total 0.5 mg/dL (0.0-1.0); Blood Urea Nitrogen 17 mg/dL (9-16); Calcium 9.8 mg/dL (8.4-10.2); Carbon Dioxide 33 mmol/L (22-29); Chloride 104 mmol/L (96-108); Cholesterol 161 mg/dL; Estimated Glomerular Filt Rate > 60; Glucose Random 81 mg/dL (60-115); HDL Cholesterol 57 mg/dL; Iron 63 mcg/dL (30-160); LDL Cholesterol Calculated 92 mg/dl; Percent Iron Saturation 27 % (15-50); Sodium 142 mmol/L (135-145); Total Iron Binding Capacity 231 mcg/dL (228-428); Triglycerides 61 mg/dL; Unsaturated Iron Binding 168 ug/dL
[2022-11-28 13:05] LABS: Ferritin 133 ng/mL (10-250); Thyroid Stimulating Hormone 1.73 uIU/mL (0.32-4.0)
[2022-11-28 13:09] LABS: Folate > 20.0 ng/mL (> or = 4.0); Vitamin B12 579 pg/mL (200-900)
[2022-11-30 16:47] LABS: Haptoglobin 161 mg/dL (43-212)
== END 2022-11-28 09:53 | disposition home or self-care (01) ==
LOC: HO.LAB 09:52
PROVIDERS: Hospitalist; Internal Medicine Medical Oncology; Physician Assistant Medical; PCP Internal Medicine; Visit Provider Internal Medicine
DX: R06.00 Dyspnea, unspecified (principal); D64.9 Anemia, unspecified; E78.00 Pure hypercholesterolemia, unspecified
CPT/HCPCS: 36415; 80053; 80061; 82607; 82728; 82746; 83010; 83540; 84443; 85025; 85045

== ENCOUNTER 2022-12-01 11:24 | Outpatient (AMB) | payer MEDICARE, OTHER, SELFPAY ==
[2022-12-01 11:30] VITALS: BP 172/90; PULSE 87; TEMP 36.3; O2SAT 98; BMI 26.4
--- NOTE | 2022-12-01 11:30 | A.OFFVIS_ITS ---
Intake Vital Signs 12/01/22 11:30 Height 4 ft 11 in Weight 130 lb 8.218 oz BMI 26.4 BP 172/90 H Blood Pressure Location Rt brachial Position Sitting Pulse 87 Pulse Source Pulse Oximeter Temp 97.3 F Temp Source Skin Pulse Oximetry (%) 98 Intake Visit Reasons: Discoid Intake Note: * Pt seen today for follow up. 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 Required: No Accompanied by: Self / Same As Patient Allergies amlodipine Allergy (Unknown, Verified 12/01/22 11:33) leg swelling, swelling atorvastatin [Lipitor] Allergy (Unknown, Verified 12/01/22 11:33) Unknown hydroxychloroquine [From Plaquenil] Allergy (Unknown, Verified 12/01/22 11:33) Affected eye sight metoprolol Allergy (Unknown, Verified 12/01/22 11:33) Swelling Medication List - Last Reconciled 12/01/22 by Laura Waldrop MD blood pressure monitor As directed calcium carbonate (Calcium) 600 mg PO DAILY cholecalciferol (vitamin D3) 25 mcg PO DAILY clobetasol 0.05% 1 appl topical BID diclofenac sodium 1% (Voltaren Arthritis Pain) 2 grams topical QID esomeprazole magnesium 40 mg PO BID fluocinonide 0.05% 1 appl topical BID-QID PRN folic acid 1 mg PO DAILY furosemide 20 mg PO DAILY gabapentin 300 mg PO BEDTIME ipratropium-albuterol 0.5 mg-3 mg(2.5 mg base)/3 mL 3 mL inhalation TID latanoprost 0.005% 1 drp ophthalmic (eye) BEDTIME losartan 75 mg See Protocol PO DAILY 30 days mirabegron ER (Myrbetriq) 25 mg PO DAILY nebulizers As directed Oxygen Home Use As directed at night pramipexole 1 mg PO BEDTIME rivaroxaban (Xarelto) 20 mg PO DAILY 90 days rosuvastatin 10 mg PO DAILY 90 days tramadol 50 mg PO BID PRN HPI HPI Comments History of Present Illness Details 86-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 Her last week. I offered my condolences. Two months ago patient was admitted and was found to have PE she was also found to have significant anemia to the point that she had received blood transfusions. Dapsone was discontinued as her my discussion with Dr. Mchugh as this seemed to be the most likely cause for her anemia, she is on Xarelto now for her PE. She currently is on home oxygen intermittently. She states that her discoid rash is coming back especially in her upper back, arms face and chest. He has also been having right hip pain. Initial history: This is an 86-year-old female with a past medical history of hypertension, dyslipidemia, DVT/PE in 2019 on Xarelto, anxiety, COPD and discoid lupus who presents for evaluation of lupus. 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 She does not recall other manifestations of lupus. She was on hydroxychloroquine for many years which seems to have helped her cutaneous lupus. Hydroxychloroquine was discontinued in 2019 due to retinal toxicity. She states that she was on other medicines for cutaneous lupus but does not recall her name. He also mentioned that topical treatments did not provide much relief. Today she denies any joint pain except for her right shoulder pain. Her main complaint is worsening skin rash on her face, neck and upper chest. She also has an osteoporosis and a spinal compression fracture. She stated that she was on calcitonin which did not provide any benefit. [facility] Medical History Anxiety Arterial occlusive disease Chest discomfort Chronic respiratory failure COPD (chronic obstructive pulmonary disease) Discoid lupus Diverticulitis DVT (deep venous thrombosis) Dyspnea Encounter for monitoring azathioprine therapy GERD (gastroesophageal reflux disease) Greater saphenous vein embolism Hiatal hernia Hypercholesterolemia Hypertension Iliac artery occlusion Left leg DVT Lupus (systemic lupus erythematosus) Osteopenia Pleuritic chest pain Pulmonary embolism Pulmonary nodule Pulmonary nodules Restless leg Thrombus of aorta Surgical History Bilateral pulmonary embolism History of breast biopsy History of cataract surgery History of foot surgery History of toe surgery History of total abdominal hysterectomy and bilateral salpingo-oophorectomy Family History Father Hypertension Cancer Mother Hypertension Stroke CVD (cardiovascular disease) Social History Household Members: None Housing: House Do you presently have visiting nurse or other home services: Yes Alcohol intake: never Patient Tobacco Use Status: Former Tobacco user Tobacco use type: Cigarette Years Smoked: 30 e-Cigarette/Vaping Use: Never Used Second Hand Smoke Exposure: No service: No Current occupational status: retired Cognitive needs: Yes Hearing needs: No Vision needs: Yes Review of Systems Const Reports as per HPI Eyes Reports as per HPI Resp Reports no additional complaints GI Reports no additional complaints Musc Reports arthralgias, Reports limited range of motion, Reports loss of height and Reports stiffness Skin/Breast Reports as per HPI, Reports pruritus and Reports rash Physical Exam Vital Signs: Last Vital Signs Temp 97.3 F 12/01/22 11:30 Pulse 87 12/01/22 11:30 BP 172/90 H 12/01/22 11:30 Pulse Ox 98 12/01/22 11:30 BMI result Body Mass Index 26.4 Const General: cooperative, healthy appearing and comfortable Nutritional Appearance: overweight Orientation/consciousness: patient oriented x3 Limitations: ambulation with cane HEENT Head: Yes normocephalic and Yes atraumatic Mouth: moist mucous membranes Resp Effort & Inspection: normal respiratory effort and able to speak in complete sentences GI Inspection: No distended Palpation (GI): Soft to palpation and nontender Back/Spine/Pelvis Other: Significant kyphosis Skin Other: Discoid lesions on her upper back behind her neck, left cheek, arms and forearms, upper chest. Worse the last visit Neuro General: patient oriented x3 Extrem Other: Significant osteoarthritic changes of both hands Normal range of motion of both shoulders Right trochanteric bursa area tenderness. Negative Amanda's test on the right side Results Reviewed Results Reviewed: DEXA 01/2022 Mild to moderate compression deformity at T9 suspected AP spine 0.969 Femoral neck left T-score-2.7? 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 I reviewed notes from patient's previous manager social Dr. Tiki Carlisle. Patient was on hydroxychloroquine for many years which was working well until it was stopped in 2019 due to retinal toxicity. Since hydroxychloroquine was stopped her cutaneous lupus seems to have flared. Patient was also tried on methotrexate for at least 1 year without improvement. She was also on Acitretin for several months without improvement. Dapsone 100 mg daily started 05/29 with improvement. 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 Patient's discoid rash is flaring. Will need to switch to a different DMARD. Discussed risks and benefits of Anifrolumab infusions. Patient agreed to proceed. Will start prior authorization for Anifrolumab Anifrolumab has been proven to be effective in cases of refractory cutaneous lupus. * PMID:?[id number] * [facility] D[facility]atol.?2022;159(5):560-563. doi:[email or web address] Continue to use clobetasol cream on the body. Use topical tacrolimus .1% on the face Follow-up in 3 months (2) Osteoporosis with fracture: Code(s): M80.80XA - Other osteoporosis with current pathological fracture, unspecified site, initial encounter for fracture Qualifiers: Osteoporosis type: age-related Site of pathological fracture: vertebra Encounter type: initial encounter Qualified Code(s): M80.08XA - Age-related osteoporosis with current pathological fracture, vertebra(e), initial encounter for fracture Plan: Multiple osteoporotic fractures seen on imaging. DEXA scan 01/2022 showed T- score of-2.7 left femoral neck. She also has a T9 vertebral fracture. She received Calcitonin since 01/2022. Patient tolerating Fosamax since 05/29. Patient states she has history of hiatal hernia + GERD symptoms and is well controlled on Nexium. Advised patient to take alendronate with plenty with water on an empty stomach and stay upright for 30 minutes after ingestion Repeat DEXA in 2024 (3) Trochanteric bursitis: Code(s): M70.60 - Trochanteric bursitis, unspecified hip Qualifiers: Laterality: right Qualified Code(s): M70.61 - Trochanteric bursitis, right hip Plan: Advised patient to start doing stretching exercises at home. I gave her a printout of exercises to do (4) Osteoarthritis of hands, bilateral: Code(s): M19.041 - Primary osteoarthritis, right hand; M19.042 - Primary osteoarthritis, left hand Qualifiers: Osteoarthritis type: primary Qualified Code(s): M19.041 - Primary osteoarthritis, right hand; M19.042 - Primary osteoarthritis, left hand Plan: Apply Voltaren gel on affected areas Plan I spent 45 minutes reviewing patient's chart, evaluating patient, ordering diagnostic workup, counseling patient and documenting in the chart Orders: Orders XR hip LT min 2V Today M25.552 - Pain in left hip XR hip RT min 2V Today M16.11 - Unilateral primary osteoarthritis, right hip Medications: New diclofenac sodium 1% (Voltaren Arthritis Pain) apply to single elbow, wrist or hand; for hand includes palm/fingers/back of hand 2 grams topical QID 100 grams 2RF Discontinued alendronate take with 6-8 ounces of water on empty stomach 1st thing in the morning & remain upright for 30 minutes after 70 mg PO QWEEK 12 tabs 1RF Coding Level of Care Code Est Pt Level 5 (68697) Diagnoses Cutaneous lupus erythematosus L93.2 Osteoporosis with fracture M80.08XA Osteoporosis type: age-related Site of pathological fracture: vertebra Encounter type: initial encounter Trochanteric bursitis M70.61 Laterality: right Osteoarthritis of hands, bilateral M19.041; M19.042 Osteoarthritis type: primary
== END 2022-12-01 12:06 | disposition home or self-care (01) ==
PROVIDERS: PCP Internal Medicine; Visit Provider Student in an Organized Health Care Education/Training Program
DX: L93.2 Other local lupus erythematosus (principal); M80.08XA Age-related osteoporosis with current pathological fracture, vertebra(e), initial encounter for fracture; M70.61 Trochanteric bursitis, right hip; M19.041 Primary osteoarthritis, right hand; M19.042 Primary osteoarthritis, left hand
CPT/HCPCS: 99215

== ENCOUNTER → 2022-12-01 11:24 | Outpatient (BNVA) | payer MEDICARE, OTHER, SELFPAY | PROVIDERS: PCP Internal Medicine; Visit Provider Student in an Organized Health Care Education/Training Program | DX: M70.61 Trochanteric bursitis, right hip (principal); M19.041 Primary osteoarthritis, right hand; M19.042 Primary osteoarthritis, left hand; L93.2 Other local lupus erythematosus; T37.8X5A Adverse effect of other specified systemic anti-infectives and antiparasitics, initial encounter; M80.08XA Age-related osteoporosis with current pathological fracture, vertebra(e), initial encounter for fracture | CPT/HCPCS: 99212 ==

== ENCOUNTER 2022-12-04 10:34 | Outpatient (REF) | payer MEDICARE, OTHER, SELFPAY ==
--- NOTE | ~2022-12-04 | XR_ITS ---
EXAMINATION: XR BILATERAL HIPS WITH AP PELVIS CLINICAL INFORMATION: Osteoarthritis right hip COMPARISON: Right hip radiograph from 06/19/2019 TECHNIQUE: 2 views of each hip single view of the pelvis FINDINGS: No acute visible fracture or dislocation. Mild to moderate degenerative arthropathy of the bilateral femoral acetabular joints with joint space narrowing, subchondral cystic changes, sclerosis, and periarticular osteophyte formation. Degenerative arthropathy of the lumbosacral junction. Joint spaces and alignment are otherwise maintained. Soft tissues are unremarkable. Left sided lower abdominal/pelvic vascular stent noted. XR/XR hip BI w PEL1V IMPRESSION: 1. No acute visible fracture or dislocation. 2. Mild to moderate degenerative arthropathy of the bilateral femoral acetabular joints. 3. Degenerative arthropathy of the lumbosacral junction.
== END 2022-12-04 10:35 | disposition home or self-care (01) ==
LOC: HO.XRAY 10:34
PROVIDERS: PCP Internal Medicine; Visit Provider Student in an Organized Health Care Education/Training Program
DX: J43.9 Emphysema, unspecified (principal); M25.552 Pain in left hip; I26.99 Other pulmonary embolism without acute cor pulmonale; D64.9 Anemia, unspecified; Z99.81 Dependence on supplemental oxygen; Z79.01 Long term (current) use of anticoagulants
CPT/HCPCS: 73521; 99212

== ENCOUNTER 2022-12-04 10:34 | Outpatient (AMB) | payer MEDICARE, OTHER, SELFPAY ==
[2022-12-04 10:57] VITALS: BP 136/70; PULSE 88; O2SAT 95; BMI 26.5
--- NOTE | 2022-12-04 10:57 | MHC.OFFVIS ---
Intake Vital Signs 12/04/22 10:57 Height 4 ft 11 in Weight 131 lb 2.801 oz BMI 26.5 BP 136/70 Blood Pressure Location Lt brachial Position Sitting Pulse 88 Pulse Source Pulse Oximeter Pulse Oximetry (%) 95 Oxygen Delivery Method Room Air Comment 1 Liter Oxygen([facility]) Intake Visit Reasons: COPD Machine Egg Washer Required: No Allergies amlodipine Allergy (Unknown, Verified 12/04/22 11:00) leg swelling, swelling atorvastatin [Lipitor] Allergy (Unknown, Verified 12/04/22 11:00) Unknown hydroxychloroquine [From Plaquenil] Allergy (Unknown, Verified 12/04/22 11:00) Affected eye sight metoprolol Allergy (Unknown, Verified 12/04/22 11:00) Swelling HPI HPI Comments History of Present Illness Details The patient is an 86-year-old woman with a known history of COPD and emphysema and currently on nocturnal oxygen who is looking to establish her care [facility]. The patient has already been followed closely for her underlying respiratory condition and has been using Trelegy inhaler with some improvement of her respiratory symptoms. Although she does complaint of significant shortness of breath minimal activity. Moderate severity. Specially when going up stairs. She becomes very limited. Her is [facility] so she visits usually every afternoon help some with his meals. But the shortness of breath does limit her activity. During the visit did go for brief walking oximetry in the patient did desaturate very quickly to 87% therefore she was placed on a portable oxygen concentrator 2 L pulse. Her oxygen proved and ultimately decreased again she maintain a pulse ox of 93% on 3 L pulse. The patient does benefit conserving device because any larger tanks would be hard for her to carry. We will send a prescription to her [employer], [email or web address] in order for them to provide her small be sitting there was with a conserving valve that she can use at 3 L pulse with activity. She should continue using the oxygen at nighttime as prescribed. In addition to that we did review her CT scan of the chest that she had back in November 2020 demonstrating significant emphysema and chronic bronchitis. Also has some evidence of bronchiectasis. The patient also had pulmonary nodules 1 that was read as new measuring 5 mm. This point does not seem that the patient had follow-up CT scan. She did have a chest x-ray from December 2021 demonstrating stable findings in addition to a significant hiatal hernia. To note the patient had a fall at the time of that chest x-ray. 07/11/2022 the patient is here for pulmonary follow-up visit. The patient overall has been doing a little bit worse. She has been complaining of worsening pleuritic discomfort. She was taken off her anticoagulation. She has had history of blood clots in the past. Her pleuritic discomfort is mainly on the left side. Initial producible to some degree. Therefore may be musculoskeletal. Although with a history of blood clots we need to further evaluate. The patient has had to use her oxygen more often as well because the worsening shortness of breath. The patient has been using the Trelegy inhaler with good effect. She also has a rescue inhaler. The patient's last CT scan was back in December 2021 at [facility]. She had multiple pulmonary nodules measuring about 6 mm in size along with evidence of bronchiolitis and tree in bud which is a new finding. In view of her ongoing chest pain will go ahead and repeat the CT scan at this time. Will wait for the D-dimer to see if she needs a CTA pursue noncontrast CT scan the patient will also can try some prednisone to see if this alleviates some of the pleuritic component to her discomfort. She is also following closely with rheumatology. 09/18/2022 the patient is here for pulmonary follow-up visit. The patient has been complaining of worsening shortness of breath with minimal activity. She is also having chest pressure sensation. She is not getting relief from the Trelegy. She was to go back in nebulized therapy. I did have some samples available and will request also some of the pharmacy with the [employer]. The patient is also very concerned because she has had significant amount of weight loss. She is tearful because she thinks something is wrong. We did review her imaging studies that she had a CT scan of the chest back in July demonstrating no evidence of pulmonary emboli and also no evidence of any nodular densities or concerning findings. The patient has noted some increased lower extremity edema. She does take hydrochlorothiazide. She had a recent chest x-ray which I personally reviewed demonstrating no acute disease. Therefore at this time will going to give her 3 days of Lasix. The patient also will go back on her nebulized therapy in use at least twice a day. The patient needs to be further evaluated from a cardiac standpoint as she is having dyspnea and substernal chest pressure. Will have her get an EKG today. If her EKG is abnormal I will let her know and further recommendations based on forthcoming data. The patient will start therapy with a nebulizer and also the Lasix just for those 3 days and will follow-up with us in 3-4 weeks. 09/28/2022 the patient is here for hospital follow-up visit. She was evaluated back in mid September and at that point the patient was noted to be more short of breath and tachycardic. She was recommended to go to the ER if she has worsening symptoms. She the patient indeed had worsening chest pain and shortness of breath the next day she went to the ER. CTA demonstrated bilateral large burden of pulmonary emboli. The patient was placed on Xarelto which she is tolerating. She did require a unit of blood while in the hospital however. She her last hemoglobin was 8.9. She has been feeling better. She is wondering if she can have a cutting table operator tank for oxygen to make it easier for portability. Therefore we did titrate her off oxygen and she was actually able to maintain a pulse ox of 92% at rest. The patient also was able to do well on a 3 L pulse conserving valve with activity maintaining a pulse ox at 92%. Therefore the patient she does qualify for a conserving device. She is requesting a portable oxygen concentrator but at this point will provide her with the be cylinders with a conserving valve which I actually be cutting table operator and worked well for her. She if any issue more that we can always request a POC in the future. We did review her echocardiogram demonstrating severe pulmonary hypertension likely secondary to the clot burden pulmonary disease. In addition to that we reviewed her CT scan of the chest demonstrating the bilateral blood clots. Will go ahead and plan to have her return in a couple months with an echocardiogram to assess her pulmonary hypertension. Hopefully by then the clot burden has resolved in her pulmonary pressures improved. 12/04/2022 the patient is here for a pulmonary follow-up visit. The patient is feeling better. She still participating in pulmonary rehabilitation. She continues on the anticoagulation. I did recommend she continue the anticoagulation lifelong she does not any significant adverse effects from it. Her oxygen seems to be better. She is tolerating the portable oxygen tanks with a conserving valve. She is also using this the oxygen to sleep at nighttime. She did have a repeat echocardiogram although cannot really estimate the pulmonary pressures. Still clinically the patient is doing better slight do believe some of the clots are dissolving. Indeed she may end up with some evidence of chronic thromboembolic disease, but, at this point I would not recommend the patient to undergo any aggressive or invasive interventions. She continues use her respiratory therapy with good effect. Continues use the oxygen. [facility] Medical History Anxiety Arterial occlusive disease Chest discomfort Chronic respiratory failure COPD (chronic obstructive pulmonary disease) Discoid lupus Diverticulitis DVT (deep venous thrombosis) Dyspnea Encounter for monitoring azathioprine therapy GERD (gastroesophageal reflux disease) Greater saphenous vein embolism Hiatal hernia Hypercholesterolemia Hypertension Iliac artery occlusion Left leg DVT Lupus (systemic lupus erythematosus) Osteopenia Pleuritic chest pain Pulmonary embolism Pulmonary nodule Pulmonary nodules Restless leg Thrombus of aorta Surgical History Bilateral pulmonary embolism History of breast biopsy History of cataract surgery History of foot surgery History of toe surgery History of total abdominal hysterectomy and bilateral salpingo-oophorectomy Family History Father Hypertension Cancer Mother Hypertension Stroke CVD (cardiovascular disease) Social History Household Members: None Housing: House Do you presently have visiting nurse or other home services: Yes Alcohol intake: never Patient Tobacco Use Status: Former Tobacco user Tobacco use type: Cigarette Years Smoked: 30 e-Cigarette/Vaping Use: Never Used Second Hand Smoke Exposure: No service: No Current occupational status: retired Cognitive needs: Yes Hearing needs: No Vision needs: Yes Review of Systems Const Reports fatigue Eyes Denies change in vision ENT Denies change in voice Card Reports chest pain, Reports dyspnea and Reports dyspnea on exertion Resp Denies chest congestion, Reports cough, Reports dyspnea and Reports dyspnea on exertion GI Reports dyspepsia and Reports heartburn Musc Reports myalgias Skin/Breast Denies rash Endo Reports fatigue Physical Exam Vital Signs: Last Vital Signs Pulse 88 12/04/22 10:57 BP 136/70 12/04/22 10:57 Pulse Ox 95 12/04/22 10:57 Oxygen Delivery Method Room Air 12/04/22 10:57 BMI result Body Mass Index 26.5 Const Nutritional Appearance: average body habitus Orientation/consciousness: patient oriented x3 HEENT Head: Yes normal to inspection Eyes General: appearance normal, both eyes and all related structures Neck Neck: Yes supple Chest Chest palpation & inspection: tenderness pectoral muscle and costal cartilage Resp Effort & Inspection: normal respiratory effort Auscultation: no rhonchi, no wheezes and diminished lung sounds Cardio Rate: tachycardic Rhythm: regular rhythm Heart sounds: S1 normal heart sound present and S2 normal heart sound present GI Auscultation: normal bowel sounds Skin Lesions: lesion noted Neuro General: patient oriented x3 Extrem General: Yes no clubbing, cyanosis or edema Assessment & Plan Assessment & Plan (1) Dyspnea: Code(s): R06.00 - Dyspnea, unspecified (2) Anemia: Code(s): D64.9 - Anemia, unspecified Qualifiers: Anemia type: unspecified type Qualified Code(s): D64.9 - Anemia, unspecified (3) Pulmonary embolism: Comment: Bilateral January 2020 [facility], IVC filter placement. Now with reoccurrence Code(s): I26.99 - Other pulmonary embolism without acute cor pulmonale Qualifiers: Acute cor pulmonale presence: without acute cor pulmonale Chronicity: acute Pulmonary embolism type: unspecified Qualified Code(s): I26.99 - Other pulmonary embolism without acute cor pulmonale Plan continue xarelto life long anticoagulation Continue Trelegy GUERRERO as neeeded Oxygen revision: 3L pulse with B cynlinders, 2 liters continues while sleeping and in the house. Uses [facility] continue with pulmonary rehab F/U 6 months Medications: New ueipagfmvut-tpwhatdro-zeryeauk 100-62.5-25 mcg (Trelegy Ellipta) 1 inh inhalation DAILY 30 days 60 ea 11RF J44.9 - Chronic obstructive pulmonary disease, unspecified jpxidfwxbkw-zonhhrner-tunfwpip 100-62.5-25 mcg (Trelegy Ellipta) 1 inh inhalation DAILY 90 days 3 ea 3RF J44.9 - Chronic obstructive pulmonary disease, unspecified Discontinued alendronate take with 6-8 ounces of water on empty stomach 1st thing in the morning & remain upright for 30 minutes after 70 mg PO QWEEK 12 tabs 1RF Coding Level of Care Code Est Pt Level 4 (67631) Diagnoses Dyspnea R06.00 Anemia D64.9 Anemia type: unspecified type Pulmonary embolism I26.99 Acute cor pulmonale presence: without acute cor pulmonale Chronicity: acute Pulmonary embolism type: unspecified Time Spent (min) 18
== END 2022-12-04 11:21 | disposition home or self-care (01) ==
PROVIDERS: PCP Internal Medicine; Visit Provider Hospitalist
DX: R06.00 Dyspnea, unspecified (principal); D64.9 Anemia, unspecified; I26.99 Other pulmonary embolism without acute cor pulmonale
CPT/HCPCS: 99214

== ENCOUNTER 2022-12-28 07:37 | Outpatient (AMB) | payer MEDICARE, OTHER, SELFPAY ==
[2022-12-28 07:38] VITALS: BP 168/94; PULSE 92; TEMP 36.2; O2SAT 94; BMI 26.4
--- NOTE | 2022-12-28 07:38 | A.OFFVIS_ITS ---
Intake Vital Signs 12/28/22 07:38 Height 4 ft 11 in Weight 130 lb 8.218 oz BMI 26.4 BP 168/94 H Blood Pressure Location Rt brachial Position Sitting Pulse 92 Pulse Source Pulse Oximeter Temp 97.2 F Temp Source Skin Pulse Oximetry (%) 94 Oxygen Delivery Method Room Air Comment left O2 tank in car, just took BP meds Intake Visit Reasons: Cortisone shot R hip Intake Note: Here for R hip cortisone injection. 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 Required: No Accompanied by: Self / Same As Patient Allergies amlodipine Allergy (Unknown, Verified 12/28/22 07:46) leg swelling, swelling atorvastatin [Lipitor] Allergy (Unknown, Verified 12/28/22 07:46) Unknown hydroxychloroquine [From Plaquenil] Allergy (Unknown, Verified 12/28/22 07:46) Affected eye sight metoprolol Allergy (Unknown, Verified 12/28/22 07:46) Swelling Medication List - Last Reconciled 12/28/22 by Laura Waldrop MD azathioprine 50 mg PO DAILY blood pressure monitor As directed calcium carbonate (Calcium) 600 mg PO DAILY cholecalciferol (vitamin D3) 25 mcg PO DAILY clobetasol 0.05% 1 appl topical BID diclofenac sodium 1% (Voltaren Arthritis Pain) 2 grams topical QID esomeprazole magnesium 40 mg PO BID fluocinonide 0.05% 1 appl topical BID-QID PRN miaquvvnzep-hzcgolnwi-arpvopai 100-62.5-25 mcg (Trelegy Ellipta) 1 inh inhalation DAILY 30 days folic acid 1 mg PO DAILY furosemide 20 mg PO DAILY gabapentin 300 mg PO BEDTIME ipratropium-albuterol 0.5 mg-3 mg(2.5 mg base)/3 mL 3 mL inhalation TID latanoprost 0.005% 1 drp ophthalmic (eye) BEDTIME losartan 75 mg See Protocol PO DAILY 30 days mirabegron ER (Myrbetriq) 25 mg PO DAILY nebulizers As directed Oxygen Home Use As directed at night pramipexole 1 mg PO BEDTIME rivaroxaban (Xarelto) 20 mg PO DAILY 90 days rosuvastatin 10 mg PO DAILY 90 days tramadol 50 mg PO BID PRN HPI HPI Comments History of Present Illness Details 86-year-old female with discoid lupus presents urgently for right hip pain. The pain in her right trochanteric bursa area has been worse over the last 3 weeks. She is requesting an injection. Discoid rash remains active on face, back, chest, arms. Initial history: This is an 86-year-old female with a past medical history of hypertension, dyslipidemia, DVT/PE in 2019 on Xarelto, anxiety, COPD and discoid lupus who presents for evaluation of lupus. 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 She does not recall other manifestations of lupus. She was on hydroxychloroquine for many years which seems to have helped her cutaneous lupus. Hydroxychloroquine was discontinued in 2019 due to retinal toxicity. She states that she was on other medicines for cutaneous lupus but does not recall her name. He also mentioned that topical treatments did not provide much relief. Today she denies any joint pain except for her right shoulder pain. Her main complaint is worsening skin rash on her face, neck and upper chest. She also has an osteoporosis and a spinal compression fracture. She stated that she was on calcitonin which did not provide any benefit. [facility] Medical History Anxiety Arterial occlusive disease Chest discomfort Chronic respiratory failure COPD (chronic obstructive pulmonary disease) Discoid lupus Diverticulitis DVT (deep venous thrombosis) Dyspnea Encounter for monitoring azathioprine therapy GERD (gastroesophageal reflux disease) Greater saphenous vein embolism Hiatal hernia Hypercholesterolemia Hypertension Iliac artery occlusion Left leg DVT Lupus (systemic lupus erythematosus) Osteopenia Pleuritic chest pain Pulmonary embolism Pulmonary nodule Pulmonary nodules Restless leg Thrombus of aorta Surgical History Bilateral pulmonary embolism History of breast biopsy History of cataract surgery History of foot surgery History of toe surgery History of total abdominal hysterectomy and bilateral salpingo-oophorectomy Family History Father Hypertension Cancer Mother Hypertension Stroke CVD (cardiovascular disease) Social History Household Members: None Housing: House Do you presently have visiting nurse or other home services: Yes Alcohol intake: never Patient Tobacco Use Status: Former Tobacco user Tobacco use type: Cigarette Years Smoked: 30 e-Cigarette/Vaping Use: Never Used Second Hand Smoke Exposure: No service: No Current occupational status: retired Cognitive needs: Yes Hearing needs: No Vision needs: Yes Review of Systems Musc Reports arthralgias Skin/Breast Reports rash Physical Exam Vital Signs: Last Vital Signs Temp 97.2 F 12/28/22 07:38 Pulse 92 12/28/22 07:38 BP 168/94 H 12/28/22 07:38 Pulse Ox 94 12/28/22 07:38 Oxygen Delivery Method Room Air 12/28/22 07:38 BMI result Body Mass Index 26.4 Const General: cooperative, healthy appearing and comfortable Nutritional Appearance: overweight Orientation/consciousness: patient oriented x3 Limitations: ambulation with cane HEENT Head: Yes normocephalic and Yes atraumatic Resp Effort & Inspection: normal respiratory effort and able to speak in complete sentences GI Inspection: No distended Palpation (GI): Soft to palpation and nontender Back/Spine/Pelvis Other: Significant kyphosis Skin Other: Discoid lesions on her upper back behind her neck, left cheek, arms and forearms, upper chest. Similar to last visit Neuro General: patient oriented x3 Extrem Other: Right trochanteric bursa area tenderness. Negative Amanda's test on the right side Office Procedures Joint Injection/Drain Joint Injection/Drain Details: Right hip trochanteric bursa Prep: site was prepped using sterile technique and ethochloride spray was applied Injected: 40 mg of, Kenalog and other (2 mL of 1% lidocaine) Procedure: The patient tolerated the procedure well Coding Details: With the patient's consent, the right lateral hip area was prepped with Chloraprep and alcohol. Under a topical ethyl chloride spray the tender area over the trochanteric region was injected with 40 mg of Kenalog and 2 cc of 1% lidocaine. The patient tolerated the procedure with no adverse effects - Glenohumeral/Tronchanteric Bursa/Intraarticular Procedure code (CPT) selection complete Results Reviewed Results Reviewed: DEXA 01/2022 Mild to moderate compression deformity at T9 suspected AP spine 0.969 Femoral neck left T-score-2.7? 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 Patient's discoid lupus is flaring as mentioned above she can no longer take hydroxychloroquine, methotrexate and acitretin were ineffective, dapsone was effective but patient developed hemolytic anemia and it had to be stopped. We discussed risks and benefits of an referral a mouth and patient agreed to proceed however we have been unable to reach her insurance to determine coverage For now start Azathiopurine 50 mg daily, check labs in 1 month, plan to increase to 100 mg daily. Will attempt to reach out to her insurance 1 more time Anifrolumab has been proven to be effective in cases of refractory cutaneous lupus. * PMID:?[id number] * [facility].?2022;159(5):560-563. doi:[email or web address] Continue to use clobetasol cream on the body. Use topical tacrolimus .1% on the face Follow-up in 2 months (2) Osteoporosis with fracture: Code(s): M80.80XA - Other osteoporosis with current pathological fracture, unspecified site, initial encounter for fracture Qualifiers: Osteoporosis type: age-related Site of pathological fracture: vertebra Encounter type: initial encounter Qualified Code(s): M80.08XA - Age-related osteoporosis with current pathological fracture, vertebra(e), initial encounter for fracture Plan: Multiple osteoporotic fractures seen on imaging. DEXA scan 01/2022 showed T- score of-2.7 left femoral neck. She also has a T9 vertebral fracture. She received Calcitonin since 01/2022. Patient tolerating Fosamax since 05/29. Patient states she has history of hiatal hernia + GERD symptoms and is well controlled on Nexium. Advised patient to take alendronate with plenty with water on an empty stomach and stay upright for 30 minutes after ingestion Repeat DEXA in 2024 (3) Trochanteric bursitis: Code(s): M70.60 - Trochanteric bursitis, unspecified hip Qualifiers: Laterality: right Qualified Code(s): M70.61 - Trochanteric bursitis, right hip Plan: Patient presented urgently today due to significant right hip pain. With patient's consent right hip was injected with Kenalog today. Plan I spent 30 minutes reviewing patient's chart, evaluating patient, ordering diagnostic workup, counseling patient and documenting in the chart Orders: Orders Comprehensive Met. Panel 1 Month Z51.81 - Encounter for therapeutic drug level monitoring, Z79.624 - rodent exterminator (current) use of inhibitors of nucleotide synthesis Complete Blood Count Auto Diff 1 Month Z51.81 - Encounter for therapeutic drug level monitoring, Z79.624 - [facility] (current) use of inhibitors of nucleotide synthesis Comprehensive Met. Panel 2 Months Z51.81 - Encounter for therapeutic drug level monitoring, Z79.624 - [facility] (current) use of inhibitors of nucleotide synthesis Complete Blood Count Auto Diff 2 Months Z51.81 - Encounter for therapeutic drug level monitoring, Z79.624 - rodent exterminator (current) use of inhibitors of nucleotide synthesis AMB Joint Injection/Aspiration Today M70.60 - Trochanteric bursitis, unspecified hip Medications: New azathioprine 50 mg PO DAILY 30 tabs 0RF Discontinued alendronate take with 6-8 ounces of water on empty stomach 1st thing in the morning & remain upright for 30 minutes after 70 mg PO QWEEK 12 tabs 1RF Coding Level of Care Code Est Pt Level 4 (45459) Diagnoses Cutaneous lupus erythematosus L93.2 Osteoporosis with fracture M80.08XA Osteoporosis type: age-related Site of pathological fracture: vertebra Encounter type: initial encounter Trochanteric bursitis M70.61 Laterality: right CPT Codes Coding - Joint 7: 57987 - Glenohumeral/Tronchanteric Bursa/Intraarticular ([id number])
== END 2022-12-28 08:03 | disposition home or self-care (01) ==
PROVIDERS: PCP Internal Medicine; Visit Provider Student in an Organized Health Care Education/Training Program
DX: L93.2 Other local lupus erythematosus (principal); M80.08XA Age-related osteoporosis with current pathological fracture, vertebra(e), initial encounter for fracture; M70.61 Trochanteric bursitis, right hip
CPT/HCPCS: 20610; 99213

== ENCOUNTER → 2022-12-28 07:37 | Outpatient (BNVA) | payer MEDICARE, OTHER, SELFPAY | PROVIDERS: PCP Internal Medicine; Visit Provider Student in an Organized Health Care Education/Training Program | DX: M70.61 Trochanteric bursitis, right hip (principal); M80.08XA Age-related osteoporosis with current pathological fracture, vertebra(e), initial encounter for fracture; L93.2 Other local lupus erythematosus | CPT/HCPCS: 20610; 99212 ==

== ENCOUNTER 2023-01-02 09:52 | Outpatient (REF) | payer MEDICARE, OTHER, SELFPAY ==
[2023-01-02 10:11] LABS: MANUAL DIFF FLAG NO
[2023-01-02 10:33] LABS: Basophils Absolute Auto 0.1 X10*3/uL (0.0-0.2); Basophils Percent Auto 0.6 % (0-2); Eosinophils Absolute Auto 0.1 X10*3/uL (0.0-0.4); Eosinophils Percent Auto 0.7 % (0-4); Hematocrit 41.7 % (37.0-47.0); Hemoglobin 13.2 g/dl (12.0-16.0); Imm Gran Abs Auto 0.08 X10*3/uL (0.00-0.03); Imm Gran Pct Auto 0.7 % (0.0-0.4); Lymphocytes Absolute Auto 2.8 X10*3/uL (1.2-4.9); Lymphocytes Percent Auto 22.9 % (20-40); Mean Corpuscular HGB Conc 31.7 g/dl (31.0-35.0); Mean Corpuscular Volume 94.8 fL (80.0-98.0); Mean Platelet Volume 9.7 fL (9.4-12.3); Monocytes Absolute Auto 0.8 X10*3/uL (0.1-1.2); Monocytes Percent Auto 6.8 % (2-11); Neutrophils Absolute Auto 8.3 x10*3/uL (2.0-8.3); Neutrophils Percent Auto 68.3 % (45-73); Platelet Count 313 X10*3/uL (160-400); Red Cell Distribution Width 13.6 % (11.0-16.0); White Blood Count 12.1 X10*3/uL (4.8-10.8)
[2023-01-02 10:43] LABS: D Dimer High Sensitivity < 150 NG/ML
[2023-01-02 11:01] LABS: Alanine Aminotransferase 17 U/L (0-31); Albumin Level 4.1 g/dL (3.5-5.0); Alkaline Phosphatase 80 U/L (39-117); Anion Gap 12 (12-20); Aspartate Amino Transferase 20 U/L (5-31); Bilirubin Total 0.4 mg/dL (0.0-1.0); Blood Urea Nitrogen 20 mg/dL (9-16); Calcium 9.6 mg/dL (8.4-10.2); Carbon Dioxide 30 mmol/L (22-29); Chloride 105 mmol/L (96-108); Estimated Glomerular Filt Rate > 60; Glucose Random 91 mg/dL (60-115); Lactate Dehydrogenase 239 U/L (122-220); Potassium 4.3 mmol/L (3.3-5.1); Sodium 143 mmol/L (135-145); Total Protein 6.3 g/dL (6.5-8.0)
== END 2023-01-02 09:53 | disposition home or self-care (01) ==
LOC: HO.LAB 09:52
PROVIDERS: PCP Internal Medicine; Visit Provider Internal Medicine Medical Oncology
DX: I26.99 Other pulmonary embolism without acute cor pulmonale (principal)
CPT/HCPCS: 36415; 80053; 83615; 85025; 85379

== ENCOUNTER 2023-01-11 09:40 | Outpatient (RCR) | payer MEDICARE, OTHER, SELFPAY ==
[2022-10-06 08:44] VITALS: BP 197/88; PULSE 88; TEMP 36.3; O2SAT 95; BMI 27.2
--- NOTE | 2022-10-06 08:51 | P.CNHO_ITS ---
Subjective - Subjective Chief complaint: Consult for: Pulmonary embolism. Patient: new to practice Consult date: 10/06/22 Requesting Physician: Narciso Primary Care Provider: Fabio Stuart MD Medical Summary: DIAGNOSIS: PULMONARY EMBOLISM. CURRENT THERAPY: Xarelto 20 mg daily. HPI - Consult Narrative Reason for consult: Consult for: Bilateral PE. DVT. Narrative: Kelly Miller is a 86 year old lady, who had presented to ED with complaints of worsening shortness of breath. She has a history significant for DVT with pulmonary emboli in 2019. She has had an IVC filter placed few months ago. Patient's symptoms worsened in the last 2 weeks, she developed pleuritic chest pain which was worse on the right side. Patient also states that she lost over 20 lb in the last 5-6 months. Her appetite has been poor. Patient denies any other symptoms of nausea, emesis, reflux symptoms or change in bowel habits. In the ED she was afebrile but tachycardic to 102, tachypneic up to 22, and hyp otensive as low as 109/47. Labs were significant for leukocytosis of 17.6, H&H 9.7/31.2, BUN of 32 and creatinine 0.97 (both above baseline), bilirubin elevated at 2.1. CT?of chest showed emphysema with possible new small scattered peripheral infiltrates, and no evidence of pleural effusions or empyema, and with question of new small right pulmonary nodules of less than 6 mm. Chest CTA found: POSITIVE LARGE PULMONARY EMBOLI. Multiple large fully occlusive and partially occlusive found in central branches of the pulmonary arteries right and left. There is mild Cardiac septal bowing and high RV LV ratio suggesting CARDIAC STRAIN. Multiple large fully occlusive and partially occlusive pulmonary emboli in the central branches of the pulmonary arteries right and left, with mild Cardiac septal bowing and high RV and LV ratio suggesting cardiac strain. She was started on unfractionated heparin to treat her pulmonary emboli. Patient was noted to have worsening anemia with macrocytosis. Concern was dapsone related hemolysis. The dapsone has been discontinued. She is now here for a post hospitalization consult. Overall she has felt better. She has more energy now. She still not sleeping too well. No fever chills no night sweats. Her breathing has improved. She only gets short of breath on climbing stairs now. She has home oxygen at 2 L a minute. Appetite is picking up. She has gained weight. Review of Systems - Constitutional: Reports improved energy. Appetite picked up. Weight is up. - Cardiovascular: Reports shortness of breath only on exertion, no additional cardiovascular complaints - Respiratory: Reports no additional respiratory complaints, just exertional dyspnea. - Gastrointestinal Reports no additional gastrointestinal complaints. She had a colonoscopy long time ago by Dr. Smith. - : No dysuria or hematuria. - musculoskeletal: She has history of discoid lupus. She has osteoporosis. - Neurologic Denies dizziness, Denies memory loss, Denies seizure-like activity - dermatological: She has skin rash on the neck and arms from the discoid lupus. [facility] Medical History: history of COPD/emphysema. Systemic lupus erythematosus. She was also started on dapsone in May 2022 for SLE. Prior to that she was on methotrexate, switch was made because she did not respond to methotrexate. She was recently treated for UTI with Bactrim. Medical History: Anxiety Arterial occlusive disease Chest discomfort Chronic respiratory failure COPD (chronic obstructive pulmonary disease) Discoid lupus Diverticulitis DVT (deep venous thrombosis) Dyspnea Encounter for monitoring azathioprine therapy GERD (gastroesophageal reflux disease) Greater saphenous vein embolism Hiatal hernia Hypercholesterolemia Hypertension Iliac artery occlusion Left leg DVT Lupus (systemic lupus erythematosus) Osteopenia Pleuritic chest pain Pulmonary embolism Pulmonary nodule Pulmonary nodules Restless leg Thrombus of aorta Surgical History: Bilateral pulmonary embolism History of breast biopsy History of cataract surgery History of foot surgery History of toe surgery History of total abdominal hysterectomy and bilateral salpingo-oophorectomy. Family History: Father : Hypertension, lung Cancer, 3 days after surgery at the age of 64. Mother : Hypertension, Stroke, CVD (cardiovascular disease),. at 89. 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 She is . is residing at [employer] [facility]. She had 2 kids. Living Situation History: Household Members: None Housing: House Do you presently have visiting nurse or other home services: Yes Tobacco History: Patient Tobacco Use Status: Former Tobacco user. Quit smoking in 1996. Tobacco use type: Cigarette Years Smoked: 30 e-Cigarette/Vaping Use: Never Used Second Hand Smoke Exposure: No [facility] Medical History: Medical History (Last Reviewed 10/06/22 @ 08:46 by Jace Dodd) Anxiety Arterial occlusive disease Chest discomfort Chronic respiratory failure COPD (chronic obstructive pulmonary disease) Discoid lupus Diverticulitis DVT (deep venous thrombosis) Dyspnea Encounter for monitoring azathioprine therapy GERD (gastroesophageal reflux disease) Greater saphenous vein embolism Hiatal hernia Hypercholesterolemia Hypertension Iliac artery occlusion Left leg DVT Lupus (systemic lupus erythematosus) Osteopenia Pleuritic chest pain Pulmonary embolism Pulmonary nodule Pulmonary nodules Restless leg Thrombus of aorta Family History: Family History (Last Reviewed 10/06/22 @ 08:46 by Jace Dodd) Father Hypertension Cancer Mother Hypertension Stroke CVD (cardiovascular disease) Surgical History: Surgical History (Last Reviewed 10/06/22 @ 08:46 by Jace Dodd) Bilateral pulmonary embolism History of breast biopsy History of cataract surgery History of foot surgery History of toe surgery History of total abdominal hysterectomy and bilateral salpingo-oophorectomy Social History: Social History (Last Updated 10/06/22 @ 08:46 by Jace Dodd) Living Situation History: Household Members: None Housing: House Do you presently have visiting nurse or other home services: Yes Tobacco History: Patient Tobacco Use Status: Former Tobacco user Tobacco use type: Cigarette Years Smoked: 30 e-Cigarette/Vaping Use: Never Used Second Hand Smoke Exposure: No Advance Directives: Advance Directives: No Advance Directives Information Provided: Yes Occupation Assessmet: service: No Current occupational status: retired Home Medications and Allergies Home Medications Medication Instructions Recorded Confirmed Type aspirin 81 mg tablet,delayed 81 mg PO DAILY 02/27/20 10/06/22 History release (Adult Aspirin Regimen) calcium carbonate 600 mg calcium 600 mg PO DAILY 02/27/20 10/06/22 History (1,500 mg) tablet (Calcium) cholecalciferol (vitamin D3) 25 25 mcg PO DAILY 02/27/20 10/06/22 History mcg (1,000 unit) capsule mirabegron 25 mg tablet,extended 25 mg PO DAILY 02/27/20 10/06/22 History release 24 hr (Myrbetriq) pramipexole 1 mg tablet 1 mg PO BEDTIME 03/03/22 10/06/22 History Oxygen Home Use 04/11/22 09/06/22 History fluocinonide 0.05 % topical 1 appl topical BID-QID PRN Itching 04/11/22 10/06/22 History ointment gabapentin 300 mg capsule 300 mg PO BEDTIME 08/16/22 10/06/22 History latanoprost 0.005 % eye drops 1 drp ophthalmic (eye) BEDTIME 08/16/22 10/06/22 History nebulizers 09/18/22 History ipratropium 0.5 mg-albuterol 3 mg 3 ml inhalation TID 09/20/22 10/06/22 History (2.5 mg base)/3 mL nebulization soln tramadol 50 mg tablet 50 mg PO BID PRN Pain 09/20/22 10/06/22 History Allergies Allergy/AdvReac Type Severity Reaction Status Date / Time amlodipine Allergy Unknown leg Verified 10/06/22 08:46 swelling, swelling atorvastatin [Lipitor] Allergy Unknown Unknown Verified 10/06/22 08:46 hydroxychloroquine Allergy Unknown Affected Verified 10/06/22 08:46 [From Plaquenil] eye sight metoprolol Allergy Unknown Swelling Verified 10/06/22 08:46 Physical Exam Vital signs: Vital Signs Temp 97.3 F 10/06/22 08:44 Pulse 88 10/06/22 08:44 BP 197/88 H 10/06/22 08:44 Pulse Ox 95 10/06/22 08:44 O2 Del Method Room Air 10/06/22 08:44 Intake & Output 10/05/22 10/06/22 10/06/22 18:59 06:59 18:59 Other: Weight 61.2 kg Weight in Grams 52442 Weight 61.2 kg Hem/Onc Consult Result - Labs CBC & Chem 7: 10/06/22 09:29 10/06/22 09:29 Assessment and Plan Patient Active problem list reviewed?: Yes (1) Bilateral pulmonary embolism Status: Acute Assessment and plan: This is a pleasant 86-year-old woman who was admitted with recurrent submassive bilateral pulmonary emboli and anemia. Bilateral lower extremity Doppler revealed bilateral DVT, nonocclusive thrombus in the right posterior tibial vein and occlusive thrombus in the distal left posterior tibial vein. She was initially diagnosed in February 2020, she was on anticoagulation for over a year. She had an IVC filter placed at [facility] and was taken off anticoagulation a few months ago. Thrombophilia workup including lupus anticoagulant test was negative in the past. CT angiogram did not show any suspicious lung lesions or evidence of malignancy. She had a CT abdomen/pelvis in 2021 which also did not show any evidence of malignancy. However, patient does report significant weight loss in the last 4-6 months. She has a history of SLE, she was on methotrexate in the past. She was recently switched to dapsone 100 mg daily in May 2022. 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 She was initially treated with anticoagulation with unfractionated heparin. She was then switched to oral anticoagulation, Xarelto, at the time of discharge. She is currently on 15 mg b.i.d. dose. PLAN: Since this is her 2nd episode of thromboembolism she will require indefinite anticoagulation. She will stay on the Xarelto. She already has the 20 mg daily dose prescription. I will check a D-dimer level:215. She will return in 3 months for a follow-up. I thank you for this consultation. CC: Dr. Staurt. (2) Anemia Status: Acute Assessment and plan: 86-year-old lady admitted to the hospital with bilateral pulmonary emboli. She has a history of SLE, she was on methotrexate in the past. She was recently switched to dapsone 100 mg daily in May 2022. On 09/22 hemoglobin was 8.4. Retic 4.6, haptoglobin 12, LDH 318, B12 436, folate 17.8. She had developed worsening macrocytic anemia with elevated LDH and mild hyperbilirubinemia suggestive of hemolytic anemia which can be seen with dapsone. Other possibility is hemolysis secondary to Bactrim that she received recently for UTI. Iron levels, vitamin B12 and folic acid levels were normal. She received 1 blood transfusion, appropriately. The dapsone was discontinued. PLAN: I will follow-up on her blood count: HGB 10.4. Check a hemolytic screen: LDH: 297. Check ferritin: 307. I will continue to monitor her labs. She will return in 3 months for a follow-up. CC: Dr. Stuart. - Time Spent With Patient Time Spent with Patient (in minutes): 30
[2022-10-06 09:30] LABS: MANUAL DIFF FLAG NO
--- NOTE | 2022-10-06 09:31 | MHC.HEMONCMA ---
patient seen today for macrosytic anemia, vss, labs, following up in 3 months with provider
[2022-10-06 09:52] LABS: Basophils Absolute Auto 0.1 X10*3/uL (0.0-0.2); Eosinophils Absolute Auto 0.1 X10*3/uL (0.0-0.4); Eosinophils Percent Auto 1.4 % (0-4); Hematocrit 34.3 % (37.0-47.0); Hemoglobin 10.4 g/dl (12.0-16.0); Imm Gran Abs Auto 0.07 X10*3/uL (0.00-0.03); Imm Gran Pct Auto 0.8 % (0.0-0.4); Lymphocytes Absolute Auto 2.1 X10*3/uL (1.2-4.9); Lymphocytes Percent Auto 24.4 % (20-40); Mean Corpuscular HGB Conc 30.3 g/dl (31.0-35.0); Mean Corpuscular Hemoglobin 32.8 pg (27.0-33.0); Mean Corpuscular Volume 108.2 fL (80.0-98.0); Mean Platelet Volume 9.1 fL (9.4-12.3); Monocytes Absolute Auto 0.5 X10*3/uL (0.1-1.2); Monocytes Percent Auto 5.7 % (2-11); Neutrophils Absolute Auto 5.8 x10*3/uL (2.0-8.3); Neutrophils Percent Auto 66.7 % (45-73); Platelet Count 455 X10*3/uL (160-400); Red Blood Count 3.17 X10*6/uL (4.20-5.50); Red Cell Distribution Width 17.7 % (11.0-16.0); White Blood Count 8.7 X10*3/uL (4.8-10.8)
[2022-10-06 10:01] LABS: D Dimer High Sensitivity 215 NG/ML
[2022-10-06 10:16] LABS: Alanine Aminotransferase 18 U/L (0-31); Albumin Level 3.9 g/dL (3.5-5.0); Alkaline Phosphatase 74 U/L (39-117); Anion Gap 11 (12-20); Aspartate Amino Transferase 22 U/L (5-31); Bilirubin Total 0.6 mg/dL (0.0-1.0); Blood Urea Nitrogen 16 mg/dL (9-16); Calcium 9.4 mg/dL (8.4-10.2); Carbon Dioxide 31 mmol/L (22-29); Chloride 108 mmol/L (96-108); Creatinine Clr Calc Pharmacy 49.7; Estimated Glomerular Filt Rate > 60; Glucose Random 93 mg/dL (60-115); Potassium 4.9 mmol/L (3.3-5.1); Sodium 145 mmol/L (135-145); Total Protein 5.9 g/dL (6.5-8.0)
[2022-10-06 10:41] LABS: Ferritin 307 ng/mL (10-250); Lactate Dehydrogenase 297 U/L (122-220)
[2023-01-11 09:43] LABS: MANUAL DIFF FLAG NO
[2023-01-11 09:51] VITALS: BP 184/84; PULSE 85; O2SAT 95; BMI 26.4
[2023-01-11 09:52] LABS: Basophils Absolute Auto 0.1 X10*3/uL (0.0-0.2); Basophils Percent Auto 0.6 % (0-2); Eosinophils Absolute Auto 0.1 X10*3/uL (0.0-0.4); Eosinophils Percent Auto 0.9 % (0-4); Hematocrit 43.1 % (37.0-47.0); Hemoglobin 13.9 g/dl (12.0-16.0); Imm Gran Abs Auto 0.06 X10*3/uL (0.00-0.03); Imm Gran Pct Auto 0.5 % (0.0-0.4); Lymphocytes Absolute Auto 2.7 X10*3/uL (1.2-4.9); Lymphocytes Percent Auto 21.5 % (20-40); Mean Corpuscular HGB Conc 32.3 g/dl (31.0-35.0); Mean Corpuscular Hemoglobin 30.4 pg (27.0-33.0); Mean Corpuscular Volume 94.3 fL (80.0-98.0); Monocytes Absolute Auto 0.8 X10*3/uL (0.1-1.2); Monocytes Percent Auto 6.3 % (2-11); Neutrophils Absolute Auto 8.8 x10*3/uL (2.0-8.3); Neutrophils Percent Auto 70.2 % (45-73); Platelet Count 325 X10*3/uL (160-400); Red Blood Count 4.57 X10*6/uL (4.20-5.50); Red Cell Distribution Width 14.3 % (11.0-16.0); White Blood Count 12.5 X10*3/uL (4.8-10.8)
--- NOTE | 2023-01-11 09:54 | P.PNHO-ONC_ITS ---
Medical Summary - Medical Summary Date of Service: 01/11/23 Chief complaint: Follow-up for: Pulmonary embolism. Primary Care Provider: Fabio Stuart MD Medical Summary: DIAGNOSIS: PULMONARY EMBOLISM. CURRENT THERAPY: Xarelto 20 mg daily. Interval History Interval history: Kelly Miller is a 87 year old lady, here for a follow up visit. She is feeling pretty good. She lives by herself. She is currently going for pulmonary rehab. She has H/O COPD. She is walking on the treadmill. she is making quilts. She is still driving. No CP/SOB. She enjoys a good apetite. Her weight is stable. She is sad. Her a month ago. Rest of the ROS is unremarkable. PRESENTING HISTORY: She had presented to ED with complaints of worsening shortness of breath. She has a history significant for DVT with pulmonary emboli in 2019. She has had an IVC filter placed few months ago. Patient's symptoms worsened in the last 2 weeks, she developed pleuritic chest pain which was worse on the right side. Patient also states that she lost over 20 lb in the last 5-6 months. Her appetite has been poor. Patient denies any other symptoms of nausea, emesis, reflux symptoms or change in bowel habits. In the ED she was afebrile but tachycardic to 102, tachypneic up to 22, and hypotensive as low as 109/47. Labs were significant for leukocytosis of 17.6, H&H 9.7/31.2, BUN of 32 and creatinine 0.97 (both above baseline), bilirubin elevated at 2.1. CT?of chest showed emphysema with possible new small scattered peripheral infiltrates, and no evidence of pleural effusions or empyema, and with question of new small right pulmonary nodules of less than 6 mm. Chest CTA found: POSITIVE LARGE PULMONARY EMBOLI. Multiple large fully occlusive and partially occlusive found in central branches of the pulmonary arteries right and left. There is mild Cardiac septal bowing and high RV LV ratio suggesting CARDIAC STRAIN. Multiple large fully occlusive and partially occlusive pulmonary emboli in the central branches of the pulmonary arteries right and left, with mild Cardiac septal bowing and high RV and LV ratio suggesting cardiac strain. She was started on unfractionated heparin to treat her pulmonary emboli. Patient was noted to have worsening anemia with macrocytosis. Concern was dapsone related hemolysis. The dapsone has been discontinued. She is now here for a post hospitalization consult. Overall she has felt better. She has more energy now. She still not sleeping too well. No fever chills no night sweats. Her breathing has improved. She only gets short of breath on climbing stairs now. She has home oxygen at 2 L a minute. Appetite is picking up. She has gained weight. Review of Systems - Constitutional: Reports improved energy. Appetite picked up. Weight is up. - Cardiovascular: Reports shortness of breath only on exertion, no additional cardiovascular complaints - Respiratory: Reports no additional respiratory complaints, just exertional dyspnea. - Gastrointestinal Reports no additional gastrointestinal complaints. She had a colonoscopy long time ago by Dr. Smith. - : No dysuria or hematuria. - musculoskeletal: She has history of discoid lupus. She has osteoporosis. - Neurologic Denies dizziness, Denies memory loss, Denies seizure-like activity - dermatological: She has skin rash on the neck and arms from the discoid lupus. REPLACED BY [facility] Medical History: history of COPD/emphysema. Systemic lupus erythematosus. She was also started on dapsone in May 2022 for SLE. Prior to that she was on methotrexate, switch was made because she did not respond to methotrexate. She was recently treated for UTI with Bactrim. Medical History: Anxiety Arterial occlusive disease Chest discomfort Chronic respiratory failure COPD (chronic obstructive pulmonary disease) Discoid lupus Diverticulitis DVT (deep venous thrombosis) Dyspnea Encounter for monitoring azathioprine therapy GERD (gastroesophageal reflux disease) Greater saphenous vein embolism Hiatal hernia Hypercholesterolemia Hypertension Iliac artery occlusion Left leg DVT Lupus (systemic lupus erythematosus) Osteopenia Pleuritic chest pain Pulmonary embolism Pulmonary nodule Pulmonary nodules Restless leg Thrombus of aorta Surgical History: Bilateral pulmonary embolism History of breast biopsy History of cataract surgery History of foot surgery History of toe surgery History of total abdominal hysterectomy and bilateral salpingo-oophorectomy. Family History: Father : Hypertension, lung Cancer, 3 days after surgery at the age of 64. Mother : Hypertension, Stroke, CVD (cardiovascular disease),. at 89. 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 She is . [facility] She had 2 kids. Living Situation History: Household Members: None Housing: House Do you presently have visiting nurse or other home services: Yes Tobacco History: Patient Tobacco Use Status: Former Tobacco user. Quit smoking in 1996. Tobacco use type: Cigarette Years Smoked: 30 e-Cigarette/Vaping Use: Never Used Second Hand Smoke Exposure: No Review of Systems - Constitutional Reports no additional constitutional complaints, Reports lack of energy - Eyes Reports no additional eye complaints - ENT Reports no additional ear, nose, mouth, and throat complaints - Cardiovascular Reports no additional cardiovascular complaints - Respiratory Reports no additional respiratory complaints - Gastrointestinal Reports no additional gastrointestinal complaints - Genitourinary Reports no additional female genitourinary complaints - Musculoskeletal Reports no additional musculoskeletal complaints - Integumentary/Breasts Skin/Breast: Reports no additional skin complaints - Neurologic Reports no additional neurologic complaints - Psychiatric Reports no additional psychiatric complaints - Endocrine Reports no additional endocrine complaints - Hematologic/Lymphatic Reports no additional hematologic/lymphatic complaints - Allergic/Immunologic Reports no additional allergic/immunologic complaints REPLACED BY [facility] Medical History: Medical History (Last Reviewed 01/11/23 @ 09:48 by Jace Dodd) Anxiety Arterial occlusive disease Chest discomfort Chronic respiratory failure COPD (chronic obstructive pulmonary disease) Discoid lupus Diverticulitis DVT (deep venous thrombosis) Dyspnea Encounter for monitoring azathioprine therapy GERD (gastroesophageal reflux disease) Greater saphenous vein embolism Hiatal hernia Hypercholesterolemia Hypertension Iliac artery occlusion Left leg DVT Lupus (systemic lupus erythematosus) Osteopenia Pleuritic chest pain Pulmonary embolism Pulmonary nodule Pulmonary nodules Restless leg Thrombus of aorta Functional capacity: independent ambulation Patient : No Family History: Family History (Last Reviewed 01/11/23 @ 09:48 by Jace Dodd) Father Hypertension Cancer Mother Hypertension Stroke CVD (cardiovascular disease) Surgical History: Surgical History (Last Reviewed 01/11/23 @ 09:48 by Jace Dodd) Bilateral pulmonary embolism History of breast biopsy History of cataract surgery History of foot surgery History of toe surgery History of total abdominal hysterectomy and bilateral salpingo-oophorectomy Social History: Social History (Last Reviewed 01/11/23 @ 09:48 by Jace Dodd) Living Situation History: Household Members: None Housing: House Do you presently have visiting nurse or other home services: Yes Alcohol History Details: 1. How often do you have a drink containing alcohol?: a. Never Tobacco History: Patient Tobacco Use Status: Former Tobacco user Tobacco use type: Cigarette Years Smoked: 30 e-Cigarette/Vaping Use: Never Used Second Hand Smoke Exposure: No Domestic Abuse History: Have you been hit, kicked, punched, or otherwise hurt by someone within the past year? If so, by whom?: No Is there a partner from a previous relationship who is making you feel unsafe now?: No Homicidal Assessment: Do you have thoughts of harming others: None Occupation Assessmet: service: No Current occupational status: retired Oncology Screenings - ECOG Performance Status ECOG Performance Status: 0 Home Medications and Allergies Home Medications Medication Instructions Recorded Confirmed Type calcium carbonate 600 mg calcium 600 mg PO DAILY 02/27/20 01/11/23 History (1,500 mg) tablet (Calcium) cholecalciferol (vitamin D3) 25 25 mcg PO DAILY 02/27/20 01/11/23 History mcg (1,000 unit) capsule mirabegron 25 mg tablet,extended 25 mg PO DAILY 02/27/20 01/11/23 History release 24 hr (Myrbetriq) pramipexole 1 mg tablet 1 mg PO BEDTIME 03/03/22 01/11/23 History Oxygen Home Use 04/11/22 01/11/23 History fluocinonide 0.05 % topical 1 appl topical BID-QID PRN Itching 04/11/22 01/11/23 History ointment gabapentin 300 mg capsule 300 mg PO BEDTIME 08/16/22 01/11/23 History latanoprost 0.005 % eye drops 1 drp ophthalmic (eye) BEDTIME 08/16/22 01/11/23 History nebulizers 09/18/22 01/11/23 History ipratropium 0.5 mg-albuterol 3 mg 3 ml inhalation TID 09/20/22 01/11/23 History (2.5 mg base)/3 mL nebulization soln tramadol 50 mg tablet 50 mg PO BID PRN Pain 09/20/22 01/11/23 History Allergies Allergy/AdvReac Type Severity Reaction Status Date / Time amlodipine Allergy Unknown leg Verified 01/11/23 09:49 swelling, swelling atorvastatin [Lipitor] Allergy Unknown Unknown Verified 01/11/23 09:49 hydroxychloroquine Allergy Unknown Affected Verified 01/11/23 09:49 [From Plaquenil] eye sight metoprolol Allergy Unknown Swelling Verified 01/11/23 09:49 Exam Vital signs: Vital Signs Temp 97.3 F 10/06/22 08:44 Pulse 85 09/07/23 09:51 BP 184/84 H 01/11/23 09:51 Pulse Ox 95 01/11/23 09:51 O2 Del Method Room Air 01/11/23 09:51 Intake & Output 01/10/23 01/11/23 01/11/23 18:59 06:59 18:59 Other: Weight 59.3 kg [place] Weight in Grams [id number] Weight 59.3 kg BMI result Body Mass Index 26.4 - Constitutional Present: no acute distress - Routine HEENT Exam Head: Present: normal inspection Eye: Present: normal appearance ENT: Present: mucous membranes moist - Routine Neck Exam Present: full ROM - Routine Respiratory Exam Present: CTAB - Routine Cardiovascular Exam Cardiovascular: Present: RRR, S1, S2 - Routine Abdominal Exam Present: soft, nontender - Routine Rectal Exam Patient deferred: digital exam - Routine Extremities Exam Present: nontender - Routine Back/Spine/Pelvis Exam Back/Spine: Present: full ROM - Routine Skin Exam Present: intact - Routine Neurological Exam Present: alert, oriented X3 - Routine Psychiatric Exam Present: normal affect Data - Labs CBC & Chem 7: 01/11/23 09:42 01/11/23 09:42 Labs: 10/06/22 09:29 Complete Blood Count Auto Diff Stat Comprehensive Met. Panel Stat D Dimer High Sensitivity Stat Ferritin Routine Lactate Dehydrogenase Routine 01/11/23 09:42 Complete Blood Count Auto Diff Stat Laboratory Last Values WBC 12.5 X10*3/uL (4.8-10.8) H 01/11/23 09:42 RBC 4.57 X10*6/uL (4.20-5.50) 01/11/23 09:42 Hgb 13.9 g/dl (12.0-16.0) 01/11/23 09:42 Hct 43.1 % (37.0-47.0) 01/11/23 09:42 MCV 94.3 fL (80.0-98.0) 01/11/23 09:42 MCH 30.4 pg (27.0-33.0) 01/11/23 09:42 MCHC 32.3 g/dl (31.0-35.0) 01/11/23 09:42 RDW 14.3 % (11.0-16.0) 01/11/23 09:42 Plt Count 325 X10*3/uL (160-400) 01/11/23 09:42 MPV 9.0 fL (9.4-12.3) L 01/11/23 09:42 Immature Gran % (Auto) 0.5 % (0.0-0.4) H 01/11/23 09:42 Neut % (Auto) 70.2 % (45-73) 01/11/23 09:42 Lymph % (Auto) 21.5 % (20-40) 01/11/23 09:42 [place] % (Auto) 6.3 % (2-11) 01/11/23 09:42 Eos % (Auto) 0.9 % (0-4) 01/11/23 09:42 Baso % (Auto) 0.6 % (0-2) 01/11/23 09:42 Lymph # (Auto) 2.7 X10*3/uL (1.2-4.9) 01/11/23 09:42 [place] # (Auto) 0.8 X10*3/uL (0.1-1.2) 01/11/23 09:42 Eos # (Auto) 0.1 X10*3/uL (0.0-0.4) 01/11/23 09:42 Baso # (Auto) 0.1 X10*3/uL (0.0-0.2) 01/11/23 09:42 Abs Immat Gran (auto) 0.06 X10*3/uL (0.00-0.03) H 01/11/23 09:42 Absolute Neuts (auto) 8.8 x10*3/uL (2.0-8.3) H 01/11/23 09:42 Absolute Nucleated RBC 0.000 X10*3/uL (0.0-0.012) 01/11/23 09:42 Nucleated RBC % (auto) 0.0 /100WBC (0.0-0.2) 01/11/23 09:42 D-Dimer High Sensitivty 215 NG/ML 10/06/22 09:29 Sodium 145 mmol/L (135-145) 10/06/22 09:29 Potassium 4.9 mmol/L (3.3-5.1) 10/06/22 09:29 Chloride 108 mmol/L (96-108) 10/06/22 09:29 Carbon Dioxide 31 mmol/L (22-29) H 10/06/22 09:29 Anion Gap 11 (12-20) L 10/06/22 09:29 BUN 16 mg/dL (9-16) 10/06/22 09:29 Creatinine 0.67 mg/dL (0.5-1.4) 10/06/22 09:29 Estim Creat Clear Calc 49.7 10/06/22 09:29 Estimated GFR > 60 10/06/22 09:29 Random Glucose 93 mg/dL (60-115) 10/06/22 09:29 Calcium 9.4 mg/dL (8.4-10.2) 10/06/22 09:29 Ferritin 307 ng/mL (10-250) H 10/06/22 09:29 Total Bilirubin 0.6 mg/dL (0.0-1.0) 10/06/22 09:29 AST 22 U/L (5-31) 10/06/22 09:29 ALT 18 U/L (0-31) 10/06/22 09:29 Alkaline Phosphatase 74 U/L (39-117) 10/06/22 09:29 Lactate Dehydrogenase 297 U/L (122-220) H 10/06/22 09:29 Total Protein 5.9 g/dL (6.5-8.0) L 10/06/22 09:29 Albumin 3.9 g/dL (3.5-5.0) 10/06/22 09:29 Assessment and Plan Patient Active problem list reviewed?: Yes (1) Bilateral pulmonary embolism Status: Acute Assessment and plan: This is a pleasant 86-year-old woman who was admitted with recurrent submassive bilateral pulmonary emboli and anemia. Bilateral lower extremity Doppler revealed bilateral DVT, nonocclusive thrombus in the right posterior tibial vein and occlusive thrombus in the distal left posterior tibial vein. She was initially diagnosed in February 2020, she was on anticoagulation for over a year. She had an IVC filter [facility] and was taken off anticoagulation a few months ago. Thrombophilia workup including lupus anticoagulant test was negative in the past. CT angiogram did not show any suspicious lung lesions or evidence of malignancy. She had a CT abdomen/pelvis in 2021 which also did not show any evidence of malignancy. However, patient does report significant weight loss in the last 4-6 months. She has a history of SLE, she was on methotrexate in the past. She was recently switched to dapsone 100 mg daily in May 2022. 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 She was initially treated with anticoagulation with unfractionated heparin. She was then switched to oral anticoagulation, Xarelto, at the time of discharge. She is currently on 20mg daily dose. PLAN: She will require indefinite anticoagulation, since this is her 2nd episode of thromboembolism. She will continue on the Xarelto 20 mg daily dose. I will check a D-dimer level: <150. She will return in 6 months for a follow-up. CC: Dr. Stuart. (2) Anemia Status: Acute Assessment and plan: 87 year-old lady admitted to the hospital with bilateral pulmonary emboli. She has a history of SLE, she was on methotrexate in the past. She was recently switched to dapsone 100 mg daily in May 2022. On 09/22 hemoglobin was 8.4. Retic 4.6, haptoglobin 12, LDH 318, B12 436, folate 17.8. She had developed worsening macrocytic anemia with elevated LDH and mild hyperbilirubinemia suggestive of hemolytic anemia which can be seen with dapsone. Other possibility is hemolysis secondary to Bactrim that she received recently for UTI. Iron levels, vitamin B12 and folic acid levels were normal. She received 1 blood transfusion, appropriately. The dapsone was discontinued. PLAN: I will follow-up on her blood count: HGB 13.9. Checked a hemolytic screen: LDH: 297. Checked ferritin: 307. Blood count has normalized. I will continue to monitor her labs. She will return in 6 months for a follow-up. CC: Dr. Stuart. - Time Spent With Patient Time Spent with Patient (in minutes): 25
[2023-01-11 10:01] LABS: D Dimer High Sensitivity < 150 NG/ML
[2023-01-11 10:03] LABS: Alanine Aminotransferase 18 U/L (0-31); Albumin Level 4.4 g/dL (3.5-5.0); Alkaline Phosphatase 81 U/L (39-117); Anion Gap 11 (12-20); Aspartate Amino Transferase 25 U/L (5-31); Blood Urea Nitrogen 19 mg/dL (9-16); Calcium 10.6 mg/dL (8.4-10.2); Carbon Dioxide 34 mmol/L (22-29); Chloride 102 mmol/L (96-108); Creatinine Clr Calc Pharmacy 38.3; Estimated Glomerular Filt Rate > 60; Glucose Random 94 mg/dL (60-115); Potassium 4.4 mmol/L (3.3-5.1); Sodium 143 mmol/L (135-145); Total Protein 7.4 g/dL (6.5-8.0)
== END 2023-02-05 | disposition home or self-care (01) ==
LOC: HO.ONC 09:40
PROVIDERS: PCP Internal Medicine; Visit Provider Internal Medicine Medical Oncology
DX: I26.99 Other pulmonary embolism without acute cor pulmonale (principal); I82.443 Acute embolism and thrombosis of tibial vein, bilateral; D64.9 Anemia, unspecified; M32.9 Systemic lupus erythematosus, unspecified; Z79.01 Long term (current) use of anticoagulants; Z79.899 Other long term (current) drug therapy; Z95.828 Presence of other vascular implants and grafts
CPT/HCPCS: 36415; 80053; 82728; 83615; 85025; 85379; 99204; 99213

== ENCOUNTER → 2023-01-16 13:50 | Outpatient (REF) | payer MEDICARE, OTHER, SELFPAY ==
--- NOTE | 2023-01-16 13:53 | CA_ITS ---
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 Findings Left Ventricle Normal left ventricular cavity size. There is moderately increased left ventricular wall thickness. The left ventricular systolic function is normal. The visually estimated ejection fraction is between 60-65%. Right Ventricle Normal right ventricular cavity size and systolic function. Tricuspid Valve There is trace tricuspid valve regurgitation. There is no evidence of pulmonary hypertension. Venous The inferior vena cava is normal in size and collapses greater than 50% with inspiration. Prior Study Comparison No significant change compared to prior study dated: 10/20/2022. Reporting delayed due to technical reasons. Measurements 2D Linear Measurements IVSd: 1.37 0.6-0.9/0.6-1.0 cm LVIDd: 3.73 3.9-5.3/4.2-5.9 cm LVIDd Index: 2.42 2.4-3.2/2.2-3.1 cm/m2 LVIDs: 2.45 2.0-3.6 cm LVPWd: 1.36 0.7-1.1 cm LV Mass: 226.40 67-162/88-224 g LV Mass Index: 147.01 43-95/49-115 g/m2 Tricuspid Valve TR Pk Kemal: 2.03 TR Pk Grad: 16.00 RA Press: 3.00 RVSP: 19.00 RASP: 3.00 Updated in Other Vendor System with Status of Final Guanaco Schmid MD electronically signed on 01/20/2023 11:36:40 AM with status of Final
== END ==
LOC: HO.CARD 13:50
PROVIDERS: PCP Internal Medicine; Visit Provider Internal Medicine Cardiovascular Disease
DX: I27.20 Pulmonary hypertension, unspecified (principal)
CPT/HCPCS: 93308

== ENCOUNTER → 2023-01-16 13:53 | Outpatient (BNV) | payer MEDICARE, OTHER, SELFPAY | PROVIDERS: PCP Internal Medicine; Visit Provider Internal Medicine | DX: R94.31 Abnormal electrocardiogram [ECG] [EKG] (principal) | CPT/HCPCS: 93308 ==

== ENCOUNTER 2023-01-22 12:47 | Outpatient (AMB) | payer MEDICARE, OTHER, SELFPAY ==
[2023-01-22 12:48] VITALS: BP 158/80; PULSE 83; O2SAT 96; BMI 26.5
--- NOTE | 2023-01-22 12:48 | MHC.PC.OV ---
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 Required: No Accompanied by: Self / Same As Patient Allergies amlodipine Allergy (Unknown, Verified 01/22/23 12:52) leg swelling, swelling atorvastatin [Lipitor] Allergy (Unknown, Verified 01/22/23 12:52) Unknown hydroxychloroquine [From Plaquenil] Allergy (Unknown, Verified 01/22/23 12:52) Affected eye sight metoprolol Allergy (Unknown, Verified 01/22/23 12:52) Swelling Tobacco use date assessed: 10/13/22 Fall risk assessment: No Falls in past year Last assessed Fall Risk: 01/22/23 Dental Screening Dental Screen Date: 01/22/23 Did you have a dental visit in the last 12 months?: No Did you have a dental problem in the last 6 months where you did not have access to dental care?: No Was dental information given to patient?: Patient has dentist HPI 2-3 month f/u HPI Details 87-year-old female with multiple medical problems history of bilateral pulmonary embolism cutaneous lupus erythematosus osteoporosis history of T9 vertebral compression fracture, hypercholesterolemia hypertension coming in for follow-up. Last seen in October 2022. Recent echocardiogram revealing no evidence of pulmonary hypertension. 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 Patient also follows up with Rheumatology seen in December 2022 with right hip pain and evaluation of the lupus. Treatment changes due to inefficacy with hydroxychloroquine methotrexate and the Actrtin. Dapsone was effective but developed hemolytic. Presently was started with azathioprine 50 mg once a day. Patient also follows up with Pulmonary presently on oxygen 3 L continue with Trelegy continue on anticoagulation. Advised to continue with rehab otherwise patient has been doing good been no nausea no vomiting no increasing shortness of breath has constipation and knows to drink enough fluids. As for the incontinence on the medication but knows the problem of waiting too long. [facility] Medical History Anxiety Arterial occlusive disease Chest discomfort Chronic respiratory failure COPD (chronic obstructive pulmonary disease) Discoid lupus Diverticulitis DVT (deep venous thrombosis) Dyspnea Encounter for monitoring azathioprine therapy GERD (gastroesophageal reflux disease) Greater saphenous vein embolism Hiatal hernia Hypercholesterolemia Hypertension Iliac artery occlusion Left leg DVT Lupus (systemic lupus erythematosus) Osteopenia Pleuritic chest pain Pulmonary embolism Pulmonary nodule Pulmonary nodules Restless leg Thrombus of aorta Surgical History Bilateral pulmonary embolism History of toe surgery History of breast biopsy History of foot surgery History of cataract surgery History of total abdominal hysterectomy and bilateral salpingo-oophorectomy Family History Father Hypertension Cancer Mother Hypertension Stroke CVD (cardiovascular disease) Social History Household Members: None Housing: House Do you presently have visiting nurse or other home services: Yes Alcohol intake: never Patient Tobacco Use Status: Former Tobacco user Tobacco use type: Cigarette Years Smoked: 30 e-Cigarette/Vaping Use: Never Used Second Hand Smoke Exposure: No service: No Current occupational status: retired Cognitive needs: Yes Hearing needs: No Vision needs: Yes Questionnaire Thrive Questionnaire Date Thrive assessed: 06/29/22 PAULA-7 AMB Questionnaire PAULA-7 Date PAULA - 7 assessed: 06/29/22 Source: Developed by Drs. Asim Penaloza, Deepthi Santana, Noé Valiente and colleagues, with an educational derek from [employer]. Physical exam (Primary Care) Vital Signs: Last Vital Signs Pulse 83 01/22/23 12:48 BP 158/80 H 01/22/23 12:48 Pulse Ox 96 01/22/23 12:48 Oxygen Delivery Method Room Air 01/22/23 12:48 BMI result Body Mass Index 26.5 Tobacco/Smoking Status: Tobacco use Status Tobacco use date assessed 10/13/22 01/22/23 12:57 Patient Tobacco Use Status Former Tobacco user 01/22/23 12:57 Tobacco use type Cigarette 01/22/23 12:57 e-Cigarette/Vaping Use Never Used 01/22/23 12:57 Thrive Assessment: Date of Thrive Assessment Date Thrive assessed 06/29/22 01/22/23 12:57 Const General: alert; No acute distress Eyes Conjunctivae: conjunctivae normal Resp Auscultation: clear to auscultation bilaterally Cardio Rate: regular rate Rhythm: regular rhythm GI Inspection: Yes normal to inspection Extrem General: Yes normal to inspection and No edema Assessment and Plan Assessment & Plan (1) Hypertension: Comment: nuclear stress test neg 03/2020, Code(s): I10 - Essential (primary) hypertension Qualifiers: Hypertension type: essential hypertension Qualified Code(s): I10 - Essential (primary) hypertension Plan: Continue with blood pressure medication. Decrease salt intake and exercise patient takes losartan 75 mg once a day (2) Discoid lupus: Code(s): L93.0 - Discoid lupus erythematosus Plan: Patient follows up with Rheumatology has been started on azathioprine (3) Hypercholesterolemia: Code(s): E78.00 - Pure hypercholesterolemia, unspecified Plan: Avoid fried foods, chicken skin, eggs, butter margarine, pastries and meat. Be it pork or beef they have a lot of cholesterol LDL goal of less than 130 and triglyceride of less than 150 patient on rosuvastatin 10 mg once a day (4) Pulmonary embolism: Comment: Bilateral January 2020 [facility], IVC filter placement. Now with reoccurrence Code(s): I26.99 - Other pulmonary embolism without acute cor pulmonale Qualifiers: Pulmonary embolism type: unspecified Chronicity: acute Acute cor pulmonale presence: without acute cor pulmonale Qualified Code(s): I26.99 - Other pulmonary embolism without acute cor pulmonale Plan: Continuing with anticoagulation (5) Compression fracture of L2 lumbar vertebra: Code(s): S32.020A - Wedge compression fracture of second lumbar vertebra, initial encounter for closed fracture Plan: Keep active (6) Acute and chronic respiratory failure with hypoxia: Code(s): J96.21 - Acute and chronic respiratory failure with hypoxia Plan: Continue to have oxygen use. Medications: Changed From losartan 100 mg See Protocol PO DAILY 30 days 30 tabs 3RF I10 - Essential (primary) hypertension To losartan 100 mg See Protocol PO DAILY 90 days 90 tabs 3RF I10 - Essential (primary) hypertension From losartan 75 mg See Protocol PO DAILY 30 days 45 tabs 3RF I10 - Essential (primary) hypertension To losartan 100 mg See Protocol PO DAILY 30 days 30 tabs 3RF I10 - Essential (primary) hypertension Coding Level of Care Code Est Pt Level 4 (87528) Diagnoses Essential hypertension I10 Hypertension type: essential hypertension Discoid lupus L93.0 Hypercholesterolemia E78.00 Acute pulmonary embolism without acute cor pulmonale, unspecified pulmonary embolism type I26.99 Pulmonary embolism type: unspecified Chronicity: acute Acute cor pulmonale presence: without acute cor pulmonale Compression fracture of L2 lumbar vertebra S32.020A Acute and chronic respiratory failure with hypoxia J96.21
[2023-01-22 13:24] VITALS: BP 140/80
== END 2023-01-22 13:33 | disposition home or self-care (01) ==
PROVIDERS: PCP Internal Medicine; Visit Provider Internal Medicine
DX: I10 Essential (primary) hypertension (principal); I26.99 Other pulmonary embolism without acute cor pulmonale; S32.020A Wedge compression fracture of second lumbar vertebra, initial encounter for closed fracture; J96.21 Acute and chronic respiratory failure with hypoxia; L93.0 Discoid lupus erythematosus; E78.00 Pure hypercholesterolemia, unspecified
CPT/HCPCS: 99214

== ENCOUNTER 2023-01-26 13:49 | Inpatient (IN) | payer MEDICARE, OTHER, SELFPAY ==
--- NOTE | ~2023-01-26 | CT_ITS ---
EXAMINATION: CT ABDOMEN AND PELVIS WITHOUT CONTRAST CLINICAL INFORMATION: Abdominal pain COMPARISON: 01/26/2023 TECHNIQUE: Multidetector volumetric imaging was performed from the superior aspect of the liver through the pubic symphysis. Sagittal and coronal reformatted images were obtained on the technologist's workstation. This CT examination was performed using dose optimization techniques as appropriate, variously including the following: *Automated exposure control *Adjustment of mA and/or kV according to patient size (this includes techniques or standardized protocols for targeted exams where dose is matched to indication/reason for exam; i.e. extremities or head) *Use of iterative reconstruction technique DLP: 875 mGy-cm FINDINGS: LUNG BASES: Coronary artery calcifications are present. Trace pericardial effusion. Large hiatal hernia containing debris. Small to moderate right and small left pleural effusions with adjacent dependent atelectasis. LIVER, GALLBLADDER, AND BILIARY TREE: The liver is normal in size, shape, and attenuation. No focal hepatic lesion or biliary ductal dilatation is identified on this noncontrast exam. Gallbladder is distended with suspected wall thickening versus pericholecystic fluid. No densely calcified gallstones are seen. PANCREAS: Moderate fatty atrophy. SPLEEN: Normal size. Redemonstrated splenic cysts as well as a peripheral calcification. ADRENAL GLANDS: Unremarkable. KIDNEYS AND URETERS: No hydronephrosis or obstructing calculus. Subtle persistent nephrograms, with prior IV contrast noted to have been administered 5 days ago. BLADDER: Unremarkable. GASTROINTESTINAL TRACT: No evidence of bowel obstruction. Colonic diverticulosis is noted. Segments of the colon are collapsed which limits evaluation for wall thickening. The appendix is unremarkable. Mild free fluid in the right paracolic gutter and pelvis. No free air is seen. ABDOMINAL WALL: Anasarca. LYMPH NODES: Normal. VASCULAR: Extensive calcification along the aorta and, iliac arteries. IVC filter is present. PELVIC VISCERA: Unremarkable. OSSEOUS STRUCTURES: Multilevel degenerative changes in the spine. Redemonstrated compression deformities at T9 and L2, without significant change from prior. CT/CT abdomen pelvis wo IV con IMPRESSION: 1. Distended gallbladder with suspected wall thickening versus pericholecystic fluid. Though no densely calcified gallstones are seen, CT appearance is suspicious for cholecystitis, which would be better assessed with ultrasound. 2. Persistent bilateral nephrograms with prior IV contrast administered 5 days ago, suggesting a degree of renal dysfunction. 3. Mild free fluid in the right paracolic gutter and pelvis. 4. Small to moderate right and small left pleural effusions. 5. Large hiatal hernia containing debris. 6. Colonic diverticulosis without convincing diverticulitis. 7. Anasarca.
--- NOTE | ~2023-01-26 | XR_ITS ---
EXAMINATION: XR CHEST CLINICAL INFORMATION: Shortness of breath COMPARISON: CT angiography chest from 09/20/2022 TECHNIQUE: Frontal view of the chest was obtained. FINDINGS: Interval development of 1.3 cm nodular focus in the lateral margin of the right mid lung field. Bilateral low lung volumes. Chronic interstitial lung markings. No pneumothorax. Trachea is midline. Cardiomediastinal silhouette is not enlarged. Aorta demonstrates atherosclerotic calcifications. Large hiatal hernia. Degenerative changes of the thoracolumbar spine. Soft tissues are unremarkable. XR/XR chest 1V IMPRESSION: 1. Interval development of 1.3 cm nodular focus in the lateral margin of the right mid lung field. If clinically warranted consider further evaluation with cross-sectional imaging. 2. Bilateral low lung volumes. 3. Chronic interstitial lung markings. 4. Large hiatal hernia.
--- NOTE | ~2023-01-26 | CT_ITS ---
Indication: Pain EXAMINATION: Contrast enhanced CT of the chest abdomen pelvis. Axial imaging with coronal and sagittal reformatted images. 85 mL Omnipaque 350. This CT examination was performed using dose optimization techniques as appropriate, variously including the following: *Automated exposure control *Adjustment of mA and/or kV according to patient size (this includes techniques or standardized protocols for targeted exams where dose is matched to indication/reason for exam; i.e. extremities or head) *Use of iterative reconstruction technique. Radiation dose 395 Comparison is made to previous dated 09/21/2022 and 09/20/2022. CT chest; The thoracic inlet is felt to be within normal limits. The axillary regions are unremarkable. Centrally there is no evidence for bulky adenopathy. Moderate to marked coronary calcium. Once again hiatal hernia are seen. Moderate in size. The hilar regions do not appear pathologically enlarged. Imaging the lung dave. Right lung; There is evidence for COPD. Areas of patchy opacity in the right upper lung laterally. Consistent with small area of infiltrate. Stable 5 mm nodule right lower lung Left lung; Again COPD. Some reticular nodular change in the left upper lung anterior. Image 27 consistent with an infectious infiltrate process. Otherwise chronic markings. CT abdomen pelvis. Liver is within normal limits. Gallbladder within normal limits. Region the pancreas is unremarkable. Once again areas of cystic change with calcification noted in the spleen. Etiology is indeterminate. No significant change from previous. The adrenal glands once again show fullness in the adrenal glands, unchanged. The kidneys are in the early nephrographic phase. No hydronephrosis or stone. Bladder is unremarkable. The bowel pattern is nonobstructing. Diverticulosis but no evidence for diverticulitis. The appendix is within normal limits. Hernia is once again demonstrated. The abdominal wall is felt to be unremarkable. Atherosclerotic change is noted once again noted. Vena cava filter unchanged. There are prominent lymph nodes in the portal region which are felt to be increasing from previous exams. Etiology indeterminate. Review of the bone windows demonstrates degenerative change. Mild superior compression injury at L1 seen previously. CT/CT abdomen pelvis w IV con IMPRESSION: In the chest small patchy area of infiltrate in the right upper lung laterally and reticular nodular infiltrate in the left mid to lower lung zone laterally.. Stable nodularity. Attention to follow-up. In the abdomen pelvis some increasing adenopathy in the portal region of uncertain etiology. This could be reactive to liver. Early malignancy cannot be excluded. . There is no acute finding here. The bowel pattern is within normal limits. Diverticulitis without evidence for diverticulosis.
--- NOTE | ~2023-01-26 | CT_ITS ---
EXAMINATION: CT CHEST WITHOUT CONTRAST CLINICAL INFORMATION: Worsening pneumonia. COMPARISON: Chest x-ray dated 01/28/2023. Chest CT dated 01/26/2023. CT scan of the abdomen dated 11/04/2009. TECHNIQUE: Multidetector volumetric CT imaging of the chest was done. Axial MIP volume rendering provided. Sagittal and coronal reformatted images were obtained. This CT examination was performed using dose optimization techniques as appropriate, variously including the following: *Automated exposure control *Adjustment of mA and/or kV according to patient size (this includes techniques or standardized protocols for targeted exams where dose is matched to indication/reason for exam; i.e. extremities or head) *Use of iterative reconstruction technique DLP: 218 mGy-cm FINDINGS: LUNGS: No change in patchy, geographic, peripheral infiltrate involving the lateral aspect of the right upper lobe (images 152 through 176, series 5) compared with 2 days prior. Mild bilateral interstitial fibrotic changes with a peripheral and basilar predominance. Moderate emphysema. MEDIASTINUM: Suspect normal variant retroesophageal aberrant right subclavian artery. Heart normal in size. Suspect decreased blood pool density, suggesting anemia. Trace pericardial fluid. No evidence of adenopathy by size criteria. CORONARY ARTERY CALCIFICATION: Moderate to severe. PLEURA: There is no pleural effusion. No pleural mass or thickening. AXILLA: No lymphadenopathy by size criteria. UPPER ABDOMEN: Large hiatus hernia. Fluid within the esophagus, suggesting an element of reflux and/or dysmotility. Splenic cysts and/or hemangiomata, not significant changed compared with priors. Severe calcification of the visualized portion of the upper abdominal aorta. Partially imaged retrievable IVC filter. OSSEOUS STRUCTURES: Decreased bone mineral density limits sensitivity for subtle fracture. Severe compression deformity of T9, unchanged compared with 2 days prior. Suspect healed or healing fracture at the anterolateral aspect of the right fifth rib. Suspect healed fractures at the lateral aspect of the right 11th rib and posterior aspect of the left eighth rib. Degenerative changes of the shoulders. CT/CT chest wo IV con IMPRESSION: No significant radiographic change compared with 2 days prior, as above.
--- NOTE | ~2023-01-26 | US_ITS ---
EXAMINATION: US ABDOMEN LIMITED CLINICAL INFORMATION: RUQ R/O ACUTE KEVIN. COMPARISON: CT from the same date TECHNIQUE: Real-time imaging of the right upper quadrant abdominal viscera. FINDINGS: GALLBLADDER: Gallbladder wall is thickened with fluid fluid in the wall as well as surrounding pericholecystic fluid. No cholelithiasis. No appreciable gas within the gallbladder wall. No sonographic Kim's sign. COMMON BILE DUCT: Normal in caliber measuring 0.34 cm in diameter. US/US abdomen limited IMPRESSION: Limited ultrasound of the gallbladder demonstrates a thickened wall with pericholecystic fluid. This is a nonspecific appearance in the absence of cholelithiasis or a positive sonographic Kim's sign and most likely reflects generalized anasarca/third spacing of fluid. Acalculous cholecystitis is on the differential.
--- NOTE | ~2023-01-26 | CT_ITS ---
EXAMINATION: CT ANGIOGRAM OF THE CHEST WITH AND WITHOUT CONTRAST (CT PULMONARY ANGIOGRAM FOR PE) CLINICAL INFORMATION: Reason for Exam Hypoxic, chest pain, tachycardic, SOB COMPARISON: Chest radiograph 01/29/2023, CT chest 01/28/2023 and 01/26/2023 TECHNIQUE: Prior to contrast administration, noncontrast localization images were obtained. Subsequently, multidetector volumetric imaging was performed from the thoracic inlet to below the diaphragms following the administration of 65 mL Omnipaque 350 intravenous contrast. No contrast reaction reported Sagittal, coronal, and MIP oblique sagittal reformatted images were obtained on the CT workstation, uploaded to PACS, and reviewed. This CT examination was performed using dose optimization techniques as appropriate, variously including the following: *Automated exposure control *Adjustment of mA and/or kV according to patient size (this includes techniques or standardized protocols for targeted exams where dose is matched to indication/reason for exam; i.e. extremities or head) *Use of iterative reconstruction technique Total exam dose-length product 201 mGy-cm FINDINGS: QUALITY OF STUDY/CONTRAST BOLUS: Satisfactory. There is marked motion artifact at the lung bases limiting evaluation. PULMONARY ARTERIES: No pulmonary emboli. Exclusion of smaller emboli at the lung bases is difficult. THORACIC AORTA: Calcific aortic plaque is present. No aortic aneurysm. 2 vessel branching pattern of the arch is seen with common trunk involving the innominate and left carotid. There is a stenosis involving the proximal left subclavian artery. LUNGS AND PLEURA: Emphysematous changes are seen in the lungs. Bilateral tiny effusions and basilar atelectasis. The small area of dense infiltration in the right upper lobe laterally is unchanged when compared to the study from yesterday. Some scattered groundglass changes are seen. No suspicious lung masses. MEDIASTINUM: Normal heart size. No pericardial effusion. No hilar or mediastinal lymphadenopathy. No evidence of septal bowing or right heart strain. CORONARY ARTERY CALCIFICATION: Moderate CHEST WALL/AXILLA: No axillary or internal mammary lymphadenopathy. OSSEOUS STRUCTURES: Degenerative changes are present throughout the spine. Severe compression fracture involving T9, unchanged. UPPER ABDOMEN: A large hiatal hernia is present in the esophagus is filled with fluid splenic peripheral hypodensities are seen better appreciated than yesterday. No reflux of contrast into the hepatic veins to suggest elevated right heart pressures. CT/CT angio chest PE protocol IMPRESSION: 1. No evidence of pulmonary emboli. 2. Small area of dense infiltration right upper lobe laterally unchanged when compared to the study from yesterday. 3. Tiny bilateral effusions and basilar atelectasis. 4. Large hiatal hernia. VTE: negative.
--- NOTE | ~2023-01-26 | XR_ITS ---
EXAMINATION: XR CHEST CLINICAL INFORMATION: Hypotension COMPARISON: 01/29/2023 TECHNIQUE: Frontal view of the chest was obtained. FINDINGS: Lung volumes are symmetric. Small pleural effusions are present with adjacent bibasilar opacities, right greater than left, suggesting atelectasis. Prominent central vasculature is more prominent in the right lung than the left. No appreciable pneumothorax. Cardiac silhouette remains enlarged. Redemonstrated large hiatal hernia. Calcification is present at the aortic arch. No acute osseous findings are seen. XR/XR chest 1V IMPRESSION: Small pleural effusions with adjacent bibasilar opacities, right greater than left, suggesting atelectasis. Prominent central vasculature suggesting congestion. Large hiatal hernia.
--- NOTE | ~2023-01-26 | XR_ITS ---
EXAMINATION: XR CHEST CLINICAL INFORMATION: Pneumonia, pain COMPARISON: X-ray 01/26/2023. Correlation CT 01/26/2023 TECHNIQUE: Frontal view of the chest was obtained. FINDINGS: Rotated positioning. Mediastinal cardiac silhouette is slightly prominent, likely related to positioning/technique. Slightly low lung volumes. Multifocal patchy hazy airspace opacities in bilateral lungs, new/increased from previous. Redemonstrated is nodular appearing opacity in the peripheral aspect of the right mid lung field. No significant effusion. No pulmonary edema. No pneumothorax. XR/XR chest 1V IMPRESSION: 1. Multifocal airspace opacities in bilateral lungs, interval worsening as compared to the prior study of 01/26/2023. Findings could reflect infectious or inflammatory process. Recommendation is for a follow-up chest series to be obtained following treatment and/or resolution of symptoms to assure resolution of this appearance. 2. Low lung volumes. 3. Chronic interstitial lung markings.
--- NOTE | ~2023-01-26 | XR_ITS ---
EXAMINATION: XR CHEST CLINICAL INFORMATION: Shortness of breath COMPARISON: Previous chest x-ray and chest CT from yesterday TECHNIQUE: Frontal view of the chest was obtained. FINDINGS: The patient is rotated to the left. The lung volumes are low. The cardiac and mediastinal contours are stable. There is an air-fluid level that projects over the heart corresponding to a large esophageal hernia. There are increased markings at the right lung base questionable for atelectasis or small infiltrate. This could be due to difference in patient positioning and low lung volumes. The lungs are otherwise clear. No pleural effusion or thorax. Degenerative changes of the spine. XR/XR chest 1V IMPRESSION: Low lung volumes. Large esophageal hernia. Question atelectasis or small infiltrate at the right lung base.
[2023-01-26 14:00] VITALS: BP 168/70; PULSE 112; O2SAT 96
--- NOTE | 2023-01-26 14:10 | ECG_ITS ---
Test Reason : FEVER Blood Pressure : / mmHG Vent. Rate : 100 BPM Atrial Rate : 100 BPM P-R Int : 178 ms QRS Dur : 080 ms QT Int : 324 ms P-R-T Axes : 010 -33 006 degrees QTc Int : 417 ms Normal sinus rhythm Possible Left atrial enlargement Left axis deviation Abnormal ECG When compared with ECG of 21-SEP-2022 04:02, Vent. rate has increased BY 33 BPM Referred By: Generic ED Physician Electronically Signed By:SHARRI MOYA
[2023-01-26 14:14] VITALS: BP 173/64; PULSE 105; RESP 22; TEMP 40.2; O2SAT 94; BMI 27.9
[2023-01-26 14:29] LABS: MANUAL DIFF FLAG NO
[2023-01-26] MEDS: ondansetron HCL 4 MG/2 ML VIAL IVPUSH (14:30)
[2023-01-26] MEDS: Acetaminophen 325 MG TABLET 975 MG PO (14:31)
[2023-01-26 14:35] LABS: Basophils Percent Auto 0.4 % (0-2); Eosinophils Absolute Auto 0.1 X10*3/uL (0.0-0.4); Eosinophils Percent Auto 1.2 % (0-4); Hematocrit 36.8 % (37.0-47.0); Imm Gran Abs Auto 0.08 X10*3/uL (0.00-0.03); Imm Gran Pct Auto 0.8 % (0.0-0.4); Lymphocytes Absolute Auto 0.6 X10*3/uL (1.2-4.9); Lymphocytes Percent Auto 5.5 % (20-40); Mean Corpuscular HGB Conc 32.6 g/dl (31.0-35.0); Monocytes Absolute Auto 0.5 X10*3/uL (0.1-1.2); Monocytes Percent Auto 4.5 % (2-11); Neutrophils Absolute Auto 8.8 x10*3/uL (2.0-8.3); Neutrophils Percent Auto 87.6 % (45-73); Platelet Count 232 X10*3/uL (160-400); Red Cell Distribution Width 14.9 % (11.0-16.0)
[2023-01-26 14:45] LABS: Lactic Acid 0.9 mmol/L (0.5-2.0)
[2023-01-26 14:48] LABS: INTERNATIONAL NORM RATIO 1.5 (0.9-1.1); Prothrombin Time 17.7 SEC (11.1-13.3)
[2023-01-26 14:50] LABS: Partial Thromboplastin Time 30.5 SEC (26.0-36.4)
[2023-01-26 14:54] LABS: Anion Gap 15 (12-20); Blood Urea Nitrogen 29 mg/dL (9-16); Calcium 9.1 mg/dL (8.4-10.2); Carbon Dioxide 25 mmol/L (22-29); Chloride 99 mmol/L (96-108); Creatinine Clr Calc Pharmacy 27.5; Estimated Glomerular Filt Rate 43; Glucose Random 136 mg/dL (60-115); Potassium 4.2 mmol/L (3.3-5.1); Sodium 135 mmol/L (135-145)
[2023-01-26 14:55] LABS: B Type Natriuretic Peptide 60 pg/mL (<100)
[2023-01-26] MEDS: 0.9 % Sodium Chloride 500 ML IV (15:13)
[2023-01-26 15:14] VITALS: BP 99/44; PULSE 91; RESP 24; TEMP 38.2; O2SAT 95
[2023-01-26] MEDS: iohexoL 350 MG/ML 100 ML INFUS..BTL IV (16:33)
--- NOTE | 2023-01-26 16:36 | ED_ITS ---
HPI - General Adult General Chief complaint: Weakness Stated complaint: N/V, FEELING UNWELL AFTER COVID BOOSTER Time Seen by Provider: 01/26/23 15:58 Source: patient and RN notes reviewed Mode of arrival: EMS Limitations: no limitations History of Present Illness HPI narrative: 87-year-old female past medical history significant for COPD on 2 L nasal cannula baseline, hypertension, osteoarthritis, PE on Xarelto, hyperlipidemia, hypertension, discoid lupus presents for evaluation of weakness Patient reports that she has not been feeling well for the last 3 days She reports she 1st started with general weakness and nausea on Sunday. She received her COVID and influenza vaccines yesterday and today developed a fever She denies any cough, increased shortness of breath, abdominal pain but does endorse the nausea and vomiting She denies any chest pain, leg swelling, rashes She reports she has not had a bowel movement last 2-3 days Denies any history of abdominal surgeries exception for a hysterectomy Patient reports that 2 weeks ago she started a new medication azathioprine and she was just recently increased up to 100 mg from 50 to treat discoid lupus Related Data Home Medications Medication Instructions Recorded Confirmed calcium carbonate 600 mg calcium 600 mg PO DAILY 02/27/20 01/11/23 (1,500 mg) tablet (Calcium) cholecalciferol (vitamin D3) 25 25 mcg PO DAILY 02/27/20 01/11/23 mcg (1,000 unit) capsule mirabegron 25 mg tablet,extended 25 mg PO DAILY 02/27/20 01/11/23 release 24 hr (Myrbetriq) pramipexole 1 mg tablet 1 mg PO BEDTIME 03/03/22 01/11/23 Oxygen Home Use 04/11/22 01/11/23 fluocinonide 0.05 % topical 1 appl topical BID-QID PRN Itching 04/11/22 01/11/23 ointment gabapentin 300 mg capsule 300 mg PO BEDTIME 08/16/22 01/11/23 latanoprost 0.005 % eye drops 1 drp ophthalmic (eye) BEDTIME 08/16/22 01/11/23 nebulizers 09/18/22 01/11/23 ipratropium 0.5 mg-albuterol 3 mg 3 ml inhalation TID 09/20/22 01/11/23 (2.5 mg base)/3 mL nebulization soln tramadol 50 mg tablet 50 mg PO BID PRN Pain 09/20/22 01/11/23 Previous Rx's Medication Instructions Recorded blood pressure monitor #1 ea 06/21/21 clobetasol 0.05 % topical cream 1 appl topical BID #60 grams 05/17/22 rosuvastatin 10 mg tablet 10 mg PO DAILY 90 days #90 tabs 06/29/22 folic acid 1 mg tablet 1 mg PO DAILY #90 tabs 08/16/22 rivaroxaban 20 mg tablet (Xarelto) 20 mg PO DAILY 90 days #90 tabs 10/24/22 diclofenac sodium 1 % topical gel 2 g topical QID #100 grams 12/01/22 (Voltaren Arthritis Pain) fluticasone fur. 100 mcg-umeclid 1 inh inhalation DAILY 30 days #60 12/04/22 62.5 mcg-vilant 25 mcg ea inhalat.powder (Trelegy Ellipta) esomeprazole magnesium 40 mg 40 mg PO BID #90 caps 12/27/22 capsule,delayed release azathioprine 50 mg tablet 50 mg PO DAILY #30 tabs 01/04/23 furosemide 20 mg tablet 20 mg PO DAILY #90 tabs 01/04/23 losartan 100 mg tablet 100 mg PO DAILY 90 days #90 tabs 01/22/23 azathioprine 100 mg tablet 100 mg PO DAILY #90 tabs 01/26/23 Allergies Allergy/AdvReac Type Severity Reaction Status Date / Time amlodipine Allergy Unknown leg Verified 01/22/23 12:52 swelling, swelling atorvastatin [Lipitor] Allergy Unknown Unknown Verified 01/22/23 12:52 hydroxychloroquine Allergy Unknown Affected Verified 01/22/23 12:52 [From Plaquenil] eye sight metoprolol Allergy Unknown Swelling Verified 01/22/23 12:52 Review of Systems 2 Constitutional: Constitutional: Reports fever(s), Denies headache(s), Denies increased appetite, Reports malaise and Reports weakness Eyes: Eyes: Denies blurry vision ENT: Denies headache(s) and Denies sore throat Cardiovascular: Cardiovascular: Denies chest pain and Denies dyspnea Respiratory: Respiratory: Denies cough and Denies dyspnea Gastrointestinal: Gastrointestinal: Denies abdominal pain, Denies melena, Denies coffee ground emesis, Denies heartburn, Reports nausea and Reports vomiting Genitourinary: Genitourinary: Denies difficulty voiding Musculoskeletal: Musculoskeletal: Denies back pain Integumentary/Breasts: Skin/Breast: Denies rash Neurologic: Denies headache(s) and Reports weakness PMFSH Past Medical History Medical History Anxiety Arterial occlusive disease Chest discomfort Chronic respiratory failure COPD (chronic obstructive pulmonary disease) Discoid lupus Diverticulitis DVT (deep venous thrombosis) Dyspnea Encounter for monitoring azathioprine therapy GERD (gastroesophageal reflux disease) Greater saphenous vein embolism Hiatal hernia Hypercholesterolemia Hypertension Iliac artery occlusion Left leg DVT Lupus (systemic lupus erythematosus) Osteopenia Pleuritic chest pain Pulmonary embolism Pulmonary nodule Pulmonary nodules Restless leg Thrombus of aorta Surgical History Bilateral pulmonary embolism History of toe surgery History of breast biopsy History of foot surgery History of cataract surgery History of total abdominal hysterectomy and bilateral salpingo-oophorectomy Family History Family History Father Hypertension Cancer Mother Hypertension Stroke CVD (cardiovascular disease) Social History Social History Household Members: None Housing: House Do you presently have visiting nurse or other home services: Yes Alcohol intake: never Patient Tobacco Use Status: Former Tobacco user Tobacco use type: Cigarette Years Smoked: 30 Smoked in Last 30 Days: No e-Cigarette/Vaping Use: Never Used Second Hand Smoke Exposure: No Use of substances other than those prescribed or required for medical reasons: No Advance Directives: Yes Advance Directives on File: Yes Advance Directives Date on File: 09/21/22 service: No Current occupational status: retired Cognitive needs: Yes Hearing needs: No Vision needs: Yes Physical Exam ED Vital Signs: Vital Signs - 24 hr 01/26/23 14:14 01/26/23 15:14 01/26/23 16:51 Temperature 104.4 F H 100.7 F H 99.1 F Pulse Rate 105 H 91 78 Respiratory Rate 22 H 24 H 26 H Blood Pressure 173/64 H 99/44 L 101/42 L Pulse Oximetry 94 95 95 Oxygen Delivery Method Nasal Cannula Nasal Cannula Nasal Cannula Oxygen Flow Rate 3 3 01/26/23 18:43 Temperature 98.1 F Pulse Rate 65 Respiratory Rate 16 Blood Pressure 106/40 L Pulse Oximetry 97 Oxygen Delivery Method Nasal Cannula Oxygen Flow Rate 3 BMI result Body Mass Index 27.9 Const General: comfortable, no acute distress, alert and awake Nutritional Appearance: well nourished Orientation/consciousness: patient oriented x3 HENMT Head: Yes normocephalic and Yes atraumatic Eyes Eyelids: Yes eyelids normal Conjunctivae: conjunctivae normal Sclerae: sclerae normal Corneas: corneas normal Pupils: Equal, round and reactive pupils present EOM: EOMs intact bilaterally Neck Neck: Yes full ROM Resp Effort & Inspection: normal respiratory effort, able to speak in complete sentences, no audible wheezes and not labored Auscultation: clear to auscultation bilaterally Cardio Rate: regular rate Rhythm: regular rhythm GI Inspection: No distended Palpation (GI): Soft to palpation, not firm, nontender, no guarding and not rigid Skin General skin exam: no rashes or lesions noted and elasticity normal Neuro General: patient oriented x3 Cranial nerves: Yes Equal, round and reactive pupils present and Yes Bilaterally intact EOM present Cognition (Neuro): normal cognition Extrem Other: Moving all extremities well without any obvious deformities Course Reevaluation(s) Reevaluation #1: Patient did have a fever on arrival, but there was some concern for just reaction to the vaccine she received yesterday. At this point she has a confirmed infection. Will treat as a sepsis alert. She will get broad-spectrum antibiotics, IV fluids. There is no evidence of septic shock, and therefore she will not require a 30 per kilos bolus. Will discuss with the hospitalist for admission for pneumonia Time: 17:39 Medications Administered Generic Name Dose Route Start Last Admin Trade Name Freq PRN Reason Stop Dose Admin Azithromycin 500 mg/ Sodium 250 mls @ 125 mls/hr 01/26/23 17:37 01/26/23 18:42 Chloride IV 01/26/23 19:36 125 mls/hr ONCE ONE Administration Discontinued Medications Generic Name Dose Route Start Last Admin Trade Name Freq PRN Reason Stop Dose Admin Acetaminophen 975 mg 01/26/23 14:18 01/26/23 14:31 Acetaminophen 325 Mg Tablet PO 01/26/23 14:19 975 mg ONCE ONE Administration Sodium Chloride 500 mls @ 500 mls/hr 01/26/23 15:15 01/26/23 16:20 Ns IV 01/26/23 16:14 Infused .Q1H KETURAH Infusion Sodium Chloride 1,000 mls @ 999 mls/hr 01/26/23 16:15 01/26/23 16:49 Ns IV 01/26/23 17:15 999 mls/hr .Q1H1M KETURAH Administration Ceftriaxone Sodium 1 gm/ 50 mls @ 100 mls/hr 01/26/23 17:37 01/26/23 18:46 Sodium Chloride IV 01/26/23 18:06 Infused ONCE ONE Infusion Iohexol 100 ml 01/26/23 16:32 01/26/23 16:33 Iohexol 350 Mg/Ml 100 Ml Infus..Btl IV 01/26/23 16:33 85 ml ONCE ONE Administration Ondansetron HCl 4 mg 01/26/23 14:18 01/26/23 14:30 Ondansetron Hcl 4 Mg/2 Ml Vial IVPUSH 01/26/23 14:19 4 mg ONCE ONE Administration Medical Decision Making Medical Decision Making [facility] Narrative: 87-year-old female presents for evaluation general weakness, fevers. She also had some nausea and vomiting. She has a very wide differential at this time including intra-abdominal infection, COVID-19, influenza, sepsis. However her fever could also be related to the vaccines as an immune response. Her chest x- ray shows a 1.3 cm right mid lung lesion, will follow some of the CT scan the abdomen pelvis. She denies any cough or increased shortness of breath. Given nausea and vomiting will also get a CT scan done of pelvis. The patient reports that she has a history of diverticulitis. Her physical exam is reassuring. I feel it is appropriate to be thorough with the testing of the patient was started on a an immunomodulator dissected got lateral make her more susceptible to infections Differential Diagnosis Differential Diagnoses: The differential diagnosis associated with the presentation includes Viral syndrome COVID-19 Upper respiratory infection Pneumonia COPD Diverticulitis Acute appendicitis UTI Admission/Observation Consideration of admission/observation: Escalation of care including admission/observation considered Patient has CT findings consistent with pneumonia Consult Healthcare Provider Management of the patient was discussed with: Hospitalist (Dr. Brody will admit the patient) Lab Data [facility] Lab Attestation statement: I reviewed the patient's lab results. No leukocytosis with a white count of 10.0. Normal hemoglobin 12.0 with a hematocrit of 36.8, just below normal. Patient has no electrolyte abnormalities. Her BUN and creatinine and just above her baseline with a BUN of 29 and a creatinine of 1.20. Random glucose of 146 01/26/23 14:21 01/26/23 14:21 Labs: Lab Results 01/26/23 01/26/23 Range/Units 14:21 16:51 WBC 10.0 (4.8-10.8) X10*3/uL RBC 4.00 L (4.20-5.50) X10*6/uL Hgb 12.0 (12.0-16.0) g/dl Hct 36.8 L (37.0-47.0) % MCV 92.0 (80.0-98.0) fL MCH 30.0 (27.0-33.0) pg MCHC 32.6 (31.0-35.0) g/dl RDW 14.9 (11.0-16.0) % Plt Count 232 D (160-400) X10*3/uL MPV 9.0 L (9.4-12.3) fL Immature Gran % (Auto) 0.8 H (0.0-0.4) % Neut % (Auto) 87.6 H (45-73) % Lymph % (Auto) 5.5 L (20-40) % [place] % (Auto) 4.5 (2-11) % Eos % (Auto) 1.2 (0-4) % Baso % (Auto) 0.4 (0-2) % Lymph # (Auto) 0.6 L (1.2-4.9) X10*3/uL [place] # (Auto) 0.5 (0.1-1.2) X10*3/uL Eos # (Auto) 0.1 (0.0-0.4) X10*3/uL Baso # (Auto) 0.0 (0.0-0.2) X10*3/uL Abs Immat Gran (auto) 0.08 H (0.00-0.03) X10*3/uL Absolute Neuts (auto) 8.8 H (2.0-8.3) x10*3/uL Absolute Nucleated RBC 0.000 (0.0-0.012) X10*3/uL Nucleated RBC % (auto) 0.0 (0.0-0.2) /100WBC PT 17.7 H (11.1-13.3) SEC INR 1.5 H (0.9-1.1) Whole Blood INR Cancelled APTT 30.5 (26.0-36.4) SEC Sodium 135 (135-145) mmol/L Potassium 4.2 (3.3-5.1) mmol/L Chloride 99 (96-108) mmol/L Carbon Dioxide 25 (22-29) mmol/L Anion Gap 15 (12-20) BUN 29 H (9-16) mg/dL Creatinine 1.20 (0.5-1.4) mg/dL Estim Creat Clear Calc 27.5 Estimated GFR 43 Random Glucose 136 H (60-115) mg/dL Lactic Acid 0.9 (0.5-2.0) mmol/L Calcium 9.1 D (8.4-10.2) mg/dL Total Bilirubin 0.6 (0.0-1.0) mg/dL Direct Bilirubin 0.3 (0.0-0.5) mg/dL AST 49 H (5-31) U/L ALT 26 (0-31) U/L Alkaline Phosphatase 76 (39-117) U/L B-Natriuretic Peptide 60 (<100) pg/mL Total Protein 6.3 L (6.5-8.0) g/dL Albumin 3.6 (3.5-5.0) g/dL Lipase 10 (8-78) U/L Urine Color Dark Yellow Urine Appearance Clear Urine pH 5.5 (5.0-9.0) Ur Specific [place] >= 1.030 H (1.005-1.025) Urine Protein 30 (1+) H (Neg-Trace) mg/dL Urine Glucose (UA) Negative (Negative) mg/dL Urine Ketones Trace (Negative) mg/dL Urine Blood Negative (Negative) Urine Nitrite Negative (Negative) Ur Leukocyte Esterase Trace H (Negative) Urine RBC 3-5 H (0-2) /HPF Urine WBC 11-20 H (0-5) /HPF Ur Squamous Epith Cells 6-10 (0-2) /HPF Urine Bacteria None Seen (None Seen) Hyaline Casts 3-5 (0-2) /LPF Independent Interpretation I performed an independent interpretation of an: EKG (Sinus rhythm with a rate of 100 beats per minute. No ST segment elevations or depressions.), Plain X-Ray and CT Scan (In the chest small patchy area of infiltrate in the right upper lung laterally and reticular nodule infiltrate in the left mid to lower lung zone laterally) Interpretation: Chronic changes, no focal infiltrate Radiology Impression Discussion of test interpretation with radiology: I have reviewed the radiologist's reading. Radiologist Impression: 1.3 cm right mid lung lesion Prescription Management I considered prescription management with: Other (Antipyretic) Chronic Conditions Patient?s care impacted by: Hypertension and Other (Chronic lung disease) Discharge Plan Discharge Clinical Impression: Community acquired pneumonia, Sepsis Patient Disposition: Admitted As Inpatient Prescriptions: No Action Xarelto 20 mg tablet 20 mg PO DAILY 90 Days Qty: 90 2RF Rx Instructions: must administer with evening meal esomeprazole magnesium 40 mg capsule,delayed release(DR/EC) 40 mg PO BID Qty: 90 0RF azathioprine 50 mg tablet 50 mg PO DAILY Qty: 30 0RF furosemide 20 mg tablet 20 mg PO DAILY Qty: 90 1RF azathioprine 100 mg tablet 100 mg PO DAILY Qty: 90 0RF tramadol 50 mg tablet 50 mg PO BID PRN (Reason: Pain) ipratropium-albuterol 0.5 mg-3 mg(2.5 mg base)/3 mL Solution For Nebulization 3 ml INHALATION TID calcium carbonate [Calcium 600] 600 mg calcium (1,500 mg) tablet 600 mg PO DAILY cholecalciferol (vitamin D3) 25 mcg (1,000 unit) capsule 25 mcg PO DAILY Myrbetriq 25 mg tablet extended release 24 hr 25 mg PO DAILY (DME) blood pressure monitor Kit See Rx Instructions .Route Qty: 1 0RF Rx Instructions: As directed rosuvastatin 10 mg tablet 10 mg PO DAILY 90 Days Qty: 90 2RF losartan 100 mg tablet 100 mg PO DAILY 90 Days Qty: 90 3RF Protocol: Hold for SBP< HOLD for SBP < : 90 pramipexole 1 mg tablet 1 mg PO BEDTIME (DME) nebulizers Misc See Rx Instructions .Route Rx Instructions: As directed fluocinonide 0.05 % ointment 1 appl topical BID-QID PRN (Reason: Itching) (DME) Oxygen Home Use Kit See Rx Instructions .Route Rx Instructions: As directed at night clobetasol 0.05 % cream 1 appl topical BID Qty: 60 3RF latanoprost 0.005 % drops 1 drp ophthalmic (eye) BEDTIME gabapentin 300 mg capsule 300 mg PO BEDTIME folic acid 1 mg tablet 1 mg PO DAILY Qty: 90 1RF Trelegy Ellipta 100-62.5-25 mcg blister with device 1 inh inhalation DAILY 30 Days Qty: 60 11RF diclofenac sodium [Voltaren Arthritis Pain] 1 % gel 2 g topical QID Qty: 100 2RF Rx Instructions: apply to single elbow, wrist or hand; for hand includes palm/fingers/back of hand
[2023-01-26] MEDS: 0.9 % Sodium Chloride 1,000 ML 999 ML IV (16:49)
[2023-01-26 16:51] VITALS: BP 101/42; PULSE 78; RESP 26; TEMP 37.3; O2SAT 95
[2023-01-26 16:58] LABS: Appearance Urine Clear; Color Urine Dark Yellow; Glucose Urine UA Negative (Negative); Leukocyte Esterase Urine Trace (Negative); Nitrite Urine Negative (Negative); PH 5.5 (5.0-9.0); Specific Gravity - Urine >= 1.030 (1.005-1.025); UMIC TRIGGER UACC YES; Urine Blood Negative (Negative); Urine Ketones Trace mg/dL (Negative); Urine Protein 30 (1+) mg/dL (Neg-Trace)
[2023-01-26 17:01] LABS: Bacteria Urine None Seen (None Seen); UACC Culture Trigger YES
[2023-01-26 17:11] LABS: Alanine Aminotransferase 26 U/L (0-31); Albumin Level 3.6 g/dL (3.5-5.0); Alkaline Phosphatase 76 U/L (39-117); Aspartate Amino Transferase 49 U/L (5-31); Bilirubin Direct 0.3 mg/dL (0.0-0.5); Bilirubin Total 0.6 mg/dL (0.0-1.0); Lipase 10 U/L (8-78); Total Protein 6.3 g/dL (6.5-8.0)
[2023-01-26] MEDS: cefTRIAXone sodium 1 GM in 0.9 % Sodium Chloride 50 ML IV (18:09)
[2023-01-26] MEDS: Azithromycin 500 MG in 0.9 % Sodium Chloride 250 ML 125 MG IV (18:42)
[2023-01-26 18:43] VITALS: BP 106/40; PULSE 65; RESP 16; TEMP 36.7; O2SAT 97
[2023-01-26 19:43] LABS: Influenza A PCR NEGATIVE (Negative); Influenza B PCR NEGATIVE (Negative); Resp Syncy Virus RNA Qual PCR NEGATIVE (Negative); SARS COV2 PCR INHOUSE NEGATIVE (Negative)
--- NOTE | 2023-01-26 19:47 | P.HPHOSP_ITS ---
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 Patient states that symptoms began Sunday when she felt sick to her stomach, weak, and cold. Yesterday patient reports feeling better so she went to get COVID and flu shots, but soon thereafter developed a fever and then felt absolutely terrible. Patient with chronic shortness of breath at baseline, states he has been experiencing some increase to SOB and difficulty in breathing. However, denies cough. Patient also been experiencing some nausea with dry heaves, but no productive vomiting. Reports fever and chills. Denies diarrhea or abdominal pain. No chest pain/pressure, palpitations. Denies pleuritic chest pain. In the ED patient was febrile at 104.4, tachycardic at 105, tachypneic up to 26, with initially elevated BP of 173/64 then soft BP as low as 99/44, satting at 97% on 3 L. Labs were significant for creatinine 1.20 (elevated from baseline of 0.85). No leukocytosis. Stable H&H, electrolytes WNL. UA likely negative for UTI. Patient tested negative for influenza type a and B, COVID. CXR showed interval development of 1.3 cm nodule focus in the lateral margin in the right mid lung field. Follow-up CTA found small patchy area of infiltrate in the right upper lung laterally and reticular nodular infiltrate in the left mid to lower lung zone laterally. And also stable nodularity. CT of abdomen and pelvis without acute findings, however found increasing adenopathy in the portal region of uncertain etiology that could be reactive to liver, though early malignancy cannot be excluded. EKG demonstrated normal sinus rhythm without evidence of ST elevation or depression. Pt was treated with ondansetron, acetaminophen, IVF, and ceftriaxone azithromycin. Pt will be admitted to the hospital for treatment and further evaluation of sepsis in the setting of likely community-acquired pneumonia. Review of Systems 2 Review of Systems: Generalized weakness, fatigue Fever, chills Nausea with some dry heaving Reduced p.o. 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 Diverticulitis Thrombus of aorta Hypercholesterolemia Restless leg Discoid lupus Osteopenia Hypertension GERD (gastroesophageal reflux disease) Anxiety Pulmonary embolism DVT (deep venous thrombosis) Family History Father Hypertension Cancer Mother Hypertension Stroke CVD (cardiovascular disease) Surgical History Bilateral pulmonary embolism History of toe surgery History of breast biopsy History of foot surgery History of cataract surgery History of total abdominal hysterectomy and bilateral salpingo-oophorectomy Social History Household Members: None Housing: House Do you presently have visiting nurse or other home services: Yes Alcohol intake: never Patient Tobacco Use Status: Former Tobacco user Tobacco use type: Cigarette Years Smoked: 30 Smoked in Last 30 Days: No e-Cigarette/Vaping Use: Never Used Second Hand Smoke Exposure: No Use of substances other than those prescribed or required for medical reasons: No Advance Directives: Yes Advance Directives on File: Yes Advance Directives Date on File: 09/21/22 service: No Current occupational status: retired Cognitive needs: Yes Hearing needs: No Vision needs: Yes Meds Allergies Allergy/AdvReac Type Severity Reaction Status Date / Time amlodipine Allergy Unknown leg Verified 01/22/23 12:52 swelling, swelling atorvastatin [Lipitor] Allergy Unknown Unknown Verified 01/22/23 12:52 hydroxychloroquine Allergy Unknown Affected Verified 01/22/23 12:52 [From Plaquenil] eye sight metoprolol Allergy Unknown Swelling Verified 01/22/23 12:52 Home Medications Medication Instructions Recorded Confirmed Last Taken Type calcium carbonate 600 mg calcium 600 mg PO DAILY 02/27/20 01/26/23 01/26/23 History (1,500 mg) tablet (Calcium) cholecalciferol (vitamin D3) 25 25 mcg PO DAILY 02/27/20 01/26/23 01/26/23 History mcg (1,000 unit) capsule mirabegron 25 mg tablet,extended 25 mg PO DAILY 02/27/20 01/26/23 01/26/23 History release 24 hr (Myrbetriq) pramipexole 1 mg tablet 1 mg PO BEDTIME 03/03/22 01/26/23 01/25/23 History Oxygen Home Use 04/11/22 01/11/23 Unknown History gabapentin 300 mg capsule 300 mg PO BEDTIME 08/16/22 01/26/23 01/26/23 History latanoprost 0.005 % eye drops 1 drp ophthalmic (eye) BEDTIME 08/16/22 01/26/23 01/25/23 History nebulizers 09/18/22 01/11/23 Unknown History ipratropium 0.5 mg-albuterol 3 mg 3 ml inhalation DAILY 09/20/22 01/26/23 01/26/23 History (2.5 mg base)/3 mL nebulization soln tramadol 50 mg tablet 50 mg PO BID PRN Pain 09/20/22 01/26/23 Unknown History albuterol sulfate 90 mcg/actuation 2 puff inhalation Q4-6H PRN 01/26/23 01/26/23 Unknown History aerosol inhaler Wheezing diclofenac sodium 1 % topical gel 2 g topical QID PRN Pain 01/26/23 01/26/23 Unknown History (Voltaren Arthritis Pain) esomeprazole magnesium 40 mg 40 mg PO DAILY 01/26/23 01/26/23 01/26/23 History capsule,delayed release multivitamin 1 tab PO DAILY 01/26/23 01/26/23 01/26/23 History rivaroxaban 20 mg tablet (Xarelto) 20 mg PO BEDTIME 01/26/23 01/26/23 01/25/23 History Physical Exam 2 Vital Signs and Narrative: Vital Signs: Last Vital Signs Temp 98.1 F 01/26/23 18:43 Pulse 65 01/26/23 18:43 Resp 16 01/26/23 18:43 BP 106/40 L 01/26/23 18:43 Pulse Ox 97 01/26/23 18:43 O2 Del Method Nasal Cannula 01/26/23 18:43 O2 Flow Rate 3 01/26/23 18:43 BMI result Body Mass Index 27.9 Constitutional: Alert, in no acute distress. Mental Status: Oriented to person, place and time. Eyes: Pupils are equal, round, and reactive to light. Ear, Nose, and Throat: Oropharynx clear, mucous membranes moist. Ears and nose without deformities. Trachea midline. Respiratory: Diminished breath sounds bilaterally, especially in mid and lower lung dave. No wheezing, rales, or rhonchi. Cardiovascular: S1, S2 regular. No murmurs, rubs, or gallops. Gastrointestinal: Abdomen soft, non-tender, non-distended. Normal bowel sounds. Neurologic: Cranial nerves II-XII are grossly intact bilaterally. No focal neurological deficits. Moves all extremities spontaneously. Skin: Warm, dry. Musculoskeletal: No cyanosis or clubbing. Extremities: No edema. Psychiatric: Normal mood and affect. Results Labs 01/26/23 14:21 01/26/23 14:21 Labs: Laboratory Results - last 24 hr 01/26/23 01/26/23 01/26/23 14:21 16:51 18:55 MCV 92.0 MCH 30.0 MCHC 32.6 RDW 14.9 Plt Count 232 D MPV 9.0 L Immature Gran % (Auto) 0.8 H Neut % (Auto) 87.6 H Lymph % (Auto) 5.5 L Dickey % (Auto) 4.5 Eos % (Auto) 1.2 Baso % (Auto) 0.4 Lymph # (Auto) 0.6 L Dickey # (Auto) 0.5 Eos # (Auto) 0.1 Baso # (Auto) 0.0 Abs Immat Gran (auto) 0.08 H Absolute Neuts (auto) 8.8 H Absolute Nucleated RBC 0.000 Nucleated RBC % (auto) 0.0 PT 17.7 H INR 1.5 H Whole Blood INR Cancelled APTT 30.5 Anion Gap 15 Estim Creat Clear Calc 27.5 Estimated GFR 43 Random Glucose 136 H Lactic Acid 0.9 Calcium 9.1 D Total Bilirubin 0.6 Direct Bilirubin 0.3 AST 49 H ALT 26 Alkaline Phosphatase 76 B-Natriuretic Peptide 60 Total Protein 6.3 L Albumin 3.6 Lipase 10 Urine Color Dark Yellow Urine Appearance Clear Urine pH 5.5 Ur Specific [place] >= 1.030 H Urine Protein 30 (1+) H Urine Glucose (UA) Negative Urine Ketones Trace Urine Blood Negative Urine Nitrite Negative Ur Leukocyte Esterase Trace H Urine RBC 3-5 H Urine WBC 11-20 H Ur Squamous Epith Cells 6-10 Urine Bacteria None Seen Hyaline Casts 3-5 Influenza Type A (PCR) NEGATIVE Influenza Type B (PCR) NEGATIVE RSV RNA Qual (PCR) NEGATIVE SARS-CoV-2 RNA (RT-PCR) NEGATIVE Imaging Radiologist's Impressions: Impressions Chest X-Ray 01/26/23 14:55 IMPRESSION: 1. Interval development of 1.3 cm nodular focus in the lateral margin of the right mid lung field. If clinically warranted consider further evaluation with cross-sectional imaging. 2. Bilateral low lung volumes. 3. Chronic interstitial lung markings. 4. Large hiatal hernia. Abdomen/Pelvis CT 01/26/23 16:42 IMPRESSION: In the chest small patchy area of infiltrate in the right upper lung laterally and reticular nodular infiltrate in the left mid to lower lung zone laterally.. Stable nodularity. Attention to follow-up. In the abdomen pelvis some increasing adenopathy in the portal region of uncertain etiology. This could be reactive to liver. Early malignancy cannot be excluded. . There is no acute finding here. The bowel pattern is within normal limits. Diverticulitis without evidence for diverticulosis. Chest CT 01/26/23 16:42 IMPRESSION: In the chest small patchy area of infiltrate in the right upper lung laterally and reticular nodular infiltrate in the left mid to lower lung zone laterally.. Stable nodularity. Attention to follow-up. In the abdomen pelvis some increasing adenopathy in the portal region of uncertain etiology. This could be reactive to liver. Early malignancy cannot be excluded. . There is no acute finding here. The bowel pattern is within normal limits. Diverticulitis without evidence for diverticulosis. 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 Pt will be admitted to the hospital for treatment and further evaluation of sepsis in the setting of community-acquired pneumonia. Sepsis in the setting of community-acquired pneumonia CT with evidence of small patchy area of infiltrate in the right upper lung laterally Patient with weakness, fatigue, fever, chills, nausea, vomiting x2 days Patient meets sepsis criteria: Pneumonia, fever, tachycardia tachypnea; lactic acid WNL at 0.9 Patient given IVF, antibiotics in the ED Ceftriaxone, azithromycin, started on 01/26/2023 Hx of PE in 2019 and 2022 Continue Xarelto HLD Continue statin HTN Hold antihypertensives d/t soft BP Resume as warrented Lupus Continue azathioprine COPD Does not appear to be in acute exacerbation Continue home inhalers DNR/DNI Attending:?Dr. Brody DVT Prophylaxis: On Xarelto Pt will require a hospitalization of at least two nights for treatment of?sepsis in the setting of community-acquired pneumonia with IV antibiotics and close monitoring. Time Spent With Patient Time: Total time managing care of this patient today ____ minutes. Quality Stroke Does the patient have a stroke diagnosis?: No VTE Prior VTE?: Yes VTE Risk Level:: Medical - moderate - high VTE Device Contraindication: Treatment Not Indicated VTE Drug Contraindication: N/A - Med Ordered
--- NOTE | 2023-01-26 20:06 | PHA.MEDREC ---
Pharmacy Consult ? Medication Reconciliation Pharmacy has completed the medication reconciliation. Patient reported all medications. Reports she is still taking azathioprine 50 mg and is not start the 100 mg tablets yet. Teetee Romero, PharmD
--- NOTE | 2023-01-26 21:45 | PC.NURSE ---
Patient is alert and oriented x3. VSS. Patient receiving supplemental O2 at 3 LPM NC 96-97% at rest. Patient denies any pain at present. Nursing bedside swallow eval completed, patient passed swallow eval. IV Azithromycin infused. 20 G IV line in RA is patient. Patient requires supervision of 1 person with ambulation d/t unsteady gait at times. Patient is able to make her needs known, call valadez within patient's reach.
[2023-01-27] VITALS (7 sets, daily range): BP systolic 115–150; BP diastolic 50–65; PULSE 62–88; RESP 14–20; TEMP 35.7–36.9; O2SAT 92–100; BMI 27.9
[2023-01-27] MEDS: 0.9 % Sodium Chloride Flush 3 ML SYRINGE IVFLUSH ×3 (01:42→15:13)
[2023-01-27 07:22] LABS: Alanine Aminotransferase 26 U/L (0-31); Albumin Level 2.8 g/dL (3.5-5.0); Alkaline Phosphatase 59 U/L (39-117); Anion Gap 13 (12-20); Aspartate Amino Transferase 45 U/L (5-31); Bilirubin Total 0.3 mg/dL (0.0-1.0); Blood Urea Nitrogen 21 mg/dL (9-16); Calcium 8.2 mg/dL (8.4-10.2); Carbon Dioxide 23 mmol/L (22-29); Chloride 107 mmol/L (96-108); Creatinine Clr Calc Pharmacy 39.4; Estimated Glomerular Filt Rate > 60; Glucose Random 77 mg/dL (60-115); Potassium 3.9 mmol/L (3.3-5.1); Sodium 139 mmol/L (135-145); Total Protein 4.9 g/dL (6.5-8.0)
--- NOTE | 2023-01-27 07:38 | PC.NURSE ---
pt a&ox3, vss and up to date. nsr on the monitoring analyst. pt is not complaining of SOB at this time. pt able to speak in full clear sentences w/o difficulty. diminished breath sounds noted throughout. pt denies pain at this time. tech assisted pt w/ ambulating to restroom w/ O2 tank - pt tolerated ambulation well. respirations even and unlabored. call valadez placed within reach.
--- NOTE | 2023-01-27 08:03 | PC.NURSE ---
report given to RN on IMC - will notify transport that pt is ready to leave ED.
[2023-01-27 11:16] LABS: IDNOW Serial# 6674DD1D; Strep A Nucleic Acid Negative (Negative)
--- NOTE | 2023-01-27 12:33 | P.PNIM_ITS ---
Subjective Subjective Date of Service: 01/27/23 Interval History: Sepsis in the setting of community-acquired pneumonia Review of Systems Patient is generalized weak, has cough no chest pain Physical Exam 2 Vital Signs: Vital Signs: Last Vital Signs Temp 98.0 F 01/27/23 11:50 Pulse 83 01/27/23 12:21 Resp 20 01/27/23 11:50 BP 124/57 L 01/27/23 12:21 Pulse Ox 92 01/27/23 12:21 O2 Del Method Nasal Cannula 01/27/23 11:50 O2 Flow Rate 2 01/27/23 11:50 BMI result Body Mass Index 27.9 Appearance: Alert.? Oriented X3.? ? cvs: rrr, [id number] , no murmur res: diminshed breath sounds b/l lower lungs , no rales or wheezing abd: no rebound or guarding ,nt, bs present. ext pulses present , no cyanosis . neuro: axo3 , nonfocal. Objective Data Active Medications Acetaminophen (Acetaminophen 325 Mg Tablet) 650 mg PO Q6H PRN PRN Reason: Pain, Mild (Pain Scale 1-3) Acetaminophen (Acetaminophen Supp 650 Mg Supp.Rect) 650 mg WV Q6H PRN PRN Reason: Pain, Mild (Pain Scale 1-3) Guaifenesin (Guaifenesin 200 Mg/10 Ml 10 Ml Liquid) 10 ml PO Q4H PRN PRN Reason: Cough Ceftriaxone Sodium 1 gm/ (Sodium Chloride) 50 mls @ 100 mls/hr IV Q24H [facility] Azithromycin 500 mg/ Sodium (Chloride) 250 mls @ 125 mls/hr IV Q24H [facility] Melatonin (Melatonin 3 Mg Tablet) 6 mg PO BEDTIME PRN PRN Reason: Insomnia Sodium Chloride (0.9 % Sodium Chloride Flush 3 Ml Syringe) 3 ml IVFLUSH QSHIFT [facility] Last Admin: 01/27/23 07:35 Dose: 3 ml Documented By: JOSELUIS Labs 01/26/23 14:21 01/27/23 06:32 Labs: Laboratory Results - last 24 hr 01/26/23 01/26/23 01/26/23 14:21 16:51 18:55 MCV 92.0 MCH 30.0 MCHC 32.6 RDW 14.9 Plt Count 232 D MPV 9.0 L Immature Gran % (Auto) 0.8 H Neut % (Auto) 87.6 H Lymph % (Auto) 5.5 L Runnels % (Auto) 4.5 Eos % (Auto) 1.2 Baso % (Auto) 0.4 Lymph # (Auto) 0.6 L Runnels # (Auto) 0.5 Eos # (Auto) 0.1 Baso # (Auto) 0.0 Abs Immat Gran (auto) 0.08 H Absolute Neuts (auto) 8.8 H Absolute Nucleated RBC 0.000 Nucleated RBC % (auto) 0.0 Hold Purple Top PT 17.7 H INR 1.5 H Whole Blood INR Cancelled APTT 30.5 Anion Gap 15 Estim Creat Clear Calc 27.5 Estimated GFR 43 Random Glucose 136 H Lactic Acid 0.9 Calcium 9.1 D Total Bilirubin 0.6 Direct Bilirubin 0.3 AST 49 H ALT 26 Alkaline Phosphatase 76 B-Natriuretic Peptide 60 Total Protein 6.3 L Albumin 3.6 Lipase 10 Urine Color Dark Yellow Urine Appearance Clear Urine pH 5.5 Ur Specific Roscoe >= 1.030 H Urine Protein 30 (1+) H Urine Glucose (UA) Negative Urine Ketones Trace Urine Blood Negative Urine Nitrite Negative Ur Leukocyte Esterase Trace H Urine RBC 3-5 H Urine WBC 11-20 H Ur Squamous Epith Cells 6-10 Urine Bacteria None Seen Hyaline Casts 3-5 Influenza Type A (PCR) NEGATIVE Influenza Type B (PCR) NEGATIVE RSV RNA Qual (PCR) NEGATIVE SARS-CoV-2 RNA (RT-PCR) NEGATIVE S. pyogenes GrpA GET 01/27/23 01/27/23 06:32 10:45 MCV MCH MCHC RDW Plt Count MPV Immature Gran % (Auto) Neut % (Auto) Lymph % (Auto) Runnels % (Auto) Eos % (Auto) Baso % (Auto) Lymph # (Auto) Runnels # (Auto) Eos # (Auto) Baso # (Auto) Abs Immat Gran (auto) Absolute Neuts (auto) Absolute Nucleated RBC Nucleated RBC % (auto) Hold Purple Top SEE NOTE PT INR Whole Blood INR APTT Anion Gap 13 Estim Creat Clear Calc 39.4 Estimated GFR > 60 Random Glucose 77 Lactic Acid Calcium 8.2 L D Total Bilirubin 0.3 Direct Bilirubin AST 45 H ALT 26 Alkaline Phosphatase 59 B-Natriuretic Peptide Total Protein 4.9 L Albumin 2.8 L Lipase Urine Color Urine Appearance Urine pH Ur Specific Roscoe Urine Protein Urine Glucose (UA) Urine Ketones Urine Blood Urine Nitrite Ur Leukocyte Esterase Urine RBC Urine WBC Ur Squamous Epith Cells Urine Bacteria Hyaline Casts Influenza Type A (PCR) Influenza Type B (PCR) RSV RNA Qual (PCR) SARS-CoV-2 RNA (RT-PCR) S. pyogenes GrpA GET Negative Microbiology Microbiology Results: Microbiology 01/26/23 Unknown Urine Culture - Preliminary Urine clean catch - Urine stephenson top Culture too young to evaluate. 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 Pt will be admitted to the hospital for treatment and further evaluation of sepsis in the setting of community-acquired pneumonia. Sepsis in the setting of community-acquired pneumonia Patient with weakness, fatigue, fever, chills, nausea, vomiting x2 days CT with evidence of small patchy area of infiltrate in the right upper lung laterally tachycardia/tachypnea improved, leucocytosis resolved. blood culture pending continue Ceftriaxone, azithromycin, started on 01/26/2023 Hx of PE in 2019 and 2022 Continue Xarelto HLD Continue statin HTN Hold antihypertensives d/t soft BP Resume as warrented Lupus Continue azathioprine COPD Does not appear to be in acute exacerbation Continue home inhalers DNR/DNI DVT Prophylaxis: On Xarelto ongoing hospitalization need : treatment of?sepsis in the setting of community- acquired pneumonia with IV antibiotics , blood cultures pending and close monitoring. Time Spent With Patient Time: Total time managing care of this patient today ____ minutes. Quality Stroke Does the patient have a stroke diagnosis?: No VTE Prior VTE?: Yes VTE Risk Level:: Medical - moderate - high VTE Device Contraindication: Treatment Not Indicated VTE Drug Contraindication: N/A - Med Ordered
[2023-01-27] MEDS: Rivaroxaban 20 MG TABLET PO (17:06)
[2023-01-27] MEDS: cefTRIAXone sodium 1 GM in 0.9 % Sodium Chloride 50 ML IV (17:32)
[2023-01-27] MEDS: Azithromycin 500 MG in 0.9 % Sodium Chloride 250 ML 125 MG IV (18:49)
[2023-01-27] MEDS: Latanoprost 0.005 % Ophth Sol 2.5 ML DROPS 1 DROP EYE-BOTH (20:46)
[2023-01-27] MEDS: Pramipexole Di-HCL 1 MG TABLET PO (20:46)
[2023-01-27] MEDS: Gabapentin 300 MG CAPSULE PO (20:46)
[2023-01-27] MEDS: Acetaminophen 325 MG TABLET 650 MG PO (21:01)
--- NOTE | 2023-01-27 23:09 | PC.NURSE ---
right AC IV site infiltrated , pt experienced burning sensation from running antibiotic, IV removed new # 22 inserted to lt lower arm , Azithromycin restarted and pt tolerates infusion well
--- NOTE | 2023-01-28 | ECG_ITS ---
Test Reason : c/o sob and chest pain Blood Pressure : / mmHG Vent. Rate : 111 BPM Atrial Rate : 111 BPM P-R Int : 180 ms QRS Dur : 076 ms QT Int : 302 ms P-R-T Axes : 038 -03 004 degrees QTc Int : 410 ms Sinus tachycardia Otherwise normal ECG When compared with ECG of 26-JAN-2023 14:19, No significant change was found Referred By: Kevin Carballo Electronically Signed By:SHARRI MOYA
[2023-01-28 04:00] VITALS: BP 126/56; PULSE 78; RESP 18; TEMP 36.3; O2SAT 95
[2023-01-28] MEDS: Omeprazole 20 MG CAPSULE.DR PO ×2 (06:12→15:30)
[2023-01-28] MEDS: Fluticasone/Umeclidinium/Vilanterol 100/62.5/25 BLST.W.DEV 1 PUFF INHALE (07:49)
[2023-01-28] MEDS: Albuterol/Iprat 2.5/0.5MG 3 ML AMPUL.NEB INHALE (07:49)
[2023-01-28 08:00] VITALS: BP 137/63; PULSE 84; RESP 20; TEMP 36.6; O2SAT 95
--- NOTE | 2023-01-28 09:17 | MHC.CM.PN ---
LATE ENTRY NOTE FOR 01/27/23, IMM/ 01/27/23 DELIVERED TO BEDSIDE, CM MET W/PT WHO IS A&O, REPORTS SHE LIVES ALONE, USES A CANE WHEN LEAVING THE HOUSE AND HOME O2 W/LINCARE AT [facility] (2L), PT REPORTS SO FAR SHE IS INDEPENDENT W/ALL CARE, PT'S RECENTLY PASSED AT [facility] NOVEMBER 2022, PT HAD BEEN VISITING HIM DAILY. PT DOES NOT FEEL SHE WILL NEED SERVICES HOWEVER HOSPITALIST WOULD LIKE [facility] REFERRAL/PT CONSULT, REFERRAL PLACED, PT DID REPORT SHE WANTED TO CHANGE HER HCP TO ADD HER SON HER [facility] AND HER STEPDTR HER ALT HOWEVER SHE HAD ALREADY DONE SO LAST ADMIT, PT GIVEN ANOTHER COPY. PT VERIFIES PCP IS CORINNE KIDD.
[2023-01-28] MEDS: Furosemide 20 MG TABLET PO (09:47)
[2023-01-28] MEDS: Mirabegron 25 MG TAB.ER.24H PO (09:47)
[2023-01-28] MEDS: Multivitamin TABLET 1 TAB PO (09:47)
[2023-01-28] MEDS: Atorvastatin Calcium 40 MG TABLET PO (09:47)
[2023-01-28] MEDS: Cholecalciferol (Vitamin D3) 25 MCG TABLET PO (09:47)
[2023-01-28] MEDS: Folic Acid 1 MG TABLET PO (09:47)
[2023-01-28] MEDS: Losartan Potassium 50 MG TABLET 100 MG PO (09:47)
[2023-01-28] MEDS: 0.9 % Sodium Chloride Flush 3 ML SYRINGE IVFLUSH (09:48)
[2023-01-28] MEDS: azaTHIOprine 50 MG TABLET PO (09:51)
[2023-01-28] MEDS: Acetaminophen 325 MG TABLET 650 MG PO (13:01)
[2023-01-28 13:20] VITALS: BP 170/66; PULSE 104; RESP 20; TEMP 36.7
[2023-01-28] MEDS: Morphine Sulfate 2 MG/ML CARTRIDGE IVPUSH ×2 (13:56→15:26)
[2023-01-28] MEDS: Ibuprofen 400 MG TABLET PO (15:30)
[2023-01-28] MEDS: Rivaroxaban 20 MG TABLET PO (15:30)
--- NOTE | 2023-01-28 15:34 | HO.PM.IMPN ---
Subjective Subjective Date of Service: 01/28/23 Interval History: sepsis sec to pneumonia Review of Systems feels chills ,pleurtic pain sob improving but similar to yesterday also c/o myalgias Physical Exam Vital Signs: Vital Signs: Last Vital Signs Temp 98.0 F 01/28/23 13:20 Pulse 104 H 01/28/23 13:20 Resp 20 01/28/23 13:20 BP 170/66 H 01/28/23 13:20 Pulse Ox 95 01/28/23 08:00 O2 Del Method Nasal Cannula 01/28/23 08:00 O2 Flow Rate 2 01/28/23 08:00 BMI result Body Mass Index 27.9 Appearance: Alert.? Oriented X3.? pleurtic pain? cvs: rrr, [id number] , no murmur res: diminshed breath sounds b/l lower lungs right side >left , no rales or wheezing abd: no rebound or guarding ,nt, bs present. ext pulses present , no cyanosis . neuro: axo3 , nonfocal. Objective Data Active Medications Acetaminophen (Acetaminophen 325 Mg Tablet) 650 mg PO Q6H PRN PRN Reason: Pain, Mild (Pain Scale 1-3) Last Admin: 01/28/23 13:01 Dose: 650 mg Documented By: KAYLEE Albuterol Sulfate (Albuterol Sulfate 90 Mcg 8 Gm Inhaler) 2 puff INHALE Q4H PRN PRN Reason: Wheezing Albuterol/Ipratropium (Albuterol/Iprat 2.5/0.5mg 3 Ml Ampul.Neb) 3 ml INHALE DAILY [facility] Last Admin: 01/28/23 07:49 Dose: 3 ml Documented By: VICENTA Atorvastatin Calcium (Atorvastatin Calcium 40 Mg Tablet) 40 mg PO DAILY [facility] Last Admin: 01/28/23 09:47 Dose: 40 mg Documented By: NIYAH Azathioprine (Azathioprine 50 Mg Tablet) 50 mg PO DAILY [facility] Last Admin: 01/28/23 09:51 Dose: 50 mg Documented By: NIYAH Calcium Carbonate (Calcium Carbonate 500 Mg Tablet) 500 mg PO DAILY [facility] Last Admin: 01/28/23 09:47 Dose: 500 mg Documented By: NIYAH Capsaicin (Capsaicin 0.025% Cream 60 Gm Tube) 1 appl TOPICAL QID PRN; Protocol PRN Reason: Pain, Mild (Pain Scale 1-3) Fluticasone/Umeclidinium/Vilanterol (Fluticasone/Umeclidinium/Vilanterol 100/62.5/25 Blst.W.Dev) 1 puff INHALE DAILY [facility] Last Admin: 01/28/23 07:49 Dose: 1 puff Documented By: VICENTA Folic Acid (Folic Acid 1 Mg Tablet) 1 mg PO DAILY [facility] Last Admin: 01/28/23 09:47 Dose: 1 mg Documented By: NIYAH Furosemide (Furosemide 20 Mg Tablet) 20 mg PO DAILY [facility]; Protocol Last Admin: 01/28/23 09:47 Dose: 20 mg Documented By: NIYAH Gabapentin (Gabapentin 300 Mg Capsule) 300 mg PO BEDTIME [facility] Last Admin: 01/27/23 20:46 Dose: 300 mg Documented By: RICARDO Guaifenesin (Guaifenesin 200 Mg/10 Ml 10 Ml Liquid) 10 ml PO Q4H PRN PRN Reason: Cough Ceftriaxone Sodium 1 gm/ (Sodium Chloride) 50 mls @ 100 mls/hr IV Q24H [facility] Last Infusion: 01/27/23 18:06 Dose: Infused Documented By: RICARDO Azithromycin 500 mg/ Sodium (Chloride) 250 mls @ 125 mls/hr IV Q24H [facility] Last Infusion: 01/27/23 22:05 Dose: Infused Documented By: RICARDO Lactated Ringer's (Lr) 1,000 mls @ 80 mls/hr IVCONT .[id number] [facility] Latanoprost (Latanoprost 0.005 % Ophth Ayana 2.5 Ml Drops) 1 drop EYE-BOTH BEDTIME [facility] Last Admin: 01/27/23 20:46 Dose: 1 drop Documented By: RICARDO Lidocaine (Lidocaine 4 % Patch Adh..Patch) 1 patch TRANSDERMA DAILY [facility]; Protocol Losartan Potassium (Losartan Potassium 50 Mg Tablet) 100 mg PO DAILY [facility]; Protocol Last Admin: 01/28/23 09:47 Dose: 100 mg Documented By: NIYAH Melatonin (Melatonin 3 Mg Tablet) 6 mg PO BEDTIME PRN PRN Reason: Insomnia Mirabegron (Mirabegron 25 Mg Tab.Er.24h) 25 mg PO DAILY [facility] Last Admin: 01/28/23 09:47 Dose: 25 mg Documented By: NIYAH Multivitamins/Vitamin C (Multivitamin Tablet) 1 tab PO DAILY [facility] Last Admin: 01/28/23 09:47 Dose: 1 tab Documented By: NIYAH Omeprazole (Omeprazole 20 Mg Capsule.) 20 mg PO BID@0630,1630 [facility] Ondansetron HCl (Ondansetron Hcl 4 Mg/2 Ml Vial) 4 mg IVPUSH Q4H PRN PRN Reason: Nausea and Vomiting Pramipexole Dihydrochloride (Pramipexole Di-Hcl 1 Mg Tablet) 1 mg PO BEDTIME [facility] Last Admin: 01/27/23 20:46 Dose: 1 mg Documented By: RICARDO Rivaroxaban (Rivaroxaban 20 Mg Tablet) 20 mg PO DAILY@1700 [facility] Last Admin: 01/27/23 17:06 Dose: 20 mg Documented By: RIACRDO Sodium Chloride (0.9 % Sodium Chloride Flush 3 Ml Syringe) 3 ml IVFLUSH QSHIFT [facility] Last Admin: 01/28/23 09:48 Dose: 3 ml Documented By: NIYAH Vitamin D (Cholecalciferol (Vitamin D3) 25 Mcg Tablet) 25 mcg PO DAILY [facility] Last Admin: 01/28/23 09:47 Dose: 25 mcg Documented By: NIYAH Labs 01/26/23 14:21 01/27/23 06:32 Microbiology Microbiology Results: Microbiology 01/26/23 Unknown Urine Culture - Final Urine clean catch - Urine stephenson top 01/26/23 14:29 Blood Culture - Preliminary Blood - Venous No growth after 24 hours. 01/26/23 14:21 Blood Culture - Preliminary Blood - Venous No growth after 24 hours. 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 Pt will be admitted to the hospital for treatment and further evaluation of sepsis in the setting of community-acquired pneumonia. Sepsis in the setting of community-acquired pneumonia Patient with weakness, fatigue, fever, chills, nausea, vomiting x2 days CT with evidence of small patchy area of infiltrate in the right upper lung laterally tachycardia , fever 104 blood culture neg 24 hrs added res panel,added repeat blood cultures ct chest added. switched to vanco/zosyn started on 01/28/2023,given morphine for pain,tylenol prn for fever Hx of PE in 2019 and 2022 Continue Xarelto HLD Continue statin HTN Hold antihypertensives d/t soft BP Resume as warrented Lupus Continue azathioprine COPD Does not appear to be in acute exacerbation Continue home inhalers DNR/DNI DVT Prophylaxis: On Xarelto ongoing hospitalization need : treatment of?sepsis in the setting of community-acquired pneumonia with IV antibiotics , blood cultures pending and close monitoring. Time Spent With Patient Time: Total time managing care of this patient today ____ minutes. Quality Stroke Does the patient have a stroke diagnosis?: No VTE Prior VTE?: Yes VTE Risk Level:: Medical - moderate - high VTE Device Contraindication: Treatment Not Indicated VTE Drug Contraindication: N/A - Med Ordered
[2023-01-28 15:49] VITALS: BP 158/82; PULSE 122; RESP 16; TEMP 40.4
[2023-01-28 15:49] LABS: Troponin-I High Sensitivity 7.2 ng/L (<3.5-17.0)
[2023-01-28] MEDS: Lactated Ringers 1,000 ML 80 ML IVCONT (15:50)
[2023-01-28 16:02] LABS: Hematocrit 38.7 % (37.0-47.0); Hemoglobin 12.1 g/dl (12.0-16.0); Mean Corpuscular HGB Conc 31.3 g/dl (31.0-35.0); Mean Corpuscular Hemoglobin 29.9 pg (27.0-33.0); Mean Corpuscular Volume 95.6 fL (80.0-98.0); Mean Platelet Volume 9.7 fL (9.4-12.3); Platelet Count 265 X10*3/uL (160-400); Red Blood Count 4.05 X10*6/uL (4.20-5.50); Red Cell Distribution Width 14.8 % (11.0-16.0); White Blood Count 7.7 X10*3/uL (4.8-10.8)
[2023-01-28 16:17] LABS: Anion Gap 17 (12-20); Blood Urea Nitrogen 16 mg/dL (9-16); Calcium 9.2 mg/dL (8.4-10.2); Carbon Dioxide 21 mmol/L (22-29); Chloride 106 mmol/L (96-108); Creatinine Clr Calc Pharmacy 34.1; Estimated Glomerular Filt Rate 55; Glucose Random 115 mg/dL (60-115); Potassium 3.8 mmol/L (3.3-5.1); Sodium 140 mmol/L (135-145)
[2023-01-28] MEDS: vancomycin HCL 1,500 MG in 0.9 % Sodium Chloride 500 ML 333.33 MG IV (17:01)
[2023-01-28] MEDS: Piperacillin Sodium/Tazobactam 3.375 GM in 0.9 % Sodium Chloride 50 ML IV ×2 (17:26→23:06)
[2023-01-28 17:30] VITALS: TEMP 37.9
[2023-01-28 20:00] VITALS: BP 140/85; PULSE 90; RESP 16; TEMP 36.8; O2SAT 98
[2023-01-28] MEDS: Pramipexole Di-HCL 1 MG TABLET PO (23:04)
[2023-01-28] MEDS: Gabapentin 300 MG CAPSULE PO (23:04)
[2023-01-28] MEDS: Melatonin 3 MG TABLET 6 MG PO (23:05)
[2023-01-28] MEDS: Latanoprost 0.005 % Ophth Sol 2.5 ML DROPS 1 DROP EYE-BOTH (23:06)
[2023-01-29] VITALS (10 sets, daily range): BP systolic 94–146; BP diastolic 51–74; PULSE 56–125; RESP 16–24; TEMP 36.3–39.5; O2SAT 89–98; BMI 28.0
--- NOTE | 2023-01-29 | ECG_ITS ---
Test Reason : tachycardia Blood Pressure : / mmHG Vent. Rate : 139 BPM Atrial Rate : 139 BPM P-R Int : 176 ms QRS Dur : 072 ms QT Int : 272 ms P-R-T Axes : -09 -83 032 degrees QTc Int : 413 ms Sinus tachycardia with Premature atrial complexes with Aberrant conduction Left axis deviation Inferior infarct , age undetermined Anterior infarct , age undetermined Abnormal ECG When compared with ECG of 28-JAN-2023 14:13, Aberrant conduction is now Present QRS axis Shifted left Anterior infarct is now Present Inferior infarct is now Present Heart rate has increased Referred By: Kevin Carballo Electronically Signed By:SHARRI MOYA
[2023-01-29] MEDS: 0.9 % Sodium Chloride Flush 3 ML SYRINGE IVFLUSH ×2 (02:02→09:19)
[2023-01-29] MEDS: Lactated Ringers 1,000 ML 80 ML IVCONT ×2 (03:49→16:53)
[2023-01-29] MEDS: Piperacillin Sodium/Tazobactam 3.375 GM in 0.9 % Sodium Chloride 50 ML IV ×4 (06:00→23:42)
[2023-01-29] MEDS: Omeprazole 20 MG CAPSULE.DR PO ×2 (06:03→16:14)
[2023-01-29] MEDS: vancomycin HCL 500 MG in 0.9 % Sodium Chloride 100 ML 110 MG IV ×2 (06:03→18:28)
[2023-01-29] MEDS: Albuterol/Iprat 2.5/0.5MG 3 ML AMPUL.NEB INHALE ×2 (08:26→19:53)
[2023-01-29] MEDS: Fluticasone/Umeclidinium/Vilanterol 100/62.5/25 BLST.W.DEV 1 PUFF INHALE (08:26)
[2023-01-29 09:01] LABS: Creatinine Clr Calc Pharmacy 39.9; Estimated Glomerular Filt Rate > 60
[2023-01-29] MEDS: azaTHIOprine 50 MG TABLET PO (09:19)
[2023-01-29] MEDS: Folic Acid 1 MG TABLET PO (09:19)
[2023-01-29] MEDS: Multivitamin TABLET 1 TAB PO (09:19)
[2023-01-29] MEDS: Cholecalciferol (Vitamin D3) 25 MCG TABLET PO (09:19)
[2023-01-29] MEDS: Mirabegron 25 MG TAB.ER.24H PO (09:19)
[2023-01-29] MEDS: Acetaminophen 325 MG TABLET 975 MG PO ×3 (09:19→20:16)
[2023-01-29] MEDS: Losartan Potassium 50 MG TABLET 100 MG PO (09:19)
[2023-01-29] MEDS: Atorvastatin Calcium 40 MG TABLET PO (09:19)
--- NOTE | 2023-01-29 10:46 | MHC.CM.PN ---
PER MD ROUNDS, PT NOT READY TO DC, PNEUMONIA NOT IMPROVING, ANX CHANGED DCP CURRENTLY HOME, CM FOLLOWING FOR CHANGING NEEDS
[2023-01-29 11:17] LABS: Adenovirus PCR Not Detected (Not Detect.); Bordetella parapertussis PCR Not Detected (Not Detect.); Bordetella pertussis PCR Not Detected (Not Detect.); Chlamydia pneumoniae PCR Not Detected (Not Detect.); Coronavirus 229E PCR Not Detected (Not Detect.); Coronavirus HKU1 PCR Not Detected (Not Detect.); Coronavirus NL63 PCR Not Detected (Not Detect.); Coronavirus OC43 PCR Not Detected (Not Detect.); Human metapneumovirus PCR Not Detected (Not Detect.); Influenza A PCR Not Detected (Not Detect.); Influenza B PCR Not Detected (Not Detect.); Mycoplasma pneumoniae PCR Not Detected (Not Detect.); Parainfluenza 1 PCR Not Detected (Not Detect.); Parainfluenza 2 PCR Not Detected (Not Detect.); Parainfluenza 3 PCR Not Detected (Not Detect.); Parainfluenza 4 PCR Not Detected (Not Detect.); RSV PCR Not Detected (Not Detect.); Rhino/Enterovirus PCR Not Detected (Not Detect.)
[2023-01-29] MEDS: Lidocaine 4 % Patch ADH..PATCH 1 PATCH TRANSDERMA (11:30)
[2023-01-29 11:58] LABS: SARS-CoV-2 PCR Not Detected (Not Detect.)
[2023-01-29 15:29] LABS: Procalcitonin 5.93 ng/mL
--- NOTE | 2023-01-29 16:05 | P.PNIM_ITS ---
Subjective Subjective Date of Service: 01/29/23 Interval History: sepsis sec to pneumonia Review of Systems pleurtic pain,sob and myalgia someehat improving fever improved. Physical Exam 2 Vital Signs: Vital Signs: Last Vital Signs Temp 98.6 F 01/29/23 07:55 Pulse 77 01/29/23 08:36 Resp 16 01/29/23 08:36 BP 146/60 H 01/29/23 07:55 Pulse Ox 98 01/29/23 07:55 O2 Del Method Nasal Cannula 01/29/23 07:55 O2 Flow Rate 3 01/29/23 07:55 BMI result Body Mass Index 27.9 Appearance: Alert.? Oriented X3.? pleurtic pain? cvs: rrr, [id number] , no murmur res: diminshed breath sounds b/l lower lungs , no rales or wheezing abd: no rebound or guarding ,nt, bs present. ext pulses present , no cyanosis . neuro: axo3 , nonfocal. Objective Data Active Medications Acetaminophen (Acetaminophen 325 Mg Tablet) 975 mg PO TID [facility] Last Admin: 01/29/23 09:19 Dose: 975 mg Documented By: PORTER Albuterol Sulfate (Albuterol Sulfate 90 Mcg 8 Gm Inhaler) 2 puff INHALE Q4H PRN PRN Reason: Wheezing Albuterol/Ipratropium (Albuterol/Iprat 2.5/0.5mg 3 Ml Ampul.Neb) 3 ml INHALE DAILY [facility] Last Admin: 01/29/23 08:26 Dose: 3 ml Documented By: BELL Atorvastatin Calcium (Atorvastatin Calcium 40 Mg Tablet) 40 mg PO DAILY [facility] Last Admin: 01/29/23 09:19 Dose: 40 mg Documented By: PORTER Azathioprine (Azathioprine 50 Mg Tablet) 50 mg PO DAILY [facility] Last Admin: 01/29/23 09:19 Dose: 50 mg Documented By: PORTER Calcium Carbonate (Calcium Carbonate 500 Mg Tablet) 500 mg PO DAILY [facility] Last Admin: 01/29/23 09:19 Dose: 500 mg Documented By: PORTER Capsaicin (Capsaicin 0.025% Cream 60 Gm Tube) 1 appl TOPICAL QID PRN; Protocol PRN Reason: Pain, Mild (Pain Scale 1-3) Fluticasone/Umeclidinium/Vilanterol (Fluticasone/Umeclidinium/Vilanterol 100/62.5/25 Blst.W.Dev) 1 puff INHALE DAILY [facility] Last Admin: 01/29/23 08:26 Dose: 1 puff Documented By: BELL Folic Acid (Folic Acid 1 Mg Tablet) 1 mg PO DAILY [facility] Last Admin: 01/29/23 09:19 Dose: 1 mg Documented By: PORTER Furosemide (Furosemide 20 Mg Tablet) 20 mg PO DAILY [facility]; Protocol Last Admin: 01/28/23 09:47 Dose: 20 mg Documented By: NIYAH Gabapentin (Gabapentin 300 Mg Capsule) 300 mg PO BEDTIME [facility] Last Admin: 01/28/23 23:04 Dose: 300 mg Documented By: JAIMEE Guaifenesin (Guaifenesin 200 Mg/10 Ml 10 Ml Liquid) 10 ml PO Q4H PRN PRN Reason: Cough Lactated Ringer's (Lr) 1,000 mls @ 80 mls/hr IVCONT .[id number] [facility] Last Admin: 01/29/23 03:49 Dose: 80 mls/hr Documented By: JAIMEE Piperacillin Sod/Tazobactam (Sod 3.375 gm/ Sodium Chloride) 50 mls @ 100 mls/hr IV Q6H [facility] Last Infusion: 01/29/23 12:37 Dose: Infused Documented By: PORTER Vancomycin HCl 500 mg/ Sodium (Chloride) 110 mls @ 110 mls/hr IV Q12H [facility] [place] Last Infusion: 01/29/23 07:58 Dose: Infused Documented By: PORTER Latanoprost (Latanoprost 0.005 % Ophth Ayana 2.5 Ml Drops) 1 drop EYE-BOTH BEDTIME [facility] Last Admin: 01/28/23 23:06 Dose: 1 drop Documented By: JAIMEE Lidocaine (Lidocaine 4 % Patch Adh..Patch) 1 patch TRANSDERMA DAILY [facility]; Protocol Last Admin: 01/29/23 11:30 Dose: 1 patch Documented By: PORTER Losartan Potassium (Losartan Potassium 50 Mg Tablet) 100 mg PO DAILY [facility]; Protocol Last Admin: 01/29/23 09:19 Dose: 100 mg Documented By: PORTER Melatonin (Melatonin 3 Mg Tablet) 6 mg PO BEDTIME PRN PRN Reason: Insomnia Last Admin: 01/28/23 23:05 Dose: 6 mg Documented By: JAIMEE Mirabegron (Mirabegron 25 Mg Tab.Er.24h) 25 mg PO DAILY [facility] [place] Last Admin: 01/29/23 09:19 Dose: 25 mg Documented By: PORTER Multivitamins/Vitamin C (Multivitamin Tablet) 1 tab PO DAILY [facility] [place] Last Admin: 01/29/23 09:19 Dose: 1 tab Documented By: PORTER Omeprazole (Omeprazole 20 Mg Capsule.Dr) 20 mg PO BID@0630,1630 [facility] [place] Last Admin: 01/29/23 06:03 Dose: 20 mg Documented By: ANTOIC Ondansetron HCl (Ondansetron Hcl 4 Mg/2 Ml Vial) 4 mg IVPUSH Q4H PRN PRN Reason: Nausea and Vomiting Pharmacy Consult (Consult Rx Vancomycin Dosing) 1 each MISCELLANE DAILY PRN PRN Reason: Consult order Pramipexole Dihydrochloride (Pramipexole Di-Hcl 1 Mg Tablet) 1 mg PO BEDTIME [facility] Last Admin: 01/28/23 23:04 Dose: 1 mg Documented By: JAIMEE Rivaroxaban (Rivaroxaban 20 Mg Tablet) 20 mg PO DAILY@1700 [facility] Last Admin: 01/28/23 15:30 Dose: 20 mg Documented By: KAYLEE Sodium Chloride (0.9 % Sodium Chloride Flush 3 Ml Syringe) 3 ml IVFLUSH QSHIFT [facility] Last Admin: 01/29/23 09:19 Dose: 3 ml Documented By: PORTER Vitamin D (Cholecalciferol (Vitamin D3) 25 Mcg Tablet) 25 mcg PO DAILY [facility] Last Admin: 01/29/23 09:19 Dose: 25 mcg Documented By: PORTER Labs 01/28/23 Unknown 01/29/23 07:54 Labs: Laboratory Results - last 24 hr 01/28/23 01/28/23 01/29/23 19:25 Unknown 07:54 Anion Gap 17 Estim Creat Clear Calc 34.1 39.9 Estimated GFR 55 > 60 Random Glucose 115 Calcium 9.2 D Procalcitonin 5.93 Respiratory Panel Deshpande See Note Adenovirus (Rapid PCR) Not Detected B.pert (TEM-PCR) Not Detected B.parapertussis DNA PCR Not Detected C. pneumoniae DNA (PCR) Not Detected Coronavirus OC43 (PCR) Not Detected Coronavirus HKU1 (PCR) Not Detected Coronavirus 229E (PCR) Not Detected Coronavirus NL63 (PCR) Not Detected Human Metapneumovir PCR Not Detected Influenza A (RT-PCR) Not Detected Influenza B (RT-PCR) Not Detected M. pneumoniae (PCR) Not Detected Parainfluenza 1 (PCR) Not Detected Parainfluenza 2 (PCR) Not Detected Parainfluenza 3 (PCR) Not Detected Parainfluenza 4 (PCR) Not Detected RSV (PCR) Not Detected Entero/Rhino (PCR) Not Detected SARS-CoV-2 RNA (RT-PCR) Not Detected Microbiology Microbiology Results: Microbiology 01/26/23 14:29 Blood Culture - Preliminary Blood - Venous No growth after 48 hours. 01/26/23 14:21 Blood Culture - Preliminary Blood - Venous No growth after 48 hours. 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 Pt will be admitted to the hospital for treatment and further evaluation of sepsis in the setting of community-acquired pneumonia. Sepsis in the setting of community-acquired pneumonia Patient with weakness, fatigue, fever, chills, nausea, vomiting x2 days CT with evidence of small patchy area of infiltrate in the right upper lung laterally tachycardia , fever improved (01/26)blood culture neg 48 hrs,res panel neg , (01/28)repeat blood cultures pending ct chest reviewed -seems similar to intial ct chest. switched to vanco/zosyn started on 01/28/2023,given morphine for pain,tylenol prn for fever d/w ID - continue above , pulm eval pending Hx of PE in 2019 and 2022 Continue Xarelto HLD Continue statin HTN continue home meds. Lupus Continue azathioprine COPD Does not appear to be in acute exacerbation Continue home inhalers DNR/DNI DVT Prophylaxis: On Xarelto ongoing hospitalization need : treatment of?sepsis in the setting of community- acquired pneumonia with IV antibiotics , blood cultures pending and close monitoring. Time Spent With Patient Time: Total time managing care of this patient today ____ minutes. Quality Stroke Does the patient have a stroke diagnosis?: No VTE Prior VTE?: Yes VTE Risk Level:: Medical - moderate - high VTE Device Contraindication: Treatment Not Indicated VTE Drug Contraindication: N/A - Med Ordered
--- NOTE | 2023-01-29 16:10 | P.CNID_ITS ---
History of Present Illness Data of Consult Service Date: 01/29/23 Requesting physician: Kevin Carballo Primary Care Provider: Fabio Stuart MD HPI Reason for consult: chills ,pneumonia She has chills on admission and RUL pneumonia. She has discoid lupus. She feels somewhat better. She has received COVID and flu shots. Review of Systems 2 Review of Systems: Yes all other systems are reviewed and are negative PMFSH Past Medical History Medical History Chest discomfort Dyspnea Pleuritic chest pain Encounter for monitoring azathioprine therapy Lupus (systemic lupus erythematosus) Hiatal hernia Chronic respiratory failure Pulmonary nodules COPD (chronic obstructive pulmonary disease) Arterial occlusive disease Left leg DVT Pulmonary nodule Iliac artery occlusion Greater saphenous vein embolism Diverticulitis Thrombus of aorta Hypercholesterolemia Restless leg Discoid lupus Osteopenia Hypertension GERD (gastroesophageal reflux disease) Anxiety Pulmonary embolism DVT (deep venous thrombosis) Family History Family History Father Hypertension Cancer Mother Hypertension Stroke CVD (cardiovascular disease) Family history: reviewed and not pertinent Surgical History Surgical History Bilateral pulmonary embolism History of toe surgery History of breast biopsy History of foot surgery History of cataract surgery History of total abdominal hysterectomy and bilateral salpingo-oophorectomy Social History Social History Household Members: None Housing: House Do you presently have visiting nurse or other home services: No Alcohol intake: never Patient Tobacco Use Status: Former Tobacco user Tobacco use type: Cigarette Years Smoked: 30 Smoked in Last 30 Days: No e-Cigarette/Vaping Use: Never Used Patient Interested in Nicotine Replacement: No Patient Given Instructions on How to Stop Smoking: No Second Hand Smoke Exposure: No Use of substances other than those prescribed or required for medical reasons: No Currently Displaying Signs/Symptoms of Drug Intoxication Withdrawal: No Any prior treatment program specific to substance use: No Have you been hit, kicked, punched, or otherwise hurt by someone within the past year? If so, by whom?: No Do you feel safe in your current relationship?: No Current Relationship Is there a partner from a previous relationship who is making you feel unsafe now?: No Are you made to feel afraid or neglected: No Advance Directives: Yes Advance Directives on File: Yes Advance Directives Date on File: 09/21/22 Do you have thoughts of harming others: None Do you have a plan to hurt others: No Plan Recently lost weight without trying: No Eating poorly because of decreased appetite: Yes Nutrition Risks: No Nutritional Risk Patient : No : No Poor oral hygiene: No service: No Current occupational status: retired Cognitive needs: Yes Hearing needs: No Vision needs: Yes Meds Allergies Allergy/AdvReac Type Severity Reaction Status Date / Time amlodipine Allergy Unknown leg Verified 01/22/23 12:52 swelling, swelling hydroxychloroquine Allergy Unknown Affected Verified 01/22/23 12:52 [From Plaquenil] eye sight metoprolol Allergy Unknown Swelling Verified 01/22/23 12:52 Active Medications: Current Medications Acetaminophen (Acetaminophen 325 Mg Tablet) 975 mg PO TID [facility] Last Admin: 01/29/23 09:19 Dose: 975 mg Albuterol Sulfate (Albuterol Sulfate 90 Mcg 8 Gm Inhaler) 2 puff INHALE Q4H PRN PRN Reason: Wheezing Albuterol/Ipratropium (Albuterol/Iprat 2.5/0.5mg 3 Ml Ampul.Neb) 3 ml INHALE DAILY [facility] Last Admin: 01/29/23 08:26 Dose: 3 ml Atorvastatin Calcium (Atorvastatin Calcium 40 Mg Tablet) 40 mg PO DAILY [facility] Last Admin: 01/29/23 09:19 Dose: 40 mg Azathioprine (Azathioprine 50 Mg Tablet) 50 mg PO DAILY [facility] Last Admin: 01/29/23 09:19 Dose: 50 mg Calcium Carbonate (Calcium Carbonate 500 Mg Tablet) 500 mg PO DAILY [facility] Last Admin: 01/29/23 09:19 Dose: 500 mg Capsaicin (Capsaicin 0.025% Cream 60 Gm Tube) 1 appl TOPICAL QID PRN; Protocol PRN Reason: Pain, Mild (Pain Scale 1-3) Fluticasone/Umeclidinium/Vilanterol (Fluticasone/Umeclidinium/Vilanterol 100/62.5/25 Blst.W.Dev) 1 puff INHALE DAILY [facility] Last Admin: 01/29/23 08:26 Dose: 1 puff Folic Acid (Folic Acid 1 Mg Tablet) 1 mg PO DAILY [facility] Last Admin: 01/29/23 09:19 Dose: 1 mg Furosemide (Furosemide 20 Mg Tablet) 20 mg PO DAILY [facility]; Protocol Last Admin: 01/28/23 09:47 Dose: 20 mg Gabapentin (Gabapentin 300 Mg Capsule) 300 mg PO BEDTIME [facility] Last Admin: 01/28/23 23:04 Dose: 300 mg Guaifenesin (Guaifenesin 200 Mg/10 Ml 10 Ml Liquid) 10 ml PO Q4H PRN PRN Reason: Cough Lactated Ringer's (Lr) 1,000 mls @ 80 mls/hr IVCONT .[id number] [facility] Last Admin: 01/29/23 03:49 Dose: 80 mls/hr Piperacillin Sod/Tazobactam (Sod 3.375 gm/ Sodium Chloride) 50 mls @ 100 mls/hr IV Q6H [facility] Last Infusion: 01/29/23 12:37 Dose: Infused Vancomycin HCl 500 mg/ Sodium (Chloride) 110 mls @ 110 mls/hr IV Q12H [facility] Last Infusion: 01/29/23 07:58 Dose: Infused Latanoprost (Latanoprost 0.005 % Ophth Ayana 2.5 Ml Drops) 1 drop EYE-BOTH BEDTIME [facility] Last Admin: 01/28/23 23:06 Dose: 1 drop Lidocaine (Lidocaine 4 % Patch Adh..Patch) 1 patch TRANSDERMA DAILY [facility]; Protocol Last Admin: 01/29/23 11:30 Dose: 1 patch Losartan Potassium (Losartan Potassium 50 Mg Tablet) 100 mg PO DAILY [facility]; Protocol Last Admin: 01/29/23 09:19 Dose: 100 mg Melatonin (Melatonin 3 Mg Tablet) 6 mg PO BEDTIME PRN PRN Reason: Insomnia Last Admin: 01/28/23 23:05 Dose: 6 mg Mirabegron (Mirabegron 25 Mg Tab.Er.24h) 25 mg PO DAILY [facility] Last Admin: 01/29/23 09:19 Dose: 25 mg Multivitamins/Vitamin C (Multivitamin Tablet) 1 tab PO DAILY [facility] Last Admin: 01/29/23 09:19 Dose: 1 tab Omeprazole (Omeprazole 20 Mg Capsule.Dr) 20 mg PO BID@0630,1630 [facility] Last Admin: 01/29/23 06:03 Dose: 20 mg Ondansetron HCl (Ondansetron Hcl 4 Mg/2 Ml Vial) 4 mg IVPUSH Q4H PRN PRN Reason: Nausea and Vomiting Pharmacy Consult (Consult Rx Vancomycin Dosing) 1 each MISCELLANE DAILY PRN PRN Reason: Consult order Pramipexole Dihydrochloride (Pramipexole Di-Hcl 1 Mg Tablet) 1 mg PO BEDTIME [facility] Last Admin: 01/28/23 23:04 Dose: 1 mg Rivaroxaban (Rivaroxaban 20 Mg Tablet) 20 mg PO DAILY@1700 [facility] Last Admin: 01/28/23 15:30 Dose: 20 mg Sodium Chloride (0.9 % Sodium Chloride Flush 3 Ml Syringe) 3 ml IVFLUSH QSHIFT [facility] Last Admin: 01/29/23 09:19 Dose: 3 ml Vitamin D (Cholecalciferol (Vitamin D3) 25 Mcg Tablet) 25 mcg PO DAILY [facility] Last Admin: 01/29/23 09:19 Dose: 25 mcg Home Medications Medication Instructions Recorded Confirmed Last Taken Type calcium carbonate 600 mg calcium 600 mg PO DAILY 02/27/20 01/26/23 01/26/23 History (1,500 mg) tablet (Calcium) cholecalciferol (vitamin D3) 25 25 mcg PO DAILY 02/27/20 01/26/23 01/26/23 History mcg (1,000 unit) capsule mirabegron 25 mg tablet,extended 25 mg PO DAILY 02/27/20 01/26/23 01/26/23 History release 24 hr (Myrbetriq) pramipexole 1 mg tablet 1 mg PO BEDTIME 03/03/22 01/26/23 01/25/23 History Oxygen Home Use 04/11/22 01/11/23 Unknown History gabapentin 300 mg capsule 300 mg PO BEDTIME 08/16/22 01/26/23 01/26/23 History latanoprost 0.005 % eye drops 1 drp ophthalmic (eye) BEDTIME 08/16/22 01/26/23 01/25/23 History nebulizers 09/18/22 01/11/23 Unknown History ipratropium 0.5 mg-albuterol 3 mg 3 ml inhalation DAILY 09/20/22 01/26/23 01/26/23 History (2.5 mg base)/3 mL nebulization soln tramadol 50 mg tablet 50 mg PO BID PRN Pain 09/20/22 01/26/23 Unknown History albuterol sulfate 90 mcg/actuation 2 puff inhalation Q4-6H PRN 01/26/23 01/26/23 Unknown History aerosol inhaler Wheezing diclofenac sodium 1 % topical gel 2 g topical QID PRN Pain 01/26/23 01/26/23 Unknown History (Voltaren Arthritis Pain) esomeprazole magnesium 40 mg 40 mg PO DAILY 01/26/23 01/26/23 01/26/23 History capsule,delayed release multivitamin 1 tab PO DAILY 01/26/23 01/26/23 01/26/23 History rivaroxaban 20 mg tablet (Xarelto) 20 mg PO BEDTIME 01/26/23 01/26/23 01/25/23 History Physical Exam 2 Vital Signs: Vital Signs: Last Vital Signs Temp 98.6 F 01/29/23 07:55 Pulse 77 01/29/23 08:36 Resp 16 01/29/23 08:36 BP 146/60 H 01/29/23 07:55 Pulse Ox 98 01/29/23 07:55 O2 Del Method Nasal Cannula 01/29/23 07:55 O2 Flow Rate 3 01/29/23 07:55 BMI result Body Mass Index 27.9 Const: General: cooperative HEENT: Head: Yes normal to inspection Face and sinus: Yes normal facial exam Mouth: Normal oral and palatal mucosa present Teeth and gingiva: d entition normal Eyes: General: appearance normal, both eyes and all related structures P upils: Equal, round and reactive pupils present Resp: Other: left base crackles Effort & Inspection: normal respiratory effort Cardio: Rate: regular rate Rhythm: regular rhythm GI: Palpation (GI): Soft to palpation and nontender : General: Yes no CVA tenderness Back/Spine/Pelvis: Back: no CVA tenderness Skin: General skin exam: no rashes or lesions noted Neuro: General: moves all extremities Cranial nerves: Yes Equal, round and reactive pupils present Extrem: General: Yes normal to inspection Psych: Appearance: grossly normal Results Labs 01/28/23 Unknown 01/29/23 07:54 Labs: BMP 01/28/23 01/29/23 Unknown 07:54 Sodium 140 Potassium 3.8 Chloride 106 Carbon Dioxide 21 L BUN 16 Creatinine 0.97 0.83 Calcium 9.2 D Microbiology Microbiology Results: Microbiology 01/26/23 14:29 Blood - Venous Blood Culture - Preliminary No growth after 48 hours. 01/26/23 14:21 Blood - Venous Blood Culture - Preliminary No growth after 48 hours. 01/26/23 Unknown Urine clean catch - Urine stephenson top Urine Culture - Final Assessment and Plan (1) Sepsis: Qualifiers: Sepsis acute organ dysfunction status: without acute organ dysfunction Sepsis type: sepsis due to unspecified organism Qualified Code(s): A41.9 - Sepsis, unspecified organism Status: Acute (2) Community acquired pneumonia: Qualifiers: Laterality: right Lung location: upper lobe of lung Qualified Code(s): J18.9 - Pneumonia, unspecified organism Status: Acute There is concern over typical versus atypical pneumonia such as Legionella,mycoplasma She is slightly over baseline 2 l oxygen,now 3 liters Plan Add Doxycycline Check procalcitonin. Pulmonary is involved Probably 3-5 IV therapy. No Vancomycin if MRSA nares negative. Time Spent With Patient Time: Total time managing care of this patient today ____ minutes.
[2023-01-29] MEDS: Rivaroxaban 20 MG TABLET PO (16:14)
[2023-01-29 16:40] LABS: Vancomycin Random 13.1 mcg/mL (15-20)
--- NOTE | 2023-01-29 17:11 | PM.CNPUL ---
History of Present Illness History of Present Illness Consult date: 01/29/23 Requesting physician: Kevin Carballo Chief complaint: Dyspnea Narrative: PULMONARY CONSULT I have seen this 87 years old female this morning,. For pulmonary consultation She is a well known patient to the Pulmonary Department mainly followed by Dr. Farooq Vieyra, who had last seen her on November. The patient is now admitted with a few days history of increased shortness of breath general weakness some GI symptoms, low-grade fever and cough. In the emergency room she was febrile with a temperature of 104 degrees respiratory rate 26. and appeared acutely sick. She is being treated for is small patch of pneumonia in the right upper lobe, with Pipracillin IV. Initially started on vancomycin also which has been stopped. Patient tells me that she is feeling better, cough is minimal., she is starting to eat. And she is doing well on O2 3 L/minute. Patient has past history of advanced chronic obstructive pulmonary disease for many years mainly because of pulmonary emphysema, She also has history of nocturnal hypoxemia , she is being treated with Trelegy Ellipta 1 inhalation daily, albuterol inhaler only p.r.n., and O2 2 L/minute at night. 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 Complete PMFSH is reviewed Review of Systems Review of Systems: Yes all other systems are reviewed and are negative [facility] Past Medical History Medical History (Updated 01/29/23 @ 17:21 by Jennifer Young MD) COPD (chronic obstructive pulmonary disease) Chest discomfort Dyspnea Pleuritic chest pain Encounter for monitoring azathioprine therapy Lupus (systemic lupus erythematosus) Hiatal hernia Chronic respiratory failure Pulmonary nodules Arterial occlusive disease Left leg DVT Pulmonary nodule Iliac artery occlusion Greater saphenous vein embolism Diverticulitis Thrombus of aorta Hypercholesterolemia Restless leg Discoid lupus Osteopenia Hypertension GERD (gastroesophageal reflux disease) Anxiety Pulmonary embolism DVT (deep venous thrombosis) Family History Family History Father Hypertension Cancer Mother Hypertension Stroke CVD (cardiovascular disease) Family history: reviewed and not pertinent Surgical History Surgical History Bilateral pulmonary embolism History of toe surgery History of breast biopsy History of foot surgery History of cataract surgery History of total abdominal hysterectomy and bilateral salpingo-oophorectomy Social History Social History Household Members: None Housing: House Do you presently have visiting nurse or other home services: No Alcohol intake: never Patient Tobacco Use Status: Former Tobacco user Tobacco use type: Cigarette Years Smoked: 30 Smoked in Last 30 Days: No e-Cigarette/Vaping Use: Never Used Patient Interested in Nicotine Replacement: No Patient Given Instructions on How to Stop Smoking: No Second Hand Smoke Exposure: No Use of substances other than those prescribed or required for medical reasons: No Currently Displaying Signs/Symptoms of Drug Intoxication Withdrawal: No Any prior treatment program specific to substance use: No Have you been hit, kicked, punched, or otherwise hurt by someone within the past year? If so, by whom?: No Do you feel safe in your current relationship?: No Current Relationship Is there a partner from a previous relationship who is making you feel unsafe now?: No Are you made to feel afraid or neglected: No Advance Directives: Yes Advance Directives on File: Yes Advance Directives Date on File: 09/21/22 Do you have thoughts of harming others: None Do you have a plan to hurt others: No Plan Recently lost weight without trying: No Eating poorly because of decreased appetite: Yes Nutrition Risks: No Nutritional Risk Patient : No : No Poor oral hygiene: No service: No Current occupational status: retired Cognitive needs: Yes Hearing needs: No Vision needs: Yes Meds Allergies Allergy/AdvReac Type Severity Reaction Status Date / Time amlodipine Allergy Unknown leg Verified 01/22/23 12:52 swelling, swelling hydroxychloroquine Allergy Unknown Affected Verified 01/22/23 12:52 [From Plaquenil] eye sight metoprolol Allergy Unknown Swelling Verified 01/22/23 12:52 Active Medications: Current Medications Acetaminophen (Acetaminophen 325 Mg Tablet) 975 mg PO TID KETURAH Last Admin: 01/29/23 16:14 Dose: 975 mg Albuterol Sulfate (Albuterol Sulfate 90 Mcg 8 Gm Inhaler) 2 puff INHALE Q4H PRN PRN Reason: Wheezing Albuterol/Ipratropium (Albuterol/Iprat 2.5/0.5mg 3 Ml Ampul.Neb) 3 ml INHALE DAILY [facility] Last Admin: 01/29/23 08:26 Dose: 3 ml Atorvastatin Calcium (Atorvastatin Calcium 40 Mg Tablet) 40 mg PO DAILY [facility] Last Admin: 01/29/23 09:19 Dose: 40 mg Azathioprine (Azathioprine 50 Mg Tablet) 50 mg PO DAILY [facility] Last Admin: 01/29/23 09:19 Dose: 50 mg Calcium Carbonate (Calcium Carbonate 500 Mg Tablet) 500 mg PO DAILY [facility] Last Admin: 01/29/23 09:19 Dose: 500 mg Capsaicin (Capsaicin 0.025% Cream 60 Gm Tube) 1 appl TOPICAL QID PRN; Protocol PRN Reason: Pain, Mild (Pain Scale 1-3) Fluticasone/Umeclidinium/Vilanterol (Fluticasone/Umeclidinium/Vilanterol 100/62.5/25 Blst.W.Dev) 1 puff INHALE DAILY [facility] Last Admin: 01/29/23 08:26 Dose: 1 puff Folic Acid (Folic Acid 1 Mg Tablet) 1 mg PO DAILY [facility] Last Admin: 01/29/23 09:19 Dose: 1 mg Furosemide (Furosemide 20 Mg Tablet) 20 mg PO DAILY [facility]; Protocol Last Admin: 01/28/23 09:47 Dose: 20 mg Gabapentin (Gabapentin 300 Mg Capsule) 300 mg PO BEDTIME [facility] Last Admin: 01/28/23 23:04 Dose: 300 mg Guaifenesin (Guaifenesin 200 Mg/10 Ml 10 Ml Liquid) 10 ml PO Q4H PRN PRN Reason: Cough Lactated Ringer's (Lr) 1,000 mls @ 80 mls/hr IVCONT .[id number] [facility] Last Admin: 01/29/23 16:53 Dose: 80 mls/hr Piperacillin Sod/Tazobactam (Sod 3.375 gm/ Sodium Chloride) 50 mls @ 100 mls/hr IV Q6H [facility] Last Admin: 01/29/23 16:14 Dose: 100 mls/hr Vancomycin HCl 500 mg/ Sodium (Chloride) 110 mls @ 110 mls/hr IV Q12H [facility] Last Infusion: 01/29/23 07:58 Dose: Infused Latanoprost (Latanoprost 0.005 % Ophth Ayana 2.5 Ml Drops) 1 drop EYE-BOTH BEDTIME [facility] Last Admin: 01/28/23 23:06 Dose: 1 drop Lidocaine (Lidocaine 4 % Patch Adh..Patch) 1 patch TRANSDERMA DAILY [facility]; Protocol Last Admin: 01/29/23 11:30 Dose: 1 patch Losartan Potassium (Losartan Potassium 50 Mg Tablet) 100 mg PO DAILY [facility]; Protocol Last Admin: 01/29/23 09:19 Dose: 100 mg Melatonin (Melatonin 3 Mg Tablet) 6 mg PO BEDTIME PRN PRN Reason: Insomnia Last Admin: 01/28/23 23:05 Dose: 6 mg Mirabegron (Mirabegron 25 Mg Tab.Er.24h) 25 mg PO DAILY [facility] Last Admin: 01/29/23 09:19 Dose: 25 mg Multivitamins/Vitamin C (Multivitamin Tablet) 1 tab PO DAILY [facility] Last Admin: 01/29/23 09:19 Dose: 1 tab Omeprazole (Omeprazole 20 Mg Capsule.Dr) 20 mg PO BID@0630,1630 [facility] Last Admin: 01/29/23 16:14 Dose: 20 mg Ondansetron HCl (Ondansetron Hcl 4 Mg/2 Ml Vial) 4 mg IVPUSH Q4H PRN PRN Reason: Nausea and Vomiting Pharmacy Consult (Consult Rx Vancomycin Dosing) 1 each MISCELLANE DAILY PRN PRN Reason: Consult order Pramipexole Dihydrochloride (Pramipexole Di-Hcl 1 Mg Tablet) 1 mg PO BEDTIME [facility] Last Admin: 01/28/23 23:04 Dose: 1 mg Rivaroxaban (Rivaroxaban 20 Mg Tablet) 20 mg PO DAILY@1700 [facility] Last Admin: 01/29/23 16:14 Dose: 20 mg Sodium Chloride (0.9 % Sodium Chloride Flush 3 Ml Syringe) 3 ml IVFLUSH QSHIFT [facility] Last Admin: 01/29/23 16:22 Dose: Not Given Vitamin D (Cholecalciferol (Vitamin D3) 25 Mcg Tablet) 25 mcg PO DAILY [facility] Last Admin: 01/29/23 09:19 Dose: 25 mcg Home Medications Medication Instructions Recorded Confirmed Last Taken Type calcium carbonate 600 mg calcium 600 mg PO DAILY 02/27/20 01/26/23 01/26/23 History (1,500 mg) tablet (Calcium) cholecalciferol (vitamin D3) 25 25 mcg PO DAILY 02/27/20 01/26/23 01/26/23 History mcg (1,000 unit) capsule mirabegron 25 mg tablet,extended 25 mg PO DAILY 02/27/20 01/26/23 01/26/23 History release 24 hr (Myrbetriq) pramipexole 1 mg tablet 1 mg PO BEDTIME 03/03/22 01/26/23 01/25/23 History Oxygen Home Use 04/11/22 01/11/23 Unknown History gabapentin 300 mg capsule 300 mg PO BEDTIME 08/16/22 01/26/23 01/26/23 History latanoprost 0.005 % eye drops 1 drp ophthalmic (eye) BEDTIME 08/16/22 01/26/23 01/25/23 History nebulizers 09/18/22 01/11/23 Unknown History ipratropium 0.5 mg-albuterol 3 mg 3 ml inhalation DAILY 09/20/22 01/26/23 01/26/23 History (2.5 mg base)/3 mL nebulization soln tramadol 50 mg tablet 50 mg PO BID PRN Pain 09/20/22 01/26/23 Unknown History albuterol sulfate 90 mcg/actuation 2 puff inhalation Q4-6H PRN 01/26/23 01/26/23 Unknown History aerosol inhaler Wheezing diclofenac sodium 1 % topical gel 2 g topical QID PRN Pain 01/26/23 01/26/23 Unknown History (Voltaren Arthritis Pain) esomeprazole magnesium 40 mg 40 mg PO DAILY 01/26/23 01/26/23 01/26/23 History capsule,delayed release multivitamin 1 tab PO DAILY 01/26/23 01/26/23 01/26/23 History rivaroxaban 20 mg tablet (Xarelto) 20 mg PO BEDTIME 01/26/23 01/26/23 01/25/23 History Physical Exam Vital Signs: Vital Signs: Last Vital Signs Temp 98.4 F 01/29/23 16:00 Pulse 85 01/29/23 16:00 Resp 20 01/29/23 16:00 BP 144/64 H 01/29/23 16:00 Pulse Ox 93 01/29/23 16:00 O2 Del Method Nasal Cannula 01/29/23 16:00 O2 Flow Rate 3 01/29/23 16:00 BMI result Body Mass Index 27.9 Const: General: comfortable, no acute distress, alert and awake; No healthy appearing (Chronically sick-looking) Orientation/consciousness: patient oriented x3 HEENT: Head: Yes normal to inspection General nose exam: No nasal polyps present and No nasal discharge present Face and sinus: Yes sinuses nontender Mouth: oropharynx normal Throat: Yes posterior oropharynx normal Eyes: General: appearance normal, both eyes and all related structures Neck: Neck: Yes normal visual inspection, Yes no lymphadenopathy, Yes trachea midline and Yes no JVD Thyroid: Thyroid normal Chest: Chest palpation & inspection: normal inspection of the chest, normal palpation of entire chest wall and no tenderness Resp: Other: Percussion note is resonant, breath sounds are distant but equal on both sides. No wheezes. Or crepitations are heard Cardio: Palpation: normal PMI Rate: regular rate Rhythm: regular rhythm Heart sounds: no gallops and no murmurs GI: Palpation (GI): Soft to palpation, nontender, No hepatosplenomegaly present and no masses Auscultation: normal bowel sounds Back/Spine/Pelvis: Other: Not examined Skin: General skin exam: no rashes or lesions noted Neuro: General: patient oriented x3 and no focal motor deficits (Except generalized weakness) Cranial nerves: Yes CN's II-XII intact bilaterally Extrem: General: Yes normal to inspection, Yes no clubbing, cyanosis or edema and Yes no calf tenderness Psych: Appearance: grossly normal and well kempt Speech and movement: Normal speech and movement present Results Laboratory Findings 01/28/23 Unknown 01/29/23 07:54 ABG, PT/INR, D-dimer: PT/INR, D-dimer PT 17.7 SEC (11.1-13.3) H 01/26/23 14:21 INR 1.5 (0.9-1.1) H 01/26/23 14:21 Abnormal lab findings: Abnormal Labs 01/26/23 01/26/23 01/27/23 14:21 16:51 06:32 RBC 4.00 L Hct 36.8 L MPV 9.0 L Immature Gran % (Auto) 0.8 H Neut % (Auto) 87.6 H Lymph % (Auto) 5.5 L Lymph # (Auto) 0.6 L Abs Immat Gran (auto) 0.08 H Absolute Neuts (auto) 8.8 H PT 17.7 H INR 1.5 H Carbon Dioxide BUN 29 H 21 H Random Glucose 136 H Calcium 8.2 L D AST 49 H 45 H Total Protein 6.3 L 4.9 L Albumin 2.8 L Ur Specific [place] >= 1.030 H Urine Protein 30 (1+) H Ur Leukocyte Esterase Trace H Urine RBC 3-5 H Urine WBC 11-20 H Random Vancomycin 01/28/23 01/29/23 Unknown 16:20 RBC 4.05 L Hct MPV Immature Gran % (Auto) Neut % (Auto) Lymph % (Auto) Lymph # (Auto) Abs Immat Gran (auto) Absolute Neuts (auto) PT INR Carbon Dioxide 21 L BUN Random Glucose Calcium AST Total Protein Albumin Ur Specific [place] Urine Protein Ur Leukocyte Esterase Urine RBC Urine WBC Random Vancomycin 13.1 L Microbiology: Microbiology 01/26/23 14:29 Blood - Venous Blood Culture - Preliminary No growth after 48 hours. 01/26/23 14:21 Blood - Venous Blood Culture - Preliminary No growth after 48 hours. 01/26/23 Unknown Urine clean catch - Urine stephenson top Urine Culture - Final Diagnostic Findings Chest x-ray: report reviewed and image reviewed CT scan - chest: report reviewed and image reviewed Assessment and Plan (1) Community acquired pneumonia: Qualifiers: Laterality: right Lung location: upper lobe of lung Qualified Code(s): J18.9 - Pneumonia, unspecified organism Status: Acute (2) Acute and chronic respiratory failure with hypoxia: Status: Acute (3) Pulmonary embolism: Qualifiers: Pulmonary embolism type: unspecified Chronicity: acute Acute cor pulmonale presence: without acute cor pulmonale Qualified Code(s): I26.99 - Other pulmonary embolism without acute cor pulmonale Status: Acute (4) Discoid lupus: Status: Acute Plan This elderly patient with multiple medical problems, Pulmonary diagnosis of advanced COPD/pulmonary emphysema, and chronic hypoxemic respiratory failure, Is a relatively immunocompromised patient . She has a patchy pneumonitis in the lateral aspect of the right upper lobe, representing community-acquired pneumonia. She is responding to the current treatment. Recc Agree with the current treatment plan, including Piperacillin 3.37 g IV Q 6 hours. As soon as she is stable, it may be downgraded to an oral antibiotic agent , such as Augmentin or doxycycline for 10 days. Thank you for asthma to see this patient. Time Spent With Patient Time: Total time managing care of this patient today ____ minutes. Procedures Date of Service Date of Service: 01/29/23
[2023-01-29] MEDS: Albuterol Sulfate 90 MCG 8 GM INHALER 2 PUFF INHALE (17:32)
[2023-01-29] MEDS: Morphine Sulfate 4 MG/ML CARTRIDGE IVPUSH (17:55)
[2023-01-29] MEDS: Ibuprofen 400 MG TABLET PO (18:00)
[2023-01-29] MEDS: Morphine Sulfate 2 MG/ML CARTRIDGE IVPUSH (18:57)
[2023-01-29 19:02] LABS: Hematocrit 32.8 % (37.0-47.0); Hemoglobin 10.5 g/dl (12.0-16.0); Mean Corpuscular Hemoglobin 29.9 pg (27.0-33.0); Mean Corpuscular Volume 93.4 fL (80.0-98.0); Mean Platelet Volume 9.4 fL (9.4-12.3); Platelet Count 206 X10*3/uL (160-400); Red Blood Count 3.51 X10*6/uL (4.20-5.50); Red Cell Distribution Width 15.1 % (11.0-16.0); White Blood Count 8.4 X10*3/uL (4.8-10.8)
--- NOTE | 2023-01-29 20:05 | PC.NURSE ---
At about 1730 patient reported chills, asked another blanket, blanket provided. Aprx 10min later patient started c/o pain, sob, chest tightness and chills. Respiratory Therapy called to bedside for treatment as patient was wheezing and short of breath. Md was notified. HR elevated at 130 bpm, temp at [address] Carballo at bedside, evaluated patient, received order for cooling pad, morphine and ibuprofen, scheduled Tylenol was given at 1500. Charge nurse notified and assisted with cooling pad, patient's tem was checked rectally and it was 103.2. Per Dr. Carballo's order chest xray and ekg was performed. also ordered Critical Care consult.
[2023-01-29] MEDS: Doxycycline Hyclate 100 MG in 0.9 % Sodium Chloride 250 ML 166.67 MG IV (20:12)
[2023-01-29] MEDS: Gabapentin 300 MG CAPSULE PO (20:13)
[2023-01-29] MEDS: Latanoprost 0.005 % Ophth Sol 2.5 ML DROPS 1 DROP EYE-BOTH (20:20)
[2023-01-29] MEDS: Pramipexole Di-HCL 1 MG TABLET PO (20:21)
[2023-01-29 21:01] LABS: Troponin-I High Sensitivity 759.7 ng/L (<3.5-17.0)
--- NOTE | 2023-01-29 21:01 | PM.CCN ---
Critical Care Event Note Summary Date of Service: 01/29/23 Code activated: No Narrative: This case had a high probability of a clinically significant, sudden, or life threatening deterioration of this patient's condition which required my full and direct attention, intervention and personal management. Critical Care Time (minutes): 30 Comment: Patient seen by me at bedside as a Critical Care Consult had been requested. Chart, labs, XR and history reviewed in detail. Patient has a CAP is currently being treated with ABX as per Infectious Disease recommendations. Pt is also being followed by Pulmonology given her COPD hx. She is not more hypoxic than usual, using NC o2. Clinically stable except for Morphine induced hypotension (after 2 doses given for pain). Patient is not in respiratory distress, not hemodinamically unstable, does not have an end organ damage like PHOEBE needing HD. At this point this patient does not need Critical Care unless she deccompensates requiring Bipap or Pressors. ?( to which she has to agree as she is already DNR / DNI)?and is not sure if she would want a acentral line (when I asked her about it). Case was discussed in detail with Dr. Junior and Dr Castellanos. Total non-critical care spent with this patient at bedside 20 min plus 10 minutes of chart and image review TOTAL 30 min.
[2023-01-29 21:42] LABS: Hematocrit 32.9 % (37.0-47.0); Hemoglobin 10.2 g/dl (12.0-16.0); Mean Corpuscular Hemoglobin 29.7 pg (27.0-33.0); Mean Corpuscular Volume 95.6 fL (80.0-98.0); Mean Platelet Volume 9.7 fL (9.4-12.3); Platelet Count 177 X10*3/uL (160-400); Red Blood Count 3.44 X10*6/uL (4.20-5.50); White Blood Count 10.1 X10*3/uL (4.8-10.8)
[2023-01-29 21:49] LABS: INTERNATIONAL NORM RATIO 1.4 (0.9-1.1); Prothrombin Time 17.6 SEC (11.1-13.3)
[2023-01-29 21:51] LABS: PTT Heparin Drip 32.6 SEC (53-77.9)
[2023-01-29] MEDS: iohexoL 350 MG/ML 100 ML INFUS..BTL IV (22:25)
[2023-01-30] VITALS (10 sets, daily range): BP systolic 76–114; BP diastolic 36–56; PULSE 90–115; RESP 16–24; TEMP 36.8–37.2; O2SAT 93–99
[2023-01-30] MEDS: 0.9 % Sodium Chloride Flush 3 ML SYRINGE IVFLUSH ×2 (00:40→08:16)
--- NOTE | 2023-01-30 01:35 | PC.NURSE ---
01/29/23 [id number] shift; @ 2100 lab notified with critical troponin of 759.7. Upon assessment pt denies chest pain or pressure, vs rectal temp 101.0, hr 123, rr 20, bp 59/51, oxygen 92% on 3 liters n/c, patient also currently on a cooling blanket. Dr. Junior notified. Orders for EKG, CTA, repeat troponin in 2 hrs, order for heparin drip. Form for iv contrast reviewed and signed with patient. Patient disconnected from cooling blanket to get CTA done. @215 pharmacy notified that heparin drip will not start until tomorrow 01/30 at 1700; pt received xarelto today. @2350 lab notified with critical troponin of 2212.1 patient denies chest pain or pressure at this time. Dr. Junior made aware. Cooling blanket reconnected to patient.
[2023-01-30] MEDS: Piperacillin Sodium/Tazobactam 3.375 GM in 0.9 % Sodium Chloride 50 ML IV ×3 (05:22→18:37)
[2023-01-30] MEDS: vancomycin HCL 500 MG in 0.9 % Sodium Chloride 100 ML 110 MG IV (05:57)
[2023-01-30] MEDS: Omeprazole 20 MG CAPSULE.DR PO ×2 (06:00→18:37)
--- NOTE | 2023-01-30 06:12 | PM.EVENT ---
Event Note Date of Service: 01/30/23 Event Note: patient had chest pain, and shortness of breath earlier in the night, and labs are obtained. Which showed an elevated troponin. Discussed with Cardiology, obtain CT angiogram to rule out PE which CT showed no evidence of PE. Patient started on heparin drip for NSTEMI Time Spent With Patient Time: Total time managing care of this patient today ____ minutes.
[2023-01-30 07:00] LABS: INTERNATIONAL NORM RATIO 1.4 (0.9-1.1); Prothrombin Time 16.8 SEC (11.1-13.3)
--- NOTE | 2023-01-30 07:00 | CA_ITS ---
Transthoracic Echocardiogram Patient (Last, First, Middle): Kelly Miller R Gender: Female Date of : 1935 Age: 87 Procedure Date: 01/30/2023 Procedure Type: Transthoracic [place] [facility] [place]: 149.86 cm Weight: 62.6 kg BSA: 1.57 m2 Heart Rate: 106 bpm BP: 76 / 36 mmHg Business Systems Lead: SB Referring MD: Prasanna Modi MD Cutter Machine: Prasanna Modi MD Symptoms: NSTEMI Study Quality: Adequate/limited for WMA ordered ECG Rhythm: Tachycardia Conclusions: - Normal LV ejection fraction 65-70% with impaired relaxation filling pattern with possible wall motion abnormality in RCA territory Findings Procedure Information Contrast agent, definity, is being given per protocol without apparent complications. Left Ventricle Normal left ventricular size and systolic function. The visually estimated ejection fraction is between 65-70%. Spectral Doppler is indicative of an impaired relaxation filling pattern. Wall Motion Rest Echo Findings The inferoseptal wall and basal inferior segment are hypokinetic. All other scored wall segments showed normal motion. Measurements 2D Linear Measurements IVSd: 1.60 0.6-0.9/0.6-1.0 cm LVIDd: 3.42 3.9-5.3/4.2-5.9 cm LVIDd Index: 2.18 2.4-3.2/2.2-3.1 cm/m2 LVIDs: 2.37 2.0-3.6 cm LVPWd: 1.28 0.7-1.1 cm LV Mass: 218.45 67-162/88-224 g LV Mass Index: 139.14 43-95/49-115 g/m2 LVOT Diam: 1.90 3.0+(-)1.3 cm 2D Systolic Function EF 4C: 61.60 >55% EF 2C: 70.00 >55% EF BiP: 66.50 >55% Mitral Valve MV Pk E: 0.92 MV PK A: 1.15 MV Decel Time: 139.00 E/A: 0.80 E'Medial: 4.13 E/E' Med: 22.30 PHT: 41.00 MVA PHT: 5.37 Decel [place]: 6.65 LVOT LVOT Pk Kemal: 0.89 LVOT Mn Kemal: 0.67 LVOT VTI: 0.18 LVOT Pk Grad: 3.00 LVOT Mn Grad: 2.00 LVOT Diam: 1.90 LVOT Area: 2.84 Diastolic Function MV Pk E: 0.92 MV Pk A: 1.15 E/A: 0.80 E'Medial: 4.13 E/E' Med: 22.30 Tricuspid Valve RA Press: 3.00 Updated in Other Vendor System with Status of Final Prasanna Modi MD electronically signed on 01/30/2023 12:19:01 PM with status of Final
[2023-01-30 07:09] LABS: Hematocrit 28.5 % (37.0-47.0); Mean Corpuscular HGB Conc 31.6 g/dl (31.0-35.0); Mean Corpuscular Hemoglobin 29.9 pg (27.0-33.0); Mean Corpuscular Volume 94.7 fL (80.0-98.0); Mean Platelet Volume 10.1 fL (9.4-12.3); Platelet Count 175 X10*3/uL (160-400); Red Blood Count 3.01 X10*6/uL (4.20-5.50); Red Cell Distribution Width 15.3 % (11.0-16.0); White Blood Count 8.8 X10*3/uL (4.8-10.8)
[2023-01-30 07:12] LABS: Creatinine Clr Calc Pharmacy 31.5; Estimated Glomerular Filt Rate 50
[2023-01-30] MEDS: Fluticasone/Umeclidinium/Vilanterol 100/62.5/25 BLST.W.DEV 1 PUFF INHALE (07:55)
[2023-01-30] MEDS: Albuterol/Iprat 2.5/0.5MG 3 ML AMPUL.NEB INHALE ×4 (07:55→19:25)
[2023-01-30] MEDS: 0.9 % Sodium Chloride 1,000 ML 999 ML IVCONT (08:15)
--- NOTE | 2023-01-30 10:39 | P.CONCA_ITS ---
History of Present Illness History of Present Illness Date of Service: 01/30/23 Requesting physician: Star Junior Consult reason: myocardial infarction Chief complaint: Dyspnea Narrative: I was consulted to see Teresita in cardiology consultation today for NSTEMI. She is 87-year-old female with prior history of chronic respiratory failure related to COPD on home oxygen especially with exercise, pulmonary embolism admitted to the hospital with progressive shortness of breath and found to have community- acquired pneumonia and COPD exacerbation. Patient yesterday evening developed retrosternal dull ache-like symptoms that lasted about an hour. She has had similar symptoms in the past and felt like this could be related to eating in the past. However yesterday symptoms were without any clear triggering factor. She subsequently had EKG performed which shows sinus tachycardia with PACs and aberrant conduction with poor R-wave progression. Patient the past had pulmonary embolism related pulmonary hypertension which has resolved. LV systolic function is normal. She has never had any prior coronary events. CT scan was done yesterday due to hospitalization and prior history of P which was negative for PE in the past. She has been on Xarelto in the last dose was received yesterday at 16:00. IV heparin was not appropriately started on a. This morning her troponins are significantly elevated in above 2000 range. 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 She received IV fluids and blood pressures have improved. Review of Systems 2 Constitutional: Constitutional: Reports weakness Eyes: Eyes: Reports no additional eye complaints Cardiovascular: Cardiovascular: Reports chest pain at rest, Denies lightheadedness, Denies Loss of Consciousness, Denies palpitations, Reports dyspnea and Reports dyspnea on exertion Respiratory: Respiratory: Reports cough, Reports dyspnea and Reports dyspnea on exertion Gastrointestinal: Gastrointestinal: Reports no additional gastrointestinal complaints Musculoskeletal: Musculoskeletal: Reports no additional musculoskeletal complaints Integumentary/Breasts: Skin/Breast: Reports system reviewed and no additional complaints, except as docu Neurologic: Reports system reviewed and no additional complaints, except as documented and Reports weakness Psychiatric: Psychiatric: Reports no additional psychiatric complaints Endocrine: Endocrine: Reports no additional endocrine complaints and Denies palpitations Hematologic/Lymphatic: Hematologic/Lymphatic: Reports no additional hematologic/lymphatic complaints PMFSH Past Medical History Medical History COPD (chronic obstructive pulmonary disease) Chest discomfort Dyspnea Pleuritic chest pain Encounter for monitoring azathioprine therapy Lupus (systemic lupus erythematosus) Hiatal hernia Chronic respiratory failure Pulmonary nodules Arterial occlusive disease Left leg DVT Pulmonary nodule Iliac artery occlusion Greater saphenous vein embolism Diverticulitis Thrombus of aorta Hypercholesterolemia Restless leg Discoid lupus Osteopenia Hypertension GERD (gastroesophageal reflux disease) Anxiety Pulmonary embolism DVT (deep venous thrombosis) Family History Family History Father Hypertension Cancer Mother Hypertension Stroke CVD (cardiovascular disease) Family history: reviewed and not pertinent Surgical History Surgical History Bilateral pulmonary embolism History of toe surgery History of breast biopsy History of foot surgery History of cataract surgery History of total abdominal hysterectomy and bilateral salpingo-oophorectomy Social History Social History Household Members: None Housing: House Do you presently have visiting nurse or other home services: No Alcohol intake: never Patient Tobacco Use Status: Former Tobacco user Tobacco use type: Cigarette Years Smoked: 30 Smoked in Last 30 Days: No e-Cigarette/Vaping Use: Never Used Patient Interested in Nicotine Replacement: No Patient Given Instructions on How to Stop Smoking: No Second Hand Smoke Exposure: No Use of substances other than those prescribed or required for medical reasons: No Currently Displaying Signs/Symptoms of Drug Intoxication Withdrawal: No Any prior treatment program specific to substance use: No Have you been hit, kicked, punched, or otherwise hurt by someone within the past year? If so, by whom?: No Do you feel safe in your current relationship?: No Current Relationship Is there a partner from a previous relationship who is making you feel unsafe now?: No Are you made to feel afraid or neglected: No Advance Directives: Yes Advance Directives on File: Yes Advance Directives Date on File: 09/21/22 Do you have thoughts of harming others: None Do you have a plan to hurt others: No Plan Recently lost weight without trying: No Eating poorly because of decreased appetite: Yes Nutrition Risks: No Nutritional Risk Patient : No : No Poor oral hygiene: No service: No Current occupational status: retired Cognitive needs: Yes Hearing needs: No Vision needs: Yes Meds Allergies Allergy/AdvReac Type Severity Reaction Status Date / Time amlodipine Allergy Unknown leg Verified 01/22/23 12:52 swelling, swelling hydroxychloroquine Allergy Unknown Affected Verified 01/22/23 12:52 [From Plaquenil] eye sight metoprolol Allergy Unknown Swelling Verified 01/22/23 12:52 Active Medications: Current Medications Acetaminophen (Acetaminophen 325 Mg Tablet) 975 mg PO TID [facility] Last Admin: 01/29/23 20:16 Dose: 975 mg Albuterol/Ipratropium (Albuterol/Iprat 2.5/0.5mg 3 Ml Ampul.Neb) 3 ml INHALE RQ4H WHILE AWAKE [facility] Last Admin: 01/30/23 07:55 Dose: 3 ml Atorvastatin Calcium (Atorvastatin Calcium 40 Mg Tablet) 40 mg PO DAILY [facility] Last Admin: 01/29/23 09:19 Dose: 40 mg Azathioprine (Azathioprine 50 Mg Tablet) 50 mg PO DAILY [facility] Last Admin: 01/29/23 09:19 Dose: 50 mg Calcium Carbonate (Calcium Carbonate 500 Mg Tablet) 500 mg PO DAILY [facility] Last Admin: 01/29/23 09:19 Dose: 500 mg Capsaicin (Capsaicin 0.025% Cream 60 Gm Tube) 1 appl TOPICAL QID PRN; Protocol PRN Reason: Pain, Mild (Pain Scale 1-3) Fluticasone/Umeclidinium/Vilanterol (Fluticasone/Umeclidinium/Vilanterol 100/62.5/25 Blst.W.Dev) 1 puff INHALE DAILY [facility] Last Admin: 01/30/23 07:55 Dose: 1 puff Folic Acid (Folic Acid 1 Mg Tablet) 1 mg PO DAILY [facility] Last Admin: 01/29/23 09:19 Dose: 1 mg Furosemide (Furosemide 20 Mg Tablet) 20 mg PO DAILY [facility]; Protocol Last Admin: 01/28/23 09:47 Dose: 20 mg Gabapentin (Gabapentin 300 Mg Capsule) 300 mg PO BEDTIME [facility] Last Admin: 01/29/23 20:13 Dose: 300 mg Guaifenesin (Guaifenesin 200 Mg/10 Ml 10 Ml Liquid) 10 ml PO Q4H PRN PRN Reason: Cough Heparin Sodium (Porcine) (Heparin Sodium,Porcine 5,000 Unit/Ml Vial) 5,000 unit 80 unit/kg (5000 unit) IVPUSH PROTOCOL BOLUS PRN; Protocol PRN Reason: 80 unit/kg - Heparin Protocol Heparin Sodium (Porcine) (Heparin Sodium,Porcine 5,000 Unit/Ml Vial) 2,500 unit 40 unit/kg (2500 unit) IVPUSH PROTOCOL BOLUS PRN; Protocol PRN Reason: 40 unit/kg - Heparin Protocol Heparin Sodium (Porcine) (Heparin Sodium,Porcine 5,000 Unit/Ml Vial) 5,000 unit 80 unit/kg (5000 unit) IVPUSH ONCE ONE Stop: 01/30/23 17:01 Lactated Ringer's (Lr) 1,000 mls @ 100 mls/hr IVCONT .Q10H [facility] Last Admin: 01/30/23 05:15 Dose: Not Given Piperacillin Sod/Tazobactam (Sod 3.375 gm/ Sodium Chloride) 50 mls @ 100 mls/hr IV Q6H [facility] Last Infusion: 01/30/23 05:52 Dose: Infused Vancomycin HCl 500 mg/ Sodium (Chloride) 110 mls @ 110 mls/hr IV Q12H [facility] Last Infusion: 01/30/23 07:32 Dose: Infused Doxycycline Hyclate 100 mg/ (Sodium Chloride) 250 mls @ 166.67 mls/hr IV Q12H [facility] Last Infusion: 01/29/23 22:00 Dose: Infused Heparin Sodium/Sodium Chloride (Heparin Sodium,Porcine/1/2ns) 25,000 unit in 250 mls @ 0 mls/hr IVCONT .Q0M [facility]; Protocol Latanoprost (Latanoprost 0.005 % Ophth Ayana 2.5 Ml Drops) 1 drop EYE-BOTH BEDTIME [facility] Last Admin: 01/29/23 20:20 Dose: 1 drop Lidocaine (Lidocaine 4 % Patch Adh..Patch) 1 patch TRANSDERMA DAILY [facility]; Protocol Last Admin: 01/29/23 11:30 Dose: 1 patch Losartan Potassium (Losartan Potassium 50 Mg Tablet) 100 mg PO DAILY [facility]; Protocol Last Admin: 01/29/23 09:19 Dose: 100 mg Melatonin (Melatonin 3 Mg Tablet) 6 mg PO BEDTIME PRN PRN Reason: Insomnia Last Admin: 01/28/23 23:05 Dose: 6 mg Mirabegron (Mirabegron 25 Mg Tab.Er.24h) 25 mg PO DAILY [facility] Last Admin: 01/29/23 09:19 Dose: 25 mg Multivitamins/Vitamin C (Multivitamin Tablet) 1 tab PO DAILY [facility] Last Admin: 01/29/23 09:19 Dose: 1 tab Omeprazole (Omeprazole 20 Mg Capsule.Dr) 20 mg PO BID@0630,1630 [facility] Last Admin: 01/30/23 06:00 Dose: 20 mg Ondansetron HCl (Ondansetron Hcl 4 Mg/2 Ml Vial) 4 mg IVPUSH Q4H PRN PRN Reason: Nausea and Vomiting Pharmacy Consult (Consult Rx Vancomycin Dosing) 1 each MISCELLANE DAILY PRN PRN Reason: Consult order Pramipexole Dihydrochloride (Pramipexole Di-Hcl 1 Mg Tablet) 1 mg PO BEDTIME [facility] Last Admin: 01/29/23 20:21 Dose: 1 mg Rivaroxaban (Rivaroxaban 20 Mg Tablet) 20 mg PO DAILY@1700 [facility] Last Admin: 01/29/23 16:14 Dose: 20 mg Sodium Chloride (0.9 % Sodium Chloride Flush 3 Ml Syringe) 3 ml IVFLUSH QSHIFT [facility] Last Admin: 01/30/23 08:16 Dose: 3 ml Vitamin D (Cholecalciferol (Vitamin D3) 25 Mcg Tablet) 25 mcg PO DAILY [facility] Last Admin: 01/29/23 09:19 Dose: 25 mcg Home Medications Medication Instructions Recorded Confirmed Last Taken Type calcium carbonate 600 mg calcium 600 mg PO DAILY 02/27/20 01/26/23 01/26/23 History (1,500 mg) tablet (Calcium) cholecalciferol (vitamin D3) 25 25 mcg PO DAILY 02/27/20 01/26/23 01/26/23 History mcg (1,000 unit) capsule mirabegron 25 mg tablet,extended 25 mg PO DAILY 02/27/20 01/26/23 01/26/23 History release 24 hr (Myrbetriq) pramipexole 1 mg tablet 1 mg PO BEDTIME 03/03/22 01/26/23 01/25/23 History Oxygen Home Use 04/11/22 01/11/23 Unknown History gabapentin 300 mg capsule 300 mg PO BEDTIME 08/16/22 01/26/23 01/26/23 History latanoprost 0.005 % eye drops 1 drp ophthalmic (eye) BEDTIME 08/16/22 01/26/23 01/25/23 History nebulizers 09/18/22 01/11/23 Unknown History ipratropium 0.5 mg-albuterol 3 mg 3 ml inhalation DAILY 09/20/22 01/26/23 01/26/23 History (2.5 mg base)/3 mL nebulization soln tramadol 50 mg tablet 50 mg PO BID PRN Pain 09/20/22 01/26/23 Unknown History albuterol sulfate 90 mcg/actuation 2 puff inhalation Q4-6H PRN 01/26/23 01/26/23 Unknown History aerosol inhaler Wheezing diclofenac sodium 1 % topical gel 2 g topical QID PRN Pain 01/26/23 01/26/23 Unknown History (Voltaren Arthritis Pain) esomeprazole magnesium 40 mg 40 mg PO DAILY 01/26/23 01/26/23 01/26/23 History capsule,delayed release multivitamin 1 tab PO DAILY 01/26/23 01/26/23 01/26/23 History rivaroxaban 20 mg tablet (Xarelto) 20 mg PO BEDTIME 01/26/23 01/26/23 01/25/23 History Physical Exam 2 Vital Signs: Vital Signs: Last Vital Signs Temp 98.2 F 01/30/23 07:12 Pulse 93 01/30/23 07:57 Resp 16 01/30/23 07:57 BP 76/36 L 01/30/23 07:12 Pulse Ox 97 01/30/23 07:12 O2 Del Method Nasal Cannula 01/30/23 07:12 O2 Flow Rate 4.5 01/30/23 07:12 BMI result Body Mass Index 28.0 Const: General: cooperative, alert, awake and in distress mild Nutritional Appearance: thin and other (frail) Orientation/consciousness: patient oriented x3 HEENT: Head: Yes normocephalic and Yes atraumatic Neck: Neck: Yes trachea midline, Yes supple and Yes no JVD Resp: Effort & Inspection: normal respiratory effort Auscultation: no crackles, no rales, wheezes and diminished lung sounds Cardio: Jugular venous distension: no JVD Palpation: normal PMI Rate: r egular rate Rhythm: regular rhythm Heart sounds: S1 normal heart sound present, S2 normal heart sound present, no click, no gallops, no murmurs and no rubs GI: Auscultation: normal bowel sounds Skin: General skin exam: no rashes or lesions noted and ecchymosis Neuro: General: patient oriented x3 and no focal motor deficits Extrem: General: Yes no clubbing, cyanosis or edema Objective Labs and Meds 01/30/23 06:28 01/30/23 06:28 Lab results: Laboratory Results - last 24 hr 01/28/23 01/29/23 01/29/23 19:25 07:54 16:20 WBC RBC Hgb Hct MCV MCH MCHC RDW Plt Count MPV Absolute Nucleated RBC Nucleated RBC % (auto) PT INR aPTT Heparin Protocol Creatinine Estim Creat Clear Calc Estimated GFR Troponin I High Sens Procalcitonin 5.93 Random Vancomycin 13.1 L Respiratory Panel Deshpande See Note Adenovirus (Rapid PCR) Not Detected B.pert (TEM-PCR) Not Detected B.parapertussis DNA PCR Not Detected C. pneumoniae DNA (PCR) Not Detected Coronavirus OC43 (PCR) Not Detected Coronavirus HKU1 (PCR) Not Detected Coronavirus 229E (PCR) Not Detected Coronavirus NL63 (PCR) Not Detected Human Metapneumovir PCR Not Detected Influenza A (RT-PCR) Not Detected Influenza B (RT-PCR) Not Detected M. pneumoniae (PCR) Not Detected Parainfluenza 1 (PCR) Not Detected Parainfluenza 2 (PCR) Not Detected Parainfluenza 3 (PCR) Not Detected Parainfluenza 4 (PCR) Not Detected RSV (PCR) Not Detected Entero/Rhino (PCR) Not Detected SARS-CoV-2 RNA (RT-PCR) Not Detected 01/29/23 01/29/23 01/29/23 18:39 20:28 21:30 WBC 8.4 10.1 RBC 3.51 L 3.44 L Hgb 10.5 L 10.2 L Hct 32.8 L 32.9 L MCV 93.4 95.6 MCH 29.9 29.7 MCHC 32.0 31.0 RDW 15.1 15.0 Plt Count 206 177 MPV 9.4 9.7 Absolute Nucleated RBC 0.000 0.000 Nucleated RBC % (auto) 0.0 0.0 PT 17.6 H INR 1.4 H aPTT Heparin Protocol 32.6 L Creatinine Estim Creat Clear Calc Estimated GFR Troponin I High Sens 759.7 H* D Procalcitonin Random Vancomycin Respiratory Panel Deshpande Adenovirus (Rapid PCR) B.pert (TEM-PCR) B.parapertussis DNA PCR C. pneumoniae DNA (PCR) Coronavirus OC43 (PCR) Coronavirus HKU1 (PCR) Coronavirus 229E (PCR) Coronavirus NL63 (PCR) Human Metapneumovir PCR Influenza A (RT-PCR) Influenza B (RT-PCR) M. pneumoniae (PCR) Parainfluenza 1 (PCR) Parainfluenza 2 (PCR) Parainfluenza 3 (PCR) Parainfluenza 4 (PCR) RSV (PCR) Entero/Rhino (PCR) SARS-CoV-2 RNA (RT-PCR) 01/29/23 01/30/23 23:20 06:28 WBC 8.8 RBC 3.01 L Hgb 9.0 L Hct 28.5 L MCV 94.7 MCH 29.9 MCHC 31.6 RDW 15.3 Plt Count 175 MPV 10.1 Absolute Nucleated RBC 0.000 Nucleated RBC % (auto) 0.0 PT 16.8 H INR 1.4 H aPTT Heparin Protocol Creatinine 1.05 Estim Creat Clear Calc 31.5 Estimated GFR 50 Troponin I High Sens 2212.1 H* D Procalcitonin Random Vancomycin Respiratory Panel [facility]hp[facility] Adenovirus (Rapid PCR) B.pert (TEM-PCR) B.parapertussis DNA PCR C. pneumoniae DNA (PCR) Coronavirus OC43 (PCR) Coronavirus HKU1 (PCR) Coronavirus 229E (PCR) Coronavirus NL63 (PCR) Human Metapneumovir PCR Influenza A (RT-PCR) Influenza B (RT-PCR) M. pneumoniae (PCR) Parainfluenza 1 (PCR) Parainfluenza 2 (PCR) Parainfluenza 3 (PCR) Parainfluenza 4 (PCR) RSV (PCR) Entero/Rhino (PCR) SARS-CoV-2 RNA (RT-PCR) Imaging Radiologist's impression: Impressions Chest X-Ray 01/29/23 18:26 IMPRESSION: Low lung volumes. Large esophageal hernia. Question atelectasis or small infiltrate at the right lung base. Chest CTA 01/29/23 22:28 IMPRESSION: 1. No evidence of pulmonary emboli. 2. Small area of dense infiltration right upper lobe laterally unchanged when compared to the study from yesterday. 3. Tiny bilateral effusions and basilar atelectasis. 4. Large hiatal hernia. VTE: negative. Assessment and Plan (1) NSTEMI (non-ST elevated myocardial infarction): Status: Acute Patient developed acute chest discomfort yesterday with elevated troponin consistent with myocardial infarction. Differential diagnosis include acute plaque rupture worse is stress-induced cardiomyopathy. Limited echocardiogram to evaluate LV systolic function and typical wall motion abnormality should be pursued. Would switch her to IV heparin for 48 hours without bolus starting at noon. Low-dose aspirin therapy. Given her low blood pressure at this point time cannot start her on any beta-blockers or nitrates therapy. Given her acute medical illness and multiple comorbidities will pursue conservative medical management and this was discussed with the patient unless she continues to have ongoing symptoms of chest discomfort and/or myocardial ischemia and/or hemodynamic instability. High-intensity statin therapy should be pursued as well. Will continue to follow with you Time Spent With Patient Time: Total time managing care of this patient today ____ minutes. Procedures Date of Service Date of Service: 01/30/23
[2023-01-30] MEDS: Multivitamin TABLET 1 TAB PO (11:27)
[2023-01-30] MEDS: Cholecalciferol (Vitamin D3) 25 MCG TABLET PO (11:27)
[2023-01-30] MEDS: Folic Acid 1 MG TABLET PO (11:27)
[2023-01-30] MEDS: Atorvastatin Calcium 40 MG TABLET PO (11:27)
[2023-01-30] MEDS: azaTHIOprine 50 MG TABLET PO (11:28)
[2023-01-30] MEDS: Acetaminophen 325 MG TABLET 975 MG PO ×2 (11:28→19:44)
[2023-01-30] MEDS: Mirabegron 25 MG TAB.ER.24H PO (11:28)
[2023-01-30] MEDS: Lidocaine 4 % Patch ADH..PATCH 1 PATCH TRANSDERMA (11:30)
--- NOTE | 2023-01-30 11:43 | P.PNIM_ITS ---
Subjective Subjective Date of Service: 01/30/23 Interval History: f/u on sepsis, pneumonia and NSTEMI, had low BP this morning associated with dizziness BP improved after IVF Physical Exam 2 Vital Signs: Vital Signs: Last Vital Signs Temp 98.2 F 01/30/23 07:12 Pulse 93 01/30/23 07:57 Resp 16 01/30/23 07:57 BP 76/36 L 01/30/23 07:12 Pulse Ox 97 01/30/23 07:12 O2 Del Method Nasal Cannula 01/30/23 07:12 O2 Flow Rate 4.5 01/30/23 07:12 BMI result Body Mass Index 28.0 Const: Other: General: AO X 3, no acute distress Resp: CTA bilateral CVS: S1,S2,RRR GI: +BS, NT, no distention Skin: No rash Neuro: motor grossly intact Psych: appropriate affect Objective Data Active Medications Acetaminophen (Acetaminophen 325 Mg Tablet) 975 mg PO TID [facility] Last Admin: 01/30/23 11:28 Dose: 975 mg Documented By: YOHANNES Albuterol/Ipratropium (Albuterol/Iprat 2.5/0.5mg 3 Ml Ampul.Neb) 3 ml INHALE RQ4H WHILE AWAKE [facility] Last Admin: 01/30/23 07:55 Dose: 3 ml Documented By: BELL Atorvastatin Calcium (Atorvastatin Calcium 40 Mg Tablet) 40 mg PO DAILY [facility] Last Admin: 01/30/23 11:27 Dose: 40 mg Documented By: YOHANNES Azathioprine (Azathioprine 50 Mg Tablet) 50 mg PO DAILY [facility] Last Admin: 01/30/23 11:28 Dose: 50 mg Documented By: YOHANNES Calcium Carbonate (Calcium Carbonate 500 Mg Tablet) 500 mg PO DAILY [facility] Last Admin: 01/30/23 11:27 Dose: 500 mg Documented By: YOHANNES Capsaicin (Capsaicin 0.025% Cream 60 Gm Tube) 1 appl TOPICAL QID PRN; Protocol PRN Reason: Pain, Mild (Pain Scale 1-3) Fluticasone/Umeclidinium/Vilanterol (Fluticasone/Umeclidinium/Vilanterol 100/62.5/25 Blst.W.Dev) 1 puff INHALE DAILY [facility] Last Admin: 01/30/23 07:55 Dose: 1 puff Documented By: BELL Folic Acid (Folic Acid 1 Mg Tablet) 1 mg PO DAILY [facility] Last Admin: 01/30/23 11:27 Dose: 1 mg Documented By: YOHANNES Furosemide (Furosemide 20 Mg Tablet) 20 mg PO DAILY [facility]; Protocol Last Admin: 01/28/23 09:47 Dose: 20 mg Documented By: NIYAH Gabapentin (Gabapentin 300 Mg Capsule) 300 mg PO BEDTIME [facility] Last Admin: 01/29/23 20:13 Dose: 300 mg Documented By: MARCE Guaifenesin (Guaifenesin 200 Mg/10 Ml 10 Ml Liquid) 10 ml PO Q4H PRN PRN Reason: Cough Heparin Sodium (Porcine) (Heparin Sodium,Porcine 5,000 Unit/Ml Vial) 5,000 unit 80 unit/kg (5000 unit) IVPUSH PROTOCOL BOLUS PRN; Protocol PRN Reason: 80 unit/kg - Heparin Protocol Heparin Sodium (Porcine) (Heparin Sodium,Porcine 5,000 Unit/Ml Vial) 2,500 unit 40 unit/kg (2500 unit) IVPUSH PROTOCOL BOLUS PRN; Protocol PRN Reason: 40 unit/kg - Heparin Protocol Heparin Sodium (Porcine) (Heparin Sodium,Porcine 5,000 Unit/Ml Vial) 5,000 unit 80 unit/kg (5000 unit) IVPUSH ONCE ONE Stop: 01/30/23 17:01 Lactated Ringer's (Lr) 1,000 mls @ 100 mls/hr IVCONT .Q10H [facility] Last Admin: 01/30/23 05:15 Dose: Not Given Documented By: DIANA Non-Admin Reason: IV Running Piperacillin Sod/Tazobactam (Sod 3.375 gm/ Sodium Chloride) 50 mls @ 100 mls/hr IV Q6H [facility] Last Infusion: 01/30/23 05:52 Dose: Infused Documented By: DIANA Vancomycin HCl 500 mg/ Sodium (Chloride) 110 mls @ 110 mls/hr IV Q12H [facility] Last Infusion: 01/30/23 07:32 Dose: Infused Documented By: DIANA Doxycycline Hyclate 100 mg/ (Sodium Chloride) 250 mls @ 166.67 mls/hr IV Q12H [facility] Last Infusion: 01/29/23 22:00 Dose: Infused Documented By: MARCE Heparin Sodium/Sodium Chloride (Heparin Sodium,Porcine/1/2ns) 25,000 unit in 250 mls @ 0 mls/hr IVCONT .Q0M [facility]; Protocol Latanoprost (Latanoprost 0.005 % Ophth Ayana 2.5 Ml Drops) 1 drop EYE-BOTH BEDTIME [facility] Last Admin: 01/29/23 20:20 Dose: 1 drop Documented By: MARCE Lidocaine (Lidocaine 4 % Patch Adh..Patch) 1 patch TRANSDERMA DAILY [facility]; Protocol Last Admin: 01/30/23 11:30 Dose: 1 patch Documented By: YOHANNES Losartan Potassium (Losartan Potassium 50 Mg Tablet) 100 mg PO DAILY [facility]; Protocol Last Admin: 01/30/23 11:19 Dose: Not Given Documented By: SHARONA Non-Admin Reason: Decreased Blood Pressure Melatonin (Melatonin 3 Mg Tablet) 6 mg PO BEDTIME PRN PRN Reason: Insomnia Last Admin: 01/28/23 23:05 Dose: 6 mg Documented By: JAIMEE Mirabegron (Mirabegron 25 Mg Tab.Er.24h) 25 mg PO DAILY [facility] Last Admin: 01/30/23 11:28 Dose: 25 mg Documented By: YOHANNES Multivitamins/Vitamin C (Multivitamin Tablet) 1 tab PO DAILY [facility] Last Admin: 01/30/23 11:27 Dose: 1 tab Documented By: YOHANNES Omeprazole (Omeprazole 20 Mg Capsule.Dr) 20 mg PO BID@0630,1630 [facility] Last Admin: 01/30/23 06:00 Dose: 20 mg Documented By: DIANA Ondansetron HCl (Ondansetron Hcl 4 Mg/2 Ml Vial) 4 mg IVPUSH Q4H PRN PRN Reason: Nausea and Vomiting Pharmacy Consult (Consult Rx Vancomycin Dosing) 1 each MISCELLANE DAILY PRN PRN Reason: Consult order Pramipexole Dihydrochloride (Pramipexole Di-Hcl 1 Mg Tablet) 1 mg PO BEDTIME [facility] Last Admin: 01/29/23 20:21 Dose: 1 mg Documented By: MARCE Sodium Chloride (0.9 % Sodium Chloride Flush 3 Ml Syringe) 3 ml IVFLUSH QSHIFT [facility] Last Admin: 01/30/23 08:16 Dose: 3 ml Documented By: SHARONA Vitamin D (Cholecalciferol (Vitamin D3) 25 Mcg Tablet) 25 mcg PO DAILY [facility] Last Admin: 01/30/23 11:27 Dose: 25 mcg Documented By: YOHANNES Labs 01/30/23 06:28 01/30/23 06:28 Labs: Laboratory Results - last 24 hr 01/28/23 01/29/23 01/29/23 19:25 07:54 16:20 MCV MCH MCHC RDW Plt Count MPV Absolute Nucleated RBC Nucleated RBC % (auto) PT INR aPTT Heparin Protocol Estim Creat Clear Calc Estimated GFR Procalcitonin 5.93 Random Vancomycin 13.1 L Respiratory Panel [facility] See Note Adenovirus (Rapid PCR) Not Detected B.pert (TEM-PCR) Not Detected B.parapertussis DNA PCR Not Detected C. pneumoniae DNA (PCR) Not Detected Coronavirus OC43 (PCR) Not Detected Coronavirus HKU1 (PCR) Not Detected Coronavirus 229E (PCR) Not Detected Coronavirus NL63 (PCR) Not Detected Human Metapneumovir PCR Not Detected Influenza A (RT-PCR) Not Detected Influenza B (RT-PCR) Not Detected M. pneumoniae (PCR) Not Detected Parainfluenza 1 (PCR) Not Detected Parainfluenza 2 (PCR) Not Detected Parainfluenza 3 (PCR) Not Detected Parainfluenza 4 (PCR) Not Detected RSV (PCR) Not Detected Entero/Rhino (PCR) Not Detected SARS-CoV-2 RNA (RT-PCR) Not Detected 01/29/23 01/29/23 01/30/23 18:39 21:30 06:28 MCV 93.4 95.6 94.7 MCH 29.9 29.7 29.9 MCHC 32.0 31.0 31.6 RDW 15.1 15.0 15.3 Plt Count 206 177 175 MPV 9.4 9.7 10.1 Absolute Nucleated RBC 0.000 0.000 0.000 Nucleated RBC % (auto) 0.0 0.0 0.0 PT 17.6 H 16.8 H INR 1.4 H 1.4 H aPTT Heparin Protocol 32.6 L Estim Creat Clear Calc 31.5 Estimated GFR 50 Procalcitonin Random Vancomycin Respiratory Panel [facility] Adenovirus (Rapid PCR) B.pert (TEM-PCR) B.parapertussis DNA PCR C. pneumoniae DNA (PCR) Coronavirus OC43 (PCR) Coronavirus HKU1 (PCR) Coronavirus 229E (PCR) Coronavirus NL63 (PCR) Human Metapneumovir PCR Influenza A (RT-PCR) Influenza B (RT-PCR) M. pneumoniae (PCR) Parainfluenza 1 (PCR) Parainfluenza 2 (PCR) Parainfluenza 3 (PCR) Parainfluenza 4 (PCR) RSV (PCR) Entero/Rhino (PCR) SARS-CoV-2 RNA (RT-PCR) Microbiology Microbiology Results: Microbiology 01/28/23 20:26 Blood Culture - Preliminary Blood - Venous No growth after 24 hours. 01/28/23 18:13 Blood Culture - Preliminary Blood - Venous No growth after 24 hours. 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 Pt will be admitted to the hospital for treatment and further evaluation of sepsis in the setting of community-acquired pneumonia. NSTEMI--starting heparin for 48 hrs, ASA. Holding BB d/t low BP, continue statin will get echo, cardiology facilitating management Sepsis d/t PNA, cultures so far negative, on Zosyn, vanc and doxy per ID, nl WBC, no fever, DC Vanco if MRSA nasal swal negative., pulmonary ok with current management Hx of PE in 2019 and 2022 on Xarelto, hold while on iv heparin HLD Continue statin HTN continue home meds. Lupus Continue azathioprine COPD--no exacerbation DNR/DNI DVT Prophylaxis: heparin ongoing hospitalization need : treatment of?sepsis in the setting of community- acquired pneumonia with IV antibiotics , blood cultures pending and close monitoring. Time Spent With Patient Time: Total time managing care of this patient today ____ minutes. Quality Stroke Does the patient have a stroke diagnosis?: No VTE Prior VTE?: Yes VTE Risk Level:: Medical - moderate - high VTE Device Contraindication: Treatment Not Indicated VTE Drug Contraindication: N/A - Med Ordered
[2023-01-30] MEDS: Doxycycline Hyclate 100 MG in 0.9 % Sodium Chloride 250 ML 166.67 MG IV (12:47)
[2023-01-30] MEDS: Heparin Sodium,Porcine 5,000 UNIT/ML VIAL 5000 UNIT IVPUSH (14:05)
[2023-01-30] MEDS: Lactated Ringers 1,000 ML 100 ML IVCONT ×2 (14:08→23:23)
[2023-01-30] MEDS: Heparin Sodium,Porcine/1/2NS 25,000 UNIT/250 ML IV.SOLN 8.82 UNIT IVCONT (14:10)
[2023-01-30 17:00] LABS: Vancomycin Random 17.7 mcg/mL (15-20)
[2023-01-30] MEDS: Gabapentin 300 MG CAPSULE PO (19:44)
[2023-01-30] MEDS: Pramipexole Di-HCL 1 MG TABLET PO (19:44)
[2023-01-30] MEDS: Latanoprost 0.005 % Ophth Sol 2.5 ML DROPS 1 DROP EYE-BOTH (19:44)
[2023-01-30] MEDS: vancomycin HCL 750 MG in 0.9 % Sodium Chloride 250 ML 265 MG IV (19:44)
[2023-01-30 21:21] LABS: PTT Heparin Drip > 200.0 SEC (53-77.9)
[2023-01-30 23:31] LABS: PTT Heparin Drip > 200.0 SEC (53-77.9)
[2023-01-31] VITALS (8 sets, daily range): BP systolic 94–139; BP diastolic 55–62; PULSE 81–106; RESP 16–20; TEMP 36.2–37.1; O2SAT 94–97
[2023-01-31 00:43] LABS: PTT Heparin Drip 107.9 SEC (53-77.9)
[2023-01-31] MEDS: 0.9 % Sodium Chloride Flush 3 ML SYRINGE IVFLUSH ×2 (01:21→21:05)
[2023-01-31] MEDS: Piperacillin Sodium/Tazobactam 3.375 GM in 0.9 % Sodium Chloride 50 ML IV ×4 (01:22→18:08)
[2023-01-31] MEDS: Doxycycline Hyclate 100 MG in 0.9 % Sodium Chloride 250 ML 166.67 MG IV ×2 (01:45→11:40)
[2023-01-31] MEDS: Acetaminophen 325 MG TABLET 650 MG PO (05:32)
[2023-01-31] MEDS: Omeprazole 20 MG CAPSULE.DR PO ×2 (05:34→17:10)
[2023-01-31] MEDS: Albuterol/Iprat 2.5/0.5MG 3 ML AMPUL.NEB INHALE ×3 (07:48→15:15)
[2023-01-31] MEDS: Fluticasone/Umeclidinium/Vilanterol 100/62.5/25 BLST.W.DEV 1 PUFF INHALE (07:48)
[2023-01-31] MEDS: Folic Acid 1 MG TABLET PO (08:02)
[2023-01-31] MEDS: azaTHIOprine 50 MG TABLET PO (08:02)
[2023-01-31] MEDS: Atorvastatin Calcium 40 MG TABLET PO (08:02)
[2023-01-31] MEDS: Multivitamin TABLET 1 TAB PO (08:02)
[2023-01-31] MEDS: Losartan Potassium 50 MG TABLET 100 MG PO (08:02)
[2023-01-31] MEDS: Cholecalciferol (Vitamin D3) 25 MCG TABLET PO (08:03)
[2023-01-31] MEDS: Mirabegron 25 MG TAB.ER.24H PO (08:03)
[2023-01-31] MEDS: Lidocaine 4 % Patch ADH..PATCH 1 PATCH TRANSDERMA (08:03)
--- NOTE | 2023-01-31 08:55 | P.PNIM_ITS ---
Subjective Subjective Date of Service: 01/31/23 Interval History: f/u on sepsis, pneumonia and NSTEMI, SBP over 90, c/o sob overnight Physical Exam 2 Vital Signs: Vital Signs: Last Vital Signs Temp 97.2 F 01/31/23 07:13 Pulse 81 01/31/23 07:50 Resp 16 01/31/23 07:50 BP 94/55 L 01/31/23 07:13 Pulse Ox 94 01/31/23 07:13 O2 Del Method Nasal Cannula 01/31/23 07:13 O2 Flow Rate 3 01/31/23 07:13 BMI result Body Mass Index 28.0 Const: Other: General: AO X 3, no acute distress Resp: CTA bilateral CVS: S1,S2,RRR GI: +BS, NT, no distention Skin: No rash Neuro: motor grossly intact Psych: appropriate affect Objective Data Active Medications Acetaminophen (Acetaminophen 325 Mg Tablet) 975 mg PO TID [facility] Last Admin: 01/31/23 08:18 Dose: Not Given Documented By: BRETT Non-Admin Reason: too soon Acetaminophen (Acetaminophen 325 Mg Tablet) 650 mg PO Q8H PRN PRN Reason: Headache Last Admin: 01/31/23 05:32 Dose: 650 mg Documented By: DIANA Albuterol/Ipratropium (Albuterol/Iprat 2.5/0.5mg 3 Ml Ampul.Neb) 3 ml INHALE RQ4H WHILE AWAKE [facility] Last Admin: 01/31/23 07:48 Dose: 3 ml Documented By: BELL Atorvastatin Calcium (Atorvastatin Calcium 40 Mg Tablet) 40 mg PO DAILY [facility] Last Admin: 01/31/23 08:02 Dose: 40 mg Documented By: BRETT Azathioprine (Azathioprine 50 Mg Tablet) 50 mg PO DAILY [facility] Last Admin: 01/31/23 08:02 Dose: 50 mg Documented By: BRETT Calcium Carbonate (Calcium Carbonate 500 Mg Tablet) 500 mg PO DAILY [facility] Last Admin: 01/31/23 08:02 Dose: 500 mg Documented By: BRETT Capsaicin (Capsaicin 0.025% Cream 60 Gm Tube) 1 appl TOPICAL QID PRN; Protocol PRN Reason: Pain, Mild (Pain Scale 1-3) Fluticasone/Umeclidinium/Vilanterol (Fluticasone/Umeclidinium/Vilanterol 100/62.5/25 Blst.W.Dev) 1 puff INHALE DAILY [facility] Last Admin: 01/31/23 07:48 Dose: 1 puff Documented By: BELL Folic Acid (Folic Acid 1 Mg Tablet) 1 mg PO DAILY [facility] Last Admin: 01/31/23 08:02 Dose: 1 mg Documented By: BRETT Furosemide (Furosemide 20 Mg Tablet) 20 mg PO DAILY [facility]; Protocol Last Admin: 01/28/23 09:47 Dose: 20 mg Documented By: NIYAH Gabapentin (Gabapentin 300 Mg Capsule) 300 mg PO BEDTIME [facility] Last Admin: 01/30/23 19:44 Dose: 300 mg Documented By: BRETT Guaifenesin (Guaifenesin 200 Mg/10 Ml 10 Ml Liquid) 10 ml PO Q4H PRN PRN Reason: Cough Heparin Sodium (Porcine) (Heparin Sodium,Porcine 5,000 Unit/Ml Vial) 5,000 unit 80 unit/kg (5000 unit) IVPUSH PROTOCOL BOLUS PRN; Protocol PRN Reason: 80 unit/kg - Heparin Protocol Heparin Sodium (Porcine) (Heparin Sodium,Porcine 5,000 Unit/Ml Vial) 2,500 unit 40 unit/kg (2500 unit) IVPUSH PROTOCOL BOLUS PRN; Protocol PRN Reason: 40 unit/kg - Heparin Protocol Lactated Ringer's (Lr) 1,000 mls @ 100 mls/hr IVCONT .Q10H [facility] Last Admin: 01/30/23 23:23 Dose: 100 mls/hr Documented By: BRETT Heparin Sodium/Sodium Chloride (Heparin Sodium,Porcine/1/2ns) 25,000 unit in 250 mls @ 0 mls/hr IVCONT .Q0M [facility]; Protocol Last Titration: 01/31/23 02:50 Dose: 10 units/kg/hr, 6.3 mls/hr Documented By: DIANA Co-signed By: ODALIS Doxycycline Hyclate 100 mg/ (Sodium Chloride) 250 mls @ 166.67 mls/hr IV Q12H [facility] Last Infusion: 01/31/23 03:39 Dose: Infused Documented By: DIANA Piperacillin Sod/Tazobactam (Sod 3.375 gm/ Sodium Chloride) 50 mls @ 100 mls/hr IV Q6H [facility] Last Infusion: 01/31/23 07:25 Dose: Infused Documented By: DIANA Vancomycin HCl 750 mg/ Sodium (Chloride) 265 mls @ 265 mls/hr IV Q24H [facility] Last Infusion: 01/30/23 21:10 Dose: Infused Documented By: BRETT Latanoprost (Latanoprost 0.005 % Ophth Ayana 2.5 Ml Drops) 1 drop EYE-BOTH BEDTIME [facility] Last Admin: 01/30/23 19:44 Dose: 1 drop Documented By: BRETT Lidocaine (Lidocaine 4 % Patch Adh..Patch) 1 patch TRANSDERMA DAILY [facility]; Protocol Last Admin: 01/31/23 08:03 Dose: 1 patch Documented By: BRETT Losartan Potassium (Losartan Potassium 50 Mg Tablet) 100 mg PO DAILY [facility]; Protocol Last Admin: 01/31/23 08:02 Dose: 100 mg Documented By: BRETT Melatonin (Melatonin 3 Mg Tablet) 6 mg PO BEDTIME PRN PRN Reason: Insomnia Last Admin: 01/28/23 23:05 Dose: 6 mg Documented By: JAIMEE Mirabegron (Mirabegron 25 Mg Tab.Er.24h) 25 mg PO DAILY [facility] Last Admin: 01/31/23 08:03 Dose: 25 mg Documented By: BRETT Multivitamins/Vitamin C (Multivitamin Tablet) 1 tab PO DAILY [facility] Last Admin: 01/31/23 08:02 Dose: 1 tab Documented By: BRETT Omeprazole (Omeprazole 20 Mg Capsule.Dr) 20 mg PO BID@0630,1630 [facility] Last Admin: 01/31/23 05:34 Dose: 20 mg Documented By: DIANA Ondansetron HCl (Ondansetron Hcl 4 Mg/2 Ml Vial) 4 mg IVPUSH Q4H PRN PRN Reason: Nausea and Vomiting Pharmacy Consult (Consult Rx Vancomycin Dosing) 1 each MISCELLANE DAILY PRN PRN Reason: Consult order Pramipexole Dihydrochloride (Pramipexole Di-Hcl 1 Mg Tablet) 1 mg PO BEDTIME [facility] Last Admin: 01/30/23 19:44 Dose: 1 mg Documented By: BRETT Sodium Chloride (0.9 % Sodium Chloride Flush 3 Ml Syringe) 3 ml IVFLUSH QSHIFT [facility] Last Admin: 01/31/23 08:17 Dose: Not Given Documented By: BRETT Non-Admin Reason: IV Running Vitamin D (Cholecalciferol (Vitamin D3) 25 Mcg Tablet) 25 mcg PO DAILY [facility] Last Admin: 01/31/23 08:03 Dose: 25 mcg Documented By: BRETT Labs 01/30/23 06:28 01/30/23 06:28 Labs: Laboratory Results - last 24 hr 01/30/23 01/30/23 01/30/23 16:22 20:10 22:38 aPTT Heparin Protocol > 200.0 H* D > 200.0 H* Random Vancomycin 17.7 01/31/23 01/31/23 00:19 01:56 aPTT Heparin Protocol 107.9 H* D 55.0 D Random Vancomycin Microbiology Microbiology Results: Microbiology 01/28/23 20:26 Blood Culture - Preliminary Blood - Venous No growth after 48 hours. 01/28/23 18:13 Blood Culture - Preliminary Blood - Venous No growth after 48 hours. 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 Pt will be admitted to the hospital for treatment and further evaluation of sepsis in the setting of community-acquired pneumonia. NSTEMI--IV heparin for 48 hrs (ending noon 02/01), ASA. Holding BB d/t low BP, continue statin will get echo, cardiology facilitating management. Echo EF 65- 70%, possible RCA area WMA, cardiac cath not entirely ruled out Sepsis d/t PNA, cultures so far negative, on Zosyn, vanc and doxy per ID, nl WBC, no fever, DC Vanco if MRSA nasal swal negative., pulmonary ok with current management Hx of PE in 2019 and 2022 on Xarelto, hold while on iv heparin HLD Continue statin HTN continue home meds. Lupus Continue azathioprine COPD--no exacerbation DNR/DNI DVT Prophylaxis: heparin ongoing hospitalization need : treatment of?sepsis in the setting of community- acquired pneumonia with IV antibiotics , blood cultures pending and close monitoring. Time Spent With Patient Time: Total time managing care of this patient today ____ minutes. Quality Stroke Does the patient have a stroke diagnosis?: No VTE Prior VTE?: Yes VTE Risk Level:: Medical - moderate - high VTE Device Contraindication: Treatment Not Indicated VTE Drug Contraindication: N/A - Med Ordered
[2023-01-31 10:09] LABS: Estimated Glomerular Filt Rate > 60
[2023-01-31 10:10] LABS: PTT Heparin Drip 73.2 SEC (53-77.9)
--- NOTE | 2023-01-31 10:17 | PM.PNCARD ---
Subjective Subjective Date of Service: 01/31/23 Principal diagnosis: NSTEMI Interval history: Patient has no longer had any chest discomfort overnight. Blood pressure is still on the softer side. Patient sitting in the chair. She says she is breathing and feeling better while sitting. Her oxygen level as been reduced and she feels slightly more short of breath. She denies any lightheadedness, syncope. No overnight arrhythmias. Echo consistent with wall motion abnormality in RCA territory but with preserved LV ejection fraction Review of Systems Constitutional: Reports weakness Eyes: Reports no additional eye complaints Cardiovascular: Denies chest pain and Reports dyspnea on exertion Respiratory: Reports dyspnea on exertion Gastrointestinal: Reports no additional gastrointestinal complaints Genitourinary: Reports no additional female genitourinary complaints Musculoskeletal: Reports no additional musculoskeletal complaints Skin/Breast: Reports system reviewed and no additional complaints, except as docu Reports weakness Physical Exam Vital Signs: Last Vital Signs Temp 97.2 F 01/31/23 07:13 Pulse 81 01/31/23 07:50 Resp 16 01/31/23 07:50 BP 94/55 L 01/31/23 07:13 Pulse Ox 94 01/31/23 07:13 O2 Del Method Nasal Cannula 01/31/23 07:13 O2 Flow Rate 3 01/31/23 07:13 BMI result Body Mass Index 28.0 Const General: cooperative, alert, awake and in distress mild Nutritional Appearance: thin and other (frail) Orientation/consciousness: patient oriented x3 HEENT Head: Yes normocephalic and Yes atraumatic Neck Neck: Yes trachea midline, Yes supple and Yes no JVD Resp Effort & Inspection: normal respiratory effort Auscultation: no crackles, no rales, wheezes and diminished lung sounds Cardio Jugular venous distension: no JVD Palpation: normal PMI Rate: regular rate Rhythm: regular rhythm Heart sounds: S1 normal heart sound present, S2 normal heart sound present, no click, no gallops, no murmurs and no rubs GI Auscultation: normal bowel sounds Skin General skin exam: no rashes or lesions noted and ecchymosis Neuro General: patient oriented x3 and no focal motor deficits Extrem General: Yes no clubbing, cyanosis or edema Objective Labs and Meds 01/30/23 06:28 01/31/23 09:04 Lab results: Laboratory Results - last 24 hr 01/30/23 01/30/2323 16:22 20:10 22:38 Hold Purple Top aPTT Heparin Protocol > 200.0 H* D > 200.0 H* Creatinine Estim Creat Clear Calc Estimated GFR Random Vancomycin 17.7 01/31/23 01/31/23 01/31/23 00:19 01:56 09:04 Hold Purple Top SEE NOTE aPTT Heparin Protocol 107.9 H* D 55.0 D 73.2 D Creatinine 0.79 Estim Creat Clear Calc 42.0 Estimated GFR > 60 Random Vancomycin Progress Note: A&P Assessment and plan (1) NSTEMI (non-ST elevated myocardial infarction): Status: Acute Assessment and Plan: NSTEMI with high likelihood of underlying obstructive coronary artery disease highly active underlying 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 Currently not having any post AR angina or any significant heart failure issues arrhythmias. Blood pressure is soft and cannot start her on any anti ischemic therapy at this point time. Continue aspirin, statins, IV heparin. Starting tomorrow will probably add Plavix to her regimen. Given her advanced age and significant comorbidities and acute medical issues with continued hypoxemia, will pursue conservative management. This was discussed with patient and patient's daughter in detail. They understand and agree. Outpatient myocardial perfusion imaging couple of weeks once her acute medical illness resolves. Will continue to follow with you Time Spent With Patient Time: Total time managing care of this patient today ____ minutes. Progress Note: Quality Stroke Does the patient have a stroke diagnosis?: No Procedures Date of Service Date of Service: 01/31/23
--- NOTE | 2023-01-31 10:50 | MHC.CM.PN ---
Per ROUNDS discussion, Patient is not yet medically cleared for dc (3 IV ABT, Heparin Drip); PT recommends home with services and CM will continue to follow.
[2023-01-31] MEDS: Lactated Ringers 1,000 ML 100 ML IVCONT (10:53)
[2023-01-31 16:02] LABS: PTT Heparin Drip 105.2 SEC (53-77.9)
[2023-01-31 16:11] LABS: MRSA Nasal PCR NEGATIVE (Negative); SA Nasal PCR NEGATIVE (Negative)
[2023-01-31] MEDS: Acetaminophen 325 MG TABLET 975 MG PO ×2 (17:10→21:06)
[2023-01-31 17:29] LABS: Vancomycin Random 15.2 mcg/mL (15-20)
--- NOTE | 2023-01-31 17:37 | HE.PHANOTE ---
RE VANCO DOSING CONTINUE CURRENT REGIMEN. RECHECK VANCO LEVEL 02/01 @1800. MAY NEED DOSE INCREASE ACCORDING TO INSIGHT BUT CURRENTLY THERAPEUTIC.
[2023-01-31] MEDS: Heparin Sodium,Porcine/1/2NS 25,000 UNIT/250 ML IV.SOLN 4.41 UNIT IVCONT (17:41)
[2023-01-31] MEDS: vancomycin HCL 750 MG in 0.9 % Sodium Chloride 250 ML 265 MG IV (21:05)
[2023-01-31] MEDS: Pramipexole Di-HCL 1 MG TABLET PO (21:06)
[2023-01-31] MEDS: Gabapentin 300 MG CAPSULE PO (21:06)
[2023-01-31] MEDS: Latanoprost 0.005 % Ophth Sol 2.5 ML DROPS 1 DROP EYE-BOTH (21:06)
[2023-01-31 23:59] LABS: PTT Heparin Drip 83.4 SEC (53-77.9)
[2023-02-01] VITALS (7 sets, daily range): BP systolic 95–103; BP diastolic 51–55; PULSE 86–101; RESP 14–20; TEMP 35.9–37.3; O2SAT 93–98
[2023-02-01] MEDS: Doxycycline Hyclate 100 MG in 0.9 % Sodium Chloride 250 ML 166.67 MG IV ×3 (00:16→23:04)
[2023-02-01] MEDS: Melatonin 3 MG TABLET 6 MG PO (00:22)
[2023-02-01] MEDS: Piperacillin Sodium/Tazobactam 3.375 GM in 0.9 % Sodium Chloride 50 ML IV ×4 (01:54→18:10)
[2023-02-01] MEDS: Omeprazole 20 MG CAPSULE.DR PO ×2 (06:05→15:05)
[2023-02-01 07:31] LABS: PTT Heparin Drip 48.7 SEC (53-77.9)
[2023-02-01 07:39] LABS: Creatinine Clr Calc Pharmacy 28.6; Estimated Glomerular Filt Rate 44
[2023-02-01] MEDS: Fluticasone/Umeclidinium/Vilanterol 100/62.5/25 BLST.W.DEV 1 PUFF INHALE (07:40)
[2023-02-01] MEDS: Albuterol/Iprat 2.5/0.5MG 3 ML AMPUL.NEB INHALE ×3 (07:40→19:40)
[2023-02-01] MEDS: Heparin Sodium,Porcine 5,000 UNIT/ML VIAL 2500 UNIT IVPUSH (08:44)
[2023-02-01] MEDS: Mirabegron 25 MG TAB.ER.24H PO (08:58)
[2023-02-01] MEDS: Folic Acid 1 MG TABLET PO (08:58)
[2023-02-01] MEDS: Multivitamin TABLET 1 TAB PO (08:58)
[2023-02-01] MEDS: azaTHIOprine 50 MG TABLET PO (08:59)
[2023-02-01] MEDS: Lidocaine 4 % Patch ADH..PATCH 1 PATCH TRANSDERMA (08:59)
[2023-02-01] MEDS: Acetaminophen 325 MG TABLET 975 MG PO ×3 (08:59→20:21)
[2023-02-01] MEDS: Atorvastatin Calcium 40 MG TABLET PO (08:59)
[2023-02-01] MEDS: Cholecalciferol (Vitamin D3) 25 MCG TABLET PO (08:59)
[2023-02-01] MEDS: 0.9 % Sodium Chloride Flush 3 ML SYRINGE IVFLUSH ×3 (09:12→20:22)
--- NOTE | 2023-02-01 10:05 | PM.PNCARD ---
Subjective Subjective Date of Service: 02/01/23 Principal diagnosis: NSTEMI Interval history: Patient complains of weakness. Denies any chest pain. Blood pressure is still is on the softer side. No overnight arrhythmias. Review of Systems Constitutional: Reports lethargy and Reports weakness Eyes: Reports no additional eye complaints Cardiovascular: Reports no additional cardiovascular complaints Respiratory: Reports no additional respiratory complaints Gastrointestinal: Reports no additional gastrointestinal complaints Reports weakness Endocrine: Reports no additional endocrine complaints Physical Exam Vital Signs: Last Vital Signs Temp 98.1 F 02/01/23 07:20 Pulse 86 02/01/23 07:44 Resp 16 02/01/23 07:44 BP 103/55 L 02/01/23 07:20 Pulse Ox 93 02/01/23 07:20 O2 Del Method Nasal Cannula 02/01/23 07:20 O2 Flow Rate 2 02/01/23 07:20 BMI result Body Mass Index 28.0 Const General: cooperative, alert, awake and in distress mild Nutritional Appearance: thin and other (frail) Orientation/consciousness: patient oriented x3 HEENT Head: Yes normocephalic and Yes atraumatic Neck Neck: Yes trachea midline, Yes supple and Yes no JVD Resp Effort & Inspection: normal respiratory effort Auscultation: no crackles, no rales, wheezes and diminished lung sounds Cardio Jugular venous distension: no JVD Palpation: normal PMI Rate: regular rate Rhythm: regular rhythm Heart sounds: S1 normal heart sound present, S2 normal heart sound present, no click, no gallops, no murmurs and no rubs GI Auscultation: normal bowel sounds Skin General skin exam: no rashes or lesions noted and ecchymosis Neuro General: patient oriented x3 and no focal motor deficits Extrem General: Yes no clubbing, cyanosis or edema Objective Labs and Meds 01/30/23 06:28 02/01/23 06:55 Lab results: Laboratory Results - last 24 hr 01/31/23 01/31/23 01/31/23 09:04 14:47 15:38 aPTT Heparin Protocol 73.2 D Creatinine 0.79 Estim Creat Clear Calc 42.0 Estimated GFR > 60 Nasal Screen MRSA (PCR) NEGATIVE Nasal S. aureus Screen NEGATIVE Nasal MRSA/S.aureus Interp SEE NOTE Random Vancomycin 15.2 01/31/23 01/31/23 02/01/23 15:46 23:27 06:55 aPTT Heparin Protocol 105.2 H D 83.4 H D 48.7 L D Creatinine 1.16 Estim Creat Clear Calc 28.6 Estimated GFR 44 Nasal Screen MRSA (PCR) Nasal S. aureus Screen Nasal MRSA/S.aureus Interp Random Vancomycin Progress Note: A&P Assessment and plan (1) NSTEMI (non-ST elevated myocardial infarction): Status: Acute Assessment and Plan: NSTEMI in this elderly woman admitted with sepsis as well as pneumonia and COPD exacerbation with hypoxic respiratory failure. Clinically doing well with no active cardiac symptoms. IV heparin can be stopped. Switch to dual antiplatelet therapy with aspirin Plavix and high-intensity statin therapy. Due to low blood pressure cannot add much other medications to treat her ischemic heart disease at this point time. Will set up for outpatient myocardial perfusion imaging couple weeks after she has recovered from this acute medical illness. Consider physical therapy consult for disposition. Will sign of the case at this point time. Thank you for allowing me to partake in her care Time Spent With Patient Time: Total time managing care of this patient today ____ minutes. Progress Note: Quality Stroke Does the patient have a stroke diagnosis?: No Procedures Date of Service Date of Service: 02/01/23
--- NOTE | 2023-02-01 10:28 | P.CDIM_ITS ---
PROVIDER RESPONSE TEXT: To clarify, the appropriate diagnosis supported by the clinical indicators: NSTEMI due to demand ischemia QUERY TEXT: PHYSICIAN'S DOCUMENTATION REQUEST Date of Query: 02/01/2023 08:58 AM EDT Patient Name: Kelly Miller Admit Date: 01/26/2023 Dear Spenser Kauffman, A review of the medical record indicates additional documentation may be needed. Please review below and update the documentation accordingly. Clinical Indicators: Cardiology notes: NSTEMI high likelihood of underlying obstructive coronary disease highly active und erlying 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 EVENT NOTE 01/30 - patient had chest pain, shortness of breath earlier in the night. Elevated troponin s. Started on IV Heparin. Progress note: NSTEMI-IV heparin for 48 hours, ASA, Echo EF 65-70%, possible RCA area WMA. Troponin: 759.7 2212.1 H Please clarify the type of the documented myocardial infarction: NSTEMI due to demand ischemia Type 2 SC Other please specify Other (explain)Clinically unable to determine (explain)Thank you, Yaquelin Dukes, CCS, CDIS Use of terms such as suspected, likely, concern for, or probable (associated with a specific diagnosi s that is being evaluated, monitored, or treated as if it exists) are acceptable and can be coded in the inpatient se tting, when documented at the time of discharge. Please use your independent medical judgment in providing your response. THIS QUERY IS PART OF THE PERMANENT MEDICAL RECORD
--- NOTE | 2023-02-01 11:26 | HO.PM.IMPN ---
Subjective Subjective Date of Service: 02/02/23 Interval History: Feels sob at times, Physical Exam Vital Signs: Vital Signs: Last Vital Signs Temp 98.1 F 02/01/23 07:20 Pulse 88 02/01/23 11:06 Resp 18 02/01/23 11:06 BP 103/55 L 02/01/23 07:20 Pulse Ox 93 02/01/23 07:20 O2 Del Method Nasal Cannula 02/01/23 07:20 O2 Flow Rate 2 02/01/23 07:20 BMI result Body Mass Index 28.0 Const: Other: General: AO X 3, no acute distress Resp: CTA bilateral CVS: S1,S2,RRR GI: +BS, NT, no distention Skin: No rash Neuro: motor grossly intact Psych: appropriate affect Objective Data Active Medications Acetaminophen (Acetaminophen 325 Mg Tablet) 975 mg PO TID [facility] Last Admin: 02/01/23 08:59 Dose: 975 mg Documented By: UMA Acetaminophen (Acetaminophen 325 Mg Tablet) 650 mg PO Q8H PRN PRN Reason: Headache Last Admin: 01/31/23 05:32 Dose: 650 mg Documented By: DIANA Albuterol/Ipratropium (Albuterol/Iprat 2.5/0.5mg 3 Ml Ampul.Neb) 3 ml INHALE RQ4H WHILE AWAKE [facility] Last Admin: 02/01/23 11:05 Dose: 3 ml Documented By: OMEGA Atorvastatin Calcium (Atorvastatin Calcium 40 Mg Tablet) 40 mg PO DAILY [facility] Last Admin: 02/01/23 08:59 Dose: 40 mg Documented By: UMA Azathioprine (Azathioprine 50 Mg Tablet) 50 mg PO DAILY [facility] Last Admin: 02/01/23 08:59 Dose: 50 mg Documented By: UMA Calcium Carbonate (Calcium Carbonate 500 Mg Tablet) 500 mg PO DAILY [facility] Last Admin: 02/01/23 08:58 Dose: 500 mg Documented By: UMA Capsaicin (Capsaicin 0.025% Cream 60 Gm Tube) 1 appl TOPICAL QID PRN; Protocol PRN Reason: Pain, Mild (Pain Scale 1-3) Fluticasone/Umeclidinium/Vilanterol (Fluticasone/Umeclidinium/Vilanterol 100/62.5/25 Blst.W.Dev) 1 puff INHALE DAILY [facility] Last Admin: 02/01/23 07:40 Dose: 1 puff Documented By: OMEGA Folic Acid (Folic Acid 1 Mg Tablet) 1 mg PO DAILY [facility] Last Admin: 02/01/23 08:58 Dose: 1 mg Documented By: UMA Furosemide (Furosemide 20 Mg Tablet) 20 mg PO DAILY [facility]; Protocol Last Admin: 01/28/23 09:47 Dose: 20 mg Documented By: NIYAH Gabapentin (Gabapentin 300 Mg Capsule) 300 mg PO BEDTIME [facility] Last Admin: 01/31/23 21:06 Dose: 300 mg Documented By: FLORENCIO Guaifenesin (Guaifenesin 200 Mg/10 Ml 10 Ml Liquid) 10 ml PO Q4H PRN PRN Reason: Cough Doxycycline Hyclate 100 mg/ (Sodium Chloride) 250 mls @ 166.67 mls/hr IV Q12H [facility] Last Infusion: 02/01/23 01:58 Dose: Infused Documented By: FLORENCIO Piperacillin Sod/Tazobactam (Sod 3.375 gm/ Sodium Chloride) 50 mls @ 100 mls/hr IV Q6H [facility] Last Infusion: 02/01/23 06:48 Dose: Infused Documented By: FLORENCIO Vancomycin HCl 750 mg/ Sodium (Chloride) 265 mls @ 265 mls/hr IV Q24H [facility] Last Infusion: 01/31/23 22:58 Dose: Infused Documented By: FLORENCIO Latanoprost (Latanoprost 0.005 % Ophth Ayana 2.5 Ml Drops) 1 drop EYE-BOTH BEDTIME [facility] Last Admin: 01/31/23 21:06 Dose: 1 drop Documented By: FLORENCIO Lidocaine (Lidocaine 4 % Patch Adh..Patch) 1 patch TRANSDERMA DAILY [facility]; Protocol Last Admin: 02/01/23 08:59 Dose: 1 patch Documented By: UMA Losartan Potassium (Losartan Potassium 50 Mg Tablet) 100 mg PO DAILY [facility]; Protocol Last Admin: 02/01/23 09:23 Dose: Not Given Documented By: UMA Non-Admin Reason: Decreased Blood Pressure Melatonin (Melatonin 3 Mg Tablet) 6 mg PO BEDTIME PRN PRN Reason: Insomnia Last Admin: 02/01/23 00:22 Dose: 6 mg Documented By: FLORENCIO Mirabegron (Mirabegron 25 Mg Tab.Er.24h) 25 mg PO DAILY [facility] Last Admin: 02/01/23 08:58 Dose: 25 mg Documented By: UMA Multivitamins/Vitamin C (Multivitamin Tablet) 1 tab PO DAILY [facility] Last Admin: 02/01/23 08:58 Dose: 1 tab Documented By: UMA Omeprazole (Omeprazole 20 Mg Capsule.Dr) 20 mg PO BID@0630,1630 [facility] Last Admin: 02/01/23 06:05 Dose: 20 mg Documented By: FLORENCIO Ondansetron HCl (Ondansetron Hcl 4 Mg/2 Ml Vial) 4 mg IVPUSH Q4H PRN PRN Reason: Nausea and Vomiting Pharmacy Consult (Consult Rx Vancomycin Dosing) 1 each MISCELLANE DAILY PRN PRN Reason: Consult order Pramipexole Dihydrochloride (Pramipexole Di-Hcl 1 Mg Tablet) 1 mg PO BEDTIME [facility] Last Admin: 01/31/23 21:06 Dose: 1 mg Documented By: FLORENCIO Sodium Chloride (0.9 % Sodium Chloride Flush 3 Ml Syringe) 3 ml IVFLUSH QSHIFT [facility] Last Admin: 02/01/23 09:12 Dose: 3 ml Documented By: UMA Vitamin D (Cholecalciferol (Vitamin D3) 25 Mcg Tablet) 25 mcg PO DAILY [facility] Last Admin: 02/01/23 08:59 Dose: 25 mcg Documented By: UMA Labs 01/30/23 06:28 02/01/23 06:55 Labs: Laboratory Results - last 24 hr 01/31/23 01/31/23 01/31/23 14:47 15:38 15:46 aPTT Heparin Protocol 105.2 H D Estim Creat Clear Calc Estimated GFR Nasal Screen MRSA (PCR) NEGATIVE Nasal S. aureus Screen NEGATIVE Nasal MRSA/S.aureus Interp SEE NOTE Random Vancomycin 15.2 01/31/23 02/01/23 23:27 06:55 aPTT Heparin Protocol 83.4 H D 48.7 L D Estim Creat Clear Calc 28.6 Estimated GFR 44 Nasal Screen MRSA (PCR) Nasal S. aureus Screen Nasal MRSA/S.aureus Interp Random Vancomycin Microbiology Microbiology Results: Microbiology 01/26/23 14:29 Blood Culture - Final Blood - Venous No growth after 5 days. 01/26/23 14:21 Blood Culture - Final Blood - Venous No growth after 5 days. 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 Pt will be admitted to the hospital for treatment and further evaluation of sepsis in the setting of community-acquired pneumonia. NSTEMI--IV heparin for 48 hrs (ending noon 02/01), ASA. Holding BB d/t low BP, , cardiology facilitating management. Echo EF 65-70%, possible RCA area WMA, family wants medical management. Stoping heparin and ading Plavix to xarelto Sepsis d/t PNA, cultures so far negative, on Zosyn, vanc and doxy per ID, nl WBC, no fever, DC Vanco , MRSA nasal swab is negative., pulmonary ok with current management Hx of PE in 2019 and 2022, restart xarelto today HLD Continue statin HTN continue home meds. Lupus Continue azathioprine COPD--no exacerbation DNR/DNI DVT Prophylaxis: xarelto ongoing hospitalization need : treatment of?sepsis in the setting of community-acquired pneumonia with IV antibiotics , blood cultures pending and close monitoring. PT mini, plan discussed with daughter at bedside Time Spent With Patient Time: Total time managing care of this patient today ____ minutes. Quality Stroke Does the patient have a stroke diagnosis?: No VTE Prior VTE?: Yes VTE Risk Level:: Medical - moderate - high VTE Device Contraindication: Treatment Not Indicated VTE Drug Contraindication: N/A - Med Ordered
[2023-02-01] MEDS: Clopidogrel Bisulfate 75 MG TABLET PO (12:05)
[2023-02-01 15:07] LABS: PTT Heparin Drip 43.5 SEC (53-77.9)
[2023-02-01 18:33] LABS: Vancomycin Random 15.7 mcg/mL (15-20)
[2023-02-01] MEDS: Gabapentin 300 MG CAPSULE PO (20:21)
[2023-02-01] MEDS: Rivaroxaban 20 MG TABLET PO (20:22)
[2023-02-01] MEDS: Latanoprost 0.005 % Ophth Sol 2.5 ML DROPS 1 DROP EYE-BOTH (20:22)
[2023-02-01] MEDS: Pramipexole Di-HCL 1 MG TABLET PO (20:22)
[2023-02-02] VITALS (9 sets, daily range): BP systolic 68–110; BP diastolic 40–55; PULSE 84–103; RESP 17–20; TEMP 36.4–37.2; O2SAT 90–97
[2023-02-02] MEDS: Piperacillin Sodium/Tazobactam 3.375 GM in 0.9 % Sodium Chloride 50 ML IV ×4 (00:57→18:07)
[2023-02-02] MEDS: guaiFENesin 200 MG/10 ML 10 ML LIQUID PO ×2 (05:07→18:07)
[2023-02-02] MEDS: Omeprazole 20 MG CAPSULE.DR PO ×2 (05:07→14:52)
[2023-02-02] MEDS: Albuterol/Iprat 2.5/0.5MG 3 ML AMPUL.NEB INHALE ×3 (05:22→18:55)
[2023-02-02] MEDS: Fluticasone/Umeclidinium/Vilanterol 100/62.5/25 BLST.W.DEV 1 PUFF INHALE (07:59)
--- NOTE | 2023-02-02 08:44 | MHC.CM.PN ---
PT is now recommending STR; CM will follow.
--- NOTE | 2023-02-02 09:09 | P.PNIM_ITS ---
Subjective Subjective Date of Service: 02/02/23 Interval History: f/u o nstemi, pna.. overall has made progress and is feeling better, although had some sob in the middle of night improved with breathing treatment Physical Exam 2 Vital Signs: Vital Signs: Last Vital Signs Temp 97.6 F 02/02/23 07:38 Pulse 96 02/02/23 08:01 Resp 18 02/02/23 08:01 BP 103/53 L 02/02/23 07:38 Pulse Ox 92 02/02/23 07:38 O2 Del Method Nasal Cannula 02/02/23 07:38 O2 Flow Rate 2 02/02/23 07:38 BMI result Body Mass Index 28.0 Const: Other: General: AO X 3, no acute distress Resp: CTA bilateral CVS: S1,S2,RRR GI: +BS, NT, no distention Skin: No rash Neuro: motor grossly intact Psych: appropriate affect Objective Data Active Medications Acetaminophen (Acetaminophen 325 Mg Tablet) 975 mg PO TID [facility] Last Admin: 02/01/23 20:21 Dose: 975 mg Documented By: RASHARD Acetaminophen (Acetaminophen 325 Mg Tablet) 650 mg PO Q8H PRN PRN Reason: Headache Last Admin: 01/31/23 05:32 Dose: 650 mg Documented By: DIANA Albuterol/Ipratropium (Albuterol/Iprat 2.5/0.5mg 3 Ml Ampul.Neb) 3 ml INHALE RQ4H WHILE AWAKE [facility] Last Admin: 02/02/23 07:59 Dose: 3 ml Documented By: OMEGA Albuterol/Ipratropium (Albuterol/Iprat 2.5/0.5mg 3 Ml Ampul.Neb) 3 ml INHALE RQ4H PRN PRN Reason: Shortness of Breath/Wheezing Last Admin: 02/02/23 05:22 Dose: 3 ml Documented By: RASHARD Atorvastatin Calcium (Atorvastatin Calcium 40 Mg Tablet) 40 mg PO DAILY [facility] Last Admin: 02/01/23 08:59 Dose: 40 mg Documented By: UMA Azathioprine (Azathioprine 50 Mg Tablet) 50 mg PO DAILY [facility] Last Admin: 02/01/23 08:59 Dose: 50 mg Documented By: UMA Calcium Carbonate (Calcium Carbonate 500 Mg Tablet) 500 mg PO DAILY [facility] Last Admin: 02/01/23 08:58 Dose: 500 mg Documented By: UMA Capsaicin (Capsaicin 0.025% Cream 60 Gm Tube) 1 appl TOPICAL QID PRN; Protocol PRN Reason: Pain, Mild (Pain Scale 1-3) Clopidogrel Bisulfate (Clopidogrel Bisulfate 75 Mg Tablet) 75 mg PO DAILY [facility] Last Admin: 02/01/23 12:05 Dose: 75 mg Documented By: UMA Fluticasone/Umeclidinium/Vilanterol (Fluticasone/Umeclidinium/Vilanterol 100/62.5/25 Blst.W.Dev) 1 puff INHALE DAILY [facility] Last Admin: 02/02/23 07:59 Dose: 1 puff Documented By: OMEGA Folic Acid (Folic Acid 1 Mg Tablet) 1 mg PO DAILY [facility] Last Admin: 02/01/23 08:58 Dose: 1 mg Documented By: UMA Furosemide (Furosemide 20 Mg Tablet) 20 mg PO DAILY [facility]; Protocol Last Admin: 01/28/23 09:47 Dose: 20 mg Documented By: NIYAH Gabapentin (Gabapentin 300 Mg Capsule) 300 mg PO BEDTIME [facility] Last Admin: 02/01/23 20:21 Dose: 300 mg Documented By: RASHARD Guaifenesin (Guaifenesin 200 Mg/10 Ml 10 Ml Liquid) 10 ml PO Q4H PRN PRN Reason: Cough Last Admin: 02/02/23 05:07 Dose: 10 ml Documented By: RASHARD Doxycycline Hyclate 100 mg/ (Sodium Chloride) 250 mls @ 166.67 mls/hr IV Q12H [facility] Last Infusion: 02/02/23 00:53 Dose: Infused Documented By: RASHARD Piperacillin Sod/Tazobactam (Sod 3.375 gm/ Sodium Chloride) 50 mls @ 100 mls/hr IV Q6H [facility] Last Admin: 02/02/23 06:40 Dose: 100 mls/hr Documented By: RASHARD Latanoprost (Latanoprost 0.005 % Ophth Ayana 2.5 Ml Drops) 1 drop EYE-BOTH BEDTIME [facility] Last Admin: 02/01/23 20:22 Dose: 1 drop Documented By: RASHARD Lidocaine (Lidocaine 4 % Patch Adh..Patch) 1 patch TRANSDERMA DAILY [facility]; Protocol Last Admin: 02/01/23 08:59 Dose: 1 patch Documented By: UMA Losartan Potassium (Losartan Potassium 50 Mg Tablet) 100 mg PO DAILY [facility]; Protocol Last Admin: 02/01/23 09:23 Dose: Not Given Documented By: UMA Non-Admin Reason: Decreased Blood Pressure Melatonin (Melatonin 3 Mg Tablet) 6 mg PO BEDTIME PRN PRN Reason: Insomnia Last Admin: 02/01/23 00:22 Dose: 6 mg Documented By: FLORENCIO Mirabegron (Mirabegron 25 Mg Tab.Er.24h) 25 mg PO DAILY [facility] Last Admin: 02/01/23 08:58 Dose: 25 mg Documented By: UMA Multivitamins/Vitamin C (Multivitamin Tablet) 1 tab PO DAILY [facility] Last Admin: 02/01/23 08:58 Dose: 1 tab Documented By: UMA Omeprazole (Omeprazole 20 Mg Capsule.Dr) 20 mg PO BID@0630,1630 [facility] Last Admin: 02/02/23 05:07 Dose: 20 mg Documented By: RASHARD Ondansetron HCl (Ondansetron Hcl 4 Mg/2 Ml Vial) 4 mg IVPUSH Q4H PRN PRN Reason: Nausea and Vomiting Pharmacy Consult (Consult Rx Vancomycin Dosing) 1 each MISCELLANE DAILY PRN PRN Reason: Consult order Pramipexole Dihydrochloride (Pramipexole Di-Hcl 1 Mg Tablet) 1 mg PO BEDTIME [facility] Last Admin: 02/01/23 20:22 Dose: 1 mg Documented By: RASHARD Rivaroxaban (Rivaroxaban 20 Mg Tablet) 20 mg PO BEDTIME [facility] Last Admin: 02/01/23 20:22 Dose: 20 mg Documented By: RASHARD Sodium Chloride (0.9 % Sodium Chloride Flush 3 Ml Syringe) [facility] Admin: 02/01/23 20:22 Dose: 3 ml Documented By: RASHARD Vitamin D (Cholecalciferol (Vitamin D3) 25 Mcg Tablet) 25 mcg PO DAILY [facility] Last Admin: 02/01/23 08:59 Dose: 25 mcg Documented By: UMA Labs 01/30/23 06:28 02/01/23 06:55 Labs: Laboratory Results - last 24 hr 02/01/23 02/01/23 14:52 17:51 aPTT Heparin Protocol 43.5 L Random Vancomycin 15.7 Microbiology Microbiology Results: Microbiology 02/01/23 11:40 Gram Stain - Final Sputum - Expectorated Sputum Culture - Final Assessment and Plan (1) NSTEMI (non-ST elevated myocardial infarction): Status: Acute Assessment and Plan: Will continue to follow with you (2) Sepsis: Status: Acute (3) Community acquired pneumonia: Status: Acute Plan 87-year-old female with a PMH significant for?COPD on 2 L NC at baseline, 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 Pt will be admitted to the hospital for treatment and further evaluation of sepsis in the setting of community-acquired pneumonia. NSTEMI-- treated medically with IV heparin for 48 hrs (ending noon 02/01). No BB d/t low BP, family and pt want medical management only. Echo EF 65-70%, possible RCA area WMA. Continue medical therapy with Plvix, and statinxarelto Sepsis d/t PNA, cultures so far negative, treated with ceftriaxone and Azithro from 01/26 to and Zosyn, 'doxy and vanco since 01/30, Vanco dc on 02/01, has been adequately treated with Abx and will stop Hx of PE in 2019 and 2022, continue xarelto HLD Continue statin HTN continue home meds. Lupus Continue azathioprine COPD--no exacerbation DNR/DNI DVT Prophylaxis: xarelto ongoing hospitalization need : treatment of?sepsis in the setting of community- acquired pneumonia with IV antibiotics , blood cultures pending and close monitoring. PT recommends STR, ready to go plan discussed with daughter at bedside Time Spent With Patient Time: Total time managing care of this patient today ____ minutes. Quality Stroke Does the patient have a stroke diagnosis?: No VTE Prior VTE?: Yes VTE Risk Level:: Medical - moderate - high VTE Device Contraindication: Treatment Not Indicated VTE Drug Contraindication: N/A - Med Ordered
[2023-02-02] MEDS: 0.9 % Sodium Chloride Flush 3 ML SYRINGE IVFLUSH ×3 (09:24→20:57)
[2023-02-02] MEDS: Folic Acid 1 MG TABLET PO (09:24)
[2023-02-02] MEDS: Losartan Potassium 50 MG TABLET 100 MG PO (09:24)
[2023-02-02] MEDS: Acetaminophen 325 MG TABLET 975 MG PO ×3 (09:25→20:57)
[2023-02-02] MEDS: Lidocaine 4 % Patch ADH..PATCH 1 PATCH TRANSDERMA (09:26)
[2023-02-02] MEDS: Mirabegron 25 MG TAB.ER.24H PO (09:26)
[2023-02-02] MEDS: Atorvastatin Calcium 40 MG TABLET PO (09:26)
[2023-02-02] MEDS: Cholecalciferol (Vitamin D3) 25 MCG TABLET PO (09:26)
[2023-02-02] MEDS: Multivitamin TABLET 1 TAB PO (09:26)
[2023-02-02] MEDS: azaTHIOprine 50 MG TABLET PO (09:26)
[2023-02-02] MEDS: Clopidogrel Bisulfate 75 MG TABLET PO (09:26)
[2023-02-02] MEDS: ondansetron HCL 4 MG/2 ML VIAL IVPUSH ×2 (09:31→23:34)
--- NOTE | 2023-02-02 10:48 | MHC.CM.PN ---
Per discussion with MD, Patient, and Daughter/Marcelina @ [phone], anticipate dc to SNF/STR tomorrow. CM discussed bed offers today; Patient is hoping for additional offer by tomorrow. CM will follow.
--- NOTE | 2023-02-02 13:22 | MHC.CM.PN ---
Patient's first choice SNF/[facility] [place] has denied Patient r/t a Covid outbreak there.CM will follow.
[2023-02-02] MEDS: Doxycycline Hyclate 100 MG in 0.9 % Sodium Chloride 250 ML 166.67 MG IV ×2 (14:34→23:48)
[2023-02-02] MEDS: Pramipexole Di-HCL 1 MG TABLET PO (20:57)
[2023-02-02] MEDS: Rivaroxaban 20 MG TABLET PO (20:57)
[2023-02-02] MEDS: Gabapentin 300 MG CAPSULE PO (20:57)
[2023-02-02] MEDS: Latanoprost 0.005 % Ophth Sol 2.5 ML DROPS 1 DROP EYE-BOTH (20:57)
[2023-02-03] VITALS (46 sets, daily range): BP systolic 67–132; BP diastolic 26–62; PULSE 88–109; RESP 12–23; TEMP 36.2–37.2; O2SAT 87–95
--- NOTE | 2023-02-03 | ECG_ITS ---
Test Reason : ICU Evaluation Blood Pressure : / mmHG Vent. Rate : 096 BPM Atrial Rate : 000 BPM P-R Int : 000 ms QRS Dur : 090 ms QT Int : 334 ms P-R-T Axes : 000 -30 162 degrees QTc Int : 421 ms Normal sinus rhythm Left axis deviation Low voltage QRS ST & T wave abnormality, consider lateral ischemia Abnormal ECG When compared with ECG of 29-JAN-2023 18:33, ST now depressed in Lateral leads T wave inversion now evident in Lateral leads Heart rate has decreased Referred By: Marychuy Castellanos Electronically Signed By:SHARRI MOYA
[2023-02-03] MEDS: Piperacillin Sodium/Tazobactam 3.375 GM in 0.9 % Sodium Chloride 50 ML IV ×4 (01:27→18:19)
[2023-02-03] MEDS: Lactated Ringers 1,000 ML 999 ML IV ×2 (03:45→04:46)
[2023-02-03 04:17] LABS: Basophils Percent Auto 0.3 % (0-2); Eosinophils Percent Auto 0.1 % (0-4); Hematocrit 29.4 % (37.0-47.0); Hemoglobin 9.2 g/dl (12.0-16.0); Imm Gran Abs Auto 0.08 X10*3/uL (0.00-0.03); Imm Gran Pct Auto 0.7 % (0.0-0.4); Lymphocytes Absolute Auto 0.4 X10*3/uL (1.2-4.9); Lymphocytes Percent Auto 3.4 % (20-40); MANUAL DIFF FLAG SCAN; Mean Corpuscular HGB Conc 31.3 g/dl (31.0-35.0); Mean Corpuscular Volume 95.8 fL (80.0-98.0); Mean Platelet Volume 9.7 fL (9.4-12.3); Monocytes Absolute Auto 0.6 X10*3/uL (0.1-1.2); Monocytes Percent Auto 4.6 % (2-11); Neutrophils Percent Auto 90.9 % (45-73); Platelet Count 304 X10*3/uL (160-400); Red Blood Count 3.07 X10*6/uL (4.20-5.50); Red Cell Distribution Width 17.1 % (11.0-16.0); SCAN SMEAR FLAG 1; White Blood Count 12.1 X10*3/uL (4.8-10.8)
[2023-02-03 04:20] LABS: SLIDE REVIEW VERIFIED
[2023-02-03 04:24] LABS: Lactic Acid 0.8 mmol/L (0.5-2.0)
[2023-02-03 04:31] LABS: Alanine Aminotransferase 22 U/L (0-31); Albumin Level 2.4 g/dL (3.5-5.0); Alkaline Phosphatase 164 U/L (39-117); Anion Gap 24 (12-20); Aspartate Amino Transferase 35 U/L (5-31); Bilirubin Direct 0.2 mg/dL (0.0-0.5); Bilirubin Total 0.4 mg/dL (0.0-1.0); Blood Urea Nitrogen 42 mg/dL (9-16); Calcium 8.4 mg/dL (8.4-10.2); Carbon Dioxide 15 mmol/L (22-29); Chloride 108 mmol/L (96-108); Creatinine Clr Calc Pharmacy 14.7; Estimated Glomerular Filt Rate 21; Glucose Random 71 mg/dL (60-115); Sodium 143 mmol/L (135-145); Total Protein 4.7 g/dL (6.5-8.0)
[2023-02-03 04:43] LABS: Troponin-I High Sensitivity 494.3 ng/L (<3.5-17.0)
--- NOTE | 2023-02-03 06:16 | PM.EVENT ---
Event Note Date of Service: 02/03/23 Event Note: Patient became significantly hypotensive overnight. She was also complaining of right upper quadrant abdominal pain. Received 2 L of fluid, remained hypotensive. Imaging showed acute cholecystitis. Patient also has evidence of worsening kidney function. An extensive discussion with her son Goyo as well as patient who is tired but alert awake and oriented. At this time patient and son want the patient to have a a chance at fighting this infection by going through surgery, they also are agreeable to ICU admission for vasopressors. ICU attending notified, surgeon notified Time Spent With Patient Time: Total time managing care of this patient today ____ minutes.
[2023-02-03] MEDS: Norepinephrine Bitartrate/D5W 8 MG/250 ML PLAST..BAG 5.91 MG IV (06:35)
[2023-02-03] MEDS: Albumin Human 25 % 100 ML 133.33 ML IV ×2 (06:40→07:31)
--- NOTE | 2023-02-03 06:48 | W.MHC.ACPN ---
Advanced Care Planning Note Advanced Care Planning Note Discussed with: patient and family member(s) Time spent (in minutes): 30 Narrative: patient was being transferred from the floor, is completely aware of her current medical situation, might have acute cholecystitis per CT although further evaluation via ultrasound will be done, is hypotensive but otherwise alert and oriented x3, understands that at this point her blood pressure is low and she will need vasopressors, central line placement and if indeed a cholecystitis is confirmed, she will need surgery. Being said all this, the patient would like to reversed her code status from DNR DNI to full code, she had become firm this with her son Chilo Pate with whom I spoke over the phone. They are both in agreement for central line placement to be performed later on by Dr. Castellanos any if need being have her go through surgery. The above-mentioned changes to her code status have been made, the patient will be started on peripheral Levophed, given albumin and ultrasound of the abdomen pelvis will be ordered, surgical consult was also requested by the internal medicine physician. Case discussed with Dr. Castellanos total critical care time spent with family, patient for ICU transfer at this 30 minutes. Problems Discussed (1) NSTEMI (non-ST elevated myocardial infarction): (2) Sepsis: (3) Community acquired pneumonia:
[2023-02-03 07:17] LABS: Hemoglobin 8.9 g/dl (12.0-16.0); Mean Corpuscular HGB Conc 29.7 g/dl (31.0-35.0); Mean Corpuscular Hemoglobin 29.3 pg (27.0-33.0); Mean Corpuscular Volume 98.7 fL (80.0-98.0); Mean Platelet Volume 10.2 fL (9.4-12.3); Platelet Count 315 X10*3/uL (160-400); Red Blood Count 3.04 X10*6/uL (4.20-5.50); Red Cell Distribution Width 17.1 % (11.0-16.0); White Blood Count 11.4 X10*3/uL (4.8-10.8)
[2023-02-03] MEDS: Bumetanide 1 MG/4 ML VIAL IVPUSH ×2 (07:23→17:36)
--- NOTE | 2023-02-03 07:27 | PC.NURSE ---
Pt noted to be hypotensive SBP 70's-80's and complaining of new onset abdominal pain on morning vitals. Abdomen soft, tender to palpation. Covering Dr. Junior notified and to bedside; pt given 2x 1L LR boluses as ordered though pt remained hypotensive and reported I feel weak . Mentation maintained, unchanged from initial assessment. Labs obtained and results discussed with MD including critical trops, uptrending renal function. CT abdomen/pelvis ordered and obtained. Family updated by MD with this mortgage underwriter and nursing signal supervisor present at bedside. Pt and family made wishes known to escalate care to ICU for pressors and possible surgery for concerns of acute cholecystitis per discussion. Patient transported to ICU with transport rn and all pt belongings early 0600 hour.
[2023-02-03] MEDS: Albuterol/Iprat 2.5/0.5MG 3 ML AMPUL.NEB INHALE ×4 (07:30→18:53)
[2023-02-03 07:53] LABS: Lipase 31 U/L (8-78)
--- NOTE | 2023-02-03 08:33 | P.PNCC_ITS ---
Subjective Subjective Date of Service: 02/03/23 Interval History: hypotension, admitted this AM Critical Care Time (minutes): 120 Physical Exam 2 Vital Signs: Vital Signs: Last Vital Signs Temp 97.1 F 02/03/23 05:24 Pulse 101 H 02/03/23 08:19 Resp 23 H 02/03/23 07:31 BP 120/37 L 02/03/23 08:19 Pulse Ox 92 02/03/23 07:00 O2 Del Method Nasal Cannula 02/03/23 07:00 O2 Flow Rate 2 02/03/23 07:00 BMI result Body Mass Index 28.0 Const: General: cooperative, healthy appearing, comfortable, no acute distress, well developed, alert, awake and well groomed Nutritional Appearance: average body habitus Orientation/consciousness: patient oriented x3 Limitations: no limitations HEENT: Head: Yes normal to inspection, Yes normocephalic and Yes atraumatic Eyes: General: appearance normal, both eyes and all related structures P upils: Equal, round and reactive pupils present Neck: Neck: Yes normal visual inspection, Yes full ROM and Yes supple Chest: Chest palpation & inspection: normal inspection of the chest Resp: Other: some apppreciable rales left lower lung field Effort & Inspection: normal respiratory effort and able to speak in complete sentences Auscultation: no rhonchi and no wheezes Cardio: Rate: regular rate Rhythm: regular rhythm GI: Inspection: Yes normal to inspection, Yes Abdominal wall edema and No distended Palpation (GI): Soft to palpation, not firm, nontender, no guarding and not rigid Neuro: General: patient oriented x3, moves all extremities and no focal motor deficits Cranial nerves: Yes Equal, round and reactive pupils present Extrem: General: Yes normal to inspection, Yes full ROM and Yes capillary refill normal Psych: Appearance: grossly normal Objective Data Labs 02/03/23 12:00 02/03/23 04:05 Labs: Laboratory Results - last 24 hr 02/03/23 02/03/23 04:05 06:57 WBC 12.1 H 11.4 H RBC 3.07 L 3.04 L Hgb 9.2 L 8.9 L Hct 29.4 L 30.0 L MCV 95.8 98.7 H MCH 30.0 29.3 MCHC 31.3 29.7 L RDW 17.1 H 17.1 H Plt Count 304 D 315 MPV 9.7 10.2 Immature Gran % (Auto) 0.7 H Neut % (Auto) 90.9 H Lymph % (Auto) 3.4 L [place] % (Auto) 4.6 Eos % (Auto) 0.1 Baso % (Auto) 0.3 Lymph # (Auto) 0.4 L [place] # (Auto) 0.6 Eos # (Auto) 0.0 Baso # (Auto) 0.0 Abs Immat Gran (auto) 0.08 H Absolute Neuts (auto) 11.0 H Absolute Nucleated RBC 0.000 0.000 Nucleated RBC % (auto) 0.0 0.0 Smear Tech's Comments VERIFIED Sodium 143 Potassium 4.0 Chloride 108 Carbon Dioxide 15 L Anion Gap 24 H BUN 42 H Creatinine 2.25 H Estim Creat Clear Calc 14.7 Estimated GFR 21 Random Glucose 71 Lactic Acid 0.8 Calcium 8.4 D Total Bilirubin 0.4 Direct Bilirubin 0.2 AST 35 H ALT 22 Alkaline Phosphatase 164 H Troponin I High Sens 494.3 H* D Total Protein 4.7 L Albumin 2.4 L Lipase 31 Random Vancomycin 12.0 L Microbiology Microbiology Results: Microbiology 01/28/23 20:26 Blood - Venous Blood Culture - Final No growth after 5 days. 01/28/23 18:13 Blood - Venous Blood Culture - Final No growth after 5 days. 02/01/23 11:40 Sputum - Expectorated Gram Stain - Final 02/01/23 11:40 Sputum - Expectorated Sputum Culture - Final 01/26/23 14:29 Blood - Venous Blood Culture - Final No growth after 5 days. 01/26/23 14:21 Blood - Venous Blood Culture - Final No growth after 5 days. 01/26/23 Unknown Urine clean catch - Urine stephenson top Urine Culture - Final Progress Note: A&P Assessment and plan (1) NSTEMI (non-ST elevated myocardial infarction): Status: Acute (2) COPD (chronic obstructive pulmonary disease): Status: Acute (3) Pulmonary hypertension: Status: Acute (4) Bilateral pulmonary embolism: Status: Acute (5) Pneumonia: Status: Acute (6) Hypotension: Status: Acute Plan Patient is a 87 Y F with metabolic syndrome, COPD on baseline 2 L NC, SLE, and prior DVT, PE on rivaroxaban, presenting on 01/25 with fatigue, found to have pneumonia; hospital course complicated by troponinemia, intermittent hypotension; patient admitted to ICU on 02/03 due to persistent hypotension despite IV fluids and concern for volume overload N: no acute issues CV: troponinemia, previously on heparin gtt; echocardiogram 01/30 demonstrating normal systolic function, possible diastolic dysfunction; cardiology previously involved, recommended clopidogrel, rosuvastatin; to repeat echocardiogram; currently consider volume overload; to start bumetanide; currently on norpinephrine gtt; to start midodrine R: pneumonia, on many prior antibiotics, currently on vancomycin, zosyn; chest x-ray suggestive of vascular congestion; COPD on baseline 2 L NC; prior PE, on rivaroxaban GI: CT abdomen with question cholecystitis, though patient non-tender; ultrasound with pericholecystic fluid, which is likely due to anasarca, rather than cholecystitis : acute renal insufficiency, which is likely due to volume overload; bumetanide; monitor electrolytes H: leukocytosis, which may be due to infection, though patient on antibiotics since admission; multiple cultures unremarkable ID: as above; empiric vancomycin, zosyn E: random cortisol and TSH within normal limit S: of note, extensive goals of care discussion had with patient and patient's daughters, including Eve, patient's healthcare proxy; as cholecystitis is unlikely, in conjunction with general surgery, patient will unlikely go to surgery; given these updates, patient prefers to return to DNR, DNI status; celine conversation had during which it was expressed etiology of hypotension is unclear; however, in order to continue with IV vasopressors, a central line should be placed; however, patient does not want a central line, nor other interventions discussed including arterial lines, non-invasive ventilation, hemodialysis, and artificial nutrition; it was decided to trial midodrine in an attempt to wean IV vasopressors; plan to re-discuss next steps tomorrow, with hopes of weaning IV vasopressors entirely and in line with philosophy of care, avoid described interventions Quality Stroke Does the patient have a stroke diagnosis?: No VTE Prior VTE?: Yes VTE Risk Level:: Medical - moderate - high VTE Device Contraindication: Treatment Not Indicated VTE Drug Contraindication: N/A - Med Ordered
[2023-02-03 09:19] LABS: B Type Natriuretic Peptide 2148 pg/mL (<100)
[2023-02-03 09:23] LABS: Troponin-I High Sensitivity 412.5 ng/L (<3.5-17.0)
--- NOTE | 2023-02-03 09:24 | PM.CNGS ---
History of Present Illness Consult details Consult date: 02/03/23 Narrative: 87F with multiple medical problems including COPD, on O2, HTN, sanjeev, PE, pulmonary HTN, acute on chronic respiratory referred for possible acalculous cholecystitis. She has been in the hospital since Jan 26, 2023 for worsening shortness of breath, and is being managed for community acquired pneumonia. She had hypotension on Jan 29, and was diagnosed to have NSTEMI, and started on heparin drip. She has had some slow improvement, but had remained short of breath. She was noted to be hypotensive overnight and was transferred to the ED early this morning. She had mentioned some abdominal pain at that time so a CT scan was US was done showing suggestion of acute acalculous cholecystitis. She currently denies RUQ pain or tenderness on exam. She has been started on pressors. She does state that she has had a long hx of upper abdominal issues including GERD. Review of Systems Constitutional: Constitutional: Reports fatigue, Reports lethargy and Reports malaise Cardiovascular: Cardiovascular: Reports dyspnea on exertion and Reports orthopnea Respiratory: Respiratory: Reports dyspnea on exertion Gastrointestinal: Gastrointestinal: Reports heartburn and Denies diarrhea Genitourinary: Genitourinary: Denies difficulty voiding Endocrine: Endocrine: Reports fatigue PMFSH Past Medical History Medical History (Updated 02/03/23 @ 13:46 by Marychuy Castellanos MD) Acalculous cholecystitis COPD (chronic obstructive pulmonary disease) Chest discomfort Dyspnea Pleuritic chest pain Encounter for monitoring azathioprine therapy Lupus (systemic lupus erythematosus) Hiatal hernia Chronic respiratory failure Pulmonary nodules Arterial occlusive disease Left leg DVT Pulmonary nodule Iliac artery occlusion Greater saphenous vein embolism Diverticulitis Thrombus of aorta Hypercholesterolemia Restless leg Discoid lupus Osteopenia Hypertension GERD (gastroesophageal reflux disease) Anxiety Pulmonary embolism DVT (deep venous thrombosis) Family History Family History Father Hypertension Cancer Mother Hypertension Stroke CVD (cardiovascular disease) Family history: reviewed and not pertinent Surgical History Surgical History Bilateral pulmonary embolism History of toe surgery History of breast biopsy History of foot surgery History of cataract surgery History of total abdominal hysterectomy and bilateral salpingo-oophorectomy Social History Social History Household Members: None Housing: House Do you presently have visiting nurse or other home services: No Alcohol intake: never Patient Tobacco Use Status: Former Tobacco user Tobacco use type: Cigarette Years Smoked: 30 e-Cigarette/Vaping Use: Never Used Second Hand Smoke Exposure: No Advance Directives Date on File: 09/21/22 service: No Current occupational status: retired Cognitive needs: Yes Hearing needs: No Vision needs: Yes Meds Allergies Allergy/AdvReac Type Severity Reaction Status Date / Time amlodipine Allergy Unknown leg Verified 01/22/23 12:52 swelling, swelling hydroxychloroquine Allergy Unknown Affected Verified 01/22/23 12:52 [From Plaquenil] eye sight metoprolol Allergy Unknown Swelling Verified 01/22/23 12:52 Active Medications: Current Medications Acetaminophen (Acetaminophen 325 Mg Tablet) 975 mg PO TID [facility] Last Admin: 02/02/23 20:57 Dose: 975 mg Acetaminophen (Acetaminophen 325 Mg Tablet) 650 mg PO Q8H PRN PRN Reason: Headache Last Admin: 01/31/23 05:32 Dose: 650 mg Albuterol/Ipratropium (Albuterol/Iprat 2.5/0.5mg 3 Ml Ampul.Neb) 3 ml INHALE RQ4H WHILE AWAKE [facility] Last Admin: 02/03/23 07:30 Dose: 3 ml Albuterol/Ipratropium (Albuterol/Iprat 2.5/0.5mg 3 Ml Ampul.Neb) 3 ml INHALE RQ4H PRN PRN Reason: Shortness of Breath/Wheezing Last Admin: 02/02/23 05:22 Dose: 3 ml Atorvastatin Calcium (Atorvastatin Calcium 40 Mg Tablet) 40 mg PO DAILY [facility] Last Admin: 02/02/23 09:26 Dose: 40 mg Azathioprine (Azathioprine 50 Mg Tablet) 50 mg PO DAILY [facility] Last Admin: 02/02/23 09:26 Dose: 50 mg Bumetanide (Bumetanide 1 Mg/4 Ml Vial) 0.5 mg IVPUSH BID@0900,1700 [facility]; Protocol Stop: 02/03/23 17:00 Calcium Carbonate (Calcium Carbonate 500 Mg Tablet) 500 mg PO DAILY [facility] Last Admin: 02/02/23 09:26 Dose: 500 mg Capsaicin (Capsaicin 0.025% Cream 60 Gm Tube) 1 appl TOPICAL QID PRN; Protocol PRN Reason: Pain, Mild (Pain Scale 1-3) Clopidogrel Bisulfate (Clopidogrel Bisulfate 75 Mg Tablet) 75 mg PO DAILY [facility] Last Admin: 02/02/23 09:26 Dose: 75 mg Fluticasone/Umeclidinium/Vilanterol (Fluticasone/Umeclidinium/Vilanterol 100/62.5/25 Blst.W.Dev) 1 puff INHALE DAILY [facility] Last Admin: 02/02/23 07:59 Dose: 1 puff Folic Acid (Folic Acid 1 Mg Tablet) 1 mg PO DAILY [facility] Last Admin: 02/02/23 09:24 Dose: 1 mg Furosemide (Furosemide 20 Mg Tablet) 20 mg PO DAILY [facility]; Protocol Last Admin: 01/28/23 09:47 Dose: 20 mg Gabapentin (Gabapentin 300 Mg Capsule) 300 mg PO BEDTIME [facility] Last Admin: 02/02/23 20:57 Dose: 300 mg Guaifenesin (Guaifenesin 200 Mg/10 Ml 10 Ml Liquid) 10 ml PO Q4H PRN PRN Reason: Cough Last Admin: 02/02/23 18:07 Dose: 10 ml Doxycycline Hyclate 100 mg/ (Sodium Chloride) 250 mls @ 166.67 mls/hr IV Q12H [facility] Last Infusion: 02/03/23 01:18 Dose: Infused Piperacillin Sod/Tazobactam (Sod 3.375 gm/ Sodium Chloride) 50 mls @ 100 mls/hr IV Q6H [facility] Last Infusion: 02/03/23 07:56 Dose: Infused Norepinephrine Bitartrate (Levophed) 8 mg in 250 mls @ 0 mls/hr IV .Q0M [facility]; Protocol Last Titration: 02/03/23 08:19 Dose: 0.19 mcg/kg/min, 22.44 mls/hr Vancomycin HCl 500 mg/ Sodium (Chloride) 110 mls @ 110 mls/hr IV Q48H [facility] Bumetanide 25 mg/ IV (Miscellaneous Supplies) 100 mls @ 2 mls/hr IVCONT .Q24H [facility] Epinephrine 5 mg/ Dextrose 255 mls @ 0 mls/hr IVCONT .Q0M [facility]; Protocol Latanoprost (Latanoprost 0.005 % Ophth Ayana 2.5 Ml Drops) 1 drop EYE-BOTH BEDTIME [facility] Last Admin: 02/02/23 20:57 Dose: 1 drop Lidocaine (Lidocaine 4 % Patch Adh..Patch) 1 patch TRANSDERMA DAILY [facility]; Protocol Last Admin: 02/02/23 09:26 Dose: 1 patch Losartan Potassium (Losartan Potassium 50 Mg Tablet) 100 mg PO DAILY [facility]; Protocol Last Admin: 02/02/23 09:24 Dose: 100 mg Melatonin (Melatonin 3 Mg Tablet) 6 mg PO BEDTIME PRN PRN Reason: Insomnia Last Admin: 02/01/23 00:22 Dose: 6 mg Mirabegron (Mirabegron 25 Mg Tab.Er.24h) 25 mg PO DAILY [facility] Last Admin: 02/02/23 09:26 Dose: 25 mg Multivitamins/Vitamin C (Multivitamin Tablet) 1 tab PO DAILY [facility] Last Admin: 02/02/23 09:26 Dose: 1 tab Omeprazole (Omeprazole 20 Mg Capsule.Dr) 20 mg PO BID@0630,1630 [facility] Last Admin: 02/03/23 06:39 Dose: Not Given Ondansetron HCl (Ondansetron Hcl 4 Mg/2 Ml Vial) 4 mg IVPUSH Q4H PRN PRN Reason: Nausea and Vomiting Last Admin: 02/02/23 23:34 Dose: 4 mg Pharmacy Consult (Consult Rx Vancomycin Dosing) 1 each MISCELLANE DAILY PRN PRN Reason: Consult order Pramipexole Dihydrochloride (Pramipexole Di-Hcl 1 Mg Tablet) 1 mg PO BEDTIME [facility] Last Admin: 02/02/23 20:57 Dose: 1 mg Rivaroxaban (Rivaroxaban 20 Mg Tablet) 20 mg PO BEDTIME [facility] Last Admin: 02/02/23 20:57 Dose: 20 mg Sodium Chloride (0.9 % Sodium Chloride Flush 3 Ml Syringe) 3 ml IVFLUSH QSHIFT [facility] Last Admin: 02/02/23 20:57 Dose: 3 ml Vitamin D (Cholecalciferol (Vitamin D3) 25 Mcg Tablet) 25 mcg PO DAILY [facility] Last Admin: 02/02/23 09:26 Dose: 25 mcg Home Medications Medication Instructions Recorded Confirmed Last Taken Type calcium carbonate 600 mg calcium 600 mg PO DAILY 02/27/20 01/26/23 01/26/23 History (1,500 mg) tablet (Calcium) cholecalciferol (vitamin D3) 25 25 mcg PO DAILY 10/01/26/23 01/26/23 History mcg (1,000 unit) capsule mirabegron 25 mg tablet,extended 25 mg PO DAILY 02/27/20 01/26/23 01/26/23 History release 24 hr (Myrbetriq) pramipexole 1 mg tablet 1 mg PO BEDTIME 03/03/22 01/26/23 01/25/23 History Oxygen Home Use 04/11/22 01/11/23 Unknown History gabapentin 300 mg capsule 300 mg PO BEDTIME 08/16/22 01/26/23 01/26/23 History latanoprost 0.005 % eye drops 1 drp ophthalmic (eye) BEDTIME 08/16/22 01/26/23 01/25/23 History nebulizers 09/18/22 01/11/23 Unknown History ipratropium 0.5 mg-albuterol 3 mg 3 ml inhalation DAILY 09/20/22 01/26/23 01/26/23 History (2.5 mg base)/3 mL nebulization soln tramadol 50 mg tablet 50 mg PO BID PRN Pain 09/20/22 01/26/23 Unknown History albuterol sulfate 90 mcg/actuation 2 puff inhalation Q4-6H PRN 01/26/23 01/26/23 Unknown History aerosol inhaler Wheezing diclofenac sodium 1 % topical gel 2 g topical QID PRN Pain 01/26/23 01/26/23 Unknown History (Voltaren Arthritis Pain) esomeprazole magnesium 40 mg 40 mg PO DAILY 01/26/23 01/26/23 01/26/23 History capsule,delayed release multivitamin 1 tab PO DAILY 01/26/23 01/26/23 01/26/23 History rivaroxaban 20 mg tablet (Xarelto) 20 mg PO BEDTIME 01/26/23 01/26/23 01/25/23 History Physical Exam Vital Signs: Vital Signs: Last Vital Signs Temp 99.0 F 02/03/23 08:00 Pulse 102 H 02/03/23 09:00 Resp 23 H 02/03/23 09:00 BP 131/40 L 02/03/23 09:00 Pulse Ox 91 L 02/03/23 09:00 O2 Del Method Nasal Cannula 02/03/23 09:00 O2 Flow Rate 2 02/03/23 09:00 BMI result Body Mass Index 28.0 Const: Other: appears sightly short of breath, answers questions Orientation/consciousness: patient oriented x3 Resp: Other: some shortness of breath, in O2 by NC Cardio: Rate: tachycardic GI: Other: no Kim's sign currently Palpation (GI): Soft to palpation, not firm, nontender and no guarding Neuro: Other: moving extremities General: patient oriented x3 Results Labs 02/04/23 04:58 02/04/23 04:58 Labs: Abnormal lab results 02/03/23 02/03/23 02/03/23 Range/Units 04:05 06:57 08:53 WBC 12.1 H 11.4 H (4.8-10.8) X10*3/uL RBC 3.07 L 3.04 L (4.20-5.50) X10*6/uL Hgb 9.2 L 8.9 L (12.0-16.0) g/dl Hct 29.4 L 30.0 L (37.0-47.0) % MCV 98.7 H (80.0-98.0) fL MCHC 29.7 L (31.0-35.0) g/dl RDW 17.1 H 17.1 H (11.0-16.0) % Immature Gran % (Auto) 0.7 H (0.0-0.4) % Neut % (Auto) 90.9 H (45-73) % Lymph % (Auto) 3.4 L (20-40) % Lymph # (Auto) 0.4 L (1.2-4.9) X10*3/uL Abs Immat Gran (auto) 0.08 H (0.00-0.03) X10*3/uL Absolute Neuts (auto) 11.0 H (2.0-8.3) x10*3/uL Carbon Dioxide 15 L (22-29) mmol/L Anion Gap 24 H (12-20) BUN 42 H (9-16) mg/dL Creatinine 2.25 H (0.5-1.4) mg/dL AST 35 H (5-31) U/L Alkaline Phosphatase 164 H (39-117) U/L Troponin I High Sens 494.3 H* D 412.5 H* (<3.5-17.0) ng/L B-Natriuretic Peptide 2148 H (<100) pg/mL Total Protein 4.7 L (6.5-8.0) g/dL Albumin 2.4 L (3.5-5.0) g/dL Random Vancomycin 12.0 L (15-20) mcg/mL Short CBC 02/03/23 02/03/23 Range/Units 04:05 06:57 WBC 12.1 H 11.4 H (4.8-10.8) X10*3/uL Hgb 9.2 L 8.9 L (12.0-16.0) g/dl Hct 29.4 L 30.0 L (37.0-47.0) % Plt Count 304 D 315 (160-400) X10*3/uL BMP 02/03/23 04:05 Sodium 143 Potassium 4.0 Chloride 108 Carbon Dioxide 15 L BUN 42 H Creatinine 2.25 H Calcium 8.4 D Liver Function 02/03/23 Range/Units 04:05 Total Bilirubin 0.4 (0.0-1.0) mg/dL Direct Bilirubin 0.2 (0.0-0.5) mg/dL AST 35 H (5-31) U/L ALT 22 (0-31) U/L Alkaline Phosphatase 164 H (39-117) U/L Albumin 2.4 L (3.5-5.0) g/dL Urine 01/26/23 Range/Units 16:51 Urine Color Dark Yellow Urine Appearance Clear Urine pH 5.5 (5.0-9.0) Ur Specific [place] >= 1.030 H (1.005-1.025) Urine Protein 30 (1+) H (Neg-Trace) mg/dL Urine Glucose (UA) Negative (Negative) mg/dL All other labs normal. Imaging Abdomen CT scan report/results: image reviewed Abdominal ultrasound report/results: image reviewed Assessment and Plan (1) Acalculous cholecystitis: Status: Acute She has multiple medical problems, acute and chronic, and had undergone a CT scan and US early this AM showing some GB edema without gallstones suggestive of acute acalculous cholecystitis. Physical exam currently does not show tenderness on the RUQ or Kim's sign. She denies pain on the area as well. I had a long discussion with her son Chilo Pate ([phone]) as well has Belia, her neighbor who she considers as her next of kin here in the area and explained the above. The patient has multiple medical issues, and does not appear to be a reasonable candidate for surgery. Furthermore, she does not have any signficant pain and tenderness on the RUQ at this time. She has had a recent NSTEMI, and still has some elevation of her troponin. She is on anticoagulation for her PE. The plan is to continue to treat her with IV abx and bowel rest for now. She is requiring pressors currently although her BP has since been improving. One option is to do tube cholecystostomy via IR, but this intervention may not be available until Sunday. She actually had a DNR/DNI issue in effect but apparently this was rescinded by the son early this morning. The son Chilo says he is in agreement with the above plan and states he understands this well. I have discussed this patient with the Cuprous Chloride Helper. Time Spent With Patient Time: Total time managing care of this patient today ____ minutes. Procedures Date of Service Date of Service: 02/06/23
[2023-02-03 09:34] LABS: Cortisol Random 18.8 ug/dL
[2023-02-03 09:35] LABS: TSH reflex Free T4 1.34 uIU/mL (0.32-4.0)
--- NOTE | 2023-02-03 10:07 | W.MHC.ACPN ---
Advanced Care Planning Note Advanced Care Planning Note Discussed with: patient and family member(s) Time spent (in minutes): 45 Narrative: Ms. Miller was alert and oriented to person, place, and time. Ms. Miller' daughter and [id number], Casie, who is also the healthcare proxy, were present at the bedside. I offered updates and clarifications. We discussed possible etiologies of hypotension, including infectious, endocrine, and cardiovascular etiologies. I discussed that Ms. Miller' work-up has been initiated and is ongoing, though at this current time, it is unclear to me why she is hypotensive. I discussed interventions including central lines, arterial lines, non-invasive ventilation, and hemodiaysis. Ms. Miller and her daughters agree that she would not want these interventions. Furthermore, Ms. Miller expressed that she would like to continue to be DNR/DNI, especially considering she will not likely undergo surgery. Her code status was changed back to DNR/DNI. With regards to next steps, I discussed the possibility of using oral vasopressors, which Ms. Miller and her daughters were amendable to trying. Furthermore, Ms. Miller and her daughters feel that her philosophy of care is one in which she would be able to eventually go home and pass with dignity to join her , who passed months ago. I discussed I will start her on midodrine in hopes to wean off the IV vasopressors today. Problems Discussed (1) Acalculous cholecystitis:
[2023-02-03] MEDS: 0.9 % Sodium Chloride Flush 3 ML SYRINGE IVFLUSH ×3 (10:44→21:34)
[2023-02-03] MEDS: Mirabegron 25 MG TAB.ER.24H PO (10:44)
[2023-02-03] MEDS: Omeprazole 20 MG CAPSULE.DR PO (10:44)
[2023-02-03] MEDS: Midodrine HCl 10 MG TABLET PO (10:44)
[2023-02-03] MEDS: Multivitamin TABLET 1 TAB PO (10:44)
[2023-02-03] MEDS: Clopidogrel Bisulfate 75 MG TABLET PO (10:45)
[2023-02-03] MEDS: Folic Acid 1 MG TABLET PO (10:45)
[2023-02-03] MEDS: Acetaminophen 325 MG TABLET 975 MG PO ×3 (10:45→19:47)
[2023-02-03] MEDS: Atorvastatin Calcium 40 MG TABLET PO (10:45)
[2023-02-03] MEDS: Cholecalciferol (Vitamin D3) 25 MCG TABLET PO (10:46)
[2023-02-03] MEDS: azaTHIOprine 50 MG TABLET PO (10:46)
[2023-02-03] MEDS: Lidocaine 4 % Patch ADH..PATCH 1 PATCH TRANSDERMA (10:46)
[2023-02-03] MEDS: Fluticasone/Umeclidinium/Vilanterol 100/62.5/25 BLST.W.DEV 1 PUFF INHALE (11:21)
[2023-02-03 12:09] LABS: Hematocrit 27.7 % (37.0-47.0); Hemoglobin 8.6 g/dl (12.0-16.0); Mean Corpuscular Hemoglobin 29.4 pg (27.0-33.0); Mean Corpuscular Volume 94.5 fL (80.0-98.0); Mean Platelet Volume 9.5 fL (9.4-12.3); Platelet Count 355 X10*3/uL (160-400); Red Blood Count 2.93 X10*6/uL (4.20-5.50); Red Cell Distribution Width 17.1 % (11.0-16.0); White Blood Count 16.2 X10*3/uL (4.8-10.8)
[2023-02-03] MEDS: Doxycycline Hyclate 100 MG in 0.9 % Sodium Chloride 250 ML 166.67 MG IV ×2 (12:13→23:17)
[2023-02-03 12:18] LABS: Lactic Acid 0.4 mmol/L (0.5-2.0)
[2023-02-03 12:32] LABS: Alanine Aminotransferase 19 U/L (0-31); Alkaline Phosphatase 144 U/L (39-117); Anion Gap 21 (12-20); Aspartate Amino Transferase 27 U/L (5-31); Bilirubin Total 0.3 mg/dL (0.0-1.0); Blood Urea Nitrogen 45 mg/dL (9-16); Carbon Dioxide 14 mmol/L (22-29); Chloride 109 mmol/L (96-108); Creatinine Clr Calc Pharmacy 13.9; Estimated Glomerular Filt Rate 19; Glucose Random 92 mg/dL (60-115); Magnesium 2.1 mg/dL (1.6-2.6); Phosphorus 5.4 mg/dL (2.7-4.5); Potassium 3.9 mmol/L (3.3-5.1); Sodium 140 mmol/L (135-145)
--- NOTE | 2023-02-03 12:55 | PC.NURSE ---
Pt on levophed drip with goal to wean off. Per MD, titrate down is MAP is > 50.
[2023-02-03] MEDS: HYDROmorphone HCl 0.5 MG/0.5 ML SYRINGE IVPUSH (14:29)
[2023-02-03] MEDS: Midodrine HCl 5 MG TABLET 15 MG PO ×2 (16:29→19:46)
--- NOTE | 2023-02-03 18:08 | PC.NURSE ---
Pt refused bloodwork at 1805
[2023-02-03] MEDS: Bumetanide 1 MG/4 ML VIAL 2 MG IVPUSH (18:16)
[2023-02-03] MEDS: Norepinephrine Bitartrate/D5W 8 MG/250 ML PLAST..BAG 22.44 MG IV (19:44)
[2023-02-03] MEDS: Gabapentin 300 MG CAPSULE PO (19:46)
[2023-02-03] MEDS: Rivaroxaban 20 MG TABLET PO (19:47)
[2023-02-03] MEDS: Pramipexole Di-HCL 1 MG TABLET PO (19:47)
[2023-02-03] MEDS: vancomycin HCL 500 MG in 0.9 % Sodium Chloride 100 ML 110 MG IV (21:22)
[2023-02-03] MEDS: Latanoprost 0.005 % Ophth Sol 2.5 ML DROPS 1 DROP EYE-BOTH (23:19)
[2023-02-04] VITALS (20 sets, daily range): BP systolic 91–120; BP diastolic 38–69; PULSE 88–101; RESP 15–90; TEMP 36.8–37.2; O2SAT 89–95
[2023-02-04] MEDS: Piperacillin Sodium/Tazobactam 3.375 GM in 0.9 % Sodium Chloride 50 ML IV ×2 (00:50→05:48)
[2023-02-04 05:06] LABS: MANUAL DIFF FLAG NO
[2023-02-04] MEDS: ondansetron HCL 4 MG/2 ML VIAL IVPUSH (05:09)
[2023-02-04 05:11] LABS: Basophils Absolute Auto 0.1 X10*3/uL (0.0-0.2); Basophils Percent Auto 0.6 % (0-2); Eosinophils Absolute Auto 0.1 X10*3/uL (0.0-0.4); Eosinophils Percent Auto 0.6 % (0-4); Hematocrit 30.9 % (37.0-47.0); Hemoglobin 9.6 g/dl (12.0-16.0); Imm Gran Pct Auto 2.3 % (0.0-0.4); Lymphocytes Absolute Auto 0.9 X10*3/uL (1.2-4.9); Mean Corpuscular HGB Conc 31.1 g/dl (31.0-35.0); Mean Corpuscular Hemoglobin 29.6 pg (27.0-33.0); Mean Corpuscular Volume 95.4 fL (80.0-98.0); Mean Platelet Volume 9.5 fL (9.4-12.3); Monocytes Absolute Auto 0.8 X10*3/uL (0.1-1.2); Monocytes Percent Auto 4.6 % (2-11); NRBC Pct Auto 0.2 /100WBC (0.0-0.2); Neutrophils Absolute Auto 15.3 x10*3/uL (2.0-8.3); Neutrophils Percent Auto 86.9 % (45-73); Platelet Count 407 X10*3/uL (160-400); Red Blood Count 3.24 X10*6/uL (4.20-5.50); Red Cell Distribution Width 17.5 % (11.0-16.0); White Blood Count 17.6 X10*3/uL (4.8-10.8)
[2023-02-04] MEDS: Acetaminophen 325 MG TABLET 975 MG PO (05:14)
[2023-02-04] MEDS: Omeprazole 20 MG CAPSULE.DR PO (05:15)
[2023-02-04 05:22] LABS: Lactic Acid 0.5 mmol/L (0.5-2.0)
[2023-02-04 05:27] LABS: Alanine Aminotransferase 17 U/L (0-31); Albumin Level 2.7 g/dL (3.5-5.0); Alkaline Phosphatase 128 U/L (39-117); Anion Gap 17 (12-20); Aspartate Amino Transferase 25 U/L (5-31); Bilirubin Total 0.4 mg/dL (0.0-1.0); Blood Urea Nitrogen 50 mg/dL (9-16); Calcium 8.1 mg/dL (8.4-10.2); Carbon Dioxide 15 mmol/L (22-29); Chloride 107 mmol/L (96-108); Creatinine Clr Calc Pharmacy 9.9; Estimated Glomerular Filt Rate 13; Glucose Random 160 mg/dL (60-115); Potassium 3.9 mmol/L (3.3-5.1); Sodium 135 mmol/L (135-145); Total Protein 4.8 g/dL (6.5-8.0)
[2023-02-04] MEDS: Norepinephrine Bitartrate/D5W 8 MG/250 ML PLAST..BAG 21.26 MG IV (05:58)
[2023-02-04] MEDS: Albuterol/Iprat 2.5/0.5MG 3 ML AMPUL.NEB INHALE ×2 (07:44→11:19)
[2023-02-04] MEDS: Fluticasone/Umeclidinium/Vilanterol 100/62.5/25 BLST.W.DEV 1 PUFF INHALE (07:46)
[2023-02-04 08:16] LABS: Vancomycin Random 16.2 mcg/mL (15-20)
[2023-02-04] MEDS: 0.9 % Sodium Chloride Flush 3 ML SYRINGE IVFLUSH ×2 (08:37→23:53)
[2023-02-04] MEDS: Midodrine HCl 10 MG TABLET 20 MG PO (08:37)
[2023-02-04] MEDS: Atorvastatin Calcium 40 MG TABLET PO (08:37)
[2023-02-04] MEDS: Cholecalciferol (Vitamin D3) 25 MCG TABLET PO (08:38)
[2023-02-04] MEDS: azaTHIOprine 50 MG TABLET PO (08:38)
[2023-02-04] MEDS: Folic Acid 1 MG TABLET PO (08:39)
[2023-02-04] MEDS: Clopidogrel Bisulfate 75 MG TABLET PO (08:39)
[2023-02-04] MEDS: Multivitamin TABLET 1 TAB PO (08:39)
--- NOTE | 2023-02-04 08:44 | HE.PHANOTE ---
DELROY BUNCH CONTINUE CURRENT DOSING REGIMEN OF Q48H, NEXT LEVEL DUE 02/05 @1999 MARCIO
[2023-02-04] MEDS: Acetaminophen 325 MG TABLET 650 MG PO (08:46)
[2023-02-04] MEDS: Bumetanide 1 MG/4 ML VIAL IVPUSH (08:53)
--- NOTE | 2023-02-04 09:11 | P.PNCC_ITS ---
Subjective Subjective Date of Service: 02/04/23 Interval History: unfortunately no improvement of hypotension, unable to be weaned off norepinephrine gtt; no urine output, worsening renal function Critical Care Time (minutes): 90 Physical Exam 2 Vital Signs: Vital Signs: Last Vital Signs Temp 98.5 F 02/04/23 08:00 Pulse 93 02/04/23 08:00 Resp 20 02/04/23 08:00 BP 111/44 L 02/04/23 08:00 Pulse Ox 94 02/04/23 08:00 O2 Del Method Nasal Cannula 02/04/23 08:00 O2 Flow Rate 3 02/04/23 08:00 BMI result Body Mass Index 28.0 Objective Data Labs 02/04/23 04:58 02/04/23 04:58 Labs: Laboratory Results - last 24 hr 02/03/23 02/03/23 02/04/23 08:53 12:00 04:58 WBC 16.2 H 17.6 H RBC 2.93 L 3.24 L Hgb 8.6 L 9.6 L Hct 27.7 L 30.9 L MCV 94.5 95.4 MCH 29.4 29.6 MCHC 31.0 31.1 RDW 17.1 H 17.5 H Plt Count 355 407 H MPV 9.5 9.5 Immature Gran % (Auto) 2.3 H Neut % (Auto) 86.9 H Lymph % (Auto) 5.0 L [place] % (Auto) 4.6 Eos % (Auto) 0.6 Baso % (Auto) 0.6 Lymph # (Auto) 0.9 L [place] # (Auto) 0.8 Eos # (Auto) 0.1 Baso # (Auto) 0.1 Abs Immat Gran (auto) 0.40 H Absolute Neuts (auto) 15.3 H Absolute Nucleated RBC 0.000 0.040 H Nucleated RBC % (auto) 0.0 0.2 Sodium 140 135 Potassium 3.9 3.9 Chloride 109 H 107 Carbon Dioxide 14 L 15 L Anion Gap 21 H 17 BUN 45 H 50 H Creatinine 2.39 H 3.33 H Estim Creat Clear Calc 13.9 9.9 Estimated GFR 19 13 Random Glucose 92 160 H Lactic Acid 0.4 L 0.5 Calcium 8.0 L 8.1 L Phosphorus 5.4 H Magnesium 2.1 Total Bilirubin 0.3 0.4 AST 27 25 ALT 19 17 Alkaline Phosphatase 144 H 128 H Troponin I High Sens 412.5 H* B-Natriuretic Peptide 2148 H Total Protein 5.0 L 4.8 L Albumin 3.0 L 2.7 L TSH 1.34 Random Cortisol 18.8 Random Vancomycin 02/04/23 07:55 WBC RBC Hgb Hct MCV MCH MCHC RDW Plt Count MPV Immature Gran % (Auto) Neut % (Auto) Lymph % (Auto) [place] % (Auto) Eos % (Auto) Baso % (Auto) Lymph # (Auto) [place] # (Auto) Eos # (Auto) Baso # (Auto) Abs Immat Gran (auto) Absolute Neuts (auto) Absolute Nucleated RBC Nucleated RBC % (auto) Sodium Potassium Chloride Carbon Dioxide Anion Gap BUN Creatinine Estim Creat Clear Calc Estimated GFR Random Glucose Lactic Acid Calcium Phosphorus Magnesium Total Bilirubin AST ALT Alkaline Phosphatase Troponin I High Sens B-Natriuretic Peptide Total Protein Albumin TSH Random Cortisol Random Vancomycin 16.2 Microbiology Microbiology Results: Microbiology 02/03/23 04:05 Blood - Venous Blood Culture - Preliminary No growth after 24 hours. 01/28/23 20:26 Blood - Venous Blood Culture - Final No growth after 5 days. 01/28/23 18:13 Blood - Venous Blood Culture - Final No growth after 5 days. 02/01/23 11:40 Sputum - Expectorated Gram Stain - Final 02/01/23 11:40 Sputum - Expectorated Sputum Culture - Final 01/26/23 14:29 Blood - Venous Blood Culture - Final No growth after 5 days. 01/26/23 14:21 Blood - Venous Blood Culture - Final No growth after 5 days. 01/26/23 Unknown Urine clean catch - Urine stephenson top Urine Culture - Final Progress Note: A&P Assessment and plan (1) NSTEMI (non-ST elevated myocardial infarction): Status: Acute (2) COPD (chronic obstructive pulmonary disease): Status: Acute (3) Sepsis: Status: Acute (4) Pulmonary hypertension: Status: Acute (5) Hypotension: Status: Acute Plan Patient is a 87 Y F with metabolic syndrome, COPD on baseline 2 L NC, SLE, and prior DVT, PE on rivaroxaban, presenting on 01/25 with fatigue, found to have pneumonia; hospital course complicated by troponinemia, intermittent hypotension; patient admitted to ICU on 02/03 due to persistent hypotension despite IV fluids and concern for volume overload N: no acute issues CV: troponinemia, previously on heparin gtt; echocardiogram 01/30 demonstrating normal systolic function, possible diastolic dysfunction; cardiology previously involved, recommended clopidogrel, rosuvastatin; to repeat echocardiogram; currently consider volume overload; to start bumetanide; currently on norpinephrine gtt; to start midodrine R: pneumonia, on many prior antibiotics, currently on vancomycin, zosyn; chest x-ray suggestive of vascular congestion; COPD on baseline 2 L NC; prior PE, on rivaroxaban GI: regular diet : acute renal insufficiency, which is likely due to volume overload, worsening; bumetanide without urine output; bladder scans; monitor electrolytes; H: leukocytosis, which may be due to infection, though patient on antibiotics since admission; multiple cultures unremarkable ID: as above; empiric vancomycin, zosyn E: random cortisol and TSH within normal limit S: patient's son and now healthcare proxy, Chilo, to arrive this AM; plan for ongoing goals of care discussion today Quality Stroke Does the patient have a stroke diagnosis?: No VTE Prior VTE?: Yes VTE Risk Level:: Medical - moderate - high VTE Device Contraindication: Treatment Not Indicated VTE Drug Contraindication: N/A - Med Ordered
--- NOTE | 2023-02-04 09:27 | MHC.CM.PN ---
Pt continues care in ICU: unable to wean from Pressors: condition very guarded. SNF d/c likely: referrals have been made - to follow for finalization of d/c needs.
[2023-02-04] MEDS: Lidocaine 4 % Patch ADH..PATCH 1 PATCH TRANSDERMA (10:12)
--- NOTE | 2023-02-04 11:19 | P.ACPN_ITS ---
Advanced Care Planning Note Advanced Care Planning Note Discussed with: patient and family member(s) Time spent (in minutes): 30 Narrative: Ms. Miller' son and healthcare proxy, Chilo, and his partner, Carlie, were present at bedside this morning. I offered updates and clarifications, specifically that Ms. Miller has worsening renal failure and remains hypotensive despite starting PO vasopressors. I expressed that Ms. Miller is unfortunately in organ failure. We discussed comfort-focused care. It was decided that Ms. Miller' philosophy of care at this point in time is management of her symptoms, including pain, dyspnea, and nausea, and that we will transition to comfort- focused care at this time. I encouraged Chilo and Carlie to notify Ms. Miller' loved ones who would like to see her in the hospital as soon as they are able. Problems Discussed (1) NSTEMI (non-ST elevated myocardial infarction): (2) COPD (chronic obstructive pulmonary disease): (3) Sepsis: (4) Pulmonary hypertension: (5) Hypotension:
[2023-02-04] MEDS: Scopolamine 1.5 MG PATCH.TD.3 TRANSDERMA (12:07)
[2023-02-04] MEDS: HYDROmorphone HCl/NS 10 MG/50 ML PIGGYBACK 2 MG IV (13:07)
[2023-02-04] MEDS: LORazepam 2 MG/ML VIAL 1 MG IVPUSH (13:25)
--- NOTE | 2023-02-04 13:44 | PM.EVENT ---
Event Note Date of Service: 02/04/23 Event Note: dw Decorator Consultant service pt has been transitioned to comfort-focused care only as per her wishes she is in multiorgan failure family in room Time Spent With Patient Time: Total time managing care of this patient today ____ minutes.
[2023-02-05] VITALS (10 sets, daily range): PULSE 81–92; RESP 7–11; O2SAT 87–89
[2023-02-05] MEDS: HYDROmorphone HCl/NS 10 MG/50 ML PIGGYBACK 2 MG IV (02:11)
--- NOTE | 2023-02-05 15:41 | MHC.CM.PN ---
EMR REVIEWED. PT IS NOW LINE PATROLMAN STATUS, IN MULTI-ORGAN FAILURE. CM CONTINUES TO FOLLOW.
[2023-02-05 17:58] LABS: Strep Pneumo Ag urine Not Detected (Not Detected)
--- NOTE | 2023-02-05 22:02 | PM.EVENT ---
Event Note Date of Service: 02/05/23 Event Note: Ms. Miller was transitioned to comfort-focused care only as per her wishes due to?multiorgan failure. ?At 2031 the patient became pulseless showing asystole on the monitor.? Absent peripheral pulses.? Pupils fixed and dilated.? Absent heart sounds and no spontaneous breathing. Time of 2031. She was surrounded by family at the bedside.? The patient is not a medical exam candidate.? Organ donation was notified by nursing. Attending physician Dr. Briones notified.? Time Spent With Patient Time: Total time managing care of this patient today ____ minutes.
[2023-02-06 05:03] LABS: Legionella Ag Urine Not Detected (Not Detected)
--- NOTE | 2023-02-06 21:10 | P.DN_ITS ---
Discharge Sum: Prov Provider Primary care physician: Fabio Stuart MD Admitting clinician: Josephine Tolbert Attending physician on admission: Kevin Carballo Consults: General Surgery Dr Manzanares Critical Care Dr Castellanos Pronouncing clinician: Tierra Mike Discharge Sum: Diag PCOD Cause of : Multiple organ failure Contributing Factors (1) Acute renal failure: (2) Uremia: (3) NSTEMI (non-ST elevated myocardial infarction): (4) COPD (chronic obstructive pulmonary disease): (5) Sepsis: (6) Pulmonary hypertension: (7) Hypotension: Discharge Sum: Summary Date and Time Date of admission: 01/26/23 19:50 Date of : 02/05/23 Time of : 20:32 Summary Details: The patient is an 87 year-old female with medical history significant for metabolic syndrome, COPD on baseline 2 L NC, SLE, and prior DVT, PE on rivaroxaban, who presented with fatigue and found to have pneumonia. Her hospital course was complicated by troponinemia, intermittent hypotension and acute cholecystitis.. She was admitted to ICU on 02/03 due to persistent hypotension despite IV fluids and concern for volume overload. She was started on a norepinephrine gtt and unfortunately had no improvement of hypotension, no urine output, and worsening renal function. Extensive goals of care discussions were had with the patient and her healthcare proxy. They were made aware that Ms. Miller was unfortunately in organ failure. The patient did not wish to have i nterventions such as a central line, arterial line, noninvasive ventilation, hemodialysis, or artificial nutrition. The patient and family decided to transition to comfort focused care and management of her symptoms including pain, dyspnea, and nausea. HCP was encouraged to notify family and loved ones to see the patient in hospital as they were able. In the evening 02/05/2023, the patient became pulseless showing asystole on the monitor.? She had absent peripheral pulses, pupils were fixed and dilated,? absent heart sounds and no spontaneous breathing. Time of 2031. She was surrounded by family at the bedside. Additional Data Confirmation of as documented by pronouncing clinician: no pulse, no respirations, no heart sounds and pupils fixed and dilated Family: at bedside Attending/PCP notified?: Yes Attending physician: Yemi Briones MD Was code activated?: No Autopsy requested?: No finished yarn examiner notified?: No Organ bank notified?: Yes Advance directives: Yes Hospice patient?: No
== END 2023-02-05 23:39 | disposition expired | DRG 871 ==
LOC: HO.ED 19:25 → HO.EDOVER 21:25 → HO.IMC 01-27 07:39 → HO.ICU 02-03 06:33
PROVIDERS: Internal Medicine; Internal Medicine Critical Care Medicine; Physician Assistant; Physician Assistant Medical; Admitting Provider Student in an Organized Health Care Education/Training Program; Emergency Provider Emergency Medicine; PCP Internal Medicine; Visit Provider Internal Medicine Cardiovascular Disease
DX: A41.9 Sepsis, unspecified organism (principal); I21.A1 Myocardial infarction type 2; J18.9 Pneumonia, unspecified organism; J96.10 Chronic respiratory failure, unspecified whether with hypoxia or hypercapnia; N17.9 Acute kidney failure, unspecified; D84.9 Immunodeficiency, unspecified; Z66 Do not resuscitate; I10 Essential (primary) hypertension; J43.9 Emphysema, unspecified; M32.9 Systemic lupus erythematosus, unspecified; I95.9 Hypotension, unspecified; I27.20 Pulmonary hypertension, unspecified; E88.810 Metabolic syndrome; E78.00 Pure hypercholesterolemia, unspecified; Z87.891 Personal history of nicotine dependence; Z20.822 Contact with and (suspected) exposure to COVID-19; Z86.711 Personal history of pulmonary embolism; Z79.01 Long term (current) use of anticoagulants; Z79.51 Long term (current) use of inhaled steroids; Z79.624 Long term (current) use of inhibitors of nucleotide synthesis; Z79.899 Other long term (current) drug therapy
CPT/HCPCS: 0241U; 36415; 71045; 71250; 71260; 71275; 74176; 74177; 76705; 80048; 80053; 80076; 80202; 81001; 82533; 82565; 83605; 83690; 83735; 83880; 84100; 84145; 84443; 84484; 85025; 85027; 85610; 85730; 87040; 87070; 87086; 87205; 87449; 87633; 87640; 87641; 87651; 87899; 93005; 93308; 94640; 97116; 97162; 97530; 99285; J0456; J0696; J1170; J1643; J2060; J2270; J2405; J2543; J3370; J3371; P9047; Q9957; Q9967

== ENCOUNTER → 2023-01-26 14:24 | Outpatient (BNV) | payer MEDICARE, OTHER, SELFPAY | PROVIDERS: Emergency Provider Emergency Medicine; PCP Internal Medicine; Visit Provider Student in an Organized Health Care Education/Training Program | DX: I21.4 Non-ST elevation (NSTEMI) myocardial infarction (principal); A41.9 Sepsis, unspecified organism; J18.9 Pneumonia, unspecified organism | CPT/HCPCS: 99223; 99232; 99233; 99499 ==

== ENCOUNTER 2023-01-26 19:50 | Outpatient (BNV) | payer MEDICARE, OTHER, SELFPAY | END 2023-01-30 07:00 | PROVIDERS: Admitting Provider Student in an Organized Health Care Education/Training Program; Emergency Provider Emergency Medicine; PCP Internal Medicine; Visit Provider Internal Medicine Cardiovascular Disease | DX: I21.4 Non-ST elevation (NSTEMI) myocardial infarction (principal) | CPT/HCPCS: 93308 ==

== ENCOUNTER → 2023-01-26 19:50 | Outpatient (BNV) | payer MEDICARE, OTHER, SELFPAY | PROVIDERS: Admitting Provider Student in an Organized Health Care Education/Training Program; Emergency Provider Emergency Medicine; PCP Internal Medicine; Visit Provider Internal Medicine Cardiovascular Disease | DX: I21.4 Non-ST elevation (NSTEMI) myocardial infarction (principal) | CPT/HCPCS: 99222; 99233 ==

== ENCOUNTER → 2023-01-26 19:50 | Outpatient (BNV) | payer MEDICARE, OTHER, SELFPAY | PROVIDERS: Admitting Provider Student in an Organized Health Care Education/Training Program; Emergency Provider Emergency Medicine; PCP Internal Medicine; Visit Provider Internal Medicine | DX: J18.9 Pneumonia, unspecified organism (principal); J96.21 Acute and chronic respiratory failure with hypoxia; I26.99 Other pulmonary embolism without acute cor pulmonale; L93.0 Discoid lupus erythematosus | CPT/HCPCS: 99223 ==

== ENCOUNTER → 2023-01-26 19:50 | Outpatient (BNV) | payer MEDICARE, OTHER, SELFPAY | PROVIDERS: Admitting Provider Student in an Organized Health Care Education/Training Program; Emergency Provider Emergency Medicine; PCP Internal Medicine; Visit Provider Internal Medicine | DX: A41.9 Sepsis, unspecified organism (principal); J18.9 Pneumonia, unspecified organism | CPT/HCPCS: 99222 ==

== ENCOUNTER → 2023-01-26 19:50 | Outpatient (BNV) | payer MEDICARE, OTHER, SELFPAY | PROVIDERS: Admitting Provider Student in an Organized Health Care Education/Training Program; Emergency Provider Emergency Medicine; PCP Internal Medicine; Visit Provider Physician Assistant Medical | DX: I21.4 Non-ST elevation (NSTEMI) myocardial infarction (principal); J44.9 Chronic obstructive pulmonary disease, unspecified; A41.9 Sepsis, unspecified organism; I27.20 Pulmonary hypertension, unspecified; I95.9 Hypotension, unspecified | CPT/HCPCS: 99221; 99291; 99292 ==

== ENCOUNTER → 2023-01-26 19:50 | Outpatient (BNV) | payer MEDICARE, OTHER, SELFPAY | PROVIDERS: Admitting Provider Student in an Organized Health Care Education/Training Program; Emergency Provider Emergency Medicine; PCP Internal Medicine; Visit Provider Surgery | DX: K81.9 Cholecystitis, unspecified (principal) | CPT/HCPCS: 99223; 99499 ==